=== PATIENT | female | born 1980 | race Two or more races ===

== ENCOUNTER → 2022-12-23 14:53 | Outpatient (BNVA) | payer OTHER, SELFPAY | PROVIDERS: Visit Provider Physician Assistant Surgical ==

== ENCOUNTER → 2023-01-06 08:07 | Outpatient (BNVA) | payer OTHER, SELFPAY | PROVIDERS: Visit Provider Surgery ==

== ENCOUNTER 2023-01-08 07:47 | Outpatient (AMB) | payer OTHER, SELFPAY ==
--- OUTSIDE RECORDS SUMMARY | 2023-01-06 08:09 | XMS_ITS | Continuity of Care Document ---
Author Name Unknown Organization [facility] y Address [address] [place] [address]- Care Team Providers Care Press Supervisor Name Role Phone Kehinde DOHERTY, [facility] Primary Care Physician Encounter [facility] [place] Date(s): 01/09/21 - 02/08/21 [facility] [address], [place] [address] Attending Physician: Jt Santana Admitting Physician: AdmJt lea Referring Physician: AdmtrJt Allergies, Adverse Reactions, Alerts Substance Reaction Severity Status Bactrim C/O: itching Active Immunizations Given and Recorded Vaccine Date Status Refusal Reason diphtheria-tetanus toxoids (DT) 03/22/02 Given Not Given Vaccine Date Status Refusal Reason pneumococcal 23-valent vaccine 12/14/12 Not Given Patient Refuses influenza virus vaccine, inactivated 12/14/12 Not Given Parent Or Guardian Refuses Medications clonazePAM 0.5 mg oral tablet 1 tablet = 0.5 mg, By Mouth, 3 times a day, # 90 tablet, 2 Refills, Maintenance, 10/14/20 13:23:00 EDT, Tablet, [facility], 166.5, cm, 09/10/20 8:11:00 EDT, Height, 107, kg, 11/21/2020:00:00 EDT, Dry Weight Start Date: 10/14/20 Stop Date: 01/12/21 Status: Ordered dapsone 100 mg oral tablet 1 tablet = 100 mg, By Mouth, Daily, # 30 tablet, 0 Refills, Maintenance, 06/27/20 10:11:00 EDT, [facility] upon patient request if the prescription is for a schedule II opioid drug., 166.5, cm, 06/27/20 9:31:00 ED... Start Date: 06/27/20 Status: Ordered gabapentin 400 mg oral capsule 400 mg, 1, capsule, By Mouth, 3 times a day, # 42 capsule, Refills 6, Tot. Refills 6, Maintenance, 06/18/20 8:10:00 EDT, Route to Pharmacy Electronically, [facility], 166.5, cm, 06/18/20 7:58:00 EDT, Height, 107, kg, 11/22/19 21:00:00... Start Date: 06/18/20 Stop Date: 09/24/20 Status: Ordered Genvoya oral tablet 1 tablet, By Mouth, Daily, WITH FOOD., # 30 tablet, 3 Refills, Maintenance, 12/29/20 16:31:00 EDT, [facility], 1 tablet By Mouth Daily,x30 days,Instr:WITH FOOD., 167, cm, 12/11/20 14:48:00 EDT, Height, 107, kg, 11/22/19 21:00:00 EDT, D... Start Date: 12/29/20 Stop Date: 04/28/21 Status: Ordered hydrOXYzine hydrochloride 25 mg oral tablet See Instructions, TAKE 1 TABLET BY MOUTH FOUR TIMES A DAY NEEDED FOR ANXIETY, # 60 tablet, 1 Refills, [facility], 166.5, cm, 11/06/20 15:04:00 EDT, Height, 107, kg, 11/22/19 21:00:00 EDT, Dry Weight Start Date: 11/27/20 Status: Ordered zolpidem 10 mg oral tablet 1 tablet = 10 mg, By Mouth, Daily at bedtime, PRN as needed for insomnia, # 28 tablet, 3 Refills, Maintenance, 10/18/20 16:32:00 EDT, Tablet, [facility], 166.5, cm, 09/10/20 8:11:00 EDT, Height, 107, kg, 11/22/19 21:00:00 EDT, Dry Weight Start Date: 10/18/20 Stop Date: 02/07/21 Status: Ordered Problem List Condition Effective Dates Status Health Status Inform ant AIDS (acquired immune defici ency syndrome)(Confirmed) Active Anemia(Confirmed) Active Anxiety(Confirmed) Active 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 teratoma(Confirmed) Active Depression(Confirmed) Active Eczema(Confirmed) Active History of delivery(Confirmed) Active Hydradenitis(Confirmed) Active Obesity due to excess calories(Confirmed) Active Tobacco abuse(Confirmed) Active Poor dentition(Confirmed) Active Poor hygiene(Confirmed) Active Social History Social History Type Response Smoking Status 10 or more cigarette s (1/2 pack or more)/day in last 30 days entered on: 11/06/20 Sex Female
--- OUTSIDE RECORDS SUMMARY | 2023-01-06 08:09 | XMS_ITS | Continuity of Care Document ---
Author Name Unknown Organization [facility] Address [address] [place] [address]- Care Team Providers Care Supervisor Meter Repair Shop Name Role Phone Maurilio Ramirez MD Primary Care Physician Encounter [facility] [place] R [id number] Date(s): 04/30/20 - 06/13/20 [facility] [address], [place] [address] Attending Physician: Maurilio Ramirez MD Admitting Physician: Maurilio Ramirez MD Allergies, Adverse Reactions, Alerts Substance Reaction Severity [...] 3 times a day, # 90 tablet, 3 Refills, Maintenance, 04/26/20 8:05:00 EST, Tablet, [facility], 166.5, cm, 11/30/19 10:56:00 EDT, Height, 107, kg, 11/22/19 21:00:00 EDT, Dry Weight Start Date: 04/26/20 Stop Date: 08/24/20 Status: Ordered gabapentin 400 mg oral capsule 400 mg, 1, capsule, By Mouth, 3 times a day, # 42 capsule, Refills 0, Tot. Refills 0, Maintenance, 11/23/19 13:41:00 EDT, Route to Pharmacy Electronically, [facility], 166.5, cm, 11/23/19 13:20:00 EDT, Height, 107, kg, 11/22/19 21:00:0... Start Date: 11/23/19 Stop Date: 12/07/19 Status: Ordered Genvoya oral tablet 1 tablet, By Mouth, Daily, WITH FOOD., # 30 tablet, 3 Refills, Maintenance, 04/25/20 14:22:00 EST, [facility], [facility], TAKE 1 TABLET BY MOUTH EVERY DAY WITH FOOD, 166.5, cm, 11/30/19 10:56:00 EDT, Height, 107, kg, 11/22/19 21:00:00 EDT, Dry Weight Start Date: 04/25/20 Status: Ordered Hibiclens 4% soap See Instructions, 1 applicator Topically daily to axilla, # 240 mL, 0 Refills, Soft Stop, 01/18/20 10:21:00 EDT, [facility]., 1 applicator Topically daily to axilla, 166.5, cm, 11/30/19 10:56:00 EDT, Height, 107, kg, 11/22/19 21:00:00 E... Start Date: 01/18/20 Status: Ordered Multivitamins with Folic Acid 1 mg oral tablet 1 tablet, By Mouth, Daily, pt would like pink tabs, not white, # 90 tablet, 4 Refills, Maintenance,12/07/19 10:00:00 EDT, Tablet, [facility]., 1 tablet By Mouth Daily,Instr:pt would like pink tabs, not white, 166.5, cm, 11/30/19 10:56:... Start Date: 12/07/19 Status: Ordered traMADol 50 mg oral tablet 1 tablet = 50 mg, By Mouth, Every 8 hours, prn severe pain, # 24 tablet, 0 Refills, Maintenance, 12/07/19 9:58:00 EDT, [facility] 166.5, cm, 11/30/19 10:56:00 EDT, Height, 107, kg, 11/22/19 21:00:00 EDT, Dry Weight Start Date: 12/07/19 Status: Ordered zolpidem 10 mg oral tablet 1 tablet = 10 mg, By Mouth, Daily at bedtime, PRN as needed for insomnia, # 30 tablet, 0 Refills, Maintenance, 04/26/20 8:05:00 EST, Tablet, [facility], 166.5, cm, 11/30/19 10:56:00 EDT, Height, 107, kg, 11/22/19 21:00:00 EDT, Dry Weight Start Date: 04/26/20 Stop Date: 05/26/20 Status: Ordered Problem List Condition Effective Dates Status Health Status Inform ant AIDS (acquired immune defici ency syndrome)(Confirmed) Active Anxiety(Confirmed) Active 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 teratoma(Confirmed) Active Depression(Confirmed) Active Eczema(Confirmed) Active History of delivery(Confirmed) Active Hydradenitis(Confirmed) Active Obesity due to excess calories(Confirmed) Active Tobacco abuse(Confirmed) Active Poor dentition(Confirmed) Active Poor hygiene(Confirmed) Active Social History Social History Type Response Smoking Status Current every day andreina judge; Type: Cigarettes; Tobacco use times per day: a pack every couple days; entered on: 05/31/14 Sex Female
--- OUTSIDE RECORDS SUMMARY | 2023-01-06 08:09 | XMS_ITS | Continuity of Care Document ---
Author Name Unknown Organization [facility] ter Address [address] [place] [address]- Care Team Providers Care Inside Technical Sales Representative Name Role Phone Stanford MCNEAL, Shea Smith Primary Care Physician Encounter [facility] [place] Date(s): 03/09/19 - 03/09/[address] [address]- [facility] Attending Physician: Shea Coyne NP Allergies, Adverse Reactions, Alerts Substance Reaction Severity Status Bactrim C/O: itching Active Immunizations Given and Recorded Vaccine Date Status Refusal Reason diphtheria-tetanus toxoids (DT) 03/22/02 Given Not Given Vaccine Date Status Refusal Reason influenza virus vaccine, inactivated 12/14/12 Not Given Parent Or Guardian Refuses pneumococcal 23-valent vaccine 12/14/12 Not Given Patient Refuses Medications Ambien 10 mg oral tablet 1 tablet = 10 mg, By Mouth, Daily at bedtime, PRN as needed for insomnia, for 30 days, # 30 tablet,5 Refills, Acute 04/25/19 12:25:53 EST, 10/27/18 12:25:53 EDT, Tablet Start Date: 10/27/18 Stop Date: 04/25/19 Status: Ordered clonazePAM 0.5 mg oral tablet 1 tablet = 0.5 mg, By Mouth, 3 times a day, # 90 tablet, 3 Refills, Maintenance, 10/27/18 12:23:50 EDT, Tablet Start Date: 10/27/18 Stop Date: 02/24/19 Status: Ordered gabapentin 100 mg oral capsule 200 mg, 2, capsule, By Mouth, Daily at bedtime, # 60 capsule, Refills 1, Tot. Refills 1, Maintenance, 10/27/18 12:22:39 EDT, Route to Pharmacy Electronically, [id number], [facility]/pharmacy #[id number] Start Date: 10/27/18 Stop Date: 12/26/18 Status: Ordered Genvoya oral tablet 1 tablet, By Mouth, Daily, with food, # 30 tablet, 5 Refills, Maintenance, 10/27/18 12:30:59 EDT, Tablet, 1 tablet By Mouth Daily,x30 days,Instr:with food Start Date: 10/27/18 Stop Date: 04/25/19 Status: Ordered Hibiclens 4% soap See Instructions, 1 applicator Topically Every Wednesday and Wednesday, # 120 mL, 1 Refills, Soft Stop, 06/07/18 15:33:34 EDT, 1 applicator Topically Every Wednesday and Wednesday Start Date: 06/07/18 Status: Ordered Multivitamins with Folic Acid 1 mg oral kit 1 pack/packet, By Mouth, Daily, patient would like pink tablets not the white ones please, # 30 pack/packet, 11 Refills, Maintenance, 11/09/17 15:14:41 EDT, Dispense form covered by pt's insurance. Plus is OK., 1 pack/packet By Mouth Daily,x3... Start Date: 11/09/17 Stop Date: 11/04/18 Status: Ordered valacyclovir 1 gm oral tablet 1 tablet = 1 Gm, By Mouth, 2 times a day, # 14 tablet, 0 Refills, Maintenance, 10/27/18 12:28:46 EDT, Tablet Start Date: 10/27/18 Status: Ordered Vitamin D 60479 iu oral capsule 50,000 International_Units, 1, capsule, By Mouth, Every week, # 5 capsule, Refills 1, Tot. Refills 1, Maintenance, 06/08/18 6:27:29 EDT, Route to Pharmacy Electronically, [id number], [facility] Start Date: 06/08/18 Stop Date: 08/07/18 Status: Ordered Problem List Condition Effective Dates [...]
--- OUTSIDE RECORDS SUMMARY | 2023-01-06 08:09 | XMS_ITS | Continuity of Care Document ---
Author Name Unknown Organization [facility] Address [address] [place] [address]- Care Team Providers Care Healthcare Manager Name Role Phone Dayton Busby MD Primary Care Physician Encounter [facility] [place] Date(s): 05/26/21 - 06/25/21 [facility] [address] [place] [id number] Attending Physician: Jt Santana Admitting Physician: Jt Santana Referring Physician: Jt Santana Allergies, Adverse Reactions, Alerts Substance Reaction Severity Status Bactrim C/O: itching Active Immunizations Given and Recorded Vaccine Date Status Refusal Reason diphtheria-tetanus toxoids (DT) 03/22/02 Given Not Given Vaccine Date Status Refusal Reason pneumococcal 23-valent vaccine 12/14/12 Not Given Patient Refuses influenza virus vaccine, inactivated 12/14/12 Not Given Parent Or Guardian Refuses Medications dapsone 100 mg oral tablet 1 tablet = 100 mg, By Mouth, Daily, # 30 tablet, 0 Refills, Maintenance, 06/27/20 10:11:00 EDT, Tablet, [facility], Partial fill upon patient request if the prescription is for a schedule II opioid drug., 166.5, cm, 06/27/20 9:31:00 ED... Start Date: 06/27/20 Status: Ordered gabapentin 400 mg oral capsule 400 mg, 1, capsule, By Mouth, 3 times a day, # 42 capsule, Refills 6, Tot. Refills 6, Maintenance, 06/18/20 8:10:00 EDT, Route to Pharmacy Electronically, [facility]., 166.5, cm, 06/18/20 7:58:00 EDT, Height, 107, kg, 11/22/19 21:00:00... Start Date: 06/18/20 Stop Date: 09/24/20 Status: Ordered Genvoya oral tablet 1 tablet, By Mouth, Daily, WITH FOOD., # 30 tablet, 3 Refills, Maintenance, 12/29/20 16:31:00 EDT, [facility] 1 tablet By Mouth Daily,x30 days,Instr:WITH FOOD., 167, cm, 12/11/20 14:48:00 EDT, Height, 107, kg, 11/22/19 21:00:00 EDT, D... 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 teratoma(Confirmed) Active Depression(Confirmed) Active Eczema(Confirmed) Active History of delivery(Confirmed) Active Hydradenitis(Confirmed) Active Obesity due to excess calories(Confirmed) Active Severe obesity(Confirmed) Active Tobacco abuse(Confirmed) Active Poor dentition(Confirmed) Active Poor hygiene(Confirmed) Active Social History Social History Type Response Smoking Status 10 or more cigarette s (1/2 pack or more)/day in last 30 days entered on: 11/06/20 Sex Female
--- OUTSIDE RECORDS SUMMARY | 2023-01-06 08:09 | XMS_ITS | Continuity of Care Document ---
Author Name Unknown Organization [facility] Address [address] [place] [address]- Care Team Providers Care Pockets And Pieces Necktie Operator Name Role Phone Ashley DOHERTY, Maurilio Burnett Primary Care Physician [phone] Encounter [facility] Date(s): 06/18/20 - 07/18/20 [facility] [address] [place], [place] [address] Attending Physician: Jt Santana Admitting Physician: Jt Santana Referring Physician: AdmJt lea Allergies, Adverse Reactions, Alerts Substance Reaction Severity [...] 3 times a day, # 90 tablet, 0 Refills, Maintenance, 06/18/20 8:26:00 EDT, Tablet, [facility], 166.5, cm, 06/18/20 7:58:00 EDT, Height, 107, kg, 11/22/19 21:00:00 EDT, Dry Weight Start Date: 06/18/20 Stop Date: 07/18/20 Status: Ordered dapsone 100 mg oral tablet 1 tablet = 100 mg, By Mouth, Daily, # 30 tablet, 0 Refills, Maintenance, 06/27/20 10:11:00 EDT, Tablet, [facility], Partial fill upon patient request if the prescription is for a schedule II opioid drug., 166.5, cm, 06/27/20 9:31:00 ED... Start Date: 06/27/20 Status: Ordered gabapentin 400 mg oral capsule 400 mg, 1, capsule, By Mouth, 3 times a day, # 42 capsule, Refills 6, Tot. Refills 6, Maintenance, 06/18/20 8:10:00 EDT, Route to Pharmacy Electronically, [facility], 166.5, cm, 06/18/20 7:58:00 EDT, Height, 107, kg, 11/22/19 21:00:00... Start Date: 06/18/20 Stop Date: 09/24/20 Status: Ordered Genvoya oral tablet 1 tablet, By Mouth, Daily, WITH FOOD., # 30 tablet, 3 Refills, Maintenance, 04/25/20 14:22:00 EST, [facility], 30, TAKE 1 TABLET BY MOUTH EVERY DAY WITH FOOD, 166.5, cm, 11/30/19 10:56:00 EDT, Height, 107, kg, 11/22/19 21:00:00 EDT, Dry Weight Start Date: 04/25/20 Status: Ordered zolpidem 10 mg oral tablet 1 tablet = 10 mg, By Mouth, Daily at bedtime, PRN as needed for insomnia, # 30 tablet, 0 Refills, Maintenance, 06/18/20 8:26:00 EDT, Tablet, [facility], 166.5, cm, 06/18/20 7:58:00 EDT, Height, 107, kg, 11/22/19 21:00:00 EDT, Dry Weight Start Date: 06/18/20 Stop Date: 07/18/20 Status: Ordered Problem List Condition Effective Dates [...]
--- OUTSIDE RECORDS SUMMARY | 2023-01-06 08:09 | XMS_ITS | Continuity of Care Document ---
Author Name Unknown Organization [facility] y Address [address] [place] [address]- Care Team Providers Care Horticulturalist Name Role Phone Dayton Busby MD Primary Care Physician [place] [facility] [place] - 07/05/21 [facility] [address], [place] [address] Attending Physician: Ovidio Sawyer MD Admitting Physician: Ovidio Sawyer MD Allergies, Adverse Reactions, Alerts Substance Reaction [...] 0 Refills, Maintenance, 06/27/20 10:11:00 EDT, Tablet, [facility], Partial fill upon patient request if the prescription is for a schedule II opioid drug., 166.5, cm, 06/27/20 9:31:00 ED... Start Date: 06/27/20 Status: Ordered gabapentin 400 mg oral capsule 400 mg, 1, capsule, By Mouth, 3 times a day, # 42 capsule, Refills 6, Tot. Refills 6, Maintenance, 06/18/20 8:10:00 EDT, Route to Pharmacy Electronically, [facility]., 166.5, cm, 06/18/20 7:58:00 EDT, Height, 107, kg, 11/22/19 21:00:00... Start Date: 06/18/20 Stop Date: 09/24/20 Status: Ordered Genvoya oral tablet 1 tablet, By Mouth, Daily, WITH FOOD., # 30 tablet, 3 Refills, Maintenance, 12/29/20 16:31:00 EDT, [facility] 1 tablet By Mouth Daily,x30 days,Instr:WITH FOOD., 167, cm, 12/11/20 14:48:00 EDT, Height, 107, kg, 11/22/19 21:00:00 EDT, D... Start Date: 12/29/20 Stop Date: 04/28/21 Status: Ordered hydrOXYzine hydrochloride 25 mg oral tablet 1 tablet, By Mouth, 4 times a day, PRN NEEDED FOR ANXIETY, # 60 tablet, 1 Refills, [facility], 167, cm, 05/21/21 13:49:00 EST, Height, 107, [...]
--- OUTSIDE RECORDS SUMMARY | 2023-01-06 08:09 | XMS_ITS | Continuity of Care Document ---
Author Name Unknown Organization [facility] Address [address] [place] [address]- Care Team Providers Care Water Vessel Captain Name Role Phone Kehinde DOHERTY, [place] Primary Care Physician Encounter [facility] [place] Date(s): 07/23/21 - 08/22/21 [facility] [address] [place], [place] [address] Allergies, Adverse Reactions, Alerts Substance Reaction Severity Status Bactrim C/O: itching Active Immunizations Given and Recorded Vaccine Date Status Refusal Reason diphtheria-tetanus toxoids (DT) 03/22/02 Given Not Given Vaccine Date Status Refusal Reason pneumococcal 23-valent vaccine 12/14/12 Not Given Patient Refuses influenza virus vaccine, inactivated 12/14/12 Not Given Parent Or Guardian Refuses Medications Ambien 10 mg oral tablet 1 tablet = 10 mg, By Mouth, Daily at bedtime, PRN as needed for insomnia, 0 Refills, Maintenance, 07/19/21 8:30:00 EDT, Tablet, Partial fill upon patient request if the prescription is for a scheduleII opioid drug. Start Date: 07/19/21 Status: Ordered aspirin 81 mg oral delayed release tablet 81 mg, 1, tablet, By Mouth, Daily, # 30 tablet, Refills 1, Tot. Refills 1, Maintenance, 07/22/21 8:57:00 EDT, Route to Pharmacy Electronically, [facility], Partial fill upon patient request if the prescription is for a schedule II opioid... Start Date: 07/22/21 Stop Date: 09/20/21 Status: Ordered clonazePAM 0.5 mg oral tablet 0.5 tablet = 0.25 mg, By Mouth, 4 times a day, PRN Anxiety, 0 Refills, Maintenance, 07/19/21 8:29:00 EDT, Tablet, Partial fill upon patient request if the prescription is for a schedule II opioid drug. Start Date: 07/19/21 Status: Ordered clopidogrel 75 mg oral tablet 75 mg, 1, tablet, By Mouth, Daily, # 30 tablet, Refills 1, Tot. Refills 1, Maintenance, 07/22/21 8:57:00 EDT, Route to Pharmacy Electronically, [facility], Partial fill upon patient request if the prescription is for a schedule II opioid... Start Date: 07/22/21 Status: Ordered gabapentin 400 mg oral capsule 400 mg, 1, capsule, By Mouth, 3 times a day, PRN, Refills 0, Maintenance, Pain , Moderate, 228:57:00 EDT, Partial fill upon patient request if the prescription is for a schedule II opioid drug. Start Date: 07/22/21 Status: Ordered Genvoya oral tablet 1 tablet, By Mouth, Daily, WITH FOOD., # 30 tablet, 3 Refills, Maintenance, 12/29/20 16:31:00 EDT, [facility] 1 tablet By Mouth Daily,x30 days,Instr:WITH FOOD., 167, cm, 12/11/20 14:48:00 EDT, Height, 107, kg, 11/22/19 21:00:00 EDT, D... Start Date: 12/29/20 Stop Date: 04/28/21 Status: Ordered hydrOXYzine hydrochloride 25 mg oral tablet 1 tablet, By Mouth, 4 times a day, PRN NEEDED FOR ANXIETY, # 60 tablet, 1 Refills, [facility], [facility], cm, 05/21/21 13:49:00 EST, Height, 107, kg, 11/22/19 21:00:00 EDT, Dry Weight Start Date: 06/02/21 Status: Ordered Lipitor 20 mg oral tablet 1 tablet = 20 mg, By Mouth, Daily, # 30 tablet, 0 Refills, Maintenance, 07/22/21 9:28:00 EDT, Tablet, [facility], Partial fill upon patient request if the prescription is for a scheduleII opioid drug., 172, cm, 07/22/21 9:16:00 EDT, Hei... Start Date: 07/22/21 Status: Ordered metoprolol 25 mg oral tablet, extended release 25 mg, 1, tablet, By Mouth, Daily, # 30 tablet, Refills 1, Tot. Refills 1, Maintenance, 07/22/21 8:57:00 EDT, Route to Pharmacy Electronically, [facility], Partial fill upon patient request if the prescription is for a schedule II opioid... Start Date: 07/22/21 Status: Ordered nitroglycerin 0.4 mg sublingual tablet 1 tablet = 0.4 mg, Sublingual, Every 5 minutes, PRN for chest pain, not to exceed 3 doses/15 min--if pain persists, seek medical attention, # 100 tablet, 0 Refills, Maintenance, 07/22/21 8:58:00 EDT,Tablet, [facility], Partial fill upon... Start Date: 07/22/21 Status: Ordered ProAir HFA 90 mcg/inh inhalation aerosol 1 puffs, Inhalation, 4 times a day, PRN as needed for wheezing, # 6.7 Gm, 0 Refills, Maintenance, 07/28/21 15:52:00 EDT, Aerosol, [facility] Partial fill upon patient request if the prescription is for a schedule II opioid drug., 1 pu... 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 teratoma(Confirmed) Active Depression(Confirmed) Active Eczema(Confirmed) Active History of delivery(Confirmed) Active Hydradenitis(Confirmed) Active NSTEMI (non-ST elevated myoc ardial infarction)(Confirmed) Active NSTEMI (non-ST elevated myoc ardial infarction)(Confirmed) Active Obese class I(Confirmed) Active Obesity due to excess calories(Confirmed) Active Tobacco abuse(Confirmed) Active Poor dentition(Confirmed) Active Poor hygiene(Confirmed) Active Social History Social History Type Response Smoking Status 10 or more cigarette s (1/2 pack or more)/day in last 30 days entered on: 11/06/20 Sex
--- OUTSIDE RECORDS SUMMARY | 2023-01-06 08:09 | XMS_ITS | Continuity of Care Document ---
Author Name Unknown Organization [facility] ter Address [address] [place] [address]- Care Team Providers Care Carpet Installation Specialist Name Role Phone Kehinde DOHERTY, [place] Primary Care Physician Encounter [facility] Date(s): 07/19/21 - 07/22/[address] [id number] Encounter Diagnosis NSTEMI (non-ST elevated myocardial infarction)(Final) - 07/19/21 Discharge Disposition: A-D/C Home Attending Physician: Jet Hand MD Admitting Physician: Clyde Worley MD Referring Physician: Not on Staff, Referring MD Allergies, Adverse Reactions, Alerts Substance Reaction [...] 07/22/21 8:57:00 EDT, Route to Pharmacy Electronically, [facility], Partial fill upon patient request [...] 07/22/21 8:57:00 EDT, [facility] fill upon patient request if [...] tablet, 3 Refills, Maintenance, 12/29/20 16:31:00 EDT[facility] 1 tablet By Mouth Daily,x30 days,Instr:WITH FOOD., 167, cm, 12/11/20 14:48:00 EDT, Height, 107, kg, 11/22/19 21:00:00 EDT, D... Start Date: 12/29/20 Stop Date: 04/28/21 Status: Ordered hydrOXYzine hydrochloride 25 mg oral tablet 1 tablet, By Mouth, 4 times a day, PRN NEEDED FOR ANXIETY, # 60 tablet, 1 Refills, [facility], 167, cm, 05/21/21 13:49:00 EST, Height, 107, kg, 11/22/19 21:00:00 EDT, Dry Weight Start Date: 06/02/21 Status: Ordered Lipitor 20 mg oral tablet 1 tablet = 20 mg, By Mouth, Daily, # 30 tablet, 0 Refills, Maintenance, 07/22/21 9:28:00 EDT, Tablet, [facility], Partial fill upon patient request if the prescription is for a scheduleII opioid drug., 172, cm, 07/22/21 9:16:00 EDT, Hei... Start Date: 07/22/21 Status: Ordered metoprolol 25 mg oral tablet, extended release 25 mg, XL Tablet, By Mouth, 07/22/21 9:00:00 EDT Start Date: 07/22/21 Stop Date: 07/22/21 Status: Completed metoprolol 25 mg oral tablet, extended release 25 mg, 1, tablet, By Mouth, Daily, # 30 tablet, Refills 1, Tot. Refills 1, Maintenance, 07/22/21 8:57:00 EDT, Route to Pharmacy Electronically, [facility], Partial fill upon patient request if the prescription is for a schedule II opioid... Start Date: 07/22/21 Status: Ordered nitroglycerin 0.4 mg sublingual tablet 1 tablet = 0.4 mg, Sublingual, Every 5 minutes, PRN for chest pain, not to exceed 3 doses/15 min--if pain persists, seek medical attention, # 100 tablet, 0 Refills, Maintenance, 07/22/21 8:58:00 EDT,Tablet, [facility], Partial fill upon... Start Date: 07/22/21 Status: Ordered Problem List Condition Effective Dates [...] Active Poor dentition(Confirmed) Active Poor hygiene(Confirmed) Active Results Radiology Reports * Exam Date Time Procedure Performing Provider Status 07/19/21 3:31 PM Chest 2 Views Frontal and Lat Victor Manuel Longoria; Luias (Verified) Notes: (Chest 2 Views Frontal and Lat) Reason For Exam: Chest Pain;Other: RESULT: Chest 2 Views Frontal and Lat Chest 2 Views Frontal and Lat Hx of Present Illness: Intermittent chest pain yesterday that is now resolved. Patient called back to ED after elevated troponin. Patient denies any symptoms at this time.; Reason: Other:; Chest Pain; Clinical Question(s): Other: COMPARISON: 07/18/2021. FINDINGS: LINES AND TUBES: None. LUNGS AND PLEURA: Again demonstrated is a right lung perihilar opacity. No pleural effusion. No pneumothorax. HEART, MEDIASTINUM AND SHARDA: Heart is normal in size. Normal upper mediastinal and hilar contour. BONES AND SOFT TISSUES: No acute abnormality. IMPRESSION: Persistent right perihilar lung opacity. Differential considerations include an infectious, inflammatory or neoplastic etiology. WSN: [id number] Ordering Physician: Lukas Lackey Dictated By: Dori Alves MD Dictated Date/Time: 07/19/21 3:34 pm Reviewed By: Dori Alves MD Signed By: Dori Alves MD Signed Date/Time: 07/19/21 3:34 pm Transcribed By: MARCO Transcribed Date/Time: 07/19/21 3:33 pm Vital Signs Most recent to oldest [Reference Range]: 1 2 3 Height 172 cm (07/22/21 9:16 AM) 172 cm (07/22/21 2:03 AM) 172 cm (07/21/21 7:59 PM) Weight 123.5 kg (07/22/21 2:03 AM) 124.2 kg (07/21/21 1:59 AM) 121.4 kg (07/20/21 3:01 AM) Oxygen Saturation [94-100 %] 94 % (07/22/21 9:16 AM) 95 % (07/22/21 2:03 AM) 97 % (07/21/21 7:59 PM) Pulse Rate [55-90 bpm] 109 bpm *H* (07/22/21 9:21 AM) 109 bpm *H* (07/22/21 9:16 AM) 114 bpm *H* (07/22/21 2:03 AM) Body Mass Index [18.5-24.99] 41.75 *>HHI* (07/22/21 2:03 AM) 41.98 *>HHI* (07/21/21 1:59 AM) 41.04 *>HHI* (07/20/21 3:01 AM) Blood Pressure [90-138/55-84 mm Hg] 116/52mm Hg (07/22/21 9:21 AM) 116/52mm Hg (07/22/21 9:16 AM) 95/63mm Hg (07/22/21 2:03 AM) Respiratory Rate [16-30 br/min] 21 br/min (07/22/21 9:16 AM) 18 br/min (07/22/21 2:03 AM) 18 br/min (07/21/21 7:59 PM) Temperature [96.8-100.4 DegF] 99.1 DegF (07/22/21 9:16 AM) 100.5 DegF *H* (07/22/21 2:03 AM) 99.1 DegF (07/21/21 7:59 PM) Mode of Delivery (Oxygen) Room air (07/22/21 9:16 AM) Room air (07/22/21 2:03 AM) Room air (07/21/21 7:59 PM) Blood pressure sites Arm, left (07/22/21 9:16 AM) Arm, left (07/22/21 2:03 AM) Arm, left (07/21/21 7:59 PM) Temperature Route Oral (07/22/21 9:16 AM) Oral (07/22/21 2:03 AM) Oral (07/21/21 7:59 PM) Dry Weight 121.3 kg (07/19/21 9:11 PM) 121.3 kg (07/19/21 6:39 PM) 121.3 kg (07/19/21 4:59 PM) Weight Obtained Via Bed scale (07/22/21 2:03 AM) Bed scale (07/21/21 1:59 AM) Bed scale (07/20/21 3:01 AM) Social History Social History Type Response Smoking Status 10 or more cigarette s (1/2 pack or more)/day in last 30 days entered on: 11/06/20 Sex Female
--- OUTSIDE RECORDS SUMMARY | 2023-01-06 08:09 | XMS_ITS | Continuity of Care Document ---
Author Name Unknown Organization [facility] Address [address] [place] [address]- Care Team Providers Care Retail General Manager Name Role Phone Kehinde DOHERTY, [place] Primary Care Physician Encounter [facility] Date(s): 01/07/22 - 02/06/22 [facility] [address] [place] [id number]- Allergies, Adverse Reactions, Alerts Substance Reaction Severity Status Bactrim C/O: itching Active Immunizations Given and Recorded Vaccine Date Status Refusal Reason diphtheria-tetanus toxoids (DT) 03/22/02 Given Not Given Vaccine Date Status Refusal Reason pneumococcal 23-valent vaccine 12/14/12 Not Given Patient Refuses influenza virus vaccine, inactivated 12/14/12 Not Given Parent Or Guardian Refuses Medications albuterol 0.083% inhalation solution 3 mL = 2.5 mg, Inhalation, Every 6 hours, PRN for wheezing, # 60 each, 2 Refills, Maintenance, 12/23/21 15:55:00 EDT, [facility] upon patient request if the prescription is for a schedule II opioid drug., 172, c... Start Date: 12/23/21 Status: Ordered Ambien 10 mg oral tablet 1 tablet [...] 07/22/21 8:57:00 EDT, Route to Pharmacy Electronically, [facility], Partial fill upon patient request if the prescription is for a schedule II opioid... Start Date: 07/22/21 Stop Date: 09/20/21 Status: Ordered cetirizine 5 mg oral tablet 1 tablet = 5 mg, By Mouth, Daily, PRN as needed for allergy symptoms, # 30 tablet, 0 Refills, Maintenance, 12/17/21 16:03:00 EDT, Tablet, [facility] Partial fill upon patient requestif the prescription is for a schedule II opioid niya... Start Date: 12/17/21 Status: Ordered clonazePAM 0.5 mg oral tablet [...] 07/22/21 8:57:00 EDT, Route to Pharmacy Electronically, [facility], Partial fill upon patient request if [...] Date: 07/22/21 Status: Ordered Genvoya oral tablet See Instructions, TAKE 1 TABLET BY MOUTH EVERY DAY WITH FOOD, # 30 tablet, 3 Refills, Maintenance, 12/17/21 13:32:00 EDT, [facility], [facility], TAKE 1 TABLET BY MOUTH EVERY DAY WITH FOOD, 172, cm, 07/22/21 9:16:00 EDT, Height, 121.3, kg, 07/19/21... Start Date: 12/17/21 Status: Ordered hydrOXYzine hydrochloride 25 mg oral tablet 1 tablet, By Mouth, 4 times a day, PRN NEEDED FOR ANXIETY, # 60 tablet, 1 Refills, Maintenance, 12/17/21 11:16:00 EDT, [facility], 172, cm, 07/22/21 9:16:00 EDT, Height, 121.3, kg, 07/19/21 21:11:00 EDT, Dry Weight Start Date: 12/17/21 Status: Ordered Lipitor 20 mg oral tablet 1 tablet = 20 mg, By Mouth, Daily, # 30 tablet, 0 Refills, Maintenance, 07/22/21 9:28:00 EDT, Tablet, [facility], Partial fill upon patient request if the prescription is for a scheduleII opioid drug., 172, cm, 07/22/21 9:16:00 EDT, Hei... Start Date: 07/22/21 Status: Ordered metoprolol 25 mg oral tablet, extended release 25 mg, 1, tablet, By Mouth, Daily, # 30 tablet, Refills 1, Tot. Refills 1, Maintenance, 07/22/21 8:57:00 EDT, Route to Pharmacy Electronically, [facility], Partial fill upon patient request if the prescription is for a schedule II opioid... Start Date: 07/22/21 Status: Ordered nitroglycerin 0.4 mg sublingual tablet 1 tablet = 0.4 mg, Sublingual, Every 5 minutes, PRN for chest pain, not to exceed 3 doses/15 min--if pain persists, seek medical attention, # 100 tablet, 0 Refills, Maintenance, 07/22/21 8:58:00 EDT,Tablet, [facility], Partial fill upon... Start Date: 07/22/21 Status: Ordered ProAir HFA 90 mcg/inh inhalation aerosol 2 puffs, Inhalation, 4 times a day, PRN as needed for wheezing, # 8.5 Gm, 5 Refills, Maintenance, 12/23/21 15:54:00 EDT, Aerosol, [facility] Partial fill upon patient request if the prescription is for a schedule II opioid drug., 2 pu... Start Date: 12/23/21 Status: Ordered Qvar Redihaler 40 mcg/inh inhalation aerosol = 40 mcg, Inhalation, 2 times a day, brand name required by insurance. *discontinue after 1 month after symptoms have been controlled, # 8.7 Gm, 1 Refills, Maintenance, 12/18/21 12:42:00 EDT, [facility] Partial fill upon patient requ... 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 teratoma Confirmed Active Depression Confirmed Active Eczema Confirmed Active History of delivery Confirmed Active Hydradenitis Confirmed Active NSTEMI (non-ST elevated myocardial infarction) Confirmed Active NSTEMI (non-ST elevated myocardial infarction) Confirmed Active Obesity due to excess calories Confirmed Active Severe obesity Confirmed Active Tobacco abuse Confirmed Active Poor dentition Confirmed Active Poor hygiene Confirmed Active Social History Social History Type Response Smoking Status Former smoker, quit more than 30 days ago; Other: Patient smoked 1ppd for 17 yrs as of 2019.; entered on: 12/17/21 Sex Patient Care team information Care Team Personnel Name: [place] Busby MD Position: S Resident Member Role: PCP Address: Address: [address] [place] [address]- Name: Raul Sung RN Position: S RN Member Role: Primary Care Nurse Name: Jose Peng RN Position: S RN Supv Member Role: Primary Care Nurse Name: Lupe Mancuso RN Position: S RN Member Role: Primary Care Nurse Name: Vielka Milan RN Position: S RN Member Role: Primary Care Nurse Name: Tomasa Brush RN Position: S RN Member Role: Primary Care Nurse Care Team Related Persons Name: MILAN WILKINSONA Address: home [address] [place] [address]
--- OUTSIDE RECORDS SUMMARY | 2023-01-06 08:09 | XMS_ITS | Continuity of Care Document ---
Author Name Unknown Organization [facility] Address [address] [place] [address]- Care Team Providers Care Panel Edge Painter Name Role Phone Kehinde DOHERTY, [place] Primary Care Physician ( [phone] Encounter [facility] Date(s): 06/29/22 - 07/29/22 [facility] [address] [place] [address]- Allergies, Adverse Reactions, Alerts Substance Reaction Severity [...] 2 Refills, Maintenance, 12/23/21 15:55:00 EDT, [facility] fill upon patient request [...] 07/22/21 8:57:00 EDT, Route to Pharmacy Electronically, [facility], Partial fill upon patient request if the prescription is for a schedule II opioid... Start Date: 07/22/21 Stop Date: 09/20/21 Status: Ordered cetirizine 5 mg oral tablet 1 tablet = 5 mg, By Mouth, Daily, PRN as needed for allergy symptoms, # 30 tablet, 0 Refills, Maintenance, 12/17/21 16:03:00 EDT, Tablet, [facility]., Partial fill upon patient requestif the prescription [...] 07/22/21 8:57:00 EDT, Route to Pharmacy Electronically, [facility], Partial fill upon patient request if the prescription is for a schedule II opioid... Start Date: 07/22/21 Status: Ordered gabapentin 400 mg oral capsule 400 mg, 1, capsule, By Mouth, 3 times a day, PRN, Refills 0, Maintenance, Pain , Moderate, :57:00 EDT, Partial fill upon patient request if the prescription is for a schedule II opioid drug. Start Date: 07/22/21 Status: Ordered Genvoya oral tablet 1 tablet, By Mouth, Daily, WITH FOOD., # 30 tablet, 3 Refills, Maintenance, 06/29/22 13:16:00 EDT, [facility], 30, TAKE 1 TABLET BY MOUTH EVERY DAY WITH FOOD, 172, cm, 01/15/22 16:40:00 EDT, Height, 121.3, kg, 07/19/21 21:11:00 EDT, Dry Weight Start Date: 06/29/22 Status: Ordered hydrOXYzine hydrochloride 25 mg oral tablet 1 tablet, By Mouth, 4 times a day, PRN NEEDED FOR ANXIETY, # 60 tablet, 1 Refills, Maintenance, 12/17/21 11:16:00 ED[facility], [facility], [facility], cm, 07/22/21 9:16:00 EDT, Height, 121.3, kg, 07/19/21 21:11:00 EDT, Dry Weight Start Date: 12/17/21 Status: Ordered Lipitor 20 mg oral tablet 1 tablet = 20 mg, By Mouth, Daily, # 30 tablet, 0 Refills, Maintenance, 07/22/21 9:28:00 EDT, Tablet, [facility], Partial fill upon patient request if the prescription is for a scheduleII opioid drug., 172, cm, 07/22/21 9:16:00 EDT, Hei... Start Date: 07/22/21 Status: Ordered metoprolol 25 mg oral tablet, extended release 25 mg, 1, tablet, By Mouth, Daily, # 30 tablet, Refills 1, Tot. Refills 1, Maintenance, 07/22/21 8:57:00 EDT, Route to Pharmacy Electronically, [facility], Partial fill upon patient request if the prescription is for a schedule II opioid... Start Date: 07/22/21 Status: Ordered nitroglycerin 0.4 mg sublingual tablet 1 tablet = 0.4 mg, Sublingual, Every 5 minutes, PRN for chest pain, not to exceed 3 doses/15 min--if pain persists, seek medical attention, # 100 tablet, 0 Refills, Maintenance, 07/22/21 8:58:00 EDT,Tablet, [facility], Partial fill upon... Start Date: 07/22/21 Status: Ordered ProAir HFA 90 mcg/inh inhalation aerosol 2 puffs, Inhalation, 4 times a day, PRN as needed for wheezing, # 8.5 Gm, 5 Refills, Maintenance, 12/23/21 15:54:00 EDT, Aerosol, [facility] Partial fill upon patient request if the prescription is for a schedule II opioid drug., 2 pu... Start Date: 12/23/21 Status: Ordered Qvar Redihaler 40 mcg/inh inhalation aerosol = 40 mcg, Inhalation, 2 times a day, brand name required by insurance. *discontinue after 1 month after symptoms have been controlled, # 8.7 Gm, 1 Refills, Maintenance, 12/18/21 12:42:00 EDT, [facility] Partial fill upon patient requ... Start [...] S Resident Member Role: PCP Address: Address: [address] [place] [id number]- Name: Raul Sung RN Position: S RN [...] Care Nurse Care Team Related Persons Name: WHIT WILKINSON Address: home [address] [address]
--- OUTSIDE RECORDS SUMMARY | 2023-01-06 08:10 | XMS_ITS | Continuity of Care Document ---
Author Name Unknown Organization [facility] y Address [address] [place] [address]- Care Team Providers Care Brush Holder Inspector Name Role Phone Kehinde DOHERTY, [facility] Primary Care Physician Encounter [facility] Date(s): 08/05/20 - 09/21/20 [facility] [address] [place], [place] [address] Attending Physician: Ovidio Sawyer MD Admitting [...] 0 Refills, Maintenance, 06/18/20 8:26:00 EDT, Tablet, [facility]., 166.5, cm, 06/18/20 7:58:00 EDT, Height, 107, kg, 11/22/19 21:00:00 EDT, Dry Weight Start Date: 06/18/20 Stop Date: 07/18/20 Status: Ordered dapsone 100 mg oral tablet 1 tablet = 100 mg, By Mouth, Daily, # 30 tablet, 0 Refills, Maintenance, 06/27/20 10:11:00 EDT, Tablet, [facility], Partial fill upon patient request if the prescription is for a schedule II opioid drug., 166.5, cm, 06/27/20 9:31:00 ED... Start Date: 06/27/20 Status: Ordered gabapentin 400 mg oral capsule 400 mg, 1, capsule, By Mouth, 3 times a day, # 42 capsule, Refills 6, Tot. Refills 6, Maintenance, 06/18/20 8:10:00 EDT, Route to Pharmacy Electronically, [facility]., 166.5, cm, 06/18/20 7:58:00 EDT, Height, 107, kg, 11/22/19 21:00:00... Start Date: 06/18/20 Stop Date: 09/24/20 Status: Ordered Genvoya oral tablet 1 tablet, By Mouth, Daily, WITH FOOD., # 30 tablet, 3 Refills, Maintenance, 04/25/20 14:22:00 EST, [facility], TAKE 1 TABLET BY MOUTH EVERY DAY WITH FOOD, 166.5, cm, 11/30/19 10:56:00 EDT, Height, 107, kg, 11/22/19 21:00:00 EDT, Dry Weight Start Date: 04/25/20 Status: Ordered guaiFENesin 100 mg/5 mL oral liquid 10 mL = 200 mg, By Mouth, Every 4 hours, PRN for cough, # 240 mL, 1 Refills, Acute 09/24/20 8:32:00EDT, 09/10/20 8:31:00 EDT, Liquid, [facility], Partial fill upon patient request ifthe prescription is for a schedule II opioid drug.,... Start Date: 09/10/20 Stop Date: 09/24/20 Status: Ordered zolpidem 10 mg oral tablet 1 tablet = 10 mg, By Mouth, Daily at bedtime, PRN as needed for insomnia, # 30 tablet, 0 Refills, Maintenance, 06/18/20 8:26:00 EDT, Tablet, [facility], 166.5, cm, 06/18/20 7:58:00 EDT, Height, 107, [...] Active Social History Social History Type Response Tobacco Other: quit tobacco 05/2020. Sex Female
--- OUTSIDE RECORDS SUMMARY | 2023-01-06 08:10 | XMS_ITS | Continuity of Care Document ---
Author Name Unknown Organization [facility] Address [address] [place] [address]- Care Team Providers Care Weatherization Administrator Name Role Phone Maurilio Ramirez MD Primary Care Physician [place] [facility] [place] 11/30/19 - 01/20/20 [facility] [address] [place] [address]- Attending Physician: Ovidio Sawyer MD Admitting Physician: Ovidio Sawyer MD Allergies, Adverse Reactions, Alerts Substance Reaction Severity Status Bactrim C/O: itching Active Immunizations Given and Recorded Vaccine Date Status Refusal Reason diphtheria-tetanus toxoids (DT) 03/22/02 Given Not Given Vaccine Date Status Refusal Reason influenza virus vaccine, inactivated 12/14/12 Not Given Parent Or Guardian Refuses pneumococcal 23-valent vaccine 12/14/12 Not Given Patient Refuses Medications atovaquone 750 mg/5 mL oral suspension 10 mL = 1,500 mg, By Mouth, Daily, for 30 days, # 300 mL, 1 Refills, Acute 01/29/20 11:21:00 EST, 11/30/19 11:21:00 EDT, Suspension, [facility], 166.5, cm, 11/30/19 10:56:00 EDT, Height, 107, kg, 11/22/19 21:00:00 EDT, Dry Weight Start Date: 11/30/19 Stop Date: 01/29/20 Status: Ordered clonazePAM 0.5 mg oral tablet 1 tablet = 0.5 mg, By Mouth, 3 times a day, # 90 tablet, 3 Refills, Maintenance, 11/30/19 11:06:00 EDT, Tablet, [facility], 166.5, cm, 11/30/19 10:56:00 EDT, Height, 107, kg, 11/21/2020:00:00 EDT, Dry Weight Start Date: 11/30/19 Stop Date: 03/29/20 Status: Ordered gabapentin 400 mg oral capsule 400 mg, 1, capsule, By Mouth, 3 times a day, # 42 capsule, Refills 0, Tot. Refills 0, Maintenance, 11/23/19 13:41:00 EDT, Route to Pharmacy Electronically, [facility], 166.5, cm, 11/23/19 13:20:00 EDT, Height, 107, kg, 11/22/19 21:00:0... Start Date: 11/23/19 Stop Date: 12/07/19 Status: Ordered Genvoya oral tablet 1 tablet, By Mouth, Daily, with food, # 30 tablet, 3 Refills, Maintenance, 11/30/19 11:21:00 EDT, Tablet, [facility], 1 tablet By Mouth Daily,Instr:with food, 166.5, cm, 11/30/19 10:56:00 EDT, Height, 107, kg, 11/22/19 21:00:00 EDT, Start Date: 11/30/19 Status: Ordered Hibiclens 4% soap See Instructions, 1 applicator Topically daily to axilla, # 240 mL, 0 Refills, Soft Stop, 01/18/20 10:21:00 EDT, [facility]., 1 applicator Topically daily to axilla, 166.5, cm, 11/30/19 10:56:00 EDT, Height, 107, kg, 11/22/19 21:00:00 E... Start Date: 01/18/20 Status: Ordered Multivitamins with Folic Acid 1 mg oral tablet 1 tablet, By Mouth, Daily, pt would like pink tabs, not white, # 90 tablet, 4 Refills, Maintenance,12/07/19 10:00:00 EDT, Tablet, [facility] 1 tablet By Mouth Daily,Instr:pt would like pink tabs, not white, 166.5, cm, 11/30/19 10:56:... Start Date: 12/07/19 Status: Ordered traMADol 50 mg oral tablet 1 tablet = 50 mg, By Mouth, Every 8 hours, prn severe pain, # 24 tablet, 0 Refills, Maintenance, 12/07/19 9:58:00 EDT, [facility] 166.5, cm, 11/30/19 10:56:00 EDT, Height, 107, kg, 11/22/19 21:00:00 EDT, Dry Weight Start Date: 12/07/19 Status: Ordered zolpidem 10 mg oral tablet 1 tablet = 10 mg, By Mouth, Daily at bedtime, PRN as needed for insomnia, # 30 tablet, 3 Refills, Maintenance, 11/30/19 11:07:00 EDT, Tablet, [facility], 166.5, cm, 11/30/19 10:56:00 EDT, Height, 107, kg, 11/22/19 21:00:00 EDT, Dry Weight Start Date: 11/30/19 Stop Date: 03/29/20 Status: Ordered Problem List Condition Effective Dates [...]
--- OUTSIDE RECORDS SUMMARY | 2023-01-06 08:10 | XMS_ITS | Continuity of Care Document ---
Author Name Unknown Organization [facility] y Address [address] [place] [address]- Care Team Providers Care Boiler Room Operator Name Role Phone [place] Busby MD [id number] - 08[facility]09/[facility] [address], [place] [address] Attending Physician: Ovidio Sawyer MD [...] 07/22/21 8:57:00 EDT, Route to Pharmacy Electronically, [facility], Partial fill upon patient [...] 07/22/21 8:57:00 EDT, Route to Pharmacy Electronically, [facility], Partial fill upon patient request if [...] tablet, 3 Refills, Maintenance, 12/29/20 16:31:00 EDT, [facility]., 1 tablet By Mouth Daily,x30 days,Instr:WITH FOOD., 167, cm, 12/11/20 14:48:00 EDT, Height, 107, kg, 11/22/19 21:00:00 EDT, D... Start Date: 12/29/20 Stop Date: 04/28/21 Status: Ordered hydrOXYzine hydrochloride 25 mg oral tablet 1 tablet, By Mouth, 4 times a day, PRN NEEDED FOR ANXIETY, # 60 tablet, 1 Refills, [facility], 167, cm, 05/21/21 13:49:00 EST, Height, 107, kg, 11/22/19 21:00:00 EDT, Dry Weight Start Date: 06/02/21 Status: Ordered Lipitor 20 mg oral tablet 1 tablet = 20 mg, By Mouth, Daily, # 30 tablet, 0 Refills, Maintenance, 07/22/21 9:28:00 EDT, Tablet, [facility] 3, Partial fill upon patient request if the prescription is for a scheduleII opioid drug., 172, cm, 07/22/21 9:16:00 EDT, Hei... Start Date: 07/22/21 Status: Ordered metoprolol 25 mg oral tablet, extended release 25 mg, 1, tablet, By Mouth, Daily, # 30 tablet, Refills 1, Tot. Refills 1, Maintenance, 07/22/21 8:57:00 EDT, Route to Pharmacy Electronically, [facility] 3, Partial fill upon patient request if the prescription is for a schedule II opioid... Start Date: 07/22/21 Status: Ordered nitroglycerin 0.4 mg sublingual tablet 1 tablet = 0.4 mg, Sublingual, Every 5 minutes, PRN for chest pain, not to exceed 3 doses/15 min--if pain persists, seek medical attention, # 100 tablet, 0 Refills, Maintenance, 07/22/21 8:58:00 EDT,Tablet, [facility] 3, Partial fill upon... Start Date: 07/22/21 Status: Ordered ProAir HFA 90 mcg/inh inhalation aerosol 1 puffs, Inhalation, 4 times a day, PRN as needed for wheezing, # 6.7 Gm, 0 Refills, Maintenance, 07/28/21 15:52:00 EDT, [facility]erosol, [facility] fill upon patient request if the [...]
--- OUTSIDE RECORDS SUMMARY | 2023-01-06 08:10 | XMS_ITS | Continuity of Care Document ---
Author Name Unknown Organization [facility] Address [address] [place] [address]- Care Team Providers Care Steamfitter Name Role Phone Stanford MCNEAL, Shea Smith Primary Care Physician Encounter [facility] Date(s): 03/07/19 - 03/17/[address] [address]- [facility] Attending Physician: Admtr, Jt Allergies, Adverse Reactions, Alerts Substance Reaction Severity [...] 10/27/18 12:22:39 EDT, Route to Pharmacy Electronically, [id number], [facility]/pharmacy #[id number] Start Date: 10/27/18 Stop Date: 12/26/18 [...] Start Date: 10/27/18 Status: Ordered Vitamin D 19025 iu oral capsule 50,000 International_Units, 1, capsule, By Mouth, Every week, # 5 capsule, Refills 1, Tot. Refills 1, Maintenance, 06/08/18 6:27:29 EDT, Route to Pharmacy Electronically, [id number]_[id number], [facility] Start Date: 06/08/18 Stop Date: [...]
--- OUTSIDE RECORDS SUMMARY | 2023-01-06 08:10 | XMS_ITS | Continuity of Care Document ---
Author Name Unknown Organization [facility] y Address [address] [place] [address]- Care Team Providers Care It Sales Representative Name Role Phone [place] Busby MD [id number] - 04/19/[facility] [address] [place], [place] [address] Attending Physician: Ovidio Sawyer MD Admitting Physician: [...] 0 Refills, Maintenance, 06/27/20 10:11:00 EDT, Tablet, [facility], Partial fill upon patient request if the prescription is for a schedule II opioid drug., 166.5, cm, 06/27/20 9:31:00 ED... Start Date: 06/27/20 Status: Ordered gabapentin 400 mg oral capsule 400 mg, 1, capsule, By Mouth, 3 times a day, # 42 capsule, Refills 6, Tot. Refills 6, Maintenance, 06/18/20 8:10:00 EDT, Route to Pharmacy Electronically, [facility], 166.5, cm, 06/18/20 7:58:00 EDT, Height, 107, kg, 11/22/19 21:00:00... Start Date: 06/18/20 Stop Date: 09/24/20 Status: Ordered Genvoya oral tablet 1 tablet, By Mouth, Daily, WITH FOOD., # 30 tablet, 3 Refills, Maintenance, 12/29/20 16:31:00 EDT, [facility] 1 tablet By Mouth Daily,x30 days,Instr:WITH FOOD., 167, cm, 12/11/20 14:48:00 EDT, Height, 107, kg, 11/22/19 21:00:00 EDT, D... Start Date: 12/29/20 Stop Date: 04/28/21 Status: Ordered hydrOXYzine hydrochloride 25 mg oral tablet See Instructions, TAKE 1 TABLET BY MOUTH FOUR TIMES A DAY NEEDED FOR ANXIETY, # 60 tablet, 1 Refills, [facility], 166.5, cm, 11/06/20 15:04:00 EDT, Height, 107, kg, 11/22/19 21:00:00 EDT, Dry Weight Start Date: 11/27/20 Status: Ordered Problem List Condition Effective Dates [...]
--- OUTSIDE RECORDS SUMMARY | 2023-01-06 08:10 | XMS_ITS | Continuity of Care Document ---
Author Name Unknown Organization [facility] Address [address] [place] [address]- Care Team Providers Care Foam Caster Name Role Phone Kehinde DOHERTY, [place] Primary Care Physician ( [phone] [place] [facility] Date[place] 05/11/22 - 06/10/22 [facility] [address] [place] [address]- Allergies, Adverse Reactions, Alerts Substance Reaction Severity [...] 2 Refills, Maintenance, 12/23/21 15:55:00 EDT, Solution[facility] Partial fill upon patient request if [...] 07/22/21 8:57:00 EDT, Route to Pharmacy Electronically, [facility], Partial fill upon patient request if the prescription is for a schedule II opioid... Start Date: 07/22/21 Stop Date: 09/20/21 Status: Ordered cetirizine 5 mg oral tablet 1 tablet = 5 mg, By Mouth, Daily, PRN as needed for allergy symptoms, # 30 tablet, 0 Refills, Maintenance, 12/17/21 16:03:00 EDT, Tablet, [facility]., Partial fill upon patient requestif the prescription [...] 07/22/21 8:57:00 EDT, Route to Pharmacy Electronically, [facility], Partial fill upon patient request if [...] tablet, 3 Refills, Maintenance, 12/17/21 13:32:00 EDT, [facility], 30, TAKE 1 TABLET BY MOUTH EVERY DAY WITH FOOD, 172, cm, 07/22/21 9:16:00 EDT, Height, 121.3, kg, 07/19/21... Start Date: 12/17/21 Status: Ordered hydrOXYzine hydrochloride 25 mg oral tablet 1 tablet, By Mouth, 4 times a day, PRN NEEDED FOR ANXIETY, # 60 tablet, 1 Refills, Maintenance, 12/17/21 11:16:00 ED[facility], [facility], [facility], cm, 07/22/21 9:16:00 EDT, Height, 121.3, kg, 07/19/21 21:11:00 EDT, Dry Weight Start Date: 12/17/21 Status: Ordered Lipitor 20 mg oral tablet 1 tablet = 20 mg, By Mouth, Daily, # 30 tablet, 0 Refills, Maintenance, 07/22/21 9:28:00 EDT, Tablet, [facility] 3, Partial fill upon patient request if the prescription is for a scheduleII opioid drug., 172, cm, 07/22/21 9:16:00 EDT, Hei... Start Date: 07/22/21 Status: Ordered metoprolol 25 mg oral tablet, extended release 25 mg, 1, tablet, By Mouth, Daily, # 30 tablet, Refills 1, Tot. Refills 1, Maintenance, 07/22/21 8:57:00 EDT, Route to Pharmacy Electronically, [facility], Partial fill upon patient request if the prescription is for a schedule II opioid... Start Date: 07/22/21 Status: Ordered nitroglycerin 0.4 mg sublingual tablet 1 tablet = 0.4 mg, Sublingual, Every 5 minutes, PRN for chest pain, not to exceed 3 doses/15 min--if pain persists, seek medical attention, # 100 tablet, 0 Refills, Maintenance, 07/22/21 8:58:00 EDT,Tablet, [facility] 3, Partial fill upon... Start Date: 07/22/21 Status: Ordered ProAir HFA 90 mcg/inh inhalation aerosol 2 puffs, Inhalation, 4 times a day, PRN as needed for wheezing, # 8.5 Gm, 5 Refills, Maintenance, 12/23/21 15:54:00 EDT, Aerosol, [facility] Partial fill upon patient request if the prescription is for a schedule II opioid drug., 2 pu... Start Date: 12/23/21 Status: Ordered Qvar Redihaler 40 mcg/inh inhalation aerosol = 40 mcg, Inhalation, 2 times a day, brand name required by insurance. *discontinue after 1 month after symptoms have been controlled, # 8.7 Gm, 1 Refills, Maintenance, 12/18/21 12:42:00 EDT, [facility] Partial fill upon patient requ... Start [...] S Resident Member Role: PCP Address: Address: [address] [place] [id number]- Name: Raul Sung RN Position: S RN [...] Care Nurse Care Team Related Persons Name: WILKINSONWHIT Address: [address] [address]
--- OUTSIDE RECORDS SUMMARY | 2023-01-06 08:10 | XMS_ITS | Continuity of Care Document ---
Author Name Unknown Organization [facility] Address [address] [place] [address]- Care Team Providers Care Forestry Engineer Name Role Phone [place] Busby MD Primary Care Physician Encounter [facility] Date(s): 01/02/22 - 05/02/[address] [address] Attending Physician: Desirae Webb MD Admitting Physician: Desirae Webb MD Referring Physician: [place] Busby MD Allergies, Adverse Reactions, Alerts Substance Reaction [...] 2 Refills, Maintenance, 12/23/21 15:55:00 EDT, Solution, [facility], Partial fill upon patient request if [...] 07/22/21 8:57:00 EDT, Route to Pharmacy Electronically, [facility] 3, Partial fill upon patient request if the prescription is for a schedule II opioid... Start Date: 07/22/21 Stop Date: 09/20/21 Status: Ordered cetirizine 5 mg oral tablet 1 tablet = 5 mg, By Mouth, Daily, PRN as needed for allergy symptoms, # 30 tablet, 0 Refills, Maintenance, 12/17/21 16:03:00 EDT, Tablet, [facility], Partial fill upon patient requestif the prescription [...] 07/22/21 8:57:00 EDT, Route to Pharmacy Electronically, [facility] 3, Partial fill upon patient request [...] tablet, 3 Refills, Maintenance, 12/17/21 13:32:00 EDT, [facility], 30, TAKE 1 TABLET BY MOUTH EVERY DAY WITH FOOD, 172, cm, 07/22/21 9:16:00 EDT, Height, 121.3, kg, 07/19/21... Start Date: 12/17/21 Status: Ordered hydrOXYzine hydrochloride 25 mg oral tablet 1 tablet, By Mouth, 4 times a day, PRN NEEDED FOR ANXIETY, # 60 tablet, 1 Refills, Maintenance, 12/17/21 11:16:00 EDT, [facility], 172, cm, 07/22/21 9:16:00 EDT, Height, 121.3, kg, 07/19/21 21:11:00 EDT, Dry Weight Start Date: 12/17/21 Status: Ordered Lipitor 20 mg oral tablet 1 tablet = 20 mg, By Mouth, Daily, # 30 tablet, 0 Refills, Maintenance, 07/22/21 9:28:00 EDT, Tablet, [facility] 3, Partial fill upon patient request if the prescription is for a scheduleII opioid drug., 172, cm, 07/22/21 9:16:00 EDT, Hei... Start Date: 07/22/21 Status: Ordered metoprolol 25 mg oral tablet, extended release 25 mg, 1, tablet, By Mouth, Daily, # 30 tablet, Refills 1, Tot. Refills 1, Maintenance, 07/22/21 8:57:00 EDT, Route to Pharmacy Electronically, [facility] 3, Partial fill upon patient request if the prescription is for a schedule II opioid... Start Date: 07/22/21 Status: Ordered nitroglycerin 0.4 mg sublingual tablet 1 tablet = 0.4 mg, Sublingual, Every 5 minutes, PRN for chest pain, not to exceed 3 doses/15 min--if pain persists, seek medical attention, # 100 tablet, 0 Refills, Maintenance, 07/22/21 8:58:00 EDT,Tablet, [facility] 3, Partial fill upon... Start Date: 07/22/21 Status: Ordered ProAir HFA 90 mcg/inh inhalation aerosol 2 puffs, Inhalation, 4 times a day, PRN as needed for wheezing, # 8.5 Gm, 5 Refills, Maintenance, 12/23/21 15:54:00 EDT, Aerosol, [facility]., Partial fill upon patient request if the prescription is for a schedule II opioid drug., 2 pu... Start Date: 12/23/21 Status: Ordered Qvar Redihaler 40 mcg/inh inhalation aerosol = 40 mcg, Inhalation, 2 times a day, brand name required by insurance. *discontinue after 1 month after symptoms have been controlled, # 8.7 Gm, 1 Refills, Maintenance, 12/18/21 12:42:00 EDT, [facility]., Partial fill upon patient requ... Start [...] S Resident Member Role: PCP Address: Address: [address] [place] [address]- Name: Raul Sung RN Position: S RN [...] Related Persons Name: WHIT WILKINSON Address: home [address] [place] [id number]
--- OUTSIDE RECORDS SUMMARY | 2023-01-06 08:10 | XMS_ITS | Continuity of Care Document ---
Author Name Unknown Organization [facility] Address [address] [place] [address]- Care Team Providers Care Industrial/Organizational Psychologist Name Role Phone Kehinde DOHERTY, [facility] Primary Care Physician Encounter [facility] Date(s): 05/15/21 - 06/25/21 [facility] [address] [place], [place] [address] Attending Physician: Not on Staff, Attending MD Allergies, Adverse Reactions, Alerts Substance Reaction [...] 0 Refills, Maintenance, 06/27/20 10:11:00 EDT, Tablet, [facility], Partial fill upon patient request if the prescription is for a schedule II opioid drug., 166.5, cm, 06/27/20 9:31:00 ED... Start Date: 06/27/20 Status: Ordered gabapentin 400 mg oral capsule 400 mg, 1, capsule, By Mouth, 3 times a day, # 42 capsule, Refills 6, Tot. Refills 6, Maintenance, 06/18/20 8:10:00 EDT, Route to Pharmacy Electronically, [facility] 166.5, cm, 06/18/20 7:58:00 EDT, Height, 107, kg, 11/22/19 21:00:00... Start Date: 06/18/20 Stop Date: 09/24/20 Status: Ordered Genvoya oral tablet 1 tablet, By Mouth, Daily, WITH FOOD., # 30 tablet, 3 Refills, Maintenance, 12/29/20 16:31:00 EDT, [facility] 1 tablet By Mouth Daily,x30 days,Instr:WITH FOOD., 167, cm, 12/11/20 14:48:00 EDT, Height, 107, kg, 11/22/19 21:00:00 EDT, D... Start Date: 12/29/20 Stop Date: 04/28/21 Status: Ordered hydrOXYzine hydrochloride 25 mg oral tablet 1 tablet, By Mouth, 4 times a day, PRN NEEDED FOR ANXIETY, # 60 tablet, 1 Refills, [facility], 167, cm, 05/21/21 13:49:00 EST, [...]
--- OUTSIDE RECORDS SUMMARY | 2023-01-06 08:10 | XMS_ITS | Continuity of Care Document ---
Author Name Unknown Organization [facility] Address [address] [place] [address]- Care Team Providers Care Mobile Home Technician Name Role Phone Kehinde DOHERTY, [place] Primary Care Physician Encounter [facility] Date(s): 12/16/21 - 01/24/22 [facility] [address] [place] [address]- Attending Physician: Danae Hightower MD Admitting Physician: Danae Hightower MD Allergies, Adverse Reactions, Alerts Substance Reaction [...] 2 Refills, Maintenance, 12/23/21 15:55:00 EDT, Solution, [facility], Partial fill upon patient request if the [...] 07/22/21 8:57:00 EDT, Route to Pharmacy Electronically, [facility], Partial fill upon patient request if the prescription is for a schedule II opioid... Start Date: 07/22/21 Stop Date: 09/20/21 Status: Ordered cetirizine 5 mg oral tablet 1 tablet = 5 mg, By Mouth, Daily, PRN as needed for allergy symptoms, # 30 tablet, 0 Refills, Maintenance, 12/17/21 16:03:00 EDT, Tablet, [facility]., Partial fill upon patient requestif the prescription [...] 07/22/21 8:57:00 EDT, Route to Pharmacy Electronically, [facility] 3, Partial fill upon patient request [...] tablet, 3 Refills, Maintenance, 12/17/21 13:32:00 EDT, [facility], 30, TAKE 1 TABLET BY MOUTH EVERY DAY WITH FOOD, 172, cm, 07/22/21 9:16:00 EDT, Height, 121.3, kg, 07/19/21... Start Date: 12/17/21 Status: Ordered hydrOXYzine hydrochloride 25 mg oral tablet 1 tablet, By Mouth, 4 times a day, PRN NEEDED FOR ANXIETY, # 60 tablet, 1 Refills, Maintenance, 12/17/21 11:16:00 EDT, [facility], [facility], cm, 07/22/21 9:16:00 EDT, Height, 121.3, kg, 07/19/21 21:11:00 EDT, Dry Weight Start Date: 12/17/21 Status: Ordered Lipitor 20 mg oral tablet 1 tablet = 20 mg, By Mouth, Daily, # 30 tablet, 0 Refills, Maintenance, 07/22/21 9:28:00 EDT, Tablet, [facility], Partial fill upon patient request if the prescription is for a scheduleII opioid drug., 172, cm, 07/22/21 9:16:00 EDT, Hei... Start Date: 07/22/21 Status: Ordered metoprolol 25 mg oral tablet, extended release 25 mg, 1, tablet, By Mouth, Daily, # 30 tablet, Refills 1, Tot. Refills 1, Maintenance, 07/22/21 8:57:00 EDT, Route to Pharmacy Electronically, [facility] 3, Partial fill upon patient request if the prescription is for a schedule II opioid... Start Date: 07/22/21 Status: Ordered nitroglycerin 0.4 mg sublingual tablet 1 tablet = 0.4 mg, Sublingual, Every 5 minutes, PRN for chest pain, not to exceed 3 doses/15 min--if pain persists, seek medical attention, # 100 tablet, 0 Refills, Maintenance, 07/22/21 8:58:00 EDT,Tablet, [facility], Partial fill upon... Start Date: 07/22/21 Status: Ordered ProAir HFA 90 mcg/inh inhalation aerosol 2 puffs, Inhalation, 4 times a day, PRN as needed for wheezing, # 8.5 Gm, 5 Refills, Maintenance, 12/23/21 15:54:00 EDT, Aerosol, [facility] Partial fill upon patient request if the prescription is for a schedule II opioid drug., 2 pu... Start Date: 12/23/21 Status: Ordered Qvar Redihaler 40 mcg/inh inhalation aerosol = 40 mcg, Inhalation, 2 times a day, brand name required by insurance. *discontinue after 1 month after symptoms have been controlled, # 8.7 Gm, 1 Refills, Maintenance, 12/18/21 12:42:00 EDT, [facility]., Partial fill upon patient requ... Start [...] on: 12/17/21 Sex Patient Care team information Personnel Name: Kehinde DOHERTY, [place] Address: Address: [address] [place] [id number]
--- OUTSIDE RECORDS SUMMARY | 2023-01-06 08:10 | XMS_ITS | Continuity of Care Document ---
Author Name Unknown Organization [facility] Address [address] [place] [address]- Care Team Providers Care Engineering Project Manager Name Role Phone Kehinde DOHERTY, [place] Primary Care Physician ( [phone] Encounter [facility] Date(s): 07/25/21 - 08/24/21 [facility] [address] [place], [place] [address] Allergies, Adverse Reactions, Alerts Substance Reaction Severity [...] 07/22/21 8:57:00 EDT, Route to Pharmacy Electronically, [facility], Partial fill upon patient [...] 07/22/21 8:57:00 EDT, Route to Pharmacy Electronically, [facility], Partial fill upon patient request [...] tablet, 3 Refills, Maintenance, 12/29/20 16:31:00 EDT, [facility] 1 tablet By Mouth Daily,x30 days,Instr:WITH FOOD., 167, cm, 12/11/20 14:48:00 EDT, Height, 107, kg, 11/22/19 21:00:00 EDT, D... Start Date: 12/29/20 Stop Date: 04/28/21 Status: Ordered hydrOXYzine hydrochloride 25 mg oral tablet 1 tablet, By Mouth, 4 times a day, PRN NEEDED FOR ANXIETY, # 60 tablet, 1 [facility], [facility], cm, 05/21/21 13:49:00 EST, Height, 107, kg, 11/22/19 21:00:00 EDT, Dry Weight Start Date: 06/02/21 Status: Ordered Lipitor 20 mg oral tablet 1 tablet = 20 mg, By Mouth, Daily, # 30 tablet, 0 Refills, Maintenance, 07/22/21 9:28:00 EDT, Tablet, [facility] 3, Partial fill upon patient request if the prescription is for a scheduleII opioid drug., 172, cm, 07/22/21 9:16:00 EDT, Hei... Start Date: 07/22/21 Status: Ordered metoprolol 25 mg oral tablet, extended release 25 mg, 1, tablet, By Mouth, Daily, # 30 tablet, Refills 1, Tot. Refills 1, Maintenance, 07/22/21 8:57:00 EDT, Route to Pharmacy Electronically, [facility] 3, Partial fill upon patient request if the prescription is for a schedule II opioid... Start Date: 07/22/21 Status: Ordered nitroglycerin 0.4 mg sublingual tablet 1 tablet = 0.4 mg, Sublingual, Every 5 minutes, PRN for chest pain, not to exceed 3 doses/15 min--if pain persists, seek medical attention, # 100 tablet, 0 Refills, Maintenance, 07/22/21 8:58:00 EDT,Tablet, [facility], Partial fill upon... Start Date: 07/22/21 Status: Ordered ProAir HFA 90 mcg/inh inhalation aerosol 1 puffs, Inhalation, 4 times a day, PRN as needed for wheezing, # 6.7 Gm, 0 Refills, Maintenance, 07/28/21 15:52:00 EDT, Aerosol, [facility] Partial fill upon patient request [...]
--- OUTSIDE RECORDS SUMMARY | 2023-01-06 08:10 | XMS_ITS | Continuity of Care Document ---
Author Name Unknown Organization [facility] Address [address] [place] [address]- Care Team Providers Care Stucco Applicator Name Role Phone Kehinde DOHERTY, [place] Primary Care Physician ( [phone] Encounter [facility] Date(s): 07/08/22 - 08/07/22 [facility] [address] [place] [address]- Allergies, Adverse Reactions, Alerts Substance Reaction Severity [...] 2 Refills, Maintenance, 12/23/21 15:55:00 EDT, [facility] upon patient request if [...] 07/22/21 8:57:00 EDT, Route to Pharmacy Electronically, [facility], Partial fill upon patient request if the prescription is for a schedule II opioid... Start Date: 07/22/21 Stop Date: 09/20/21 Status: Ordered cetirizine 5 mg oral tablet 1 tablet = 5 mg, By Mouth, Daily, PRN as needed for allergy symptoms, # 30 tablet, 0 Refills, Maintenance, 12/17/21 16:03:00 EDT, Tablet, [facility]., Partial fill upon patient requestif the prescription [...] 07/22/21 8:57:00 EDT, Route to Pharmacy Electronically, [facility], Partial fill upon patient request if [...] tablet, 3 Refills, Maintenance, 06/29/22 13:16:00 EDT, [facility], 30, TAKE 1 TABLET BY MOUTH EVERY DAY WITH FOOD, 172, cm, 01/15/22 16:40:00 EDT, Height, 121.3, kg, 07/19/21 21:11:00 EDT, Dry Weight Start Date: 06/29/22 Status: Ordered hydrOXYzine hydrochloride 25 mg oral tablet 1 tablet, By Mouth, 4 times a day, PRN NEEDED FOR ANXIETY, # 60 tablet, 1 Refills, Maintenance, 12/17/21 11:16:00 EDT, [facility], 172, cm, 07/22/21 9:16:00 EDT, Height, 121.3, kg, 07/19/21 21:11:00 EDT, Dry Weight Start Date: 12/17/21 Status: Ordered Lipitor 20 mg oral tablet 1 tablet = 20 mg, By Mouth, Daily, # 30 tablet, 0 Refills, Maintenance, 07/22/21 9:28:00 EDT, Tablet, [facility], Partial fill upon patient request if the prescription is for a scheduleII opioid drug., 172, cm, 07/22/21 9:16:00 EDT, Hei... Start Date: 07/22/21 Status: Ordered metoprolol 25 mg oral tablet, extended release 25 mg, 1, tablet, By Mouth, Daily, # 30 tablet, Refills 1, Tot. Refills 1, Maintenance, 07/22/21 8:57:00 EDT, Route to Pharmacy Electronically, [facility], Partial fill upon patient request if the prescription is for a schedule II opioid... Start Date: 07/22/21 Status: Ordered nitroglycerin 0.4 mg sublingual tablet 1 tablet = 0.4 mg, Sublingual, Every 5 minutes, PRN for chest pain, not to exceed 3 doses/15 min--if pain persists, seek medical attention, # 100 tablet, 0 Refills, Maintenance, 07/22/21 8:58:00 EDT,Tablet, [facility], Partial fill upon... Start Date: 07/22/21 Status: Ordered ProAir HFA 90 mcg/inh inhalation aerosol 2 puffs, Inhalation, 4 times a day, PRN as needed for wheezing, # 8.5 Gm, 5 Refills, Maintenance, 12/23/21 15:54:00 EDT, Aerosol, [facility] Partial fill upon patient request if the prescription is for a schedule II opioid drug., 2 pu... Start Date: 12/23/21 Status: Ordered Qvar Redihaler 40 mcg/inh inhalation aerosol = 40 mcg, Inhalation, 2 times a day, brand name required by insurance. *discontinue after 1 month after symptoms have been controlled, # 8.7 Gm, 1 Refills, Maintenance, 12/18/21 12:42:00 EDT, [facility] Partial fill upon patient requ... [...] Team Personnel Name: [place] Busby MD Position: [facility] Resident Member Role: PCP Address: Address: [address] [place] [id number]- Name: Raul Sung RN Position: S RN Member Role: Primary Care Nurse Name: Lupe Mancuso RN Position: S RN Member Role: Primary Care Nurse Name: Vielka Milan RN Position: S RN Member Role: Primary Care Nurse Name: Tomasa Brush RN Position: S RN Member Role: Primary Care Nurse Care Team Related Persons Name: WHIT WILKINSON Address: home [address] [place] [id number]
--- OUTSIDE RECORDS SUMMARY | 2023-01-06 08:10 | XMS_ITS | Continuity of Care Document ---
Author Name Unknown Organization [facility] Address [address] [place] [address]- Care Team Providers Care Manager Medical Affairs Name Role Phone Kehinde DOHERTY, [place] Primary Care Physician Encounter [facility] [place] Date(s): 09/09/20 - 10/09/20 [facility] [address] [place] [id number] Allergies, Adverse Reactions, Alerts Substance Reaction Severity [...] 0 Refills, Maintenance, 06/18/20 8:26:00 EDT, Tablet, [facility]., 166.5, cm, 06/18/20 7:58:00 EDT, Height, 107, kg, 11/22/19 21:00:00 EDT, Dry Weight Start Date: 06/18/20 Stop Date: 07/18/20 Status: Ordered dapsone 100 mg oral tablet 1 tablet = 100 mg, By Mouth, Daily, # 30 tablet, 0 Refills, Maintenance, 06/27/20 10:11:00 EDT, Tablet, [facility]., Partial fill upon patient request if the prescription is for a schedule II opioid drug., 166.5, cm, 06/27/20 9:31:00 ED... Start Date: 06/27/20 Status: Ordered gabapentin 400 mg oral capsule 400 mg, 1, capsule, By Mouth, 3 times a day, # 42 capsule, Refills 6, Tot. Refills 6, Maintenance, 06/18/20 8:10:00 EDT, Route to Pharmacy Electronically, [facility]., 166.5, cm, 06/18/20 7:58:00 EDT, Height, 107, kg, 11/22/19 21:00:00... Start Date: 06/18/20 Stop Date: 09/24/20 Status: Ordered Genvoya oral tablet 1 tablet, By Mouth, Daily, WITH FOOD., # 30 tablet, 1 Refills, Maintenance, 09/24/20 19:51:00 EDT, [facility], 1 tablet By Mouth Daily,x30 days,Instr:WITH FOOD., 166.5, cm, 09/10/20 8:11:00 EDT, Height, 107, kg, 11/22/19 21:00:00 EDT,... Start Date: 09/24/20 Stop Date: 11/23/20 Status: Ordered hydrOXYzine hydrochloride 25 mg oral tablet 1 tablet = 25 mg, By Mouth, 4 times a day, PRN for anxiety, for 30 days, # 60 tablet, 1 Refills, Acute 12/06/20 14:36:00 EDT, 10/07/20 14:36:00 EDT, Tablet, [facility], Partial fill upon patient request if the prescription is for a roya... Start Date: 10/07/20 Stop Date: 12/06/20 Status: Ordered zolpidem 10 mg oral tablet 1 tablet = 10 mg, By Mouth, Daily at bedtime, PRN as needed for insomnia, # 14 tablet, 0 Refills, Maintenance, 10/04/20 8:31:00 EDT, Tablet Start Date: 10/04/20 Stop Date: 10/18/20 Status: Ordered Problem List Condition Effective Dates [...]
--- OUTSIDE RECORDS SUMMARY | 2023-01-06 08:10 | XMS_ITS | Continuity of Care Document ---
Author Name Unknown Organization [facility] y Address [address] [place] [address]- Care Team Providers Care Commanding Officer Motorized Squad Name Role Phone Ashley DOHERTY, Maurilio Burnett Primary Care Physician [phone] Encounter [facility] Date(s): 07/01/20 - 07/31/20 [facility] [address] [place] [id number] Attending Physician: Jt Santana Admitting Physician: AdmJt [...] 0 Refills, Maintenance, 06/18/20 8:26:00 EDT, Tablet, [facility]., 166.5, cm, 06/18/20 7:58:00 EDT, Height, 107, kg, 11/22/19 21:00:00 EDT, Dry Weight Start Date: 06/18/20 Stop Date: 07/18/20 Status: Ordered dapsone 100 mg oral tablet 1 tablet = 100 mg, By Mouth, Daily, # 30 tablet, 0 Refills, Maintenance, 06/27/20 10:11:00 EDT, Tablet, [facility], Partial fill upon patient request if the prescription is for a schedule II opioid drug., 166.5, cm, 06/27/20 9:31:00 ED... Start Date: 06/27/20 Status: Ordered gabapentin 400 mg oral capsule 400 mg, 1, capsule, By Mouth, 3 times a day, # 42 capsule, Refills 6, Tot. Refills 6, Maintenance, 06/18/20 8:10:00 EDT, Route to Pharmacy Electronically, [facility], 166.5, cm, 06/18/20 7:58:00 EDT, Height, 107, kg, 11/22/19 21:00:00... Start Date: 06/18/20 Stop Date: 09/24/20 Status: Ordered Genvoya oral tablet 1 tablet, By Mouth, Daily, WITH FOOD., # 30 tablet, 3 Refills, Maintenance, 04/25/20 14:22:00 EST, [facility], 30, TAKE 1 TABLET BY MOUTH EVERY DAY WITH FOOD, 166.5, cm, 11/30/19 10:56:00 EDT, Height, 107, kg, 11/22/19 21:00:00 EDT, Dry Weight Start Date: 04/25/20 Status: Ordered zolpidem 10 mg oral tablet 1 tablet = 10 mg, By Mouth, Daily at bedtime, PRN as needed for insomnia, # 30 tablet, 0 Refills, Maintenance, 06/18/20 8:26:00 EDT, Tablet, [facility], 166.5, cm, 06/18/20 7:58:00 EDT, Height, [...]
--- OUTSIDE RECORDS SUMMARY | 2023-01-06 08:10 | XMS_ITS | Continuity of Care Document ---
Author Name Unknown Organization [facility] y Address [address] [place] [address]- Care Team Providers Care Production Grader Name Role Phone Kehinde DOHERTY, [place] Primary Care Physician Encounter [facility] Date(s): 03/04/21 - 04/05/21 [facility] [address] [place], [place] [address] Attending Physician: Ovidio Sawyer MD Admitting [...] 0 Refills, Maintenance, 06/27/20 10:11:00 EDT, Tablet, [facility], Partial fill upon patient request if the prescription is for a schedule II opioid drug., 166.5, cm, 06/27/20 9:31:00 ED... Start Date: 06/27/20 Status: Ordered gabapentin 400 mg oral capsule 400 mg, 1, capsule, By Mouth, 3 times a day, # 42 capsule, Refills 6, Tot. Refills 6, Maintenance, 06/18/20 8:10:00 EDT, Route to Pharmacy Electronically, [facility], 166.5, cm, 06/18/20 7:58:00 EDT, Height, 107, kg, 11/22/19 21:00:00... Start Date: 06/18/20 Stop Date: 09/24/20 Status: Ordered Genvoya oral tablet 1 tablet, By Mouth, Daily, WITH FOOD., # 30 tablet, 3 Refills, Maintenance, 12/29/20 16:31:00 EDT, [facility] 1 tablet By Mouth Daily,x30 days,Instr:WITH FOOD., 167, cm, 12/11/20 14:48:00 EDT, Height, 107, kg, 11/22/19 21:00:00 EDT, D... Start Date: 12/29/20 Stop Date: 04/28/21 Status: Ordered hydrOXYzine hydrochloride 25 mg oral tablet See Instructions, TAKE 1 TABLET BY MOUTH FOUR TIMES A DAY NEEDED FOR ANXIETY, # 60 tablet, 1 Refills, [facility], 166.5, cm, 11/06/20 15:04:00 EDT, Height, 107, [...]
--- OUTSIDE RECORDS SUMMARY | 2023-01-06 08:11 | XMS_ITS | Continuity of Care Document ---
Author Name Unknown Organization [facility] Address Unknown Care Team Providers Care Automotive Project Engineer Name Role Phone Kehinde DOHERTY, [place] Primary Care Physician ( [phone] Encounter [facility] [place] [place] Date(s): 06/06/21 - 06/13/21 [facility] Attending Physician: Jazzmine Desai RD Allergies, Adverse Reactions, Alerts Substance Reaction Severity [...] 0 Refills, Maintenance, 06/27/20 10:11:00 EDT, Tablet, [facility], Partial fill upon patient request if the prescription is for a schedule II opioid drug., 166.5, cm, 06/27/20 9:31:00 ED... Start Date: 06/27/20 Status: Ordered desonide 0.05% topical cream See Instructions, APPLY TOPICALLY TO AFFECTED AREA TWO TIMES A DAY FOR 14 DAYS, # 60 Gm, 1 Refills,Acute 06/19/21 14:35:00 EDT, 06/02/21 14:35:00 EDT, [facility]., 14, APPLY TOPICALLYTO AFFECTED AREA TWO TIMES A DAY FOR 14 DAYS, 167,... Start Date: 06/02/21 Stop Date: 06/19/21 Status: Ordered gabapentin 400 mg oral capsule 400 mg, 1, capsule, By Mouth, 3 times a day, # 42 capsule, Refills 6, Tot. Refills 6, Maintenance, 06/18/20 8:10:00 EDT, Route to Pharmacy Electronically, [facility]., 166.5, cm, 06/18/20 7:58:00 EDT, Height, 107, kg, 11/22/19 21:00:00... Start Date: 06/18/20 Stop Date: 09/24/20 Status: Ordered Genvoya oral tablet 1 tablet, By Mouth, Daily, WITH FOOD., # 30 tablet, 3 Refills, Maintenance, 12/29/20 16:31:00 EDT, [facility]., 1 tablet By Mouth Daily,x30 days,Instr:WITH FOOD., 167, cm, 12/11/20 14:48:00 EDT, Height, 107, kg, 11/22/19 21:00:00 EDT, D... Start Date: 12/29/20 Stop Date: 04/28/21 Status: Ordered hydrOXYzine hydrochloride 25 mg oral tablet 1 tablet, By Mouth, 4 times a day, PRN NEEDED FOR ANXIETY, # 60 tablet, 1 Refills, [facility], 167, cm, 05/21/21 13:49:00 EST, Height, 107, [...]
--- OUTSIDE RECORDS SUMMARY | 2023-01-06 08:11 | XMS_ITS | Continuity of Care Document ---
Author Name Unknown Organization [facility] y Address [address] [place] [address]- Care Team Providers Care Bus And Trolley Dispatcher Name Role Phone Kehinde DOHERTY, [facility] Primary Care Physician [place] [facility] [place] 08/[place]/20 - 09/21/20 [facility] [address] [place], [place] [address] Attending Physician: Jt Santana Admitting Physician: Jt Santana Referring Physician: AdmtrJt Allergies, Adverse Reactions, Alerts [...] 0 Refills, Maintenance, 06/18/20 8:26:00 EDT, Tablet, [facility]., 166.5, cm, 06/18/20 7:58:00 EDT, [...] tablet, 3 Refills, Maintenance, 04/25/20 14:22:00 EST, [facility], 30, TAKE 1 TABLET BY MOUTH EVERY DAY WITH FOOD, 166.5, cm, 11/30/19 10:56:00 EDT, Height, 107, kg, 11/22/19 21:00:00 EDT, Dry Weight Start Date: 04/25/20 Status: Ordered guaiFENesin 100 mg/5 mL oral liquid 10 mL = 200 mg, By Mouth, Every 4 hours, PRN for cough, # 240 mL, 1 Refills, Acute 09/24/20 8:32:00EDT, 09/10/20 8:31:00 EDT, Liquid, [facility], Partial fill upon patient request ifthe prescription is for a schedule II opioid drug.,... Start Date: 09/10/20 Stop Date: 09/24/20 Status: Ordered zolpidem 10 mg oral tablet 1 tablet = 10 mg, By Mouth, Daily at bedtime, PRN as needed for insomnia, # 30 tablet, 0 Refills, Maintenance, 06/18/20 8:26:00 EDT, Tablet, [facility], 166.5, cm, 06/18/20 7:58:00 EDT, Height, [...]
--- OUTSIDE RECORDS SUMMARY | 2023-01-06 08:11 | XMS_ITS | Continuity of Care Document ---
Author Name Unknown Organization [facility] y Address [address] [place] [address]- Care Team Providers Care Administrative Officer Name Role Phone Maurilio Ramirez MD Primary Care Physician [phone] [place] [facility] [place]19 - 01/27/20 [facility] [address] [place], [place] [address] Attending Physician: Jt Santana Admitting Physician: Jt [...] 01/29/20 11:21:00 EST, 11/30/19 11:21:00 EDT, Suspension, [facility], 166.5, cm, 11/30/19 10:56:00 EDT, Height, 107, kg, 11/22/19 21:00:00 EDT, Dry Weight Start Date: 11/30/19 Stop Date: 01/29/20 Status: Ordered clonazePAM 0.5 mg oral tablet 1 tablet = 0.5 mg, By Mouth, 3 times a day, # 90 tablet, 3 Refills, Maintenance, 11/30/19 11:06:00 EDT, Tablet, [facility], 166.5, cm, 11/30/19 10:56:00 EDT, Height, 107, kg, 11/21/2020:00:00 EDT, Dry Weight Start Date: 11/30/19 Stop Date: 03/29/20 Status: Ordered gabapentin 400 mg oral capsule 400 mg, 1, capsule, By Mouth, 3 times a day, # 42 capsule, Refills 0, Tot. Refills 0, Maintenance, 11/23/19 13:41:00 EDT, Route to Pharmacy Electronically, [facility], 166.5, cm, 11/23/19 13:20:00 EDT, Height, 107, kg, 11/22/19 21:00:0... Start Date: 11/23/19 Stop Date: 12/07/19 Status: Ordered Genvoya oral tablet 1 tablet, By Mouth, Daily, with food, # 30 tablet, 3 Refills, Maintenance, 11/30/19 11:21:00 EDT, Tablet, [facility], 1 tablet By Mouth Daily,Instr:with food, 166.5, cm, 11/30/19 10:56:00 EDT, Height, 107, kg, 11/22/19 21:00:00 EDT, Start Date: 11/30/19 Status: Ordered Hibiclens 4% soap See Instructions, 1 applicator Topically daily to axilla, # 240 mL, 0 Refills, Soft Stop, 01/18/20 10:21:00 EDT, [facility]., 1 applicator Topically daily to axilla, 166.5, cm, 11/30/19 10:56:00 EDT, Height, 107, kg, 11/22/19 21:00:00 E... Start Date: 01/18/20 Status: Ordered Multivitamins with Folic Acid 1 mg oral tablet 1 tablet, By Mouth, Daily, pt would like pink tabs, not white, # 90 tablet, 4 Refills, Maintenance,12/07/19 10:00:00 EDT, Tablet, [facility] 1 tablet By Mouth Daily,Instr:pt would like pink tabs, not white, 166.5, cm, 11/30/19 10:56:... Start Date: 12/07/19 Status: Ordered traMADol 50 mg oral tablet 1 tablet = 50 mg, By Mouth, Every 8 hours, prn severe pain, # 24 tablet, 0 Refills, Maintenance, 12/07/19 9:58:00 EDT, [facility] 166.5, cm, 11/30/19 10:56:00 EDT, Height, 107, kg, 11/22/19 21:00:00 EDT, Dry Weight Start Date: 12/07/19 Status: Ordered zolpidem 10 mg oral tablet 1 tablet = 10 mg, By Mouth, Daily at bedtime, PRN as needed for insomnia, # 30 tablet, 3 Refills, Maintenance, 11/30/19 11:07:00 EDT, Tablet, [facility]., 166.5, cm, 11/30/19 10:56:00 EDT, Height, 107, [...]
--- OUTSIDE RECORDS SUMMARY | 2023-01-06 08:11 | XMS_ITS | Continuity of Care Document ---
Author Name Unknown Organization [facility] y Address [address] [place] [address]- Care Team Providers Care Technology Infusion Specialist Name Role Phone [place] Busby MD Primary Care Physician En[place] [facility] [place] Date(s): 09/02/21 - 10/16/21 [facility] [address] [place], [place] [address] Attending Physician: Ovidio Sawyer MD [...] 07/22/21 8:57:00 EDT, Route to Pharmacy Electronically, [facility], Partial fill upon patient [...] 07/22/21 8:57:00 EDT, Route to Pharmacy Electronically, [facility], Partial fill upon patient request [...] tablet, 3 Refills, Maintenance, 12/29/20 16:31:00 EDT, [facility]., 1 tablet By Mouth Daily,x30 days,Instr:WITH FOOD., 167, cm, 12/11/20 14:48:00 EDT, Height, 107, kg, 11/22/19 21:00:00 EDT, D... Start Date: 12/29/20 Stop Date: 04/28/21 Status: Ordered hydrOXYzine hydrochloride 25 mg oral tablet 1 tablet, By Mouth, 4 times a day, PRN NEEDED FOR ANXIETY, # 60 tablet, 1 Refills, [facility], 167, cm, 05/21/21 13:49:00 EST, Height, 107, kg, 11/22/19 21:00:00 EDT, Dry Weight Start Date: 06/02/21 Status: Ordered Lipitor 20 mg oral tablet 1 tablet = 20 mg, By Mouth, Daily, # 30 tablet, 0 Refills, Maintenance, 07/22/21 9:28:00 EDT, Tablet, [facility], Partial fill upon patient request if the prescription is for a scheduleII opioid drug., 172, cm, 07/22/21 9:16:00 EDT, Hei... Start Date: 07/22/21 Status: Ordered metoprolol 25 mg oral tablet, extended release 25 mg, 1, tablet, By Mouth, Daily, # 30 tablet, Refills 1, Tot. Refills 1, Maintenance, 07/22/21 8:57:00 EDT, Route to Pharmacy Electronically, [facility], Partial fill upon patient request if the prescription is for a schedule II opioid... Start Date: 07/22/21 Status: Ordered nitroglycerin 0.4 mg sublingual tablet 1 tablet = 0.4 mg, Sublingual, Every 5 minutes, PRN for chest pain, not to exceed 3 doses/15 min--if pain persists, seek medical attention, # 100 tablet, 0 Refills, Maintenance, 07/22/21 8:58:00 EDT,Tablet, [facility], Partial fill upon... Start Date: 07/22/21 Status: Ordered ProAir HFA 90 mcg/inh inhalation aerosol 1 puffs, Inhalation, 4 times a day, PRN as needed for wheezing, # 6.7 Gm, 0 Refills, Maintenance, 07/28/21 15:52:00 EDT, [facility]erosol, [facility] Partial fill upon patient request [...]
--- OUTSIDE RECORDS SUMMARY | 2023-01-06 08:11 | XMS_ITS | Continuity of Care Document ---
Author Name Unknown Organization [facility] Address [address] [place] [address]- Care Team Providers Care Glass Tinter Name Role Phone Kehinde DOHERTY, [facility] Phys[facility] En[facility] [id number] Date(s): 02/17/21 - 04/18/21 [facility] [address] [place], [place] [address] Attending Physician: Iliana Schumacher MD Admitting Physician: Iliana Schumacher MD Referring Physician: Dony Gutierrez MD Allergies, Adverse Reactions, Alerts Substance Reaction [...] 0 Refills, Maintenance, 06/27/20 10:11:00 EDT, Tablet, [facility], Partial fill upon patient request if the prescription is for a schedule II opioid drug., 166.5, cm, 06/27/20 9:31:00 ED... Start Date: 06/27/20 Status: Ordered gabapentin 400 mg oral capsule 400 mg, 1, capsule, By Mouth, 3 times a day, # 42 capsule, Refills 6, Tot. Refills 6, Maintenance, 06/18/20 8:10:00 EDT, Route to Pharmacy Electronically, [facility]., 166.5, cm, 06/18/20 7:58:00 EDT, Height, 107, kg, 11/22/19 21:00:00... Start Date: 06/18/20 Stop Date: 09/24/20 Status: Ordered Genvoya oral tablet 1 tablet, By Mouth, Daily, WITH FOOD., # 30 tablet, 3 Refills, Maintenance, 12/29/20 16:31:00 EDT, [facility] 1 tablet By Mouth Daily,x30 days,Instr:WITH FOOD., 167, cm, 12/11/20 14:48:00 EDT, Height, 107, kg, 11/22/19 21:00:00 EDT, D... Start Date: 12/29/20 Stop Date: 04/28/21 Status: Ordered hydrOXYzine hydrochloride 25 mg oral tablet See Instructions, TAKE 1 TABLET BY MOUTH FOUR TIMES A DAY NEEDED FOR ANXIETY, # 60 tablet, 1 Refills, [facility], 166.5, cm, 11/06/20 15:04:00 EDT, Height, [...]
--- OUTSIDE RECORDS SUMMARY | 2023-01-06 08:11 | XMS_ITS | Continuity of Care Document ---
Author Name Unknown Organization [facility] Special y Address [address] [place] [address]- Care Team Providers Care Aeronautical Engineering Teacher Name Role Phone Cinthya Camarena DO [id number] - 12[facility]19/[facility] [address] [place] [address]- Attending Physician: Ovidio Sawyer MD Admitting Physician: Ovidio Sawyer MD Allergies, Adverse Reactions, Alerts Substance Reaction Severity Status Bactrim C/O: itching Active Immunizations Given and Recorded Vaccine Date Status Refusal Reason diphtheria-tetanus toxoids (DT) 03/22/02 Given Medications albuterol 0.083% inhalation solution 3 mL = 2.5 mg, Inhalation, Every 6 hours, PRN for wheezing, # 60 each, 2 Refills, Maintenance, 12/23/21 15:55:00 EDT, Solution, [facility], Partial fill upon patient request [...] 07/22/21 8:57:00 EDT, Route to Pharmacy Electronically, [facility], Partial fill upon patient request if the prescription is for a schedule II opioid... Start Date: 07/22/21 Stop Date: 09/20/21 Status: Ordered cetirizine 5 mg oral tablet 1 tablet = 5 mg, By Mouth, Daily, PRN as needed for allergy symptoms, # 30 tablet, 0 Refills, Maintenance, 12/17/21 16:03:00 EDT, Tablet, [facility] Partial fill upon patient requestif the prescription [...] 07/22/21 8:57:00 EDT, Route to Pharmacy Electronically, [facility] 3, Partial fill upon patient request if the prescription is for a schedule II opioid... Start Date: 07/22/21 Status: Ordered dapsone 100 mg oral tablet 1 tablet = 100 mg, By Mouth, Daily, # 30 tablet, 11 Refills, Maintenance, 08/20/22 10:57:00 EDT, Tablet, [facility]., Partial fill upon patient request if the prescription is for a schedule II opioid drug., 172, cm, 08/20/22 10:40:00 ED... Start Date: 08/20/22 Stop Date: 08/15/23 Status: Ordered gabapentin 400 mg oral capsule [...] tablet, 3 Refills, Maintenance, 06/29/22 13:16:00 EDT, [facility], 30, TAKE 1 TABLET BY MOUTH EVERY DAY WITH FOOD, 172, cm, 01/15/22 16:40:00 EDT, Height, 121.3, kg, 07/19/21 21:11:00 EDT, Dry Weight Start Date: 06/29/22 Status: Ordered hydrOXYzine hydrochloride 25 mg oral tablet 1 tablet, By Mouth, 4 times a day, PRN NEEDED FOR ANXIETY, # 60 tablet, 1 Refills, Maintenance, 12/17/21 11:16:00 EDT, [facility], 172, cm, 07/22/21 9:16:00 EDT, Height, 121.3, kg, 07/19/21 21:11:00 EDT, Dry Weight Start Date: 12/17/21 Status: Ordered Lipitor 20 mg oral tablet 1 tablet = 20 mg, By Mouth, Daily, # 30 tablet, 0 Refills, Maintenance, 07/22/21 9:28:00 EDT, Tablet, [facility] 3, Partial fill upon patient request if the prescription is for a scheduleII opioid drug., 172, cm, 07/22/21 9:16:00 EDT, Hei... Start Date: 07/22/21 Status: Ordered metoprolol 25 mg oral tablet, extended release 25 mg, 1, tablet, By Mouth, Daily, # 30 tablet, Refills 1, Tot. Refills 1, Maintenance, 07/22/21 8:57:00 EDT, Route to Pharmacy Electronically, [facility], Partial fill upon patient request if the prescription is for a schedule II opioid... Start Date: 07/22/21 Status: Ordered nitroglycerin 0.4 mg sublingual tablet 1 tablet = 0.4 mg, Sublingual, Every 5 minutes, PRN for chest pain, not to exceed 3 doses/15 min--if pain persists, seek medical attention, # 100 tablet, 0 Refills, Maintenance, 07/22/21 8:58:00 EDT,Tablet, [facility], Partial fill upon... Start Date: 07/22/21 Status: Ordered ProAir HFA 90 mcg/inh inhalation aerosol 2 puffs, Inhalation, 4 times a day, PRN as needed for wheezing, # 8.5 Gm, 5 Refills, Maintenance, 12/23/21 15:54:00 EDT, Aerosol, [facility]., Partial fill upon patient request if the prescription is for a schedule II opioid drug., 2 pu... Start Date: 12/23/21 Status: Ordered Qvar Redihaler 40 mcg/inh inhalation aerosol = 40 mcg, Inhalation, 2 times a day, brand name required by insurance. *discontinue after 1 month after symptoms have been controlled, # 8.7 Gm, 1 Refills, Maintenance, 12/18/21 12:42:00 EDT, [facility]., Partial fill upon patient requ... Start Date: [...] Care team information Care Team Personnel Name: Raul Sung RN Position: S RN Member Role: Primary Care Nurse Name: Lupe Mancuso RN Position: S RN Member Role: Primary Care Nurse Name: Vielka Milan RN Position: S RN Member Role: Primary Care Nurse Name: Cinthya Camarena DO Position: S Resident Member Role: PCP Address: Address: [address] [place] [address] [place] [address]- [place] Name: Tomasa Brush RN Position: S RN Member Role: Primary Care Nurse Care Team Related Persons Name: WILKINSONWHIT Address: home [address] [place] [id number]
--- OUTSIDE RECORDS SUMMARY | 2023-01-06 08:11 | XMS_ITS | Continuity of Care Document ---
Author Name Unknown Organization [facility] y Address [address] [place] [address]- Care Team Providers Care Surgical Nurse Practitioner Name Role Phone Kehinde DOHERTY, [place] Primary Care Physician [place] [facility] [place] 06[place]21 [facility] [address], [place] [address] Attending Physician: Ovidio aSwyer MD Admitting Physician: Ovidio Sawyer MD Allergies, [...] 0 Refills, Maintenance, 06/27/20 10:11:00 EDT, Tablet, [facility], Partial fill upon patient request if the prescription is for a schedule II opioid drug., 166.5, cm, 06/27/20 9:31:00 ED... Start Date: 06/27/20 Status: Ordered gabapentin 400 mg oral capsule 400 mg, 1, capsule, By Mouth, 3 times a day, # 42 capsule, Refills 6, Tot. Refills 6, Maintenance, 06/18/20 8:10:00 EDT, Route to Pharmacy Electronically, [facility], 166.5, cm, 06/18/20 7:58:00 EDT, Height, 107, kg, 11/22/19 21:00:00... Start Date: 06/18/20 Stop Date: 09/24/20 Status: Ordered Genvoya oral tablet 1 tablet, By Mouth, Daily, WITH FOOD., # 30 tablet, 3 Refills, Maintenance, 12/29/20 16:31:00 EDT, [facility] 1 tablet By Mouth Daily,x30 days,Instr:WITH FOOD., 167, cm, 12/11/20 14:48:00 EDT, Height, 107, kg, 11/22/19 21:00:00 EDT, D... Start Date: 12/29/20 Stop Date: 04/28/21 Status: Ordered hydrOXYzine hydrochloride 25 mg oral tablet 1 tablet, By Mouth, 4 times a day, PRN NEEDED FOR ANXIETY, # 60 tablet, 1 Refills, [facility], 167, cm, 05/21/21 13:49:00 EST, Height, 107, [...]
--- OUTSIDE RECORDS SUMMARY | 2023-01-06 08:11 | XMS_ITS | Continuity of Care Document ---
Author Name Unknown Organization [facility] y Address [address] [place] [address]- Care Team Providers Care Adz Worker Name Role Phone Stanford MCNEAL, Shea Smith Primary Care Physician En[facility] [place] Date(s): 03/07/19 - 05/18/19 [facility] [address] [place] [address]- Attending Physician: Ovidio Sawyer MD Admitting Physician: Ovidio Sawyer MD Allergies, Adverse Reactions, Alerts Substance Reaction Severity Status Bactrim C/O: itching Active Immunizations Given and Recorded Vaccine Date Status Refusal Reason diphtheria-tetanus toxoids (DT) 03/22/02 Given Not Given Vaccine Date Status Refusal Reason influenza virus vaccine, inactivated 12/14/12 Not Given Parent Or Guardian Refuses pneumococcal 23-valent vaccine 12/14/12 Not Given Patient Refuses Medications clonazePAM 0.5 mg oral tablet [...] 10/27/18 12:22:39 EDT, Route to Pharmacy Electronically, [id number], [facility] #[id number] Start Date: 10/27/18 Stop Date: 12/26/18 Status: [...] Start Date: 10/27/18 Status: Ordered Vitamin D 98676 iu oral capsule 50,000 International_Units, 1, capsule, By Mouth, Every week, # 5 capsule, Refills 1, Tot. Refills 1, Maintenance, 06/08/18 6:27:29 EDT, Route to Pharmacy Electronically, NCPDP_[id number], [facility] Start Date: 06/08/18 Stop [...]
--- OUTSIDE RECORDS SUMMARY | 2023-01-06 08:11 | XMS_ITS | Continuity of Care Document ---
Author Name Unknown Organization [facility] Address [address] [place] [address]- Care Team Providers Care Piano Player Name Role Phone Kehinde DOHERTY, [facility] Primary Care Physician Encounter [facility] Date(s): 08/16/20 - 09/15/[address] [address] Allergies, Adverse Reactions, Alerts Substance Reaction Severity [...] 0 Refills, Maintenance, 06/18/20 8:26:00 EDT, Tablet, [facility]., 166.5, cm, 06/18/20 7:58:00 EDT, Height, 107, kg, 11/22/19 21:00:00 EDT, Dry Weight Start Date: 06/18/20 Stop Date: 07/18/20 Status: Ordered dapsone 100 mg oral tablet 1 tablet = 100 mg, By Mouth, Daily, # 30 tablet, 0 Refills, Maintenance, 06/27/20 10:11:00 EDT, Tablet, [facility]., Partial fill upon patient request if the prescription is for a schedule II opioid drug., 166.5, cm, 06/27/20 9:31:00 ED... Start Date: 06/27/20 Status: Ordered gabapentin 400 mg oral capsule 400 mg, 1, capsule, By Mouth, 3 times a day, # 42 capsule, Refills 6, Tot. Refills 6, Maintenance, 06/18/20 8:10:00 EDT, Route to Pharmacy Electronically, [facility]., 166.5, cm, 06/18/20 7:58:00 EDT, Height, 107, kg, 11/22/19 21:00:00... Start Date: 06/18/20 Stop Date: 09/24/20 Status: Ordered Genvoya oral tablet 1 tablet, By Mouth, Daily, WITH FOOD., # 30 tablet, 3 Refills, Maintenance, 04/25/20 14:22:00 EST, [facility], 30, TAKE 1 TABLET BY MOUTH EVERY DAY WITH FOOD, 166.5, cm, 11/30/19 10:56:00 EDT, Height, 107, kg, 11/22/19 21:00:00 EDT, Dry Weight Start Date: 04/25/20 Status: Ordered guaiFENesin 100 mg/5 mL oral liquid 10 mL = 200 mg, By Mouth, Every 4 hours, PRN for cough, # 240 mL, 1 Refills, Acute 09/24/20 8:32:00EDT, 09/10/20 8:31:00 EDT, Liquid, [facility], Partial fill upon patient request ifthe prescription is for a schedule II opioid drug.,... Start Date: 09/10/20 Stop Date: 09/24/20 Status: Ordered zolpidem 10 mg oral tablet 1 tablet = 10 mg, By Mouth, Daily at bedtime, PRN as needed for insomnia, # 30 tablet, 0 Refills, Maintenance, 06/18/20 8:26:00 EDT, Tablet, [facility], 166.5, cm, 06/18/20 7:58:00 EDT, Height, [...]
--- OUTSIDE RECORDS SUMMARY | 2023-01-06 08:11 | XMS_ITS | Continuity of Care Document ---
Author Name Unknown Organization [facility] Address Unknown Care Team Providers Care Captain Airline Pilot Name Role Phone [place] Busby MD Primary Care Physician Encounter [facility] [place] Date(s): 11/06/20 - 11/13/20 [facility] Encounter Diagnosis Morbid obesity with BMI of 40.0-44.9, adult(Discharge Diagnosis) - 11/06/20 Attending Physician: Dwaine Roberson Referring Physician: [place] Busby MD Allergies, Adverse [...] 2 Refills, Maintenance, 10/14/20 13:23:00 EDT, Tablet, [facility], 166.5, cm, 09/10/20 8:11:00 EDT, Height, 107, kg, 11/21/2020:00:00 EDT, Dry Weight Start Date: 10/14/20 Stop Date: 01/12/21 Status: Ordered dapsone 100 mg oral tablet 1 tablet = 100 mg, By Mouth, Daily, # 30 tablet, 0 Refills, Maintenance, 06/27/20 10:11:00 EDT, [facility] fill upon patient request if the prescription is for a schedule II opioid drug., 166.5, cm, 06/27/20 9:31:00 ED... Start Date: 06/27/20 Status: Ordered gabapentin 400 mg oral capsule 400 mg, 1, capsule, By Mouth, 3 times a day, # 42 capsule, Refills 6, Tot. Refills 6, Maintenance, 06/18/20 8:10:00 EDT, Route to Pharmacy Electronically, [facility]., 166.5, cm, 06/18/20 7:58:00 EDT, Height, 107, kg, 11/22/19 21:00:00... Start Date: 06/18/20 Stop Date: 09/24/20 Status: Ordered Genvoya oral tablet 1 tablet, By Mouth, Daily, WITH FOOD., # 30 tablet, 1 Refills, Maintenance, 09/24/20 19:51:00 EDT, [facility], 1 tablet By Mouth Daily,x30 days,Instr:WITH FOOD., 166.5, cm, 09/10/20 8:11:00 EDT, Height, 107, kg, 11/22/19 21:00:00 EDT,... Start Date: 09/24/20 Stop Date: 11/23/20 Status: Ordered hydrOXYzine hydrochloride 25 mg oral tablet 1 tablet = 25 mg, By Mouth, 4 times a day, PRN for anxiety, for 30 days, # 60 tablet, 1 Refills, Acute 12/06/20 14:36:00 EDT, 10/07/20 14:36:00 EDT, Tablet, [facility], Partial fill upon patient request if the prescription is for a roya... Start Date: 10/07/20 Stop Date: 12/06/20 Status: Ordered zolpidem 10 mg oral tablet 1 tablet = 10 mg, By Mouth, Daily at bedtime, PRN as needed for insomnia, # 28 tablet, 3 Refills, Maintenance, 10/18/20 16:32:00 EDT, Tablet, [facility], 166.5, cm, 09/10/20 8:11:00 EDT, [...] Active Poor dentition(Confirmed) Active Poor hygiene(Confirmed) Active Diagnosis Diagnosis Type Effective Dates Health Status Cl inical Service Informant Morbid obesity with BMI of 40.0-44.9, adult Discharge Diagnosis 11/06/20 Vital Signs Most recent to oldest [Reference Range]: 1 Height 166.5 cm (11/06/20 3:04 PM) Weight 123.5 kg (11/06/20 3:04 PM) Pulse Rate [55-90 bpm] 101 bpm *H* (11/06/20 3:04 PM) Body Mass Index [18.5-24.99] 44.55 *>HHI* (11/06/20 3:04 PM) Blood Pressure [90-138/55-84 mm Hg] 129/ 71mm Hg (11/06/20 3:04 PM) Temperature [96.8-100.4 DegF] 97.7 DegF (11/06/20 3:04 PM) Blood pressure sites Arm, left (11/06/20 3:04 PM) Temperature Route Temporal (11/06/20 3:04 PM) Weight Obtained Via Standing scale (11/06/20 3:04 PM) Social History Social History Type Response Smoking Status 10 or more cigarette s (1/2 pack or more)/day in last 30 days entered on: 11/06/20 Sex Female
--- OUTSIDE RECORDS SUMMARY | 2023-01-06 08:11 | XMS_ITS | Continuity of Care Document ---
Author Name Unknown Organization [facility] Address [address] [place] [address]- Care Team Providers Care Efficiency Analyst Name Role Phone Kehinde DOHERTY, [place] Primary Care Physician ( [phone] [place]counter [facility] [place] Date(s): 07/25/21 - 08/24/21 [facility] [address] [place], [place] [address] Allergies, Adverse Reactions, Alerts Substance Reaction [...] 07/22/21 8:57:00 EDT, Route to Pharmacy Electronically, [facility], Partial fill upon patient request [...] 07/22/21 8:57:00 EDT, Route to Pharmacy Electronically, [facility] 3, Partial fill upon patient request [...] tablet, 3 Refills, Maintenance, 12/29/20 16:31:00 EDT, [facility] 1 tablet By Mouth Daily,x30 days,Instr:WITH FOOD., 167, cm, 12/11/20 14:48:00 EDT, Height, 107, kg, 11/22/19 21:00:00 EDT, D... Start Date: 12/29/20 Stop Date: 04/28/21 Status: Ordered hydrOXYzine hydrochloride 25 mg oral tablet 1 tablet, By Mouth, 4 times a day, PRN NEEDED FOR ANXIETY, # 60 tablet, 1 Refills, [facility], 167, cm, 05/21/21 13:49:00 EST, Height, 107, kg, 11/22/19 21:00:00 EDT, Dry Weight Start Date: 06/02/21 Status: Ordered Lipitor 20 mg oral tablet 1 tablet = 20 mg, By Mouth, Daily, # 30 tablet, 0 Refills, Maintenance, 07/22/21 9:28:00 EDT, Tablet, [facility] 3, Partial fill upon patient request if the prescription is for a scheduleII opioid drug., 172, cm, 07/22/21 9:16:00 EDT, Hei... Start Date: 07/22/21 Status: Ordered metoprolol 25 mg oral tablet, extended release 25 mg, 1, tablet, By Mouth, Daily, # 30 tablet, Refills 1, Tot. Refills 1, Maintenance, 07/22/21 8:57:00 EDT, Route to Pharmacy Electronically, [facility] 3, Partial fill upon patient request if the prescription is for a schedule II opioid... Start Date: 07/22/21 Status: Ordered nitroglycerin 0.4 mg sublingual tablet 1 tablet = 0.4 mg, Sublingual, Every 5 minutes, PRN for chest pain, not to exceed 3 doses/15 min--if pain persists, seek medical attention, # 100 tablet, 0 Refills, Maintenance, 07/22/21 8:58:00 EDT,Tablet, [facility], Partial fill upon... Start Date: 07/22/21 Status: Ordered ProAir HFA 90 mcg/inh inhalation aerosol 1 puffs, Inhalation, 4 times a day, PRN as needed for wheezing, # 6.7 Gm, 0 Refills, Maintenance, 07/28/21 15:52:00 EDT, Aerosol, [facility] Partial fill upon patient request [...]
--- OUTSIDE RECORDS SUMMARY | 2023-01-06 08:11 | XMS_ITS | Continuity of Care Document ---
Author Name Unknown Organization [facility] Special y Address [address] [place] [address]- Care Team Providers Care Staff Analyst Name Role Phone Kehinde DOHERTY, [place] Primary Care Physician ( [phone] En[facility] [place] [facility] [id number] Date(s): 06/30/22 - 08/14/22 [facility] [address] [place], [place] [address] Attending Physician: Ovidio Sawyer MD [...] Refills, Maintenance, 12/23/21 15:55:00 EDT, Solution, [facility], Partial fill upon patient request if [...] 07/22/21 8:57:00 EDT, Route to Pharmacy Electronically, [facility], Partial fill upon patient request if the prescription is for a schedule II opioid... Start Date: 07/22/21 Stop Date: 09/20/21 Status: Ordered cetirizine 5 mg oral tablet 1 tablet = 5 mg, By Mouth, Daily, PRN as needed for allergy symptoms, # 30 tablet, 0 Refills, Maintenance, 12/17/21 16:03:00 EDT, Tablet, [facility] Partial fill upon patient requestif the prescription [...] 8:57:00 EDT, Route to Pharmacy Electronically, [facility], Partial fill upon patient request [...] tablet, 3 Refills, Maintenance, 06/29/22 13:16:00 EDT, [facility], 30, TAKE 1 TABLET BY MOUTH EVERY DAY WITH FOOD, 172, cm, 01/15/22 16:40:00 EDT, Height, 121.3, kg, 07/19/21 21:11:00 EDT, Dry Weight Start Date: 06/29/22 Status: Ordered hydrOXYzine hydrochloride 25 mg oral tablet 1 tablet, By Mouth, 4 times a day, PRN NEEDED FOR ANXIETY, # 60 tablet, 1 Refills, Maintenance, 12/17/21 11:16:00 ED[facility], [facility], [facility], cm, 07/22/21 9:16:00 EDT, Height, 121.3, kg, 07/19/21 21:11:00 EDT, Dry Weight Start Date: 12/17/21 Status: Ordered Lipitor 20 mg oral tablet 1 tablet = 20 mg, By Mouth, Daily, # 30 tablet, 0 Refills, Maintenance, 07/22/21 9:28:00 EDT, Tablet, [facility], Partial fill upon patient request if the prescription is for a scheduleII opioid drug., 172, cm, 07/22/21 9:16:00 EDT, Hei... Start Date: 07/22/21 Status: Ordered metoprolol 25 mg oral tablet, extended release 25 mg, 1, tablet, By Mouth, Daily, # 30 tablet, Refills 1, Tot. Refills 1, Maintenance, 07/22/21 8:57:00 EDT, Route to Pharmacy Electronically, [facility], Partial fill upon patient request if the prescription is for a schedule II opioid... Start Date: 07/22/21 Status: Ordered nitroglycerin 0.4 mg sublingual tablet 1 tablet = 0.4 mg, Sublingual, Every 5 minutes, PRN for chest pain, not to exceed 3 doses/15 min--if pain persists, seek medical attention, # 100 tablet, 0 Refills, Maintenance, 07/22/21 8:58:00 EDT,Tablet, [facility], Partial fill upon... Start Date: 07/22/21 Status: Ordered ProAir HFA 90 mcg/inh inhalation aerosol 2 puffs, Inhalation, 4 times a day, PRN as needed for wheezing, # 8.5 Gm, 5 Refills, Maintenance, 12/23/21 15:54:00 EDT, Aerosol, [facility] Partial fill upon patient request if the prescription is for a schedule II opioid drug., 2 pu... Start Date: 12/23/21 Status: Ordered Qvar Redihaler 40 mcg/inh inhalation aerosol = 40 mcg, Inhalation, 2 times a day, brand name required by insurance. *discontinue after 1 month after symptoms have been controlled, # 8.7 Gm, 1 Refills, Maintenance, 12/18/21 12:42:00 EDT, [facility] Partial fill upon patient requ... Start Date: [...] Team Personnel Name: [place] Busby MD Position: [facility] Resident Member Role: PCP Address: Address: [address] [place] [id number]- Name: Raul Sung RN Position: S RN Member Role: Primary Care Nurse Name: Lupe Mancuso RN Position: S RN Member Role: Primary Care Nurse Name: Vielka Milan RN Position: S RN Member Role: Primary Care Nurse Name: Tomasa Brush RN Position: S RN Member Role: Primary Care Nurse Care Team Related Persons Name: WHIT WILKINSON Address: home [address] [place] [id number]
--- OUTSIDE RECORDS SUMMARY | 2023-01-06 08:11 | XMS_ITS | Continuity of Care Document ---
Author Name Unknown Organization [facility] y Address [address] [place] [address]- Care Team Providers Care Maintenance Worker Name Role Phone Cinthya Camarena DO Primary Care Physician Encounter [facility] Date(s): 10/21/22 - 11/20/22 [facility] [address] [place] [id number]- Allergies, Adverse Reactions, Alerts Substance Reaction Severity Status Bactrim C/O: itching Active Immunizations Given and Recorded Vaccine Date Status Refusal Reason diphtheria-tetanus toxoids (DT) 03/22/02 Given Medications albuterol 0.083% inhalation solution 3 mL = 2.5 mg, Inhalation, Every 6 hours, PRN for wheezing, # 60 each, 2 Refills, Maintenance, 12/23/21 15:55:00 EDT, Solution, [facility], Partial fill upon patient request if [...] 07/22/21 8:57:00 EDT, Route to Pharmacy Electronically, [facility], Partial fill upon patient request if the prescription is for a schedule II opioid... Start Date: 07/22/21 Stop Date: 09/20/21 Status: Ordered cetirizine 5 mg oral tablet 1 tablet = 5 mg, By Mouth, Daily, PRN as needed for allergy symptoms, # 30 tablet, 0 Refills, Maintenance, 12/17/21 16:03:00 EDT, Tablet, [facility], Partial fill upon patient requestif the [...] 07/22/21 8:57:00 EDT, Route to Pharmacy Electronically, [facility], Partial fill upon patient request if the prescription is for a schedule II opioid... Start Date: 07/22/21 Status: Ordered dapsone 100 mg oral tablet 1 tablet = 100 mg, By Mouth, Daily, # 30 tablet, 11 Refills, Maintenance, 08/20/22 10:57:00 EDT, Tablet, [facility], Partial fill upon patient request if [...] tablet, 3 Refills, Maintenance, 06/29/22 13:16:00 EDT, [facility], 30, TAKE 1 TABLET BY MOUTH EVERY DAY WITH FOOD, 172, cm, 01/15/22 16:40:00 EDT, Height, 121.3, kg, 07/19/21 21:11:00 EDT, Dry Weight Start Date: 06/29/22 Status: Ordered hydrOXYzine hydrochloride 25 mg oral tablet 1 tablet, By Mouth, 4 times a day, PRN NEEDED FOR ANXIETY, # 60 tablet, 1 Refills, Maintenance, 12/17/21 11:16:00 [facility], cm, 07/22/21 9:16:00 EDT, Height, 121.3, kg, 07/19/21 21:11:00 EDT, Dry Weight Start Date: 12/17/21 Status: Ordered Lipitor 20 mg oral tablet 1 tablet = 20 mg, By Mouth, Daily, # 30 tablet, 0 Refills, Maintenance, 07/22/21 9:28:00 EDT, Tablet, [facility], Partial fill upon patient request if the prescription is for a scheduleII opioid drug., 172, cm, 07/22/21 9:16:00 EDT, Hei... Start Date: 07/22/21 Status: Ordered metoprolol 25 mg oral tablet, extended release 25 mg, 1, tablet, By Mouth, Daily, # 30 tablet, Refills 1, Tot. Refills 1, Maintenance, 07/22/21 8:57:00 EDT, Route to Pharmacy Electronically, [facility], Partial fill upon patient request if the prescription is for a schedule II opioid... Start Date: 07/22/21 Status: Ordered nitroglycerin 0.4 mg sublingual tablet 1 tablet = 0.4 mg, Sublingual, Every 5 minutes, PRN for chest pain, not to exceed 3 doses/15 min--if pain persists, seek medical attention, # 100 tablet, 0 Refills, Maintenance, 07/22/21 8:58:00 EDT,Tablet, [facility], Partial fill upon... Start Date: 07/22/21 Status: Ordered ProAir HFA 90 mcg/inh inhalation aerosol 2 puffs, Inhalation, 4 times a day, PRN as needed for wheezing, # 8.5 Gm, 5 Refills, Maintenance, 12/23/21 15:54:00 EDT, Aerosol, [facility]., Partial fill upon patient request if the prescription is for a schedule II opioid drug., 2 pu... Start Date: 12/23/21 Status: Ordered Qvar Redihaler 40 mcg/inh inhalation aerosol = 40 mcg, Inhalation, 2 times a day, brand name required by insurance. *discontinue after 1 month after symptoms have been controlled, # 8.7 Gm, 1 Refills, Maintenance, 12/18/21 12:42:00 EDT, [facility]., Partial fill upon patient requ... Start [...] Care Nurse Name: Vielka Milan RN Position: [facility] ED RN W/OE and Tasks Member Role: Primary Care Nurse Name: Cinthya Camarena DO Position: S Resident Member Role: PCP Address: Address: [address] [place] [address] [place] [address]- Name: Tomasa Brush RN Position: S RN Member Role: Primary Care Nurse Care Team Related Persons Name: WHIT WILKINSON Address: home [address] [place] [id number]
--- OUTSIDE RECORDS SUMMARY | 2023-01-06 08:11 | XMS_ITS | Continuity of Care Document ---
Author Name Unknown Organization [facility] y Address [address] [place] [address]- Care Team Providers Care Marketing Operations Manager Name Role Phone Kehinde DOHERTY, [place] Primary Care Physician Encounter [facility] [place] Date(s[place] 12/16/21 - 03/07/22 [facility] [address] [place], [place] [address] Attending Physician: Ovidio Sawyer MD Admitting Physician: [...] 2 Refills, Maintenance, 12/23/21 15:55:00 EDT, Solution, [facility], Partial fill upon patient request if [...] 07/22/21 8:57:00 EDT, Route to Pharmacy Electronically, [facility], Partial fill upon patient request if the prescription is for a schedule II opioid... Start Date: 07/22/21 Stop Date: 09/20/21 Status: Ordered cetirizine 5 mg oral tablet 1 tablet = 5 mg, By Mouth, Daily, PRN as needed for allergy symptoms, # 30 tablet, 0 Refills, Maintenance, 12/17/21 16:03:00 EDT, Tablet, [facility] Partial fill upon patient requestif [...] 07/22/21 8:57:00 EDT, Route to Pharmacy Electronically, [facility], Partial fill upon patient [...] tablet, 3 Refills, Maintenance, 12/17/21 13:32:00 EDT, [facility], 30, TAKE 1 TABLET BY MOUTH EVERY DAY WITH FOOD, 172, cm, 07/22/21 9:16:00 EDT, Height, 121.3, kg, 07/19/21... Start Date: 12/17/21 Status: Ordered hydrOXYzine hydrochloride 25 mg oral tablet 1 tablet, By Mouth, 4 times a day, PRN NEEDED FOR ANXIETY, # 60 tablet, 1 Refills, Maintenance, 12/17/21 11:16:00 EDT, [facility], [facility], cm, 07/22/21 9:16:00 EDT, Height, 121.3, kg, 07/19/21 21:11:00 EDT, Dry Weight Start Date: 12/17/21 Status: Ordered Lipitor 20 mg oral tablet 1 tablet = 20 mg, By Mouth, Daily, # 30 tablet, 0 Refills, Maintenance, 07/22/21 9:28:00 EDT, Tablet, [facility] 3, Partial fill upon patient request if the prescription is for a scheduleII opioid drug., 172, cm, 07/22/21 9:16:00 EDT, Hei... Start Date: 07/22/21 Status: Ordered metoprolol 25 mg oral tablet, extended release 25 mg, 1, tablet, By Mouth, Daily, # 30 tablet, Refills 1, Tot. Refills 1, Maintenance, 07/22/21 8:57:00 EDT, Route to Pharmacy Electronically, [facility] 3, Partial fill upon patient request if the prescription is for a schedule II opioid... Start Date: 07/22/21 Status: Ordered nitroglycerin 0.4 mg sublingual tablet 1 tablet = 0.4 mg, Sublingual, Every 5 minutes, PRN for chest pain, not to exceed 3 doses/15 min--if pain persists, seek medical attention, # 100 tablet, 0 Refills, Maintenance, 07/22/21 8:58:00 EDT,Tablet, [facility] 3, Partial fill upon... Start Date: 07/22/21 Status: Ordered ProAir HFA 90 mcg/inh inhalation aerosol 2 puffs, Inhalation, 4 times a day, PRN as needed for wheezing, # 8.5 Gm, 5 Refills, Maintenance, 12/23/21 15:54:00 EDT, [facility]erosol, [facility] Partial fill upon patient request if the prescription is for a schedule II opioid drug., 2 pu... Start Date: 12/23/21 Status: Ordered Qvar Redihaler 40 mcg/inh inhalation aerosol = 40 mcg, Inhalation, 2 times a day, brand name required by insurance. *discontinue after 1 month after symptoms have been controlled, # 8.7 Gm, 1 Refills, Maintenance, 12/18/21 12:42:00 EDT, [facility] Partial fill upon patient requ... [...] S Resident Member Role: PCP Address: Address: [address] [place] [id number]- Name: Raul Sung RN Position: S RN Member Role: Primary Care Nurse Name: Jose Peng RN Position: S RN Supv Member Role: Primary Care Nurse Name: Lupe Mancuso RN Position: [facility] RN Member Role: Primary Care Nurse Name: Vielka Milan RN Position: [facility] RN Member Role: Primary Care Nurse Name: Tomasa Brush RN Position: S RN Member Role: Primary Care Nurse Care Team Related Persons Name: MILAN WILKINSONA Address: home [address] [place] [id number]
--- OUTSIDE RECORDS SUMMARY | 2023-01-06 08:11 | XMS_ITS | Continuity of Care Document ---
Author Name Unknown Organization [facility] Address [address] [place] [address]- Care Team Providers Care Gun Sealing Machine Operator Name Role Phone Kehinde DOHRETY, [facility] Primary Care Physician Encounter [facility] [place] Date(s): 01/17/21 - 03/12/21 [facility] [address] [place] [id number] Attending Physician: Iliana Schumacher MD Admitting Physician: [...] 2 Refills, Maintenance, 10/14/20 13:23:00 EDT, Tablet, [facility], 166.5, cm, 09/10/20 8:11:00 EDT, Height, 107, kg, 11/21/2020:00:00 EDT, Dry Weight Start Date: 10/14/20 Stop Date: 01/12/21 Status: Ordered dapsone 100 mg oral tablet 1 tablet = 100 mg, By Mouth, Daily, # 30 tablet, 0 Refills, Maintenance, 06/27/20 10:11:00 EDT, [facility]t, [facility], Partial fill upon patient request if the prescription is for a schedule II opioid drug., 166.5, cm, 06/27/20 9:31:00 ED... Start Date: 06/27/20 Status: Ordered gabapentin 400 mg oral capsule 400 mg, 1, capsule, By Mouth, 3 times a day, # 42 capsule, Refills 6, Tot. Refills 6, Maintenance, 06/18/20 8:10:00 EDT, Route to Pharmacy Electronically, [facility] 166.5, cm, 06/18/20 7:58:00 EDT, Height, 107, kg, 11/22/19 21:00:00... Start Date: 06/18/20 Stop Date: 09/24/20 Status: Ordered Genvoya oral tablet 1 tablet, By Mouth, Daily, WITH FOOD., # 30 tablet, 3 Refills, Maintenance, 12/29/20 16:31:00 EDT, [facility], 1 tablet By Mouth Daily,x30 days,Instr:WITH FOOD., 167, cm, 12/11/20 14:48:00 EDT, Height, 107, kg, 11/22/19 21:00:00 EDT, D... Start Date: 12/29/20 Stop Date: 04/28/21 Status: Ordered hydrOXYzine hydrochloride 25 mg oral tablet See Instructions, TAKE 1 TABLET BY MOUTH FOUR TIMES A DAY NEEDED FOR ANXIETY, # 60 tablet, 1 Refills, [facility], 166.5, cm, 11/06/20 15:04:00 EDT, Height, 107, kg, 11/22/19 21:00:00 EDT, Dry Weight Start Date: 11/27/20 Status: Ordered zolpidem 10 mg oral tablet 1 tablet = 10 mg, By Mouth, Daily at bedtime, PRN as needed for insomnia, # 28 tablet, 3 Refills, Maintenance, 10/18/20 16:32:00 EDT, Tablet, [facility], 166.5, cm, 09/10/20 8:11:00 [...]
--- OUTSIDE RECORDS SUMMARY | 2023-01-06 08:11 | XMS_ITS | Continuity of Care Document ---
Author Name Unknown Organization [facility] ter Address [address] [place] [id number]- Care Team Providers Care Homicide Investigator Name Role Phone Kehinde DOHERTY, [place] Primary Care Physician Encounter [facility] [place] Date(s): 03/04/22 - 04/09/[address] [address] Attending Physician: Maria E Morillo NP Admitting Physician: Maria E Morillo NP Referring Physician: Maria E Morillo NP Allergies, Adverse Reactions, Alerts Substance Reaction [...] 2 Refills, Maintenance, 12/23/21 15:55:00 EDT, [facility], [facility] fill upon patient [...] 07/22/21 8:57:00 EDT, Route to Pharmacy Electronically, [facility], Partial fill upon patient request if the prescription is for a schedule II opioid... Start Date: 07/22/21 Stop Date: 09/20/21 Status: Ordered cetirizine 5 mg oral tablet 1 tablet = 5 mg, By Mouth, Daily, PRN as needed for allergy symptoms, # 30 tablet, 0 Refills, Maintenance, 12/17/21 16:03:00 EDT, Tablet, [facility]., Partial fill upon patient requestif the [...] 07/22/21 8:57:00 EDT, Route to Pharmacy Electronically, [facility], Partial fill upon patient request [...] tablet, 3 Refills, Maintenance, 12/17/21 13:32:00 EDT, [facility], 30, TAKE 1 TABLET BY MOUTH EVERY DAY WITH FOOD, 172, cm, 05/03/22 9:16:00 EDT, Height, 121.3, kg, 07/19/21... Start Date: 12/17/21 Status: Ordered hydrOXYzine hydrochloride 25 mg oral tablet 1 tablet, By Mouth, 4 times a day, PRN NEEDED FOR ANXIETY, # 60 tablet, 1 Refills, Maintenance, 12/17/21 11:16:00 EDT, [facility], [facility], cm, 07/22/21 9:16:00 EDT, Height, 121.3, kg, 07/19/21 21:11:00 EDT, Dry Weight Start Date: 12/17/21 Status: Ordered Lipitor 20 mg oral tablet 1 tablet = 20 mg, By Mouth, Daily, # 30 tablet, 0 Refills, Maintenance, 07/22/21 9:28:00 EDT, Tablet, [facility], Partial fill upon patient request if the prescription is for a scheduleII opioid drug., 172, cm, 07/22/21 9:16:00 EDT, Hei... Start Date: 07/22/21 Status: Ordered metoprolol 25 mg oral tablet, extended release 25 mg, 1, tablet, By Mouth, Daily, # 30 tablet, Refills 1, Tot. Refills 1, Maintenance, 07/22/21 8:57:00 EDT, Route to Pharmacy Electronically, [facility], Partial fill upon patient request if the prescription is for a schedule II opioid... Start Date: 07/22/21 Status: Ordered nitroglycerin 0.4 mg sublingual tablet 1 tablet = 0.4 mg, Sublingual, Every 5 minutes, PRN for chest pain, not to exceed 3 doses/15 min--if pain persists, seek medical attention, # 100 tablet, 0 Refills, Maintenance, 07/22/21 8:58:00 EDT,Tablet, [facility], Partial fill upon... Start Date: 07/22/21 Status: Ordered ProAir HFA 90 mcg/inh inhalation aerosol 2 puffs, Inhalation, 4 times a day, PRN as needed for wheezing, # 8.5 Gm, 5 Refills, Maintenance, 12/23/21 15:54:00 EDT, Aerosol, [facility] Partial fill upon patient request if the prescription is for a schedule II opioid drug., 2 pu... Start Date: 12/23/21 Status: Ordered Qvar Redihaler 40 mcg/inh inhalation aerosol = 40 mcg, Inhalation, 2 times a day, brand name required by insurance. *discontinue after 1 month after symptoms have been controlled, # 8.7 Gm, 1 Refills, Maintenance, 12/18/21 12:42:00 EDT, [facility], Partial fill upon patient requ... Start Date: [...] S Resident Member Role: PCP Address: Address: [address] [place] [id number]- Name: Raul Sung RN Position: S RN [...] Related Persons Name: WHIT WILKINSON Address: home [address] [place] [id number]
--- OUTSIDE RECORDS SUMMARY | 2023-01-06 08:11 | XMS_ITS | Continuity of Care Document ---
Author Name Unknown Organization [facility] Address [address] [place] [address]- Care Team Providers Care Explosives Worker Name Role Phone Kehinde DOHERTY, [place] Primary Care Physician [place] [facility] [place] 12/17[place]21 - 01/16/22 [facility] [address] [place] [address]- Allergies, Adverse Reactions, Alerts Substance Reaction Severity [...] 2 Refills, Maintenance, 12/23/21 15:55:00 EDT, Solution, [facility], [facility] fill upon [...] 07/22/21 8:57:00 EDT, Route to Pharmacy Electronically, [facility], Partial fill upon patient request if the prescription is for a schedule II opioid... Start Date: 07/22/21 Stop Date: 09/20/21 Status: Ordered cetirizine 5 mg oral tablet 1 tablet = 5 mg, By Mouth, Daily, PRN as needed for allergy symptoms, # 30 tablet, 0 Refills, Maintenance, 12/17/21 16:03:00 EDT, Tablet, [facility] Partial fill upon patient requestif the prescription [...] 07/22/21 8:57:00 EDT, Route to Pharmacy Electronically, [facility], Partial fill upon patient request [...] 3 Refills, Maintenance, 12/17/21 13:32:00 EDT, [facility], 30, TAKE 1 TABLET BY MOUTH EVERY DAY WITH FOOD, 172, cm, 07/22/21 9:16:00 EDT, Height, 121.3, kg, 07/19/21... Start Date: 12/17/21 Status: Ordered hydrOXYzine hydrochloride 25 mg oral tablet 1 tablet, By Mouth, 4 times a day, PRN NEEDED FOR ANXIETY, # 60 tablet, 1 Refills, Maintenance, 12/17/21 11:16:00 EDT, [facility], 172, cm, 07/22/21 9:16:00 EDT, Height, 121.3, kg, 07/19/21 21:11:00 EDT, Dry Weight Start Date: 12/17/21 Status: Ordered Lipitor 20 mg oral tablet 1 tablet = 20 mg, By Mouth, Daily, # 30 tablet, 0 Refills, Maintenance, 07/22/21 9:28:00 EDT, Tablet, [facility], Partial fill upon patient request if the prescription is for a scheduleII opioid drug., 172, cm, 07/22/21 9:16:00 EDT, Hei... Start Date: 07/22/21 Status: Ordered metoprolol 25 mg oral tablet, extended release 25 mg, 1, tablet, By Mouth, Daily, # 30 tablet, Refills 1, Tot. Refills 1, Maintenance, 07/22/21 8:57:00 EDT, Route to Pharmacy Electronically, [facility], Partial fill upon patient request if the prescription is for a schedule II opioid... Start Date: 07/22/21 Status: Ordered nitroglycerin 0.4 mg sublingual tablet 1 tablet = 0.4 mg, Sublingual, Every 5 minutes, PRN for chest pain, not to exceed 3 doses/15 min--if pain persists, seek medical attention, # 100 tablet, 0 Refills, Maintenance, 07/22/21 8:58:00 EDT,Tablet, [facility], Partial fill upon... Start Date: 07/22/21 Status: Ordered ProAir HFA 90 mcg/inh inhalation aerosol 2 puffs, Inhalation, 4 times a day, PRN as needed for wheezing, # 8.5 Gm, 5 Refills, Maintenance, 12/23/21 15:54:00 EDT, Aerosol, [facility] Partial fill upon patient request if the prescription is for a schedule II opioid drug., 2 pu... Start Date: 12/23/21 Status: Ordered Qvar Redihaler 40 mcg/inh inhalation aerosol = 40 mcg, Inhalation, 2 times a day, brand name required by insurance. *discontinue after 1 month after symptoms have been controlled, # 8.7 Gm, 1 Refills, Maintenance, 12/18/21 12:42:00 EDT, [facility] Partial fill upon patient requ... [...] Personnel Name: Kehinde DOHERTY, [place] Address: Address: [address] [place] [address], [place] [id number]
--- OUTSIDE RECORDS SUMMARY | 2023-01-06 08:11 | XMS_ITS | Continuity of Care Document ---
Author Name Unknown Organization [facility] Address [address] [place] [address]- Care Team Providers Care Technical Solution Architect Name Role Phone Kehinde DOHERTY, [place] Primary Care Physician Encounter [facility] [place] Date(s): 01/22/22 - 03/25/22 [facility] [address] [place] [address]- Attending Physician: Elvin Zapata MD Admitting Physician: Elvin Zapata MD Allergies, Adverse Reactions, Alerts Substance Reaction [...] 2 Refills, Maintenance, 12/23/21 15:55:00 EDT, Solution, [facility], Partial fill upon [...] 8:57:00 EDT, Route to Pharmacy Electronically, [facility], Partial fill upon patient request if the prescription is for a schedule II opioid... Start Date: 07/22/21 Stop Date: 09/20/21 Status: Ordered cetirizine 5 mg oral tablet 1 tablet = 5 mg, By Mouth, Daily, PRN as needed for allergy symptoms, # 30 tablet, 0 Refills, Maintenance, 12/17/21 16:03:00 EDT, Tablet, [facility]., Partial fill upon patient requestif the [...] 8:57:00 EDT, Route to Pharmacy Electronically, [facility], Partial fill upon patient request if [...] tablet, 3 Refills, Maintenance, 12/17/21 13:32:00 EDT, [facility], 30, TAKE 1 TABLET BY MOUTH EVERY DAY WITH FOOD, 172, cm, 07/22/21 9:16:00 EDT, Height, 121.3, kg, 07/19/21... Start Date: 12/17/21 Status: Ordered hydrOXYzine hydrochloride 25 mg oral tablet 1 tablet, By Mouth, 4 times a day, PRN NEEDED FOR ANXIETY, # 60 tablet, 1 Refills, Maintenance, 12/17/21 11:16:00 EDT, [facility], 172, cm, 07/22/21 9:16:00 EDT, Height, 121.3, kg, 07/19/21 21:11:00 EDT, Dry Weight Start Date: 12/17/21 Status: Ordered Lipitor 20 mg oral tablet 1 tablet = 20 mg, By Mouth, Daily, # 30 tablet, 0 Refills, Maintenance, 07/22/21 9:28:00 EDT, Tablet, [facility], Partial fill upon patient request if the prescription is for a scheduleII opioid drug., 172, cm, 07/22/21 9:16:00 EDT, Hei... Start Date: 07/22/21 Status: Ordered metoprolol 25 mg oral tablet, extended release 25 mg, 1, tablet, By Mouth, Daily, # 30 tablet, Refills 1, Tot. Refills 1, Maintenance, 07/22/21 8:57:00 EDT, Route to Pharmacy Electronically, [facility], Partial fill upon patient request if the prescription is for a schedule II opioid... Start Date: 07/22/21 Status: Ordered nitroglycerin 0.4 mg sublingual tablet 1 tablet = 0.4 mg, Sublingual, Every 5 minutes, PRN for chest pain, not to exceed 3 doses/15 min--if pain persists, seek medical attention, # 100 tablet, 0 Refills, Maintenance, 07/22/21 8:58:00 EDT,Tablet, [facility], Partial fill upon... Start Date: 07/22/21 Status: Ordered ProAir HFA 90 mcg/inh inhalation aerosol 2 puffs, Inhalation, 4 times a day, PRN as needed for wheezing, # 8.5 Gm, 5 Refills, Maintenance, 12/23/21 15:54:00 EDT, Aerosol, [facility] Partial fill upon patient request if the prescription is for a schedule II opioid drug., 2 pu... Start Date: 12/23/21 Status: Ordered Qvar Redihaler 40 mcg/inh inhalation aerosol = 40 mcg, Inhalation, 2 times a day, brand name required by insurance. *discontinue after 1 month after symptoms have been controlled, # 8.7 Gm, 1 Refills, Maintenance, 12/18/21 12:42:00 EDT, [facility] Partial fill upon patient requ... [...] Team Personnel Name: [place] Busby MD Position: [facility] Resident Member Role: PCP Address: Address: [address] [place] [id number]- Name: Raul Sung RN Position: S RN Member Role: Primary Care Nurse Name: Jose Peng RN Position: [facility] RN Supv Member Role: Primary Care Nurse Name: Lupe Mancuso RN Position: S RN Member Role: Primary Care Nurse Name: Vielka Milan RN Position: [facility] ED RN W/OE and Tasks Member Role: Primary Care Nurse Name: Tomasa Brush RN Position: S RN Member Role: Primary Care Nurse Care Team Related Persons Name: JAJA WHIT Address: home [address] [address]
--- OUTSIDE RECORDS SUMMARY | 2023-01-06 08:11 | XMS_ITS | Continuity of Care Document ---
Author Name Unknown Organization [facility] Address [address] [place] [address]- Care Team Providers Care Tipple Tender Name Role Phone Maurilio Ramirez MD Primary Care Physician [facility] Date[facility]s): 10/31/19 - 11/30/19 [facility] [address] [place] [id number] [facility] Allergies, Adverse Reactions, Alerts Substance Reaction Severity [...] 01/29/20 11:21:00 EST, 11/30/19 11:21:00 EDT, Suspension, [facility], 166.5, cm, 11/30/19 10:56:00 EDT, Height, 107, kg, 11/22/19 21:00:00 EDT, Dry Weight Start Date: 11/30/19 Stop Date: 01/29/20 Status: Ordered clonazePAM 0.5 mg oral tablet 1 tablet = 0.5 mg, By Mouth, 3 times a day, # 90 tablet, 3 Refills, Maintenance, 11/30/19 11:06:00 EDT, Tablet, [facility], 166.5, cm, 11/30/19 10:56:00 EDT, Height, 107, kg, 11/21/2020:00:00 EDT, Dry Weight Start Date: 11/30/19 Stop Date: 03/29/20 Status: Ordered desonide 0.05% topical ointment 1 application, Topically, 3 times a day, for 14 days, # 60 Gm, 0 Refills, Acute 12/07/19 13:42:00 EDT, 11/23/19 13:42:00 EDT, Ointment, [facility], 1 application Topically 3 times a day,x14 days, 166.5, cm, 11/23/19 13:20:00 EDT, Heigh... Start Date: 11/23/19 Stop Date: 12/07/19 Status: Ordered fluconazole 200 mg oral tablet 2 tablet = 400 mg, By Mouth, Daily, for 14 days, # 28 tablet, 0 Refills, Acute 12/07/19 13:43:00 EDT, 11/23/19 13:43:00 EDT, Tablet, [facility], 166.5, cm, 11/23/19 13:20:00 EDT, Height, 107, kg, 11/22/19 21:00:00 EDT, Dry Weight Start Date: 11/23/19 Stop Date: 12/07/19 Status: Ordered gabapentin 100 mg oral capsule 200 mg, 2, capsule, By Mouth, 3 times a day, PRN, # 90 capsule, Refills 0, Tot. Refills 0, Maintenance, Pain , Moderate, 11/20/19 13:22:00 EDT, Route to Pharmacy Electronically, [facility], 166.5, cm, 11/07/19 10:59:00 EDT, Height Start Date: 11/20/19 Stop Date: 12/04/19 Status: Ordered gabapentin 100 mg oral capsule 200 mg, 2, capsule, By Mouth, Daily at bedtime, # 60 capsule, Refills 1, Tot. Refills 1, Maintenance, 10/27/18 12:22:39 EDT, Route to Pharmacy Electronically, [id number], [facility]/pharmacy #[id number] Start Date: 10/27/18 Stop Date: 12/26/18 Status: Ordered gabapentin 400 mg oral capsule 400 mg, 1, capsule, By Mouth, 3 times a day, # 42 capsule, Refills 0, Tot. Refills 0, Maintenance, 11/23/19 13:41:00 EDT, Route to Pharmacy Electronically, [facility], 166.5, cm, 11/23/19 13:20:00 EDT, Height, 107, kg, 11/22/19 21:00:0... Start Date: 11/23/19 Stop Date: 12/07/19 Status: Ordered Genvoya oral tablet 1 tablet, By Mouth, Daily, with food, # 30 tablet, 3 Refills, Maintenance, 11/30/19 11:21:00 EDT, Tablet, [facility], 1 tablet By Mouth Daily,Instr:with food, 166.5, cm, 11/30/19 10:56:00 EDT, Height, 107, kg, 11/22/19 21:00:00 EDT, Start Date: 11/30/19 Status: Ordered Genvoya oral tablet 1 tablet, [...] 1 tablet = 1 Gm, By Mouth, 3 times a day, # 30 tablet, 0 Refills, Maintenance, 11/07/19 12:00:00 EDT, Tablet, [facility]., 166.5, cm, 11/07/19 10:59:00 EDT, Height Start Date: 11/07/19 Stop Date: 11/17/19 Status: Ordered Vitamin D 42718 iu oral capsule 50,000 International_Units, 1, capsule, By Mouth, Every week, # 5 capsule, Refills 1, Tot. Refills 1, Maintenance, 06/08/18 6:27:29 EDT, Route to Pharmacy Electronically, NCPDP_[id number], [facility] Start Date: 06/08/18 Stop Date: 08/07/18 Status: Ordered zolpidem 10 mg oral tablet 1 tablet = 10 mg, By Mouth, Daily at bedtime, PRN as needed for insomnia, # 30 tablet, 3 Refills, Maintenance, 11/30/19 11:07:00 EDT, Tablet, [facility]., 166.5, cm, 11/30/19 10:56:00 EDT, Height, [...] Type Response Smoking Status Current every day sm oker; Type: Cigarettes; Tobacco use times per day: a pack every couple days; entered on: 05/31/14 Sex Female
--- OUTSIDE RECORDS SUMMARY | 2023-01-06 08:11 | XMS_ITS | Continuity of Care Document ---
Author Name Unknown Organization [facility] y Address [address] [place] [address]- Care Team Providers Care Beam Worker Name Role Phone Ashley DOHERTY, Maurilio Burnett Primary Care Physician [place] [facility] [place] - 07/31/20 [facility] [address] [place], [place] [address] Attending Physician: Ovidio Sawyer [...] 0 Refills, Maintenance, 06/18/20 8:26:00 EDT, Tablet, [facility]., 166.5, cm, 06/18/20 7:58:00 EDT, Height, 107, kg, 11/22/19 21:00:00 EDT, Dry Weight Start Date: 06/18/20 Stop Date: 07/18/20 Status: Ordered dapsone 100 mg oral tablet 1 tablet = 100 mg, By Mouth, Daily, # 30 tablet, 0 Refills, Maintenance, 06/27/20 10:11:00 EDT, Tablet, [facility]., Partial fill upon patient request if the prescription is for a schedule II opioid drug., 166.5, cm, 06/27/20 9:31:00 ED... Start Date: 06/27/20 Status: Ordered gabapentin 400 mg oral capsule 400 mg, 1, capsule, By Mouth, 3 times a day, # 42 capsule, Refills 6, Tot. Refills 6, Maintenance, 06/18/20 8:10:00 EDT, Route to Pharmacy Electronically, [facility]., 166.5, cm, 06/18/20 7:58:00 EDT, Height, 107, kg, 11/22/19 21:00:00... Start Date: 06/18/20 Stop Date: 09/24/20 Status: Ordered Genvoya oral tablet 1 tablet, By Mouth, Daily, WITH FOOD., # 30 tablet, 3 Refills, Maintenance, 04/25/20 14:22:00 EST, [facility], [facility], TAKE 1 TABLET BY MOUTH EVERY DAY WITH FOOD, 166.5, cm, 11/30/19 10:56:00 EDT, Height, 107, kg, 11/22/19 21:00:00 EDT, Dry Weight Start Date: 04/25/20 Status: Ordered zolpidem 10 mg oral tablet 1 tablet = 10 mg, By Mouth, Daily at bedtime, PRN as needed for insomnia, # 30 tablet, 0 Refills, Maintenance, 06/18/20 8:26:00 EDT, Tablet, [facility], 166.5, cm, 06/18/20 7:58:00 EDT, Height, 107, [...]
--- OUTSIDE RECORDS SUMMARY | 2023-01-06 08:11 | XMS_ITS | Continuity of Care Document ---
Author Name Unknown Organization [facility] Address [address] [place] [address]- Care Team Providers Care Kiss Machine Operator Name Role Phone Kehinde DOHERTY, [facility] Primary [facility] Physician [facility] Date[facility]s): 10/08/20 - 11/07/20 [facility] [address] [place], [place] [address] Allergies, Adverse Reactions, Alerts Substance [...] 2 Refills, Maintenance, 10/14/20 13:23:00 EDT, Tablet, [facility], 166.5, cm, 09/10/20 8:11:00 EDT, Height, 107, kg, 11/21/2020:00:00 EDT, Dry Weight Start Date: 10/14/20 Stop Date: 01/12/21 Status: Ordered dapsone 100 mg oral tablet 1 tablet = 100 mg, By Mouth, Daily, # 30 tablet, 0 Refills, Maintenance, 06/27/20 10:11:00 EDT, Tablet[facility] fill upon patient request if the prescription is for a schedule II opioid drug., 166.5, cm, 06/27/20 9:31:00 ED... Start Date: 06/27/20 Status: Ordered gabapentin 400 mg oral capsule 400 mg, 1, capsule, By Mouth, 3 times a day, # 42 capsule, Refills 6, Tot. Refills 6, Maintenance, 06/18/20 8:10:00 EDT, Route to Pharmacy Electronically, [facility], 166.5, cm, 06/18/20 7:58:00 EDT, Height, 107, kg, 11/22/19 21:00:00... Start Date: 06/18/20 Stop Date: 09/24/20 Status: Ordered Genvoya oral tablet 1 tablet, By Mouth, Daily, WITH FOOD., # 30 tablet, 1 Refills, Maintenance, 09/24/20 19:51:00 EDT, [facility], 1 tablet By Mouth Daily,x30 days,Instr:WITH FOOD., 166.5, cm, 09/10/20 8:11:00 EDT, Height, 107, kg, 11/22/19 21:00:00 EDT,... Start Date: 09/24/20 Stop Date: 11/23/20 Status: Ordered hydrOXYzine hydrochloride 25 mg oral tablet 1 tablet = 25 mg, By Mouth, 4 times a day, PRN for anxiety, for 30 days, # 60 tablet, 1 Refills, Acute 12/06/20 14:36:00 EDT, 10/07/20 14:36:00 EDT, Tablet, [facility], Partial fill upon patient request if the prescription is for a roya... Start Date: 10/07/20 Stop Date: 12/06/20 Status: Ordered zolpidem 10 mg oral tablet 1 tablet = 10 mg, By Mouth, Daily at bedtime, PRN as needed for insomnia, # 28 tablet, 3 Refills, Maintenance, 10/18/20 16:32:00 EDT, Tablet, [facility], 166.5, cm, 09/10/20 8:11:00 [...]
--- OUTSIDE RECORDS SUMMARY | 2023-01-06 08:11 | XMS_ITS | Continuity of Care Document ---
Author Name Unknown Organization [facility] Address [address] [place] [address]- Care Team Providers Care Early Childhood Education Specialist Name Role Phone Kehinde DOHERTY, [facility] Primary [facility] Physician [facility] Date[facility]s): 09/05/20 - 10/05/20 [facility] [address] [place], [place] [address] Allergies, Adverse Reactions, Alerts Substance Reaction [...] 0 Refills, Maintenance, 06/18/20 8:26:00 EDT, Tablet, [facility]., 166.5, cm, 06/18/20 7:58:00 EDT, Height, 107, kg, 11/22/19 21:00:00 EDT, Dry Weight Start Date: 06/18/20 Stop Date: 07/18/20 Status: Ordered dapsone 100 mg oral tablet 1 tablet = 100 mg, By Mouth, Daily, # 30 tablet, 0 Refills, Maintenance, 06/27/20 10:11:00 EDT, Tablet, [facility]., Partial fill upon patient request if the prescription is for a schedule II opioid drug., 166.5, cm, 06/27/20 9:31:00 ED... Start Date: 06/27/20 Status: Ordered gabapentin 400 mg oral capsule 400 mg, 1, capsule, By Mouth, 3 times a day, # 42 capsule, Refills 6, Tot. Refills 6, Maintenance, 06/18/20 8:10:00 EDT, Route to Pharmacy Electronically, [facility]., 166.5, cm, 06/18/20 7:58:00 EDT, Height, 107, kg, 11/22/19 21:00:00... Start Date: 06/18/20 Stop Date: 09/24/20 Status: Ordered Genvoya oral tablet 1 tablet, By Mouth, Daily, WITH FOOD., # 30 tablet, 1 Refills, Maintenance, 09/24/20 19:51:00 EDT, [facility], 1 tablet By Mouth Daily,x30 days,Instr:WITH FOOD., 166.5, cm, 09/10/20 8:11:00 EDT, Height, 107, kg, 11/22/19 21:00:00 EDT,... Start Date: 09/24/20 Stop Date: 11/23/20 Status: Ordered zolpidem 10 mg oral tablet [...]
--- OUTSIDE RECORDS SUMMARY | 2023-01-06 08:11 | XMS_ITS | Continuity of Care Document ---
Author Name Unknown Organization [facility] Address Unknown Care Team Providers Care Printing Film Stripper Name Role Phone Kehinde DOHERTY, [facility] Primary [facility] Physician [facility] Date[facility]s): 01/17/21 - 01/24/21 [facility] Attending Physician: Knee RD, [place] Allergies, Adverse Reactions, Alerts Substance Reaction Severity [...] Refills, Maintenance, 10/14/20 13:23:00 EDT, Tablet, [facility], 166.5, cm, 09/10/20 8:11:00 EDT, Height, 107, kg, 11/21/2020:00:00 EDT, Dry Weight Start Date: 10/14/20 Stop Date: 01/12/21 Status: Ordered dapsone 100 mg oral tablet 1 tablet = 100 mg, By Mouth, Daily, # 30 tablet, 0 Refills, Maintenance, 06/27/20 10:11:00 EDT, Tablet, [facility] Partial fill upon patient request if the prescription is for a schedule II opioid drug., 166.5, cm, 06/27/20 9:31:00 ED... Start Date: 06/27/20 Status: Ordered desonide 0.05% topical cream 1 application, Topically, 2 times a day, for 14 days, # 60 Gm, 0 Refills, Acute 01/30/21 14:06:00 EST, 01/16/21 14:06:00 EDT, Cream, [facility], Partial fill upon patient request if the prescription is for a schedule II opioid drug., 1... Start Date: 01/16/21 Stop Date: 01/30/21 Status: Ordered gabapentin 400 mg oral capsule 400 mg, 1, capsule, By Mouth, 3 times a day, # 42 capsule, Refills 6, Tot. Refills 6, Maintenance, 06/18/20 8:10:00 EDT, Route to Pharmacy Electronically, [facility], 166.5, cm, 06/18/20 7:58:00 EDT, Height, 107, kg, 11/22/19 21:00:00... Start Date: 06/18/20 Stop Date: 09/24/20 Status: Ordered Genvoya oral tablet 1 tablet, By Mouth, Daily, WITH FOOD., # 30 tablet, 3 Refills, Maintenance, 12/29/20 16:31:00 EDT, [facility], 1 tablet By Mouth Daily,x30 days,Instr:WITH FOOD., 167, cm, 12/11/20 14:48:00 EDT, Height, 107, kg, 11/22/19 21:00:00 EDT, D... Start Date: 12/29/20 Stop Date: 04/28/21 Status: Ordered hydrOXYzine hydrochloride 25 mg oral tablet See Instructions, TAKE 1 TABLET BY MOUTH FOUR TIMES A DAY NEEDED FOR ANXIETY, # 60 tablet, 1 Refills, [facility], 166.5, cm, 11/06/20 15:04:00 EDT, Height, 107, kg, 11/22/19 21:00:00 EDT, Dry Weight Start Date: 11/27/20 Status: Ordered zolpidem 10 mg oral tablet 1 tablet = 10 mg, By Mouth, Daily at bedtime, PRN as needed for insomnia, # 28 tablet, 3 Refills, Maintenance, 10/18/20 16:32:00 EDT, Tablet, [facility], 166.5, cm, 09/10/20 8:11:00 [...]
--- OUTSIDE RECORDS SUMMARY | 2023-01-06 08:11 | XMS_ITS | Continuity of Care Document ---
Author Name Unknown Organization [facility] Address [address] [place] [address]- Care Team Providers Care Busperson Name Role Phone Kehinde DOHERTY, [facility] Primary Care Physician Encounter [facility] [place] Date(s): 08/11/22 - 09/17/22 [facility] [address] [place] [address]- Attending Physician: Not on Staff, Attending MD [...] 2 Refills, Maintenance, 12/23/21 15:55:00 EDT, Solution, [facility], [facility] fill upon patient request if [...] 07/22/21 8:57:00 EDT, Route to Pharmacy Electronically, [facility], Partial fill upon patient request [...] 07/22/21 8:57:00 EDT, Route to Pharmacy Electronically, [facility], Partial fill upon patient request if the prescription is for a schedule II opioid... Start Date: 07/22/21 Status: Ordered dapsone 100 mg oral tablet 1 tablet = 100 mg, By Mouth, Daily, # 30 tablet, 11 Refills, Maintenance, 08/20/22 10:57:00 EDT, Tablet, [facility]., Partial fill upon patient request if the [...] tablet, 3 Refills, Maintenance, 06/29/22 13:16:00 EDT, [facility], 30, TAKE 1 TABLET BY MOUTH EVERY DAY WITH FOOD, 172, cm, 01/15/22 16:40:00 EDT, Height, 121.3, kg, 07/19/21 21:11:00 EDT, Dry Weight Start Date: 06/29/22 Status: Ordered hydrOXYzine hydrochloride 25 mg oral tablet 1 tablet, By Mouth, 4 times a day, PRN NEEDED FOR ANXIETY, # 60 tablet, 1 Refills, Maintenance, 12/17/21 11:16:00 EDT, [facility], 172, cm, 07/22/21 9:16:00 EDT, Height, 121.3, kg, 07/19/21 21:11:00 EDT, Dry Weight Start Date: 12/17/21 Status: Ordered Lipitor 20 mg oral tablet 1 tablet = 20 mg, By Mouth, Daily, # 30 tablet, 0 Refills, Maintenance, 07/22/21 9:28:00 EDT, Tablet, [facility], Partial fill upon patient request if the prescription is for a scheduleII opioid drug., 172, cm, 07/22/21 9:16:00 EDT, Hei... Start Date: 07/22/21 Status: Ordered metoprolol 25 mg oral tablet, extended release 25 mg, 1, tablet, By Mouth, Daily, # 30 tablet, Refills 1, Tot. Refills 1, Maintenance, 07/22/21 8:57:00 EDT, Route to Pharmacy Electronically, [facility], Partial fill upon patient request if the prescription is for a schedule II opioid... Start Date: 07/22/21 Status: Ordered nitroglycerin 0.4 mg sublingual tablet 1 tablet = 0.4 mg, Sublingual, Every 5 minutes, PRN for chest pain, not to exceed 3 doses/15 min--if pain persists, seek medical attention, # 100 tablet, 0 Refills, Maintenance, 07/22/21 8:58:00 EDT,Tablet, [facility], Partial fill upon... Start Date: 07/22/21 Status: Ordered ProAir HFA 90 mcg/inh inhalation aerosol 2 puffs, Inhalation, 4 times a day, PRN as needed for wheezing, # 8.5 Gm, 5 Refills, Maintenance, 12/23/21 15:54:00 EDT, Aerosol, [facility]., Partial fill upon patient request if the prescription is for a schedule II opioid drug., 2 pu... Start Date: 12/23/21 Status: Ordered Qvar Redihaler 40 mcg/inh inhalation aerosol = 40 mcg, Inhalation, 2 times a day, brand name required by insurance. *discontinue after 1 month after symptoms have been controlled, # 8.7 Gm, 1 Refills, Maintenance, 12/18/21 12:42:00 EDT, [facility]., Partial fill upon patient requ... Start Date: [...] S Resident Member Role: PCP Address: Address: [address] [place] [address]- Name: Raul Sung RN Position: S RN Member Role: Primary Care Nurse Name: Lupe Mancuso RN Position: S RN Member Role: Primary Care Nurse Name: Vielka Milan RN Position: S RN Member Role: Primary Care Nurse Name: Tomasa Brush RN Position: S RN Member Role: Primary Care Nurse Care Team Related Persons Name: WHIT WILKINSON Address: home [address] [place] [id number]
--- OUTSIDE RECORDS SUMMARY | 2023-01-06 08:11 | XMS_ITS | Continuity of Care Document ---
Author Name Unknown Organization [facility] y Address [address] [place] [address]- Care Team Providers Care Internet Marketing Consultant Name Role Phone Dayton Busby MD Primary Care Physician Encounter [facility] [place] Date(s): 09/02/21 - 11/01/21 [facility] [address] [place], [place] [address] Attending Physician: Ovidio Sawyer [...] 07/22/21 8:57:00 EDT, Route to Pharmacy Electronically, [facility], Partial fill upon [...] 07/22/21 8:57:00 EDT, Route to Pharmacy Electronically, [facility], Partial fill upon patient [...] tablet, 3 Refills, Maintenance, 12/29/20 16:31:00 EDT, [facility]., 1 tablet By Mouth Daily,x30 days,Instr:WITH FOOD., 167, cm, 12/11/20 14:48:00 EDT, Height, 107, kg, 11/22/19 21:00:00 EDT, D... Start Date: 12/29/20 Stop Date: 04/28/21 Status: Ordered hydrOXYzine hydrochloride 25 mg oral tablet 1 tablet, By Mouth, 4 times a day, PRN NEEDED FOR ANXIETY, # 60 tablet, 1 Refills, [facility], 167, cm, 05/21/21 13:49:00 EST, Height, 107, kg, 11/22/19 21:00:00 EDT, Dry Weight Start Date: 06/02/21 Status: Ordered Lipitor 20 mg oral tablet 1 tablet = 20 mg, By Mouth, Daily, # 30 tablet, 0 Refills, Maintenance, 07/22/21 9:28:00 EDT, Tablet, [facility], Partial fill upon patient request if the prescription is for a scheduleII opioid drug., 172, cm, 07/22/21 9:16:00 EDT, Hei... Start Date: 07/22/21 Status: Ordered metoprolol 25 mg oral tablet, extended release 25 mg, 1, tablet, By Mouth, Daily, # 30 tablet, Refills 1, Tot. Refills 1, Maintenance, 07/22/21 8:57:00 EDT, Route to Pharmacy Electronically, [facility], Partial fill upon patient request if the prescription is for a schedule II opioid... Start Date: 07/22/21 Status: Ordered nitroglycerin 0.4 mg sublingual tablet 1 tablet = 0.4 mg, Sublingual, Every 5 minutes, PRN for chest pain, not to exceed 3 doses/15 min--if pain persists, seek medical attention, # 100 tablet, 0 Refills, Maintenance, 07/22/21 8:58:00 EDT,Tablet, [facility], Partial fill upon... Start Date: 07/22/21 Status: Ordered ProAir HFA 90 mcg/inh inhalation aerosol 1 puffs, Inhalation, 4 times a day, PRN as needed for wheezing, # 6.7 Gm, 0 Refills, Maintenance, 07/28/21 15:52:00 EDT, Aerosol, [facility] Partial fill upon patient request if [...]
--- OUTSIDE RECORDS SUMMARY | 2023-01-06 08:11 | XMS_ITS | Continuity of Care Document ---
Author Name Unknown Organization [facility] Address [address] [place] [address]- Care Team Providers Care Dump Grader Name Role Phone Cinthya Camarena DO Primary Care Physician [phone] [place] [facility] [place]19[place] - 12/19/22 [facility] [address] [place] [address]- Attending Physician: Jt Santana Admitting Physician: Jt [...] 2 Refills, Maintenance, 12/23/21 15:55:00 EDT, Solution, [facility], [facility] fill [...] Route to Pharmacy Electronically, [facility], Partial fill upon patient request if the prescription is for a schedule II opioid... Start Date: 07/22/21 Stop Date: 09/20/21 Status: Ordered cetirizine 5 mg oral tablet 1 tablet = 5 mg, By Mouth, Daily, PRN as needed for allergy symptoms, # 30 tablet, 0 Refills, Maintenance, 12/17/21 16:03:00 EDT, Tablet, [facility], Partial fill upon patient requestif the [...] Route to Pharmacy Electronically, [facility], Partial fill upon patient request if the prescription is for a schedule II opioid... Start Date: 07/22/21 Status: Ordered dapsone 100 mg oral tablet 1 tablet = 100 mg, By Mouth, Daily, # 30 tablet, 11 Refills, Maintenance, 08/20/22 10:57:00 EDT, Tablet, [facility], Partial fill upon patient request [...] tablet, 3 Refills, Maintenance, 06/29/22 13:16:00 EDT, [facility], 30, TAKE 1 TABLET BY MOUTH EVERY DAY WITH FOOD, 172, cm, 01/15/22 16:40:00 EDT, Height, 121.3, kg, 07/19/21 21:11:00 EDT, Dry Weight Start Date: 06/29/22 Status: Ordered hydrOXYzine hydrochloride 25 mg oral tablet 1 tablet, By Mouth, 4 times a day, PRN NEEDED FOR ANXIETY, # 60 tablet, 1 Refills, Maintenance, 12/17/21 11:16:00 EDT, [facility], 172, cm, 07/22/21 9:16:00 EDT, Height, 121.3, kg, 07/19/21 21:11:00 EDT, Dry Weight Start Date: 12/17/21 Status: Ordered Lipitor 20 mg oral tablet 1 tablet = 20 mg, By Mouth, Daily, # 30 tablet, 0 Refills, Maintenance, 07/22/21 9:28:00 EDT, Tablet, [facility], Partial fill upon patient request if the prescription is for a scheduleII opioid drug., 172, cm, 07/22/21 9:16:00 EDT, Hei... Start Date: 07/22/21 Status: Ordered metoprolol 25 mg oral tablet, extended release 25 mg, 1, tablet, By Mouth, Daily, # 30 tablet, Refills 1, Tot. Refills 1, Maintenance, 07/22/21 8:57:00 EDT, Route to Pharmacy Electronically, [facility], Partial fill upon patient request if the prescription is for a schedule II opioid... Start Date: 07/22/21 Status: Ordered nitroglycerin 0.4 mg sublingual tablet 1 tablet = 0.4 mg, Sublingual, Every 5 minutes, PRN for chest pain, not to exceed 3 doses/15 min--if pain persists, seek medical attention, # 100 tablet, 0 Refills, Maintenance, 07/22/21 8:58:00 EDT,Tablet, [facility], Partial fill upon... Start Date: 07/22/21 Status: Ordered ProAir HFA 90 mcg/inh inhalation aerosol 2 puffs, Inhalation, 4 times a day, PRN as needed for wheezing, # 8.5 Gm, 5 Refills, Maintenance, 12/23/21 15:54:00 EDT, Aerosol, [facility]., Partial fill upon patient request if the prescription is for a schedule II opioid drug., 2 pu... Start Date: 12/23/21 Status: Ordered Qvar Redihaler 40 mcg/inh inhalation aerosol = 40 mcg, Inhalation, 2 times a day, brand name required by insurance. *discontinue after 1 month after symptoms have been controlled, # 8.7 Gm, 1 Refills, Maintenance, 12/18/21 12:42:00 EDT, [facility]., Partial fill upon patient requ... Start [...] S Resident Member Role: PCP Address: Address: [address] [place] [address] [place] [address]- Name: Tomasa Brush RN Position: S RN Member Role: Primary Care Nurse Care Team Related Persons Name: WHIT WILKINSON Address: home [address] [place] [id number]
--- OUTSIDE RECORDS SUMMARY | 2023-01-06 08:11 | XMS_ITS | Continuity of Care Document ---
Author Name Unknown Organization [facility] y Address [address] [place] [address]- Care Team Providers Care Surveyor Rod Helper Name Role Phone Cinthya Camarena DO Primary Care Physician Encounter [facility] [id number] Date(s): 08/27/22 - 10/31/22 [facility] [address] [place] [id number] Attending Physician: Ovidio Sawyer MD [...] 2 Refills, Maintenance, 12/23/21 15:55:00 EDT, Solution, [facility], Partial fill upon patient request if [...] 07/22/21 8:57:00 EDT, Route to Pharmacy Electronically, [facility], Partial fill upon patient request if the prescription is for a schedule II opioid... Start Date: 07/22/21 Stop Date: 09/20/21 Status: Ordered cetirizine 5 mg oral tablet 1 tablet = 5 mg, By Mouth, Daily, PRN as needed for allergy symptoms, # 30 tablet, 0 Refills, Maintenance, 12/17/21 16:03:00 EDT, Tablet, [facility]., Partial fill upon patient requestif the [...] 07/22/21 8:57:00 EDT, Route to Pharmacy Electronically, [facility], Partial fill upon patient request if the prescription is for a schedule II opioid... Start Date: 07/22/21 Status: Ordered dapsone 100 mg oral tablet 1 tablet = 100 mg, By Mouth, Daily, # 30 tablet, 11 Refills, Maintenance, 08/20/22 10:57:00 EDT, Tablet, [facility]., Partial fill upon patient request if [...] tablet, 3 Refills, Maintenance, 06/29/22 13:16:00 EDT, [facility], 30, TAKE 1 TABLET BY MOUTH EVERY DAY WITH FOOD, 172, cm, 01/15/22 16:40:00 EDT, Height, 121.3, kg, 07/19/21 21:11:00 EDT, Dry Weight Start Date: 06/29/22 Status: Ordered hydrOXYzine hydrochloride 25 mg oral tablet 1 tablet, By Mouth, 4 times a day, PRN NEEDED FOR ANXIETY, # 60 tablet, 1 Refills, Maintenance, 12/17/21 11:16:00 EDT, [facility], 172, cm, 07/22/21 9:16:00 EDT, Height, 121.3, kg, 07/19/21 21:11:00 EDT, Dry Weight Start Date: 12/17/21 Status: Ordered Lipitor 20 mg oral tablet 1 tablet = 20 mg, By Mouth, Daily, # 30 tablet, 0 Refills, Maintenance, 07/22/21 9:28:00 EDT, Tablet, [facility], Partial fill upon patient request if the prescription is for a scheduleII opioid drug., 172, cm, 07/22/21 9:16:00 EDT, Hei... Start Date: 07/22/21 Status: Ordered metoprolol 25 mg oral tablet, extended release 25 mg, 1, tablet, By Mouth, Daily, # 30 tablet, Refills 1, Tot. Refills 1, Maintenance, 07/22/21 8:57:00 EDT, Route to Pharmacy Electronically, [facility], Partial fill upon patient request if the prescription is for a schedule II opioid... Start Date: 07/22/21 Status: Ordered nitroglycerin 0.4 mg sublingual tablet 1 tablet = 0.4 mg, Sublingual, Every 5 minutes, PRN for chest pain, not to exceed 3 doses/15 min--if pain persists, seek medical attention, # 100 tablet, 0 Refills, Maintenance, 07/22/21 8:58:00 EDT,Tablet, [facility], Partial fill upon... Start Date: 07/22/21 Status: Ordered ProAir HFA 90 mcg/inh inhalation aerosol 2 puffs, Inhalation, 4 times a day, PRN as needed for wheezing, # 8.5 Gm, 5 Refills, Maintenance, 12/23/21 15:54:00 EDT, Aerosol, [facility]., Partial fill upon patient request if the prescription is for a schedule II opioid drug., 2 pu... Start Date: 12/23/21 Status: Ordered Qvar Redihaler 40 mcg/inh inhalation aerosol = 40 mcg, Inhalation, 2 times a day, brand name required by insurance. *discontinue after 1 month after symptoms have been controlled, # 8.7 Gm, 1 Refills, Maintenance, 12/18/21 12:42:00 EDT, [facility]., Partial fill upon patient requ... Start [...] S Resident Member Role: PCP Address: Address: [address] [place] [address] [place] [address]- Name: Tomasa Brush RN Position: S RN Member Role: Primary Care Nurse Care Team Related Persons Name: WHIT WILKINSON Address: home [address] [place] [id number]
--- OUTSIDE RECORDS SUMMARY | 2023-01-06 08:11 | XMS_ITS | Continuity of Care Document ---
Author Name Unknown Organization [facility] ter Address [address] [place] [address]- Care Team Providers Care Occasional Caregiver Name Role Phone [place] Bus[place] MD Primary Care Physician Encounter [facility] Date(s): 12/03/20 - 01/03/[address] [address] Attending Physician: Maurilio Ramirez MD Admitting Physician: Maurilio Ramirez MD Referring Physician: [place] Bus[place] MD Allergies, [...] 2 Refills, Maintenance, 10/14/20 13:23:00 EDT, Tablet, [facility], 166.5, cm, 09/10/20 8:11:00 EDT, Height, 107, kg, 11/21/2020:00:00 EDT, Dry Weight Start Date: 10/14/20 Stop Date: 01/12/21 Status: Ordered dapsone 100 mg oral tablet 1 tablet = 100 mg, By Mouth, Daily, # 30 tablet, 0 Refills, Maintenance, 06/27/20 10:11:00 EDT, [facility] Partial fill upon patient request if the prescription is for a schedule II opioid drug., 166.5, cm, 06/27/20 9:31:00 ED... Start Date: 06/27/20 Status: Ordered gabapentin 400 mg oral capsule 400 mg, 1, capsule, By Mouth, 3 times a day, # 42 capsule, Refills 6, Tot. Refills 6, Maintenance, 06/18/20 8:10:00 EDT, Route to Pharmacy Electronically, [facility]., 166.5, cm, 06/18/20 7:58:00 EDT, Height, 107, kg, 11/22/19 21:00:00... Start Date: 06/18/20 Stop Date: 09/24/20 Status: Ordered Genvoya oral tablet 1 tablet, By Mouth, Daily, WITH FOOD., # 30 tablet, 3 Refills, Maintenance, 12/29/20 16:31:00 EDT, [facility], 1 tablet By Mouth Daily,x30 days,Instr:WITH FOOD., 167, cm, 12/11/20 14:48:00 EDT, Height, 107, kg, 11/22/19 21:00:00 EDT, D... Start Date: 12/29/20 Stop Date: 04/28/21 Status: Ordered hydrOXYzine hydrochloride 25 mg oral tablet See Instructions, TAKE 1 TABLET BY MOUTH FOUR TIMES A DAY NEEDED FOR ANXIETY, # 60 tablet, 1 Refills, [facility], 166.5, cm, 11/06/20 15:04:00 EDT, Height, 107, kg, 11/22/19 21:00:00 EDT, Dry Weight Start Date: 11/27/20 Status: Ordered zolpidem 10 mg oral tablet 1 tablet = 10 mg, By Mouth, Daily at bedtime, PRN as needed for insomnia, # 28 tablet, 3 Refills, Maintenance, 10/18/20 16:32:00 EDT, Tablet, [facility], 166.5, cm, 09/10/20 8:11:00 [...]
--- OUTSIDE RECORDS SUMMARY | 2023-01-06 08:11 | XMS_ITS | Continuity of Care Document ---
Author Name Unknown Organization [facility] Address [address] [place] [address]- Care Team Providers Care Lavatory Attendant Name Role Phone Kehinde DOHERTY, [facility] Primary Care Physician Encounter [facility] Date(s): 04/14/21 - 05/30/21 [facility] [address] [place] [id number] Attending Physician: Iliana Schumacher MD Admitting Physician: [...] 0 Refills, Maintenance, 06/27/20 10:11:00 EDT, Tablet, [facility], Partial fill upon patient request if the prescription is for a schedule II opioid drug., 166.5, cm, 06/27/20 9:31:00 ED... Start Date: 06/27/20 Status: Ordered gabapentin 400 mg oral capsule 400 mg, 1, capsule, By Mouth, 3 times a day, # 42 capsule, Refills 6, Tot. Refills 6, Maintenance, 06/18/20 8:10:00 EDT, Route to Pharmacy Electronically, [facility], 166.5, cm, 06/18/20 7:58:00 EDT, Height, 107, kg, 11/22/19 21:00:00... Start Date: 06/18/20 Stop Date: 09/24/20 Status: Ordered Genvoya oral tablet 1 tablet, By Mouth, Daily, WITH FOOD., # 30 tablet, 3 Refills, Maintenance, 12/29/20 16:31:00 EDT, [facility] 1 tablet By Mouth Daily,x30 days,Instr:WITH FOOD., 167, cm, 12/11/20 14:48:00 EDT, Height, 107, kg, 11/22/19 21:00:00 EDT, D... Start Date: 12/29/20 Stop Date: 04/28/21 Status: Ordered hydrOXYzine hydrochloride 25 mg oral tablet See Instructions, TAKE 1 TABLET BY MOUTH FOUR TIMES A DAY NEEDED FOR ANXIETY, # 60 tablet, 1 Refills, [facility], 166.5, cm, 11/06/20 15:04:00 EDT, [...]
--- OUTSIDE RECORDS SUMMARY | 2023-01-06 08:12 | XMS_ITS | Continuity of Care Document ---
Author Name Unknown Organization [facility] Address [address] [place] [address]- Care Team Providers Care Floor Representative Name Role Phone Stanford MCNEAL, Shea Smith Primary Care Physician Encounter [facility] Date(s): 03/03/19 - 04/06/[address] [address]- [facility] Attending Physician: Not on Staff, Attending MD [...] 10/27/18 12:22:39 EDT, Route to Pharmacy Electronically, [id number], [facility] #[id number] Start Date: 10/27/18 Stop Date: [...] Start Date: 10/27/18 Status: Ordered Vitamin D 97474 iu oral capsule 50,000 [employer], 1, capsule, By Mouth, Every week, # 5 capsule, Refills 1, Tot. Refills 1, Maintenance, 06/08/18 6:27:29 EDT, Route to Pharmacy Electronically, NCPDP_[id number], [facility] Start Date: 06/08/18 Stop [...]
--- OUTSIDE RECORDS SUMMARY | 2023-01-06 08:12 | XMS_ITS | Continuity of Care Document ---
Author Name Unknown Organization [facility] Address [address] [place] [address]- Care Team Providers Care Health Sciences Manager Name Role Phone Kehinde DOHERTY, [place] Primary Care Physician ( [phone] Encounter [facility] Date(s): 07/24/21 - 08/23/21 [facility] [address], [place] [address] Allergies, Adverse Reactions, Alerts Substance Reaction [...] 07/22/21 8:57:00 EDT, Route to Pharmacy Electronically, [facility], Partial fill upon patient request [...] 07/22/21 8:57:00 EDT, Route to Pharmacy Electronically, [facility], Partial fill upon patient request [...] tablet, 3 Refills, Maintenance, 12/29/20 16:31:00 EDT, [facility] 1 tablet By Mouth Daily,x30 days,Instr:WITH FOOD., 167, cm, 12/11/20 14:48:00 EDT, Height, 107, kg, 11/22/19 21:00:00 EDT, D... Start Date: 12/29/20 Stop Date: 04/28/21 Status: Ordered hydrOXYzine hydrochloride 25 mg oral tablet 1 tablet, By Mouth, 4 times a day, PRN NEEDED FOR ANXIETY, # 60 tablet, 1 Refills, [facility], 167, cm, 05/21/21 13:49:00 EST, Height, 107, kg, 11/22/19 21:00:00 EDT, Dry Weight Start Date: 06/02/21 Status: Ordered Lipitor 20 mg oral tablet 1 tablet = 20 mg, By Mouth, Daily, # 30 tablet, 0 Refills, Maintenance, 07/22/21 9:28:00 EDT, Tablet, [facility], Partial fill upon patient request if the prescription is for a scheduleII opioid drug., 172, cm, 07/22/21 9:16:00 EDT, Hei... Start Date: 07/22/21 Status: Ordered metoprolol 25 mg oral tablet, extended release 25 mg, 1, tablet, By Mouth, Daily, # 30 tablet, Refills 1, Tot. Refills 1, Maintenance, 07/22/21 8:57:00 EDT, Route to Pharmacy Electronically, [facility], Partial fill upon patient request if the prescription is for a schedule II opioid... Start Date: 07/22/21 Status: Ordered nitroglycerin 0.4 mg sublingual tablet 1 tablet = 0.4 mg, Sublingual, Every 5 minutes, PRN for chest pain, not to exceed 3 doses/15 min--if pain persists, seek medical attention, # 100 tablet, 0 Refills, Maintenance, 07/22/21 8:58:00 EDT,Tablet, [facility], Partial fill upon... Start Date: 07/22/21 Status: Ordered ProAir HFA 90 mcg/inh inhalation aerosol 1 puffs, Inhalation, 4 times a day, PRN as needed for wheezing, # 6.7 Gm, 0 Refills, Maintenance, 07/28/21 15:52:00 EDT, Aerosol, [facility] Partial fill upon patient request [...]
--- OUTSIDE RECORDS SUMMARY | 2023-01-06 08:12 | XMS_ITS | Continuity of Care Document ---
Author Name Unknown Organization [facility] Address [address] [place] [address]- Care Team Providers Care Box Machine Operator Name Role Phone Kehinde DOHERTY, [place] Primary Care Physician Encounter [facility] Date(s): 12/17/21 - 01/16/22 [facility] [address] [place] [address]- Allergies, Adverse Reactions, Alerts Substance Reaction Severity [...] 2 Refills, Maintenance, 12/23/21 15:55:00 EDT, [facility] fill upon patient request [...] 07/22/21 8:57:00 EDT, Route to Pharmacy Electronically, [facility], Partial fill upon patient request if the prescription is for a schedule II opioid... Start Date: 07/22/21 Stop Date: 09/20/21 Status: Ordered cetirizine 5 mg oral tablet 1 tablet = 5 mg, By Mouth, Daily, PRN as needed for allergy symptoms, # 30 tablet, 0 Refills, Maintenance, 12/17/21 16:03:00 EDT, Tablet, [facility]., Partial fill upon patient requestif the [...] 07/22/21 8:57:00 EDT, Route to Pharmacy Electronically, [facility], Partial fill upon patient request [...] tablet, 3 Refills, Maintenance, 12/17/21 13:32:00 EDT, [facility], 30, TAKE 1 TABLET BY MOUTH EVERY DAY WITH FOOD, 172, cm, 07/22/21 9:16:00 EDT, Height, 121.3, kg, 07/19/21... Start Date: 12/17/21 Status: Ordered hydrOXYzine hydrochloride 25 mg oral tablet 1 tablet, By Mouth, 4 times a day, PRN NEEDED FOR ANXIETY, # 60 tablet, 1 Refills, Maintenance, 12/17/21 11:16:00 EDT, [facility], 172, cm, 07/22/21 9:16:00 EDT, Height, 121.3, kg, 07/19/21 21:11:00 EDT, Dry Weight Start Date: 12/17/21 Status: Ordered Lipitor 20 mg oral tablet 1 tablet = 20 mg, By Mouth, Daily, # 30 tablet, 0 Refills, Maintenance, 07/22/21 9:28:00 EDT, Tablet, [facility], Partial fill upon patient request if the prescription is for a scheduleII opioid drug., 172, cm, 07/22/21 9:16:00 EDT, Hei... Start Date: 07/22/21 Status: Ordered metoprolol 25 mg oral tablet, extended release 25 mg, 1, tablet, By Mouth, Daily, # 30 tablet, Refills 1, Tot. Refills 1, Maintenance, 07/22/21 8:57:00 EDT, Route to Pharmacy Electronically, [facility], Partial fill upon patient request if the prescription is for a schedule II opioid... Start Date: 07/22/21 Status: Ordered nitroglycerin 0.4 mg sublingual tablet 1 tablet = 0.4 mg, Sublingual, Every 5 minutes, PRN for chest pain, not to exceed 3 doses/15 min--if pain persists, seek medical attention, # 100 tablet, 0 Refills, Maintenance, 07/22/21 8:58:00 EDT,Tablet, [facility], Partial fill upon... Start Date: 07/22/21 Status: Ordered ProAir HFA 90 mcg/inh inhalation aerosol 2 puffs, Inhalation, 4 times a day, PRN as needed for wheezing, # 8.5 Gm, 5 Refills, Maintenance, 12/23/21 15:54:00 EDT, Aerosol, [facility] Partial fill upon patient request if the prescription is for a schedule II opioid drug., 2 pu... Start Date: 12/23/21 Status: Ordered Qvar Redihaler 40 mcg/inh inhalation aerosol = 40 mcg, Inhalation, 2 times a day, brand name required by insurance. *discontinue after 1 month after symptoms have been controlled, # 8.7 Gm, 1 Refills, Maintenance, 12/18/21 12:42:00 EDT, [facility] Partial fill [...] Personnel Name: Kehinde DOHERTY, [place] Address: Address: [address] [place] [address], [place] [address] [place]
--- OUTSIDE RECORDS SUMMARY | 2023-01-06 08:12 | XMS_ITS | Continuity of Care Document ---
Author Name Unknown Organization [facility] Address [address] [place] [address]- Care Team Providers Care Press Clipper Name Role Phone Kehinde DOHERTY, [place] Primary Care Physician Encounter [place] Date(s): 07/15/21 - 09/13/21 [facility] [address] [place], [place] [address] Attending Physician: Ovidio Sawyer MD Admitting Physician: Ovidio Sawyer MD Referring Physician: Ovidio Sawyer MD Allergies, Adverse Reactions, [...] 07/22/21 8:57:00 EDT, Route to Pharmacy Electronically, [facility], Partial fill upon patient request [...] EDT, Route to Pharmacy Electronically, [facility], Partial fill upon patient request [...] tablet, 3 Refills, Maintenance, 12/29/20 16:31:00 EDT, [facility] 1 tablet By Mouth Daily,x30 days,Instr:WITH FOOD., 167, cm, 12/11/20 14:48:00 EDT, Height, 107, kg, 11/22/19 21:00:00 EDT, D... Start Date: 12/29/20 Stop Date: 04/28/21 Status: Ordered hydrOXYzine hydrochloride 25 mg oral tablet 1 tablet, By Mouth, 4 times a day, PRN NEEDED FOR ANXIETY, # 60 tablet, 1 Refills, [facility], 167, cm, 05/21/21 13:49:00 EST, Height, 107, kg, 11/22/19 21:00:00 EDT, Dry Weight Start Date: 06/02/21 Status: Ordered Lipitor 20 mg oral tablet 1 tablet = 20 mg, By Mouth, Daily, # 30 tablet, 0 Refills, Maintenance, 07/22/21 9:28:00 EDT, Tablet, [facility], Partial fill upon patient request if the prescription is for a scheduleII opioid drug., 172, cm, 07/22/21 9:16:00 EDT, Hei... Start Date: 07/22/21 Status: Ordered metoprolol 25 mg oral tablet, extended release 25 mg, 1, tablet, By Mouth, Daily, # 30 tablet, Refills 1, Tot. Refills 1, Maintenance, 07/22/21 8:57:00 EDT, Route to Pharmacy Electronically, [facility], Partial fill upon patient request if the prescription is for a schedule II opioid... Start Date: 07/22/21 Status: Ordered nitroglycerin 0.4 mg sublingual tablet 1 tablet = 0.4 mg, Sublingual, Every 5 minutes, PRN for chest pain, not to exceed 3 doses/15 min--if pain persists, seek medical attention, # 100 tablet, 0 Refills, Maintenance, 07/22/21 8:58:00 EDT,Tablet, [facility], Partial fill upon... Start Date: 07/22/21 Status: Ordered ProAir HFA 90 mcg/inh inhalation aerosol 1 puffs, Inhalation, 4 times a day, PRN as needed for wheezing, # 6.7 Gm, 0 Refills, Maintenance, 07/28/21 15:52:00 EDT, Aerosol, [facility] Partial fill upon patient request [...]
--- OUTSIDE RECORDS SUMMARY | 2023-01-06 08:12 | XMS_ITS | Continuity of Care Document ---
Author Name Unknown Organization [facility] y Address [address] [place] [address]- Care Team Providers Care Principal Statistical Scientist Name Role Phone [place] Busby MD Primary Care Physician [id number]/17/21 - 07/31/21 [facility] [address] [place], [place] [address] Attending Physician: Ovidio Sawyer MD Admitting [...] 8:57:00 EDT, Route to Pharmacy Electronically, [facility], Partial fill [...] 07/22/21 8:57:00 EDT, Route to Pharmacy Electronically, [facility], Partial fill upon patient request [...] tablet, 3 Refills, Maintenance, 12/29/20 16:31:00 EDT, [facility] 1 tablet By Mouth Daily,x30 days,Instr:WITH FOOD., 167, cm, 12/11/20 14:48:00 EDT, Height, 107, kg, 11/22/19 21:00:00 EDT, D... Start Date: 12/29/20 Stop Date: 04/28/21 Status: Ordered hydrOXYzine hydrochloride 25 mg oral tablet 1 tablet, By Mouth, 4 times a day, PRN NEEDED FOR ANXIETY, # 60 tablet, 1 Refills, [facility], 167, cm, 05/21/21 13:49:00 EST, Height, 107, kg, 11/22/19 21:00:00 EDT, Dry Weight Start Date: 06/02/21 Status: Ordered Lipitor 20 mg oral tablet 1 tablet = 20 mg, By Mouth, Daily, # 30 tablet, 0 Refills, Maintenance, 07/22/21 9:28:00 EDT, Tablet, [facility] 3, Partial fill upon patient request if the prescription is for a scheduleII opioid drug., 172, cm, 07/22/21 9:16:00 EDT, Hei... Start Date: 07/22/21 Status: Ordered metoprolol 25 mg oral tablet, extended release 25 mg, 1, tablet, By Mouth, Daily, # 30 tablet, Refills 1, Tot. Refills 1, Maintenance, 07/22/21 8:57:00 EDT, Route to Pharmacy Electronically, [facility] 3, Partial fill upon patient request if the prescription is for a schedule II opioid... Start Date: 07/22/21 Status: Ordered nitroglycerin 0.4 mg sublingual tablet 1 tablet = 0.4 mg, Sublingual, Every 5 minutes, PRN for chest pain, not to exceed 3 doses/15 min--if pain persists, seek medical attention, # 100 tablet, 0 Refills, Maintenance, 07/22/21 8:58:00 EDT,Tablet, [facility] 3, Partial fill upon... Start Date: 07/22/21 Status: Ordered ProAir HFA 90 mcg/inh inhalation aerosol 1 puffs, Inhalation, 4 times a day, PRN as needed for wheezing, # 6.7 Gm, 0 Refills, Maintenance, 07/28/21 15:52:00 EDT, [facility]erosol, [facility] Partial fill upon patient request if [...]
--- OUTSIDE RECORDS SUMMARY | 2023-01-06 08:12 | XMS_ITS | Continuity of Care Document ---
Author Name Unknown Organization [facility] Address [address] [place] [address]- Care Team Providers Care Chop Saw Operator Name Role Phone Kehinde DOHERTY, [place] Primary Care Physician [place] [facility] [place] 01[place]30/22 [facility] [address] [place] [address]- Attending Physician: Danae Hightower MD Admitting Physician: [...] 2 Refills, Maintenance, 12/23/21 15:55:00 EDT, [facility], Partial fill upon patient request [...] 8:57:00 EDT, Route to Pharmacy Electronically, [facility], Partial fill upon patient request if the prescription is for a schedule II opioid... Start Date: 07/22/21 Stop Date: 09/20/21 Status: Ordered cetirizine 5 mg oral tablet 1 tablet = 5 mg, By Mouth, Daily, PRN as needed for allergy symptoms, # 30 tablet, 0 Refills, Maintenance, 12/17/21 16:03:00 EDT, Tablet, [facility] Partial fill upon patient requestif [...] 8:57:00 EDT, Route to Pharmacy Electronically, [facility], Partial fill upon patient request [...] tablet, 3 Refills, Maintenance, 12/17/21 13:32:00 EDT, [facility], 30, TAKE 1 TABLET BY MOUTH EVERY DAY WITH FOOD, 172, cm, 07/22/21 9:16:00 EDT, Height, 121.3, kg, 07/19/21... Start Date: 12/17/21 Status: Ordered hydrOXYzine hydrochloride 25 mg oral tablet 1 tablet, By Mouth, 4 times a day, PRN NEEDED FOR ANXIETY, # 60 tablet, 1 Refills, Maintenance, 12/17/21 11:16:00 [facility], [facility], cm, 07/22/21 9:16:00 EDT, Height, 121.3, kg, 07/19/21 21:11:00 EDT, Dry Weight Start Date: 12/17/21 Status: Ordered Lipitor 20 mg oral tablet 1 tablet = 20 mg, By Mouth, Daily, # 30 tablet, 0 Refills, Maintenance, 07/22/21 9:28:00 EDT, Tablet, [facility], Partial fill upon patient request if the prescription is for a scheduleII opioid drug., 172, cm, 07/22/21 9:16:00 EDT, Hei... Start Date: 07/22/21 Status: Ordered metoprolol 25 mg oral tablet, extended release 25 mg, 1, tablet, By Mouth, Daily, # 30 tablet, Refills 1, Tot. Refills 1, Maintenance, 07/22/21 8:57:00 EDT, Route to Pharmacy Electronically, [facility], Partial fill upon patient request if the prescription is for a schedule II opioid... Start Date: 07/22/21 Status: Ordered nitroglycerin 0.4 mg sublingual tablet 1 tablet = 0.4 mg, Sublingual, Every 5 minutes, PRN for chest pain, not to exceed 3 doses/15 min--if pain persists, seek medical attention, # 100 tablet, 0 Refills, Maintenance, 07/22/21 8:58:00 EDT,Tablet, [facility], Partial fill upon... Start Date: 07/22/21 Status: Ordered ProAir HFA 90 mcg/inh inhalation aerosol 2 puffs, Inhalation, 4 times a day, PRN as needed for wheezing, # 8.5 Gm, 5 Refills, Maintenance, 12/23/21 15:54:00 EDT, Aerosol, [facility] Partial fill upon patient request if the prescription is for a schedule II opioid drug., 2 pu... Start Date: 12/23/21 Status: Ordered Qvar Redihaler 40 mcg/inh inhalation aerosol = 40 mcg, Inhalation, 2 times a day, brand name required by insurance. *discontinue after 1 month after symptoms have been controlled, # 8.7 Gm, 1 Refills, Maintenance, 12/18/21 12:42:00 EDT, [facility] Partial fill upon patient requ... [...] Team Personnel Name: [place] Busby MD Position: [facility] Resident Member Role: PCP Address: Address: [address] [place] [address]- Name: Raul Sung RN Position: S RN Member Role: Primary Care Nurse Name: Jose Peng RN Position: S RN Supv Member Role: Primary Care Nurse Name: Lupe Mancuso RN Position: S RN Member Role: Primary Care Nurse Name: Viekla Milan RN Position: S RN Member Role: Primary Care Nurse Name: Tomasa Brush RN Position: S RN Member Role: Primary Care Nurse Care Team Related Persons Name: MILAN WILKINSONA Address: home [address] [place] [address]
--- OUTSIDE RECORDS SUMMARY | 2023-01-06 08:12 | XMS_ITS | Continuity of Care Document ---
Author Name Unknown Organization [facility] y Address [address] [place] [address]- Care Team Providers Care Mail Weigher Name Role Phone Kehinde DOHERTY, [facility] Primary Care Physician Encounter [facility] [place] Date(s): 12/03/20 - 01/02/21 [facility] [address], [place] [address] Attending Physician: Jt Santana Admitting Physician: AdmJt [...] 2 Refills, Maintenance, 10/14/20 13:23:00 EDT, Tablet, [facility], 166.5, cm, 09/10/20 8:11:00 EDT, Height, 107, kg, 11/21/2020:00:00 EDT, Dry Weight Start Date: 10/14/20 Stop Date: 01/12/21 Status: Ordered dapsone 100 mg oral tablet 1 tablet = 100 mg, By Mouth, Daily, # 30 tablet, 0 Refills, Maintenance, 06/27/20 10:11:00 EDT, Tablet[facility] Partial fill upon patient request if the prescription is for a schedule II opioid drug., 166.5, cm, 06/27/20 9:31:00 ED... Start Date: 06/27/20 Status: Ordered gabapentin 400 mg oral capsule 400 mg, 1, capsule, By Mouth, 3 times a day, # 42 capsule, Refills 6, Tot. Refills 6, Maintenance, 06/18/20 8:10:00 EDT, Route to Pharmacy Electronically, [facility], 166.5, cm, 06/18/20 7:58:00 EDT, Height, 107, kg, 11/22/19 21:00:00... Start Date: 06/18/20 Stop Date: 09/24/20 Status: Ordered Genvoya oral tablet 1 tablet, By Mouth, Daily, WITH FOOD., # 30 tablet, 3 Refills, Maintenance, 12/29/20 16:31:00 EDT, [facility], 1 tablet By Mouth Daily,x30 days,Instr:WITH FOOD., 167, cm, 12/11/20 14:48:00 EDT, Height, 107, kg, 11/22/19 21:00:00 EDT, D... Start Date: 12/29/20 Stop Date: 04/28/21 Status: Ordered hydrOXYzine hydrochloride 25 mg oral tablet See Instructions, TAKE 1 TABLET BY MOUTH FOUR TIMES A DAY NEEDED FOR ANXIETY, # 60 tablet, 1 Refills, [facility], 166.5, cm, 11/06/20 15:04:00 EDT, Height, 107, kg, 11/22/19 21:00:00 EDT, Dry Weight Start Date: 11/27/20 Status: Ordered zolpidem 10 mg oral tablet 1 tablet = 10 mg, By Mouth, Daily at bedtime, PRN as needed for insomnia, # 28 tablet, 3 Refills, Maintenance, 10/18/20 16:32:00 EDT, Tablet, [facility], 166.5, cm, 09/10/20 [...]
--- OUTSIDE RECORDS SUMMARY | 2023-01-06 08:12 | XMS_ITS | Continuity of Care Document ---
Author Name Unknown Organization [facility] Address Unknown Care Team Providers Care Linux Unix Administrator Name Role Phone Kehinde DOHERTY, [place] Primary Care Physician ( [phone] [place] [facility] [place] 12/11/20 - 12/18/20 [facility] Attending Physician: Jazzmine Desai RD Referring Physician: Dwaine Roberson Allergies, Adverse Reactions, Alerts Substance Reaction Severity [...] 2 Refills, Maintenance, 10/14/20 13:23:00 EDT, Tablet, [facility], 166.5, cm, 09/10/20 8:11:00 EDT, Height, 107, kg, 11/21/2020:00:00 EDT, Dry Weight Start Date: 10/14/20 Stop Date: 01/12/21 Status: Ordered dapsone 100 mg oral tablet 1 tablet = 100 mg, By Mouth, Daily, # 30 tablet, 0 Refills, Maintenance, 06/27/20 10:11:00 EDT, Tablet, [facility] Partial fill upon patient request if the prescription is for a schedule II opioid drug., 166.5, cm, 06/27/20 9:31:00 ED... Start Date: 06/27/20 Status: Ordered gabapentin 400 mg oral capsule 400 mg, 1, capsule, By Mouth, 3 times a day, # 42 capsule, Refills 6, Tot. Refills 6, Maintenance, 06/18/20 8:10:00 EDT, Route to Pharmacy Electronically, [facility] 166.5, cm, 06/18/20 7:58:00 EDT, Height, 107, kg, 11/22/19 21:00:00... Start Date: 06/18/20 Stop Date: 09/24/20 Status: Ordered Genvoya oral tablet 1 tablet, By Mouth, Daily, WITH FOOD., # 30 tablet, 0 Refills, Maintenance, 11/29/20 16:31:00 EDT, [facility], 1 tablet By Mouth Daily,x30 days,Instr:WITH FOOD., 166.5, cm, 11/06/20 15:04:00 EDT, Height, 107, kg, 11/22/19 21:00:00 EDT,... Start Date: 11/29/20 Stop Date: 12/29/20 Status: Ordered hydrOXYzine hydrochloride 25 mg oral [...] 3 Refills, Maintenance, 10/18/20 16:32:00 EDT, Tablet, [facility], 166.5, cm, 09/10/20 8:11:00 [...] Active Poor dentition(Confirmed) Active Poor hygiene(Confirmed) Active Vital Signs Most recent to oldest [Reference Range]: 1 Height 167 cm (12/11/20 2:48 PM) Weight 122.6 kg (12/11/20 2:48 PM) Body Mass Index [18.5-24.99] 43.96 *>HHI* (12/11/20 2:48 PM) Social History Social History Type Response Smoking Status 10 or more cigarette s (1/2 pack or more)/day in last 30 days entered on: 11/06/20 Sex Female
--- OUTSIDE RECORDS SUMMARY | 2023-01-06 08:12 | XMS_ITS | Continuity of Care Document ---
Author Name Unknown Organization [facility] Address [address] [place] [address]- Care Team Providers Care Cannoneer Name Role Phone Kehinde DOHERTY, [facility] Primary [facility] Phys[facility] ( [phone] Encounter [facility] Date(s): 08/16/20 - 09/15/20 [facility] [address] [place] [address]- Allergies, Adverse Reactions, Alerts Substance Reaction Severity [...] 0 Refills, Maintenance, 06/18/20 8:26:00 EDT, Tablet, [facility]., 166.5, cm, 06/18/20 7:58:00 EDT, Height, 107, kg, 11/22/19 21:00:00 EDT, Dry Weight Start Date: 06/18/20 Stop Date: 07/18/20 Status: Ordered dapsone 100 mg oral tablet 1 tablet = 100 mg, By Mouth, Daily, # 30 tablet, 0 Refills, Maintenance, 06/27/20 10:11:00 EDT, Tablet, [facility]., Partial fill upon patient request if the prescription is for a schedule II opioid drug., 166.5, cm, 06/27/20 9:31:00 ED... Start Date: 06/27/20 Status: Ordered gabapentin 400 mg oral capsule 400 mg, 1, capsule, By Mouth, 3 times a day, # 42 capsule, Refills 6, Tot. Refills 6, Maintenance, 06/18/20 8:10:00 EDT, Route to Pharmacy Electronically, [facility]., 166.5, cm, 06/18/20 7:58:00 EDT, Height, 107, kg, 11/22/19 21:00:00... Start Date: 06/18/20 Stop Date: 09/24/20 Status: Ordered Genvoya oral tablet 1 tablet, By Mouth, Daily, WITH FOOD., # 30 tablet, 3 Refills, Maintenance, 04/25/20 14:22:00 EST, [facility], 30, TAKE 1 TABLET BY MOUTH EVERY DAY WITH FOOD, 166.5, cm, 11/30/19 10:56:00 EDT, Height, 107, kg, 11/22/19 21:00:00 EDT, Dry Weight Start Date: 04/25/20 Status: Ordered guaiFENesin 100 mg/5 mL oral liquid 10 mL = 200 mg, By Mouth, Every 4 hours, PRN for cough, # 240 mL, 1 Refills, Acute 09/24/20 8:32:00EDT, 09/10/20 8:31:00 EDT, Liquid, [facility], Partial fill upon patient request ifthe prescription is for a schedule II opioid drug.,... Start Date: 09/10/20 Stop Date: 09/24/20 Status: Ordered zolpidem 10 mg oral tablet 1 tablet = 10 mg, By Mouth, Daily at bedtime, PRN as needed for insomnia, # 30 tablet, 0 Refills, Maintenance, 06/18/20 8:26:00 EDT, Tablet, [facility], 166.5, cm, 06/18/20 7:58:00 EDT, Height, [...]
--- OUTSIDE RECORDS SUMMARY | 2023-01-06 08:12 | XMS_ITS | Continuity of Care Document ---
Author Name Unknown Organization [facility] Address [address] [place] [address]- Care Team Providers Care Tub Mender Name Role Phone Kehinde DOHERTY, [place] Primary Care Physician En[facility] [place] Date(s): 12/24/21 - 02/14/22 [facility] [address] [place] [address] Attending Physician: Gaby Ghosh NP Admitting Physician: Gaby Ghosh NP Allergies, Adverse Reactions, Alerts Substance Reaction [...] 15:55:00 EDT, Solution, [facility] Partial fill upon patient request [...] 07/22/21 8:57:00 EDT, Route to Pharmacy Electronically, [facility], Partial fill upon patient request if the prescription is for a schedule II opioid... Start Date: 07/22/21 Stop Date: 09/20/21 Status: Ordered cetirizine 5 mg oral tablet 1 tablet = 5 mg, By Mouth, Daily, PRN as needed for allergy symptoms, # 30 tablet, 0 Refills, Maintenance, 12/17/21 16:03:00 EDT, Tablet, [facility], Partial fill upon patient requestif the [...] 07/22/21 8:57:00 EDT, Route to Pharmacy Electronically, [facility], Partial fill upon patient request [...] tablet, 3 Refills, Maintenance, 12/17/21 13:32:00 EDT, [facility], 30, TAKE 1 TABLET BY MOUTH EVERY DAY WITH FOOD, 172, cm, 07/22/21 9:16:00 EDT, Height, 121.3, kg, 07/19/21... Start Date: 12/17/21 Status: Ordered hydrOXYzine hydrochloride 25 mg oral tablet 1 tablet, By Mouth, 4 times a day, PRN NEEDED FOR ANXIETY, # 60 tablet, 1 Refills, Maintenance, 12/17/21 11:16:00 ED[facility], [facility], [facility], cm, 07/22/21 9:16:00 EDT, Height, 121.3, kg, 07/19/21 21:11:00 EDT, Dry Weight Start Date: 12/17/21 Status: Ordered Lipitor 20 mg oral tablet 1 tablet = 20 mg, By Mouth, Daily, # 30 tablet, 0 Refills, Maintenance, 07/22/21 9:28:00 EDT, Tablet, [facility], Partial fill upon patient request if the prescription is for a scheduleII opioid drug., 172, cm, 07/22/21 9:16:00 EDT, Hei... Start Date: 07/22/21 Status: Ordered metoprolol 25 mg oral tablet, extended release 25 mg, 1, tablet, By Mouth, Daily, # 30 tablet, Refills 1, Tot. Refills 1, Maintenance, 07/22/21 8:57:00 EDT, Route to Pharmacy Electronically, [facility], Partial fill upon patient request if the prescription is for a schedule II opioid... Start Date: 07/22/21 Status: Ordered nitroglycerin 0.4 mg sublingual tablet 1 tablet = 0.4 mg, Sublingual, Every 5 minutes, PRN for chest pain, not to exceed 3 doses/15 min--if pain persists, seek medical attention, # 100 tablet, 0 Refills, Maintenance, 07/22/21 8:58:00 EDT,Tablet, [facility], Partial fill upon... Start Date: 07/22/21 Status: Ordered ProAir HFA 90 mcg/inh inhalation aerosol 2 puffs, Inhalation, 4 times a day, PRN as needed for wheezing, # 8.5 Gm, 5 Refills, Maintenance, 12/23/21 15:54:00 EDT, Aerosol, [facility] Partial fill upon patient request [...] 12/18/21 12:42:00 EDT, [facility] Partial fill upon patient requ... [...] Team Personnel Name: [place] Busby MD Position: [facility] Resident Member Role: PCP Address: Address: [address] [place] [address]- Name: Raul Sung RN Position: S RN Member Role: Primary Care Nurse Name: Jose Peng RN Position: [facility] RN Supv Member Role: Primary Care Nurse Name: Lupe Mancuso RN Position: S RN Member Role: Primary Care Nurse Name: Vielka Milan RN Position: [facility] ED RN W/OE and Tasks Member Role: Primary Care Nurse Name: Tomasa Brush RN Position: S RN Member Role: Primary Care Nurse Care Team Related Persons Name: WHIT WILKINSON Address: home [address] [place] [address]
--- OUTSIDE RECORDS SUMMARY | 2023-01-06 08:12 | XMS_ITS | Continuity of Care Document ---
Author Name Unknown Organization [facility] ter Address [address] [place] [address]- Care Team Providers Care Clinical Account Specialist Name Role Phone Stanford MCNEAL, Shea Smith Primary Care Physician [place] [facility] [place] 03/09/[address] [address]- [facility] Attending Physician: Shea Coyne NP Allergies, Adverse [...] 10/27/18 12:22:39 EDT, Route to Pharmacy Electronically, [id number], [facility]/pharmacy #[id number] Start Date: 10/27/18 Stop Date: [...] Start Date: 10/27/18 Status: Ordered Vitamin D 98161 iu oral capsule 50,000 International_Units, 1, capsule, By Mouth, Every week, # 5 capsule, Refills 1, Tot. Refills 1, Maintenance, 06/08/18 6:27:29 EDT, Route to Pharmacy Electronically, NCPDP_[id number], [facility] Start Date: 06/08/18 Stop Date: [...]
--- OUTSIDE RECORDS SUMMARY | 2023-01-06 08:12 | XMS_ITS | Continuity of Care Document ---
Author Name Unknown Organization [facility] Address [address] [place] [address]- Care Team Providers Care Hogshead Liner Name Role Phone Kehinde DOHERTY, [facility] Primary Care Physician Encounter [facility] Date(s): 01/10/21 - 02/09/21 [facility] [address], [place] [address] Allergies, Adverse Reactions, Alerts Substance Reaction Severity [...] 2 Refills, Maintenance, 10/14/20 13:23:00 EDT, Tablet, [facility], 166.5, cm, 09/10/20 8:11:00 EDT, Height, 107, kg, 11/21/2020:00:00 EDT, Dry Weight Start Date: 10/14/20 Stop Date: 01/12/21 Status: Ordered dapsone 100 mg oral tablet 1 tablet = 100 mg, By Mouth, Daily, # 30 tablet, 0 Refills, Maintenance, 06/27/20 10:11:00 EDT, Tablet, [facility] Partial fill upon patient request if the prescription is for a schedule II opioid drug., 166.5, cm, 06/27/20 9:31:00 ED... Start Date: 06/27/20 Status: Ordered gabapentin 400 mg oral capsule 400 mg, 1, capsule, By Mouth, 3 times a day, # 42 capsule, Refills 6, Tot. Refills 6, Maintenance, 06/18/20 8:10:00 EDT, Route to Pharmacy Electronically, [facility], 166.5, cm, 06/18/20 7:58:00 EDT, Height, 107, kg, 11/22/19 21:00:00... Start Date: 06/18/20 Stop Date: 09/24/20 Status: Ordered Genvoya oral tablet 1 tablet, By Mouth, Daily, WITH FOOD., # 30 tablet, 3 Refills, Maintenance, 12/29/20 16:31:00 EDT, [facility], 1 tablet By Mouth Daily,x30 days,Instr:WITH FOOD., 167, cm, 12/11/20 14:48:00 EDT, Height, 107, kg, 11/22/19 21:00:00 EDT, D... Start Date: 12/29/20 Stop Date: 04/28/21 Status: Ordered hydrOXYzine hydrochloride 25 mg oral tablet See Instructions, TAKE 1 TABLET BY MOUTH FOUR TIMES A DAY NEEDED FOR ANXIETY, # 60 tablet, 1 Refills, [facility], 166.5, cm, 11/06/20 15:04:00 EDT, Height, 107, kg, 11/22/19 21:00:00 EDT, Dry Weight Start Date: 11/27/20 Status: Ordered zolpidem 10 mg oral tablet 1 tablet = 10 mg, By Mouth, Daily at bedtime, PRN as needed for insomnia, # 28 tablet, 3 Refills, Maintenance, 10/18/20 16:32:00 EDT, Tablet, [facility], 166.5, cm, 09/10/20 8:11:00 [...]
--- OUTSIDE RECORDS SUMMARY | 2023-01-06 08:12 | XMS_ITS | Continuity of Care Document ---
Author Name Unknown Organization [facility] y Address [address] [place] [address]- Care Team Providers Care Environmental Permitting Specialist Name Role Phone Stanford MCNEAL, Shea Smith Primary Care Physician [place] [facility] [place](s): 04/18/19 - 04/28/19 [facility] [address] [place] [address]- Attending Physician: Jt Santana Admitting Physician: Jt [...] 10/27/18 12:22:39 EDT, Route to Pharmacy Electronically, [id number], [facility]/pharmacy #[id number] Start Date: 10/27/18 Stop Date: 12/26/18 Status: [...] Start Date: 10/27/18 Status: Ordered Vitamin D 14170 iu oral capsule 50,000 International_Units, 1, capsule, By Mouth, Every week, # 5 capsule, Refills 1, Tot. Refills 1, Maintenance, 06/08/18 6:27:29 EDT, Route to Pharmacy Electronically, NCPDP_[id number], [facility] Start Date: 06/08/18 Stop [...]
--- OUTSIDE RECORDS SUMMARY | 2023-01-06 08:12 | XMS_ITS | Continuity of Care Document ---
Author Name Unknown Organization [facility] y Address [address] [place] [address]- Care Team Providers Care Hand Wood Sander Name Role Phone Kehinde DOHERTY, [facility] Primary Care Physician Encounter [facility] [place] Date(s): 11/28/20 - 02/08/21 [facility] [address] [place], [place] [address] Attending Physician: Ovidio Sawyer MD Admitting Physician: [...] 2 Refills, Maintenance, 10/14/20 13:23:00 EDT, Tablet, [facility], 166.5, cm, 09/10/20 8:11:00 EDT, Height, 107, kg, 11/21/2020:00:00 EDT, Dry Weight Start Date: 10/14/20 Stop Date: 01/12/21 Status: Ordered dapsone 100 mg oral tablet 1 tablet = 100 mg, By Mouth, Daily, # 30 tablet, 0 Refills, Maintenance, 06/27/20 10:11:00 EDT, Tablet, [facility], Partial fill upon patient request if the prescription is for a schedule II opioid drug., 166.5, cm, 06/27/20 9:31:00 ED... Start Date: 06/27/20 Status: Ordered gabapentin 400 mg oral capsule 400 mg, 1, capsule, By Mouth, 3 times a day, # 42 capsule, Refills 6, Tot. Refills 6, Maintenance, 06/18/20 8:10:00 EDT, Route to Pharmacy Electronically, [facility] 166.5, cm, 06/18/20 7:58:00 EDT, Height, 107, kg, 11/22/19 21:00:00... Start Date: 06/18/20 Stop Date: 09/24/20 Status: Ordered Genvoya oral tablet 1 tablet, By Mouth, Daily, WITH FOOD., # 30 tablet, 3 Refills, Maintenance, 12/29/20 16:31:00 EDT, [facility], 1 tablet By Mouth Daily,x30 days,Instr:WITH FOOD., 167, cm, 12/11/20 14:48:00 EDT, Height, 107, kg, 11/22/19 21:00:00 EDT, D... Start Date: 12/29/20 Stop Date: 04/28/21 Status: Ordered hydrOXYzine hydrochloride 25 mg oral tablet See Instructions, TAKE 1 TABLET BY MOUTH FOUR TIMES A DAY NEEDED FOR ANXIETY, # 60 tablet, 1 Refills, [facility], 166.5, cm, 11/06/20 15:04:00 EDT, Height, 107, kg, 11/22/19 21:00:00 EDT, Dry Weight Start Date: 11/27/20 Status: Ordered zolpidem 10 mg oral tablet 1 tablet = 10 mg, By Mouth, Daily at bedtime, PRN as needed for insomnia, # 28 tablet, 3 Refills, Maintenance, 10/18/20 16:32:00 EDT, Tablet, [facility], 166.5, cm, 09/10/20 8:11:00 EDT, [...]
--- OUTSIDE RECORDS SUMMARY | 2023-01-06 08:12 | XMS_ITS | Continuity of Care Document ---
Author Name Unknown Organization [facility] Address Unknown Care Team Providers Care Zone Maintenance Technician Name Role Phone Kehinde DOHERTY, [place] Primary Care Physician ( [phone] Encounter [facility] Date(s): 04/16/21 - 05/16/21 [facility] Allergies, Adverse Reactions, Alerts Substance Reaction Severity [...] Refills, Maintenance, 06/27/20 10:11:00 EDT, Tablet, [facility], Partial fill upon patient request if the prescription is for a schedule II opioid drug., 166.5, cm, 06/27/20 9:31:00 ED... Start Date: 06/27/20 Status: Ordered gabapentin 400 mg oral capsule 400 mg, 1, capsule, By Mouth, 3 times a day, # 42 capsule, Refills 6, Tot. Refills 6, Maintenance, 06/18/20 8:10:00 EDT, Route to Pharmacy Electronically, [facility]., 166.5, cm, 06/18/20 7:58:00 EDT, Height, 107, kg, 11/22/19 21:00:00... Start Date: 06/18/20 Stop Date: 09/24/20 Status: Ordered Genvoya oral tablet 1 tablet, By Mouth, Daily, WITH FOOD., # 30 tablet, 3 Refills, Maintenance, 12/29/20 16:31:00 EDT, [facility] 1 tablet By Mouth Daily,x30 days,Instr:WITH FOOD., 167, cm, 12/11/20 14:48:00 EDT, Height, 107, kg, 11/22/19 21:00:00 EDT, D... Start Date: 12/29/20 Stop Date: 04/28/21 Status: Ordered hydrOXYzine hydrochloride 25 mg oral tablet See Instructions, TAKE 1 TABLET BY MOUTH FOUR TIMES A DAY NEEDED FOR ANXIETY, # 60 tablet, 1 Refills, [facility], 166.5, cm, 11/06/20 15:04:00 EDT, Height, 107, [...]
--- OUTSIDE RECORDS SUMMARY | 2023-01-06 08:12 | XMS_ITS | Continuity of Care Document ---
Author Name Unknown Organization [facility] Address Unknown Care Team Providers Care Promotions Specialist Name Role Phone Kehinde DOHERTY, [facility] Date[facility]21 - 03/22/21 [facility] Allergies, Adverse Reactions, Alerts Substance [...] 0 Refills, Maintenance, 06/27/20 10:11:00 EDT, Tablet, [facility], Partial fill upon patient request if the prescription is for a schedule II opioid drug., 166.5, cm, 06/27/20 9:31:00 ED... Start Date: 06/27/20 Status: Ordered gabapentin 400 mg oral capsule 400 mg, 1, capsule, By Mouth, 3 times a day, # 42 capsule, Refills 6, Tot. Refills 6, Maintenance, 06/18/20 8:10:00 EDT, Route to Pharmacy Electronically, [facility] 166.5, cm, 06/18/20 7:58:00 EDT, Height, 107, kg, 11/22/19 21:00:00... Start Date: 06/18/20 Stop Date: 09/24/20 Status: Ordered Genvoya oral tablet 1 tablet, By Mouth, Daily, WITH FOOD., # 30 tablet, 3 Refills, Maintenance, 12/29/20 16:31:00 EDT, [facility] 1 tablet By Mouth Daily,x30 days,Instr:WITH FOOD., 167, cm, 12/11/20 14:48:00 EDT, Height, 107, kg, 11/22/19 21:00:00 EDT, D... Start Date: 12/29/20 Stop Date: 04/28/21 Status: Ordered hydrOXYzine hydrochloride 25 mg oral tablet See Instructions, TAKE 1 TABLET BY MOUTH FOUR TIMES A DAY NEEDED FOR ANXIETY, # 60 tablet, 1 Refills, [facility], 166.5, cm, 11/06/20 15:04:00 EDT, Height, 107, [...]
--- OUTSIDE RECORDS SUMMARY | 2023-01-06 08:12 | XMS_ITS | Continuity of Care Document ---
Author Name Unknown Organization [facility] Address [address] [place] [address]- Care Team Providers Care Writing Manager Name Role Phone Kehinde DOHERTY, [place] Primary Care Physician [facility]counter [facility] Date(s): 07/08/22 - 08/07/22 [facility] [address] [place] [id number]- Allergies, Adverse Reactions, Alerts Substance Reaction Severity [...] 2 Refills, Maintenance, 12/23/21 15:55:00 EDT, [facility] upon patient request [...] 07/22/21 8:57:00 EDT, Route to Pharmacy Electronically, [facility], Partial fill upon patient request if the prescription is for a schedule II opioid... Start Date: 07/22/21 Stop Date: 09/20/21 Status: Ordered cetirizine 5 mg oral tablet 1 tablet = 5 mg, By Mouth, Daily, PRN as needed for allergy symptoms, # 30 tablet, 0 Refills, Maintenance, 12/17/21 16:03:00 EDT, Tablet, [facility]., Partial fill upon patient requestif the [...] 07/22/21 8:57:00 EDT, Route to Pharmacy Electronically, [facility], Partial fill upon patient [...] tablet, 3 Refills, Maintenance, 06/29/22 13:16:00 EDT, [facility], 30, TAKE 1 TABLET BY MOUTH EVERY DAY WITH FOOD, 172, cm, 01/15/22 16:40:00 EDT, Height, 121.3, kg, 07/19/21 21:11:00 EDT, Dry Weight Start Date: 06/29/22 Status: Ordered hydrOXYzine hydrochloride 25 mg oral tablet 1 tablet, By Mouth, 4 times a day, PRN NEEDED FOR ANXIETY, # 60 tablet, 1 Refills, Maintenance, 12/17/21 11:16:00 [facility], [facility], 07/22/21 9:16:00 EDT, Height, 121.3, kg, 07/19/21 21:11:00 EDT, Dry Weight Start Date: 12/17/21 Status: Ordered Lipitor 20 mg oral tablet 1 tablet = 20 mg, By Mouth, Daily, # 30 tablet, 0 Refills, Maintenance, 07/22/21 9:28:00 EDT, Tablet, [facility], Partial fill upon patient request if the prescription is for a scheduleII opioid drug., 172, cm, 07/22/21 9:16:00 EDT, Hei... Start Date: 07/22/21 Status: Ordered metoprolol 25 mg oral tablet, extended release 25 mg, 1, tablet, By Mouth, Daily, # 30 tablet, Refills 1, Tot. Refills 1, Maintenance, 07/22/21 8:57:00 EDT, Route to Pharmacy Electronically, [facility], Partial fill upon patient request if the prescription is for a schedule II opioid... Start Date: 07/22/21 Status: Ordered nitroglycerin 0.4 mg sublingual tablet 1 tablet = 0.4 mg, Sublingual, Every 5 minutes, PRN for chest pain, not to exceed 3 doses/15 min--if pain persists, seek medical attention, # 100 tablet, 0 Refills, Maintenance, 07/22/21 8:58:00 EDT,Tablet, [facility], Partial fill upon... Start Date: 07/22/21 Status: Ordered ProAir HFA 90 mcg/inh inhalation aerosol 2 puffs, Inhalation, 4 times a day, PRN as needed for wheezing, # 8.5 Gm, 5 Refills, Maintenance, 12/23/21 15:54:00 EDT, Aerosol, [facility] Partial fill upon patient request if the prescription is for a schedule II opioid drug., 2 pu... Start Date: 12/23/21 Status: Ordered Qvar Redihaler 40 mcg/inh inhalation aerosol = 40 mcg, Inhalation, 2 times a day, brand name required by insurance. *discontinue after 1 month after symptoms have been controlled, # 8.7 Gm, 1 Refills, Maintenance, 12/18/21 12:42:00 EDT, [facility] Partial fill upon patient requ... [...] Team Personnel Name: [place] Busby MD Position: [facility] Resident Member Role: PCP Address: Address: [address] [place] [address]- Name: Raul Sung RN Position: S RN Member Role: Primary Care Nurse Name: Lupe Mancuso RN Position: S RN Member Role: Primary Care Nurse Name: Vielka Milan RN Position: S RN Member Role: Primary Care Nurse Name: Tomasa Brush RN Position: S RN Member Role: Primary Care Nurse Care Team Related Persons Name: WHIT WILKINSON Address: home [address] [place] [id number]
--- OUTSIDE RECORDS SUMMARY | 2023-01-06 08:12 | XMS_ITS | Continuity of Care Document ---
Author Name Unknown Organization [facility] ter Address [address] [place] [address]- Care Team Providers Care Wastewater Treatment Plant Operator Name Role Phone [place] Busby MD Primary Care Physician Encounter [facility] [place] Date(s): 10/28/20 - 12/29/[address] [address] Attending Physician: Maurilio Ramirez MD Admitting [...] 2 Refills, Maintenance, 10/14/20 13:23:00 EDT, Tablet, [facility], 166.5, cm, 09/10/20 8:11:00 EDT, Height, 107, kg, 11/21/2020:00:00 EDT, Dry Weight Start Date: 10/14/20 Stop Date: 01/12/21 Status: Ordered dapsone 100 mg oral tablet 1 tablet = 100 mg, By Mouth, Daily, # 30 tablet, 0 Refills, Maintenance, 06/27/20 10:11:00 EDT, Tablet, [facility] Partial fill upon patient request if the prescription is for a schedule II opioid drug., 166.5, cm, 06/27/20 9:31:00 ED... Start Date: 06/27/20 Status: Ordered gabapentin 400 mg oral capsule 400 mg, 1, capsule, By Mouth, 3 times a day, # 42 capsule, Refills 6, Tot. Refills 6, Maintenance, 06/18/20 8:10:00 EDT, Route to Pharmacy Electronically, [facility]., 166.5, cm, 06/18/20 7:58:00 EDT, Height, 107, kg, 11/22/19 21:00:00... Start Date: 06/18/20 Stop Date: 09/24/20 Status: Ordered Genvoya oral tablet 1 tablet, By Mouth, Daily, WITH FOOD., # 30 tablet, 3 Refills, Maintenance, 12/29/20 16:31:00 EDT, [facility], 1 tablet By Mouth Daily,x30 days,Instr:WITH FOOD., 167, cm, 12/11/20 14:48:00 EDT, Height, 107, kg, 11/22/19 21:00:00 EDT, D... Start Date: 12/29/20 Stop Date: 04/28/21 Status: Ordered hydrOXYzine hydrochloride 25 mg oral tablet See Instructions, TAKE 1 TABLET BY MOUTH FOUR TIMES A DAY NEEDED FOR ANXIETY, # 60 tablet, 1 Refills, [facility], 166.5, cm, 11/06/20 15:04:00 EDT, Height, 107, kg, 11/22/19 21:00:00 EDT, Dry Weight Start Date: 11/27/20 Status: Ordered zolpidem 10 mg oral tablet 1 tablet = 10 mg, By Mouth, Daily at bedtime, PRN as needed for insomnia, # 28 tablet, 3 Refills, Maintenance, 10/18/20 16:32:00 EDT, Tablet, [facility], 166.5, cm, 09/10/20 [...]
--- OUTSIDE RECORDS SUMMARY | 2023-01-06 08:12 | XMS_ITS | Continuity of Care Document ---
Author Name Unknown Organization [facility] Address [address] [place] [address]- Care Team Providers Care Systems Management Consultant Name Role Phone Maurilio Ramirez MD Primary Care Physician [phone] Encounter [facility] [id number] Date(s): 11/10/19 - 12/15/19 [facility] [address] [place] [address]- [facility] Attending Physician: Elvin Zapata MD Admitting Physician: [...] 01/29/20 11:21:00 EST, 11/30/19 11:21:00 EDT, Suspension, [facility], 166.5, cm, 11/30/19 10:56:00 EDT, Height, 107, kg, 11/22/19 21:00:00 EDT, Dry Weight Start Date: 11/30/19 Stop Date: 01/29/20 Status: Ordered clonazePAM 0.5 mg oral tablet 1 tablet = 0.5 mg, By Mouth, 3 times a day, # 90 tablet, 3 Refills, Maintenance, 11/30/19 11:06:00 EDT, Tablet, [facility], 166.5, cm, 11/30/19 10:56:00 EDT, Height, 107, kg, 11/21/2020:00:00 EDT, Dry Weight Start Date: 11/30/19 Stop Date: 03/29/20 Status: Ordered gabapentin 400 mg oral capsule 400 mg, 1, capsule, By Mouth, 3 times a day, # 42 capsule, Refills 0, Tot. Refills 0, Maintenance, 11/23/19 13:41:00 EDT, Route to Pharmacy Electronically, [facility], 166.5, cm, 11/23/19 13:20:00 EDT, Height, 107, kg, 11/22/19 21:00:0... Start Date: 11/23/19 Stop Date: 12/07/19 Status: Ordered Genvoya oral tablet 1 tablet, By Mouth, Daily, with food, # 30 tablet, 3 Refills, Maintenance, 11/30/19 11:21:00 EDT, Tablet, [facility], 1 tablet By Mouth Daily,Instr:with food, 166.5, cm, 11/30/19 10:56:00 EDT, Height, 107, kg, 11/22/19 21:00:00 EDT, Start Date: 11/30/19 Status: Ordered Hibiclens 4% soap See Instructions, 1 applicator Topically daily to axilla, # 240 mL, 0 Refills, Soft Stop, 12/07/19 9:57:00 EDT, [facility], 1 applicator Topically daily to axilla, 166.5, cm, 11/29/2009:56:00 EDT, Height, 107, kg, 11/22/19 21:00:00 ED... Start Date: 12/07/19 Status: Ordered Multivitamins with Folic Acid 1 mg oral tablet 1 tablet, By Mouth, Daily, pt would like pink tabs, not white, # 90 tablet, 4 Refills, Maintenance,12/07/19 10:00:00 EDT, Tablet, [facility] 1 tablet By Mouth Daily,Instr:pt would like pink tabs, not white, 166.5, cm, 11/30/19 10:56:... Start Date: 12/07/19 Status: Ordered traMADol 50 mg oral tablet 1 tablet = 50 mg, By Mouth, Every 8 hours, prn severe pain, # 24 tablet, 0 Refills, Maintenance, 12/07/19 9:58:00 EDT, [facility] 166.5, cm, 11/30/19 10:56:00 EDT, Height, 107, kg, 11/22/19 21:00:00 EDT, Dry Weight Start Date: 12/07/19 Status: Ordered zolpidem 10 mg oral tablet 1 tablet = 10 mg, By Mouth, Daily at bedtime, PRN as needed for insomnia, # 30 tablet, 3 Refills, Maintenance, 11/30/19 11:07:00 EDT, Tablet, [facility] 166.5, cm, 11/30/19 10:56:00 EDT, Height, 107, [...] Response Smoking Status Current every day andreina oklanden; Type: Cigarettes; Tobacco use times per day: a pack every couple days; entered on: 05/31/14 Sex Female
--- OUTSIDE RECORDS SUMMARY | 2023-01-06 08:12 | XMS_ITS | Continuity of Care Document ---
Author Name Unknown Organization [facility] Address [address] [place] [address]- Care Team Providers Care Viscose Cellar Worker Name Role Phone Maurilio Ramirez MD Primary Care Physician [phone] Encounter [facility] Date(s): 11/08/19 - 01/27/20 [facility] [address] [place] [id number] Attending Physician: Ovidio Sawyer MD Admitting [...] 01/29/20 11:21:00 EST, 11/30/19 11:21:00 EDT, Suspension, [facility], 166.5, cm, 11/30/19 10:56:00 EDT, Height, 107, kg, 11/22/19 21:00:00 EDT, Dry Weight Start Date: 11/30/19 Stop Date: 01/29/20 Status: Ordered clonazePAM 0.5 mg oral tablet 1 tablet = 0.5 mg, By Mouth, 3 times a day, # 90 tablet, 3 Refills, Maintenance, 11/30/19 11:06:00 EDT, Tablet, [facility], 166.5, cm, 11/30/19 10:56:00 EDT, Height, 107, kg, 11/21/2020:00:00 EDT, Dry Weight Start Date: 11/30/19 Stop Date: 03/29/20 Status: Ordered gabapentin 400 mg oral capsule 400 mg, 1, capsule, By Mouth, 3 times a day, # 42 capsule, Refills 0, Tot. Refills 0, Maintenance, 11/23/19 13:41:00 EDT, Route to Pharmacy Electronically, [facility], 166.5, cm, 11/23/19 13:20:00 EDT, Height, 107, kg, 11/22/19 21:00:0... Start Date: 11/23/19 Stop Date: 12/07/19 Status: Ordered Genvoya oral tablet 1 tablet, By Mouth, Daily, with food, # 30 tablet, 3 Refills, Maintenance, 11/30/19 11:21:00 EDT, Tablet, [facility], 1 tablet By Mouth Daily,Instr:with food, 166.5, cm, 11/30/19 10:56:00 EDT, Height, 107, kg, 11/22/19 21:00:00 EDT, Start Date: 11/30/19 Status: Ordered Hibiclens 4% soap See Instructions, 1 applicator Topically daily to axilla, # 240 mL, 0 Refills, Soft Stop, 01/18/20 10:21:00 EDT, [facility]., 1 applicator Topically daily to axilla, 166.5, cm, 11/30/19 10:56:00 EDT, Height, 107, kg, 11/22/19 21:00:00 E... Start Date: 01/18/20 Status: Ordered Multivitamins with Folic Acid 1 mg oral tablet 1 tablet, By Mouth, Daily, pt would like pink tabs, not white, # 90 tablet, 4 Refills, Maintenance,12/07/19 10:00:00 EDT, Tablet, [facility] 1 tablet By Mouth Daily,Instr:pt would like pink tabs, not white, 166.5, cm, 11/30/19 10:56:... Start Date: 12/07/19 Status: Ordered traMADol 50 mg oral tablet 1 tablet = 50 mg, By Mouth, Every 8 hours, prn severe pain, # 24 tablet, 0 Refills, Maintenance, 12/07/19 9:58:00 EDT, [facility] 166.5, cm, 11/30/19 10:56:00 EDT, Height, 107, kg, 11/22/19 21:00:00 EDT, Dry Weight Start Date: 12/07/19 Status: Ordered zolpidem 10 mg oral tablet 1 tablet = 10 mg, By Mouth, Daily at bedtime, PRN as needed for insomnia, # 30 tablet, 3 Refills, Maintenance, 11/30/19 11:07:00 EDT, Tablet, [facility], 166.5, cm, 11/30/19 10:56:00 EDT, Height, [...]
--- OUTSIDE RECORDS SUMMARY | 2023-01-06 08:12 | XMS_ITS | Continuity of Care Document ---
Author Name Unknown Organization [facility] Address [address] [place] [address]- Care Team Providers Care Alemite Operator Name Role Phone Kehinde DOHERTY, [place] Primary Care Physician [place] [facility] [place] Date(s): 08/01/21 - 08/31/21 [facility] [address], [place] [address] Allergies, Adverse Reactions, Alerts Substance [...] 07/22/21 8:57:00 EDT, Route to Pharmacy Electronically, [facility], Partial fill upon patient [...] 07/22/21 8:57:00 EDT, Route to Pharmacy Electronically, [facility] 3, Partial fill upon patient [...] tablet, 3 Refills, Maintenance, 12/29/20 16:31:00 EDT, [facility] 1 tablet By Mouth Daily,x30 days,Instr:WITH FOOD., 167, cm, 12/11/20 14:48:00 EDT, Height, 107, kg, 11/22/19 21:00:00 EDT, D... Start Date: 12/29/20 Stop Date: 04/28/21 Status: Ordered hydrOXYzine hydrochloride 25 mg oral tablet 1 tablet, By Mouth, 4 times a day, PRN NEEDED FOR ANXIETY, # 60 tablet, 1 [facility]ills[facility], [facility], cm, 05/21/21 13:49:00 EST, Height, 107, kg, 11/22/19 21:00:00 EDT, Dry Weight Start Date: 06/02/21 Status: Ordered Lipitor 20 mg oral tablet 1 tablet = 20 mg, By Mouth, Daily, # 30 tablet, 0 Refills, Maintenance, 07/22/21 9:28:00 EDT, Tablet, [facility] 3, Partial fill upon patient request if the prescription is for a scheduleII opioid drug., 172, cm, 07/22/21 9:16:00 EDT, Hei... Start Date: 07/22/21 Status: Ordered metoprolol 25 mg oral tablet, extended release 25 mg, 1, tablet, By Mouth, Daily, # 30 tablet, Refills 1, Tot. Refills 1, Maintenance, 07/22/21 8:57:00 EDT, Route to Pharmacy Electronically, [facility] 3, Partial fill upon patient request if the prescription is for a schedule II opioid... Start Date: 07/22/21 Status: Ordered nitroglycerin 0.4 mg sublingual tablet 1 tablet = 0.4 mg, Sublingual, Every 5 minutes, PRN for chest pain, not to exceed 3 doses/15 min--if pain persists, seek medical attention, # 100 tablet, 0 Refills, Maintenance, 07/22/21 8:58:00 EDT,Tablet, [facility], Partial fill upon... Start Date: 07/22/21 Status: Ordered ProAir HFA 90 mcg/inh inhalation aerosol 1 puffs, Inhalation, 4 times a day, PRN as needed for wheezing, # 6.7 Gm, 0 Refills, Maintenance, 07/28/21 15:52:00 EDT, Aerosol, [facility] Partial fill upon patient request [...]
--- OUTSIDE RECORDS SUMMARY | 2023-01-06 08:12 | XMS_ITS | Continuity of Care Document ---
Author Name Unknown Organization [facility] Address [address] [place] [address]- Care Team Providers Care Station Captain Name Role Phone Kehinde DOHERTY, [facility] Primary [facility] Physician [facility] Date[facility]s): 08/14/20 - 09/13/20 [facility] [address] [place], [place] [address] Allergies, Adverse Reactions, Alerts Substance Reaction [...] 0 Refills, Maintenance, 06/18/20 8:26:00 EDT, Tablet, [facility]., 166.5, cm, 06/18/20 7:58:00 EDT, Height, 107, kg, 11/22/19 21:00:00 EDT, Dry Weight Start Date: 06/18/20 Stop Date: 07/18/20 Status: Ordered dapsone 100 mg oral tablet 1 tablet = 100 mg, By Mouth, Daily, # 30 tablet, 0 Refills, Maintenance, 06/27/20 10:11:00 EDT, Tablet, [facility]., Partial fill upon patient request if the prescription is for a schedule II opioid drug., 166.5, cm, 06/27/20 9:31:00 ED... Start Date: 06/27/20 Status: Ordered gabapentin 400 mg oral capsule 400 mg, 1, capsule, By Mouth, 3 times a day, # 42 capsule, Refills 6, Tot. Refills 6, Maintenance, 06/18/20 8:10:00 EDT, Route to Pharmacy Electronically, [facility]., 166.5, cm, 06/18/20 7:58:00 EDT, Height, 107, kg, 11/22/19 21:00:00... Start Date: 06/18/20 Stop Date: 09/24/20 Status: Ordered Genvoya oral tablet 1 tablet, By Mouth, Daily, WITH FOOD., # 30 tablet, 3 Refills, Maintenance, 04/25/20 14:22:00 EST, [facility], 30, TAKE 1 TABLET BY MOUTH EVERY DAY WITH FOOD, 166.5, cm, 11/30/19 10:56:00 EDT, Height, 107, kg, 11/22/19 21:00:00 EDT, Dry Weight Start Date: 04/25/20 Status: Ordered guaiFENesin 100 mg/5 mL oral liquid 10 mL = 200 mg, By Mouth, Every 4 hours, PRN for cough, # 240 mL, 1 Refills, Acute 09/24/20 8:32:00EDT, 09/10/20 8:31:00 EDT, Liquid, [facility], Partial fill upon patient request ifthe prescription is for a schedule II opioid drug.,... Start Date: 09/10/20 Stop Date: 09/24/20 Status: Ordered zolpidem 10 mg oral tablet 1 tablet = 10 mg, By Mouth, Daily at bedtime, PRN as needed for insomnia, # 30 tablet, 0 Refills, Maintenance, 06/18/20 8:26:00 EDT, Tablet, [facility], 166.5, cm, 06/18/20 7:58:00 EDT, [...]
--- OUTSIDE RECORDS SUMMARY | 2023-01-06 08:12 | XMS_ITS | Continuity of Care Document ---
Author Name Unknown Organization [facility] Address [address] [place] [address]- Care Team Providers Care Bagman/Woman Name Role Phone Kehinde DOHERTY, [facility] Primary Care Physician ( [phone] Encounter [facility] Date(s): 05/21/21 - 06/20/21 [facility] [address] [place], [place] [email or web address] Attending Physician: Jt Santana Admitting Physician: AdmJt [...] tablet, 3 Refills, Maintenance, 12/29/20 16:31:00 EDT, [facility] 1 tablet By Mouth Daily,x30 days,Instr:WITH FOOD., 167, cm, 12/11/20 14:48:00 EDT, Height, 107, kg, 11/22/19 21:00:00 EDT, D... Start Date: 12/29/20 Stop Date: 04/28/21 Status: Ordered hydrOXYzine hydrochloride 25 mg oral tablet 1 tablet, By Mouth, 4 times a day, PRN NEEDED FOR ANXIETY, # 60 tablet, 1 Refills, [facility], 167, cm, 05/21/21 13:49:00 EST, [...]
--- OUTSIDE RECORDS SUMMARY | 2023-01-06 08:12 | XMS_ITS | Continuity of Care Document ---
Author Name Unknown Organization [facility] Special y Address [address] [place] [address]- Care Team Providers Care Manager Rail Name Role Phone Kehinde DOHERTY, [place] Primary Care Physician Encounter [facility] Date(s): 12/16/21 - 01/30/22 [facility] [address], [place] [address] Attending Physician: Ovidio Sawyer MD Admitting [...] 2 Refills, Maintenance, 12/23/21 15:55:00 EDT, Solution, [facility], Partial fill upon patient request if the [...] 07/22/21 8:57:00 EDT, Route to Pharmacy Electronically, [facility], Partial fill upon patient request if the prescription is for a schedule II opioid... Start Date: 07/22/21 Stop Date: 09/20/21 Status: Ordered cetirizine 5 mg oral tablet 1 tablet = 5 mg, By Mouth, Daily, PRN as needed for allergy symptoms, # 30 tablet, 0 Refills, Maintenance, 12/17/21 16:03:00 EDT, [facility] Partial fill upon patient requestif [...] 07/22/21 8:57:00 EDT, Route to Pharmacy Electronically, [facility], Partial fill upon patient request [...] tablet, 3 Refills, Maintenance, 12/17/21 13:32:00 EDT, [facility], 30, TAKE 1 TABLET BY MOUTH EVERY DAY WITH FOOD, 172, cm, 07/22/21 9:16:00 EDT, Height, 121.3, kg, 07/19/21... Start Date: 12/17/21 Status: Ordered hydrOXYzine hydrochloride 25 mg oral tablet 1 tablet, By Mouth, 4 times a day, PRN NEEDED FOR ANXIETY, # 60 tablet, 1 Refills, Maintenance, 12/17/21 11:16:00 EDT, [facility], [facility], cm, 07/22/21 9:16:00 EDT, Height, 121.3, kg, 07/19/21 21:11:00 EDT, Dry Weight Start Date: 12/17/21 Status: Ordered Lipitor 20 mg oral tablet 1 tablet = 20 mg, By Mouth, Daily, # 30 tablet, 0 Refills, Maintenance, 07/22/21 9:28:00 EDT, Tablet, [facility] 3, Partial fill upon patient request if the prescription is for a scheduleII opioid drug., 172, cm, 07/22/21 9:16:00 EDT, Hei... Start Date: 07/22/21 Status: Ordered metoprolol 25 mg oral tablet, extended release 25 mg, 1, tablet, By Mouth, Daily, # 30 tablet, Refills 1, Tot. Refills 1, Maintenance, 07/22/21 8:57:00 EDT, Route to Pharmacy Electronically, [facility] 3, Partial fill upon patient request if the prescription is for a schedule II opioid... Start Date: 07/22/21 Status: Ordered nitroglycerin 0.4 mg sublingual tablet 1 tablet = 0.4 mg, Sublingual, Every 5 minutes, PRN for chest pain, not to exceed 3 doses/15 min--if pain persists, seek medical attention, # 100 tablet, 0 Refills, Maintenance, 07/22/21 8:58:00 EDT,Tablet, [facility] 3, Partial fill upon... Start Date: 07/22/21 Status: Ordered ProAir HFA 90 mcg/inh inhalation aerosol 2 puffs, Inhalation, 4 times a day, PRN as needed for wheezing, # 8.5 Gm, 5 Refills, Maintenance, 12/23/21 15:54:00 EDT, [facility]erosol, [facility] Partial fill upon patient request if the prescription is for a schedule II opioid drug., 2 pu... Start Date: 12/23/21 Status: Ordered Qvar Redihaler 40 mcg/inh inhalation aerosol = 40 mcg, Inhalation, 2 times a day, brand name required by insurance. *discontinue after 1 month after symptoms have been controlled, # 8.7 Gm, 1 Refills, Maintenance, 12/18/21 12:42:00 EDT, [facility] Partial fill upon patient requ... Start [...] S Resident Member Role: PCP Address: Address: [address] [place] [id number]- Name: Raul Sung RN Position: S RN [...] Related Persons Name: MILAN WILKINSONA Address: home [address] [place] [id number]
--- OUTSIDE RECORDS SUMMARY | 2023-01-06 08:12 | XMS_ITS | Continuity of Care Document ---
Author Name Unknown Organization [facility] Address [address] [place] [address]- Care Team Providers Care Director Institution Name Role Phone Kehinde DOHERTY, [facility] [place] Primary Care Physician Encounter [facility] [id number] Date(s): 07/30/22 - 09/09/22 [facility] [address] [place] [address]- Attending Physician: Not on Staff, Attending MD [...] 2 Refills, Maintenance, 12/23/21 15:55:00 EDT, [facility] fill upon patient [...] 07/22/21 8:57:00 EDT, Route to Pharmacy Electronically, [facility] 3, Partial fill upon patient request if the prescription is for a schedule II opioid... Start Date: 07/22/21 Stop Date: 09/20/21 Status: Ordered cetirizine 5 mg oral tablet 1 tablet = 5 mg, By Mouth, Daily, PRN as needed for allergy symptoms, # 30 tablet, 0 Refills, Maintenance, 12/17/21 16:03:00 EDT, Tablet, [facility]., Partial fill upon patient requestif the [...] 07/22/21 8:57:00 EDT, Route to Pharmacy Electronically, [facility] 3, Partial fill upon patient request if the prescription is for a schedule II opioid... Start Date: 07/22/21 Status: Ordered dapsone 100 mg oral tablet 1 tablet = 100 mg, By Mouth, Daily, # 30 tablet, 11 Refills, Maintenance, 08/20/22 10:57:00 EDT, Tablet, [facility]., Partial [...] tablet, 3 Refills, Maintenance, 06/29/22 13:16:00 EDT, [facility], 30, TAKE 1 TABLET BY MOUTH EVERY DAY WITH FOOD, 172, cm, 01/15/22 16:40:00 EDT, Height, 121.3, kg, 07/19/21 21:11:00 EDT, Dry Weight Start Date: 06/29/22 Status: Ordered hydrOXYzine hydrochloride 25 mg oral tablet 1 tablet, By Mouth, 4 times a day, PRN NEEDED FOR ANXIETY, # 60 tablet, 1 Refills, Maintenance, 12/17/21 11:16:00 EDT, [facility], 172, cm, 07/22/21 9:16:00 EDT, Height, 121.3, kg, 07/19/21 21:11:00 EDT, Dry Weight Start Date: 12/17/21 Status: Ordered Lipitor 20 mg oral tablet 1 tablet = 20 mg, By Mouth, Daily, # 30 tablet, 0 Refills, Maintenance, 07/22/21 9:28:00 EDT, Tablet, [facility], Partial fill upon patient request if the prescription is for a scheduleII opioid drug., 172, cm, 07/22/21 9:16:00 EDT, Hei... Start Date: 07/22/21 Status: Ordered metoprolol 25 mg oral tablet, extended release 25 mg, 1, tablet, By Mouth, Daily, # 30 tablet, Refills 1, Tot. Refills 1, Maintenance, 07/22/21 8:57:00 EDT, Route to Pharmacy Electronically, [facility], Partial fill upon patient request if the prescription is for a schedule II opioid... Start Date: 07/22/21 Status: Ordered nitroglycerin 0.4 mg sublingual tablet 1 tablet = 0.4 mg, Sublingual, Every 5 minutes, PRN for chest pain, not to exceed 3 doses/15 min--if pain persists, seek medical attention, # 100 tablet, 0 Refills, Maintenance, 07/22/21 8:58:00 EDT,Tablet, [facility], Partial fill upon... Start Date: 07/22/21 Status: Ordered ProAir HFA 90 mcg/inh inhalation aerosol 2 puffs, Inhalation, 4 times a day, PRN as needed for wheezing, # 8.5 Gm, 5 Refills, Maintenance, 12/23/21 15:54:00 EDT, Aerosol, [facility]., Partial fill upon patient request if the prescription is for a schedule II opioid drug., 2 pu... Start Date: 12/23/21 Status: Ordered Qvar Redihaler 40 mcg/inh inhalation aerosol = 40 mcg, Inhalation, 2 times a day, brand name required by insurance. *discontinue after 1 month after symptoms have been controlled, # 8.7 Gm, 1 Refills, Maintenance, 12/18/21 12:42:00 EDT, [facility]., Partial fill upon patient requ... Start [...] S Resident Member Role: PCP Address: Address: [address] [place] [address]- Name: Raul Sung RN Position: S RN Member Role: Primary Care Nurse Name: Lupe Mancuso RN Position: S RN Member Role: Primary Care Nurse Name: Vielka Milan RN Position: S RN Member Role: Primary Care Nurse Name: Tomasa Brush RN Position: S RN Member Role: Primary Care Nurse Care Team Related Persons Name: WHIT WILKINSON Address: home [address] [place] [id number]
--- OUTSIDE RECORDS SUMMARY | 2023-01-06 08:12 | XMS_ITS | Continuity of Care Document ---
Author Name Unknown Organization [facility] ter Address [address] [place] [address]- Care Team Providers Care Power Grader Operator Name Role Phone [place] Busby MD Primary Care Physician Encounter [facility] Date(s): 07/19/21 - 07/19/[address] [address]- Encounter Diagnosis NSTEMI (non-ST elevated myocardial infarction)(Final) - 07/19/21 Discharge Disposition: A-D/C AMA Attending Physician: Anitra DOHERTY, Natalee Mcdonnell Admitting Physician: Robbie Adrian MD Referring Physician: Not on Staff, Referring [...] opioid drug. Start Date: 07/19/21 Status: Ordered clonazePAM 0.5 mg oral tablet 0.5 tablet = 0.25 mg, By Mouth, 4 times a day, PRN Anxiety, 0 Refills, Maintenance, 07/19/21 8:29:00 EDT, Tablet, Partial fill upon patient request if the prescription is for a schedule II opioid drug. Start Date: 07/19/21 Status: Ordered dapsone 100 mg oral tablet 1 tablet = 100 mg, By Mouth, Daily, # 30 tablet, 0 Refills, Maintenance, 06/27/20 10:11:00 EDT, Tablet, [facility], Partial fill upon patient request if the prescription is for a schedule II opioid drug., 166.5, cm, 06/27/20 9:31:00 ED... Start Date: 06/27/20 Status: Ordered gabapentin 400 mg oral capsule 400 mg, 1, capsule, By Mouth, 3 times a day, # 42 capsule, Refills 6, Tot. Refills 6, Maintenance, 06/18/20 8:10:00 EDT, Route to Pharmacy Electronically, [facility]., 166.5, cm, 06/18/20 7:58:00 EDT, Height, 107, kg, 11/22/19 21:00:00... Start Date: 06/18/20 Stop Date: 09/24/20 Status: Ordered Genvoya oral tablet 1 tablet, By Mouth, Daily, WITH FOOD., # 30 tablet, 3 Refills, Maintenance, 12/29/20 16:31:00 EDT, [facility]., 1 tablet By Mouth Daily,x30 days,Instr:WITH FOOD., 167, cm, 12/11/20 14:48:00 EDT, Height, 107, kg, 11/22/19 21:00:00 EDT, D... Start Date: 12/29/20 Stop Date: 04/28/21 Status: Ordered hydrOXYzine hydrochloride 25 mg oral tablet 1 tablet, By Mouth, 4 times a day, PRN NEEDED FOR ANXIETY, # 60 tablet, 1 [facility]ills, [facility], 167, cm, 05/21/21 13:49:00 EST, Height, [...] NSTEMI (non-ST elevated myoc ardial infarction)(Confirmed) Active Obesity due to excess calories(Confirmed) Active Severe obesity(Confirmed) Active Tobacco abuse(Confirmed) Active Poor dentition(Confirmed) Active Poor hygiene(Confirmed) Active Results Radiology Reports * Exam Date Time Procedure Performing Provider Status 07/18/21 11:29 PM Chest 2 Views Frontal and Lat Rona Austin; Luisa (Verified) Notes: (Chest 2 Views Frontal and Lat) Reason For Exam: Chest Pain;Other: RESULT: Chest 2 Views Frontal and Lat Chest 2 Views Frontal and Lat REASON: Chest Pain; Hx of Present Illness: Pt reports constant tightness in ant. Chest and back area since last noc. Pt sts as soon as I burps it gets better'. No sob; no nausea but does endorse feeling nauseated earlier today, - +bilat ankle edema; COMPARISON: 11/22/2019. FINDINGS: LINES AND TUBES: None. LUNGS AND PLEURA: Streaky opacity in the right hilar region. Otherwise clear lungs Normal pulmonary vascularity. No pleural effusion. No pneumothorax. HEART, MEDIASTINUM AND SHARDA: Heart is normal in size. Normal upper mediastinal and hilar contour. BONES AND SOFT TISSUES: No acute abnormality. IMPRESSION: Streaky opacity in the right hilar region without a correlate on lateral view, suspect atelectasis. I have personally reviewed the images and I agree with this report. WSN: [id number] Ordering Physician: Srikanth Delcid Dictated By: Jason Cronin DO Dictated Date/Time: 07/18/21 11:34 p Reviewed By: Ad Vines MD Signed By: Ad Vines MD Signed Date/Time: 07/18/21 11:39 pm Transcribed By: MARCO Transcribed Date/Time: 07/18/21 11:33 pm Vital Signs Most recent to oldest [Reference Range]: 1 2 3 Weight 123.6 kg (07/19/21 6:55 AM) 123.6 kg (07/19/21 5:22 AM) 123.6 kg (07/19/21 3:55 AM) Oxygen Saturation [94-100 %] 97 % (07/19/21 9:00 AM) 96 % (07/19/21 6:55 AM) 97 % (07/19/21:22 AM) Pulse Rate [55-90 bpm] 81 bpm (07/19/21 9:00 AM) 81 bpm (07/19/21 6:55 AM) 81 bpm (07/19/21:22 AM) Blood Pressure [90-138/55-84 mm Hg] 98/54mm Hg (07/19/21 9:00 AM) 112/66mm Hg (07/19/21 6:55 AM) 112/66mm Hg (07/19/21 5:22 AM) Respiratory Rate [16-30 br/min] 18 br/min (07/19/21 9:00 AM) 17 br/min (07/19/21 6:55 AM) 16 br/min (07/19/21 5:22 AM) Temperature [96.8-100.4 DegF] 98.3 DegF (07/19/21 9:00 AM) 98.3 DegF (07/19/21 2:39 AM) 98.1 DegF (07/19/21 12:35 AM) Mode of Delivery (Oxygen) Room air (07/19/21 9:00 AM) Room air (07/19/21 6:55 AM) Room air (07/19/21 5:22 AM) Blood pressure sites Arm, right (07/19/21 9:00 AM) Arm, left (07/19/21 6:55 AM) Arm, left (07/19/21:22 AM) Temperature Route Oral (07/19/21 9:00 AM) Oral (07/19/21 2:39 AM) Oral (07/19/21 12:35 AM) Dry Weight 123.6 kg (07/19/21 6:55 AM) 123.6 kg (07/19/21 5:22 AM) 123.6 kg (07/19/21 3:55 AM) Weight Obtained Via Standing scale (07/19/21 3:25 AM) Dry Weight Obtained Via Standing scale (07/19/21 3:25 AM) Social History Social History Type Response Smoking Status 10 or more cigarette s (1/2 pack or more)/day in last 30 days entered on: 11/06/20 Sex Female
--- OUTSIDE RECORDS SUMMARY | 2023-01-06 08:12 | XMS_ITS | Continuity of Care Document ---
Author Name Unknown Organization [facility] Address [address] [place] [address]- Care Team Providers Care Pricing Manager Name Role Phone Ashley DOHERTY, Maurilio Burnett Primary Care Physician [phone] [facility]counter [facility] Date(s): 11/22/19 - 12/22/19 [facility] [address] [place] [address]- [facility] Allergies, Adverse Reactions, Alerts Substance Reaction [...] 01/29/20 11:21:00 EST, 11/30/19 11:21:00 EDT, Suspension, [facility], 166.5, cm, 11/30/19 10:56:00 EDT, Height, 107, kg, 11/22/19 21:00:00 EDT, Dry Weight Start Date: 11/30/19 Stop Date: 01/29/20 Status: Ordered clonazePAM 0.5 mg oral tablet 1 tablet = 0.5 mg, By Mouth, 3 times a day, # 90 tablet, 3 Refills, Maintenance, 11/30/19 11:06:00 EDT, Tablet, [facility], 166.5, cm, 11/30/19 10:56:00 EDT, Height, 107, kg, 11/21/2020:00:00 EDT, Dry Weight Start Date: 11/30/19 Stop Date: 03/29/20 Status: Ordered gabapentin 400 mg oral capsule 400 mg, 1, capsule, By Mouth, 3 times a day, # 42 capsule, Refills 0, Tot. Refills 0, Maintenance, 11/23/19 13:41:00 EDT, Route to Pharmacy Electronically, [facility], 166.5, cm, 11/23/19 13:20:00 EDT, Height, 107, kg, 11/22/19 21:00:0... Start Date: 11/23/19 Stop Date: 12/07/19 Status: Ordered Genvoya oral tablet 1 tablet, By Mouth, Daily, with food, # 30 tablet, 3 Refills, Maintenance, 11/30/19 11:21:00 EDT, Tablet, [facility], 1 tablet By Mouth Daily,Instr:with food, 166.5, cm, 11/30/19 10:56:00 EDT, Height, 107, kg, 11/22/19 21:00:00 EDT, Start Date: 11/30/19 Status: Ordered Hibiclens 4% soap See Instructions, 1 applicator Topically daily to axilla, # 240 mL, 0 Refills, Soft Stop, 12/07/19 9:57:00 EDT, [facility]., 1 applicator Topically daily to axilla, 166.5, cm, 11/29/2009:56:00 EDT, Height, 107, kg, 11/22/19 21:00:00 ED... Start Date: 12/07/19 Status: Ordered Multivitamins with Folic Acid 1 mg oral tablet 1 tablet, By Mouth, Daily, pt would like pink tabs, not white, # 90 tablet, 4 Refills, Maintenance,12/07/19 10:00:00 EDT, Tablet, [facility] 1 tablet By Mouth Daily,Instr:pt would like pink tabs, not white, 166.5, cm, 11/30/19 10:56:... Start Date: 12/07/19 Status: Ordered traMADol 50 mg oral tablet 1 tablet = 50 mg, By Mouth, Every 8 hours, prn severe pain, # 24 tablet, 0 Refills, Maintenance, 12/07/19 9:58:00 EDT, [facility] 166.5, cm, 11/30/19 10:56:00 EDT, Height, 107, kg, 11/22/19 21:00:00 EDT, Dry Weight Start Date: 12/07/19 Status: Ordered zolpidem 10 mg oral tablet 1 tablet = 10 mg, By Mouth, Daily at bedtime, PRN as needed for insomnia, # 30 tablet, 3 Refills, Maintenance, 11/30/19 11:07:00 EDT, Tablet, [facility], 166.5, cm, 11/30/19 10:56:00 EDT, Height, 107, [...]
--- OUTSIDE RECORDS SUMMARY | 2023-01-06 08:12 | XMS_ITS | Continuity of Care Document ---
Author Name Unknown Organization [facility] Address [address] [place] [address]- Care Team Providers Care Cable Swager Name Role Phone Maurilio Ramirez MD Primary Care Physician [phone] Encounter [facility] Date(s): 12/15/19 - 01/14/20 [facility] [address] [place] [id number]- [facility] Allergies, Adverse Reactions, Alerts Substance Reaction [...] 01/29/20 11:21:00 EST, 11/30/19 11:21:00 EDT, Suspension, [facility], 166.5, cm, 11/30/19 10:56:00 EDT, Height, 107, kg, 11/22/19 21:00:00 EDT, Dry Weight Start Date: 11/30/19 Stop Date: 01/29/20 Status: Ordered clonazePAM 0.5 mg oral tablet 1 tablet = 0.5 mg, By Mouth, 3 times a day, # 90 tablet, 3 Refills, Maintenance, 11/30/19 11:06:00 EDT, Tablet, [facility], 166.5, cm, 11/30/19 10:56:00 EDT, Height, 107, kg, 11/21/2020:00:00 EDT, Dry Weight Start Date: 11/30/19 Stop Date: 03/29/20 Status: Ordered gabapentin 400 mg oral capsule 400 mg, 1, capsule, By Mouth, 3 times a day, # 42 capsule, Refills 0, Tot. Refills 0, Maintenance, 11/23/19 13:41:00 EDT, Route to Pharmacy Electronically, [facility], 166.5, cm, 11/23/19 13:20:00 EDT, Height, 107, kg, 11/22/19 21:00:0... Start Date: 11/23/19 Stop Date: 12/07/19 Status: Ordered Genvoya oral tablet 1 tablet, By Mouth, Daily, with food, # 30 tablet, 3 Refills, Maintenance, 11/30/19 11:21:00 EDT, Tablet, [facility]., 1 tablet By Mouth Daily,Instr:with food, 166.5, cm, 11/30/19 10:56:00 EDT, Height, 107, kg, 11/22/19 21:00:00 EDT, Start Date: 11/30/19 Status: Ordered Hibiclens 4% soap See Instructions, 1 applicator Topically daily to axilla, # 240 mL, 0 Refills, Soft Stop, 12/07/19 9:57:00 EDT, [facility]., 1 applicator Topically daily to axilla, 166.5, cm, 11/29/2009:56:00 EDT, Height, 107, kg, 11/22/19 21:00:00 ED... Start Date: 12/07/19 Status: Ordered Multivitamins with Folic Acid 1 mg oral tablet 1 tablet, By Mouth, Daily, pt would like pink tabs, not white, # 90 tablet, 4 Refills, Maintenance,12/07/19 10:00:00 EDT, Tablet, [facility] 1 tablet By Mouth Daily,Instr:pt would like pink tabs, not white, 166.5, cm, 11/30/19 10:56:... Start Date: 12/07/19 Status: Ordered traMADol 50 mg oral tablet 1 tablet = 50 mg, By Mouth, Every 8 hours, prn severe pain, # 24 tablet, 0 Refills, Maintenance, 12/07/19 9:58:00 EDT, [facility] 166.5, cm, 11/30/19 10:56:00 EDT, Height, 107, kg, 11/22/19 21:00:00 EDT, Dry Weight Start Date: 12/07/19 Status: Ordered zolpidem 10 mg oral tablet 1 tablet = 10 mg, By Mouth, Daily at bedtime, PRN as needed for insomnia, # 30 tablet, 3 Refills, Maintenance, 11/30/19 11:07:00 EDT, Tablet, [facility]., 166.5, cm, 11/30/19 10:56:00 EDT, Height, [...] Response Smoking Status Current every day andreina eatoner; Type: Cigarettes; Tobacco use times per day: a pack every couple days; entered on: 05/31/14 Sex Female
--- OUTSIDE RECORDS SUMMARY | 2023-01-06 08:13 | XMS_ITS | Continuity of Care Document ---
Author Name Unknown Organization [facility] Address [address] [place] [address]- Care Team Providers Care Ticket Attendant Name Role Phone Maurilio Ramirez MD Primary Care Physician [facility]counter [facility] Date(s): 02/06/20 - 03/07/20 [facility] [address] [place], [place] [address] Attending Physician: Jt Santana Admitting Physician: AdmtrJt Referring Physician: AdmtrJt Allergies, Adverse Reactions, Alerts [...] 3 Refills, Maintenance, 11/30/19 11:06:00 EDT, Tablet, [facility], 166.5, cm, 11/30/19 10:56:00 EDT, Height, 107, kg, 11/21/2020:00:00 EDT, Dry Weight Start Date: 11/30/19 Stop Date: 03/29/20 Status: Ordered gabapentin 400 mg oral capsule 400 mg, 1, capsule, By Mouth, 3 times a day, # 42 capsule, Refills 0, Tot. Refills 0, Maintenance, 11/23/19 13:41:00 EDT, Route to Pharmacy Electronically, [facility], 166.5, cm, 11/23/19 13:20:00 EDT, Height, 107, kg, 11/22/19 21:00:0... Start Date: 11/23/19 Stop Date: 12/07/19 Status: Ordered Genvoya oral tablet 1 tablet, By Mouth, Daily, with food, # 30 tablet, 3 Refills, Maintenance, 11/30/19 11:21:00 EDT, Tablet, [facility], 1 tablet By Mouth Daily,Instr:with food, 166.5, cm, 11/30/19 10:56:00 EDT, Height, 107, kg, 11/22/19 21:00:00 EDT, Start Date: 11/30/19 Status: Ordered Hibiclens 4% soap See Instructions, 1 applicator Topically daily to axilla, # 240 mL, 0 Refills, Soft Stop, 01/18/20 10:21:00 EDT, [facility], 1 applicator Topically daily to axilla, 166.5, cm, 11/30/19 10:56:00 EDT, Height, 107, kg, 11/22/19 21:00:00 E... Start Date: 01/18/20 Status: Ordered Multivitamins with Folic Acid 1 mg oral tablet 1 tablet, By Mouth, Daily, pt would like pink tabs, not white, # 90 tablet, 4 Refills, Maintenance,12/07/19 10:00:00 EDT, Tablet, [facility]., 1 tablet By Mouth Daily,Instr:pt would like pink tabs, not white, 166.5, cm, 11/30/19 10:56:... Start Date: 12/07/19 Status: Ordered traMADol 50 mg oral tablet 1 tablet = 50 mg, By Mouth, Every 8 hours, prn severe pain, # 24 tablet, 0 Refills, Maintenance, 12/07/19 9:58:00 EDT, [facility]., 166.5, cm, 11/30/19 10:56:00 EDT, Height, 107, kg, 11/22/19 21:00:00 EDT, Dry Weight Start Date: 12/07/19 Status: Ordered zolpidem 10 mg oral tablet 1 tablet = 10 mg, By Mouth, Daily at bedtime, PRN as needed for insomnia, # 30 tablet, 3 Refills, Maintenance, 11/30/19 11:07:00 EDT, Tablet, [facility], 166.5, cm, 11/30/19 10:56:00 EDT, Height, [...]
--- OUTSIDE RECORDS SUMMARY | 2023-01-06 08:13 | XMS_ITS | Continuity of Care Document ---
Author Name Unknown Organization [facility] y Address [address] [place] [address]- Care Team Providers Care Cutter In Name Role Phone Kehinde DOHERTY, [place] Primary Care Physician ( [phone] Encounter [facility] Date(s): 03/20/21 - 04/19/21 [facility] [address] [place], [place] [address] Attending Physician: Jt Santana Admitting Physician: Jt [...] 06/18/20 8:10:00 EDT, Route to Pharmacy Electronically, [facility]., 166.5, cm, 06/18/20 7:58:00 EDT, Height, 107, kg, 11/22/19 21:00:00... Start Date: 06/18/20 Stop Date: 09/24/20 Status: Ordered Genvoya oral tablet 1 tablet, By Mouth, Daily, WITH FOOD., # 30 tablet, 3 Refills, Maintenance, 12/29/20 16:31:00 EDT, [facility] 1 tablet By Mouth Daily,x30 days,Instr:WITH FOOD., 167, cm, 12/11/20 14:48:00 EDT, Height, 107, kg, 11/22/19 21:00:00 EDT, D... Start Date: 12/29/20 Stop Date: 04/28/21 Status: Ordered hydrOXYzine hydrochloride 25 mg oral tablet See Instructions, TAKE 1 TABLET BY MOUTH FOUR TIMES A DAY NEEDED FOR ANXIETY, # 60 tablet, 1 Refills, [facility], 166.5, cm, 11/06/20 15:04:00 EDT, Height, 107, [...]
--- OUTSIDE RECORDS SUMMARY | 2023-01-06 08:13 | XMS_ITS | Continuity of Care Document ---
Author Name Unknown Organization [facility] Address Unknown Care Team Providers Care Machine Accountant Name Role Phone Kehinde DOHERTY, [place] Primary Care Physician [place] [facility] [place] 02[place]28[place]21 [facility] Attending Physician: Jazzmine Desai RD [...] Refills, Maintenance, 10/14/20 13:23:00 EDT, Tablet, [facility], 166.5, cm, 09/10/20 8:11:00 EDT, Height, 107, kg, 11/21/2020:00:00 EDT, Dry Weight Start Date: 10/14/20 Stop Date: 01/12/21 Status: Ordered dapsone 100 mg oral tablet 1 tablet = 100 mg, By Mouth, Daily, # 30 tablet, 0 Refills, Maintenance, 06/27/20 10:11:00 EDT, [facility] fill upon patient request if the prescription is for a schedule II opioid drug., 166.5, cm, 06/27/20 9:31:00 ED... Start Date: 06/27/20 Status: Ordered gabapentin 400 mg oral capsule 400 mg, 1, capsule, By Mouth, 3 times a day, # 42 capsule, Refills 6, Tot. Refills 6, Maintenance, 06/18/20 8:10:00 EDT, Route to Pharmacy Electronically, [facility]., 166.5, cm, 06/18/20 7:58:00 EDT, Height, 107, kg, 11/22/19 21:00:00... Start Date: 06/18/20 Stop Date: 09/24/20 Status: Ordered Genvoya oral tablet 1 tablet, By Mouth, Daily, WITH FOOD., # 30 tablet, 3 Refills, Maintenance, 12/29/20 16:31:00 EDT, [facility], 1 tablet By Mouth Daily,x30 days,Instr:WITH FOOD., 167, cm, 12/11/20 14:48:00 EDT, Height, 107, kg, 11/22/19 21:00:00 EDT, D... Start Date: 12/29/20 Stop Date: 04/28/21 Status: Ordered hydrOXYzine hydrochloride 25 mg oral tablet See Instructions, TAKE 1 TABLET BY MOUTH FOUR TIMES A DAY NEEDED FOR ANXIETY, # 60 tablet, 1 Refills, [facility], 166.5, cm, 11/06/20 15:04:00 EDT, Height, 107, kg, 11/22/19 21:00:00 EDT, Dry Weight Start Date: 11/27/20 Status: Ordered zolpidem 10 mg oral tablet 1 tablet = 10 mg, By Mouth, Daily at bedtime, PRN as needed for insomnia, # 28 tablet, 3 Refills, Maintenance, 10/18/20 16:32:00 EDT, Tablet, [facility], 166.5, cm, 09/10/20 [...]
--- OUTSIDE RECORDS SUMMARY | 2023-01-06 08:13 | XMS_ITS | Continuity of Care Document ---
Author Name Unknown Organization [facility] Address [address] [place] [address]- Care Team Providers Care Commercial Energy Auditor Name Role Phone Maurilio Ramirez MD Primary Care Physician [facility]counter [facility] Date(s): 11/20/19 - 12/20/19 [facility] [address] [place] [id number]- [facility] Allergies, Adverse Reactions, Alerts Substance Reaction Severity [...] 01/29/20 11:21:00 EST, 11/30/19 11:21:00 EDT, Suspension, [facility], 166.5, cm, 11/30/19 10:56:00 EDT, Height, 107, kg, 11/22/19 21:00:00 EDT, Dry Weight Start Date: 11/30/19 Stop Date: 01/29/20 Status: Ordered clonazePAM 0.5 mg oral tablet 1 tablet = 0.5 mg, By Mouth, 3 times a day, # 90 tablet, 3 Refills, Maintenance, 11/30/19 11:06:00 EDT, Tablet, [facility], 166.5, cm, 11/30/19 10:56:00 EDT, Height, 107, kg, 11/21/2020:00:00 EDT, Dry Weight Start Date: 11/30/19 Stop Date: 03/29/20 Status: Ordered gabapentin 400 mg oral capsule 400 mg, 1, capsule, By Mouth, 3 times a day, # 42 capsule, Refills 0, Tot. Refills 0, Maintenance, 11/23/19 13:41:00 EDT, Route to Pharmacy Electronically, [facility], 166.5, cm, 11/23/19 13:20:00 EDT, Height, 107, kg, 11/22/19 21:00:0... Start Date: 11/23/19 Stop Date: 12/07/19 Status: Ordered Genvoya oral tablet 1 tablet, By Mouth, Daily, with food, # 30 tablet, 3 Refills, Maintenance, 11/30/19 11:21:00 EDT, Tablet, [facility]., 1 tablet By Mouth Daily,Instr:with food, 166.5, cm, 11/30/19 10:56:00 EDT, Height, 107, kg, 11/22/19 21:00:00 EDT, Start Date: 11/30/19 Status: Ordered Hibiclens 4% soap See Instructions, 1 applicator Topically daily to axilla, # 240 mL, 0 Refills, Soft Stop, 12/07/19 9:57:00 EDT, [facility]., 1 applicator Topically daily to axilla, 166.5, cm, 11/29/2009:56:00 EDT, Height, 107, kg, 11/22/19 21:00:00 ED... Start Date: 12/07/19 Status: Ordered Multivitamins with Folic Acid 1 mg oral tablet 1 tablet, By Mouth, Daily, pt would like pink tabs, not white, # 90 tablet, 4 Refills, Maintenance,12/07/19 10:00:00 EDT, Tablet, [facility] 1 tablet By Mouth Daily,Instr:pt would like pink tabs, not white, 166.5, cm, 11/30/19 10:56:... Start Date: 12/07/19 Status: Ordered traMADol 50 mg oral tablet 1 tablet = 50 mg, By Mouth, Every 8 hours, prn severe pain, # 24 tablet, 0 Refills, Maintenance, 12/07/19 9:58:00 EDT, [facility] 166.5, cm, 11/30/19 10:56:00 EDT, Height, 107, kg, 11/22/19 21:00:00 EDT, Dry Weight Start Date: 12/07/19 Status: Ordered zolpidem 10 mg oral tablet 1 tablet = 10 mg, By Mouth, Daily at bedtime, PRN as needed for insomnia, # 30 tablet, 3 Refills, Maintenance, 11/30/19 11:07:00 EDT, Tablet, [facility]., 166.5, cm, 11/30/19 10:56:00 EDT, Height, 107, [...]
--- OUTSIDE RECORDS SUMMARY | 2023-01-06 08:13 | XMS_ITS | Continuity of Care Document ---
Author Name Unknown Organization [facility] Address [address] [place] [address]- Care Team Providers Care Digital Marketing Specialist Name Role Phone Kehinde DOHERTY, [place] Primary Care Physician Encounter [facility] [place] [facility] [place] [id number] Date(s): 07/31/21 - 09/06/21 [facility] [address], [place] [address] Attending Physician: Ovidio Sawyer MD [...] Route to Pharmacy Electronically, [facility], Partial fill upon [...] 8:57:00 EDT, Route to Pharmacy Electronically, [facility], Partial fill upon patient request [...] tablet, 3 Refills, Maintenance, 12/29/20 16:31:00 EDT, [facility]., 1 tablet By Mouth Daily,x30 days,Instr:WITH [...] Refills, Maintenance, 07/22/21 9:28:00 EDT, Tablet, [facility], Partial fill upon patient request if the prescription is for a scheduleII opioid drug., 172, cm, 07/22/21 9:16:00 EDT, Hei... Start Date: 07/22/21 Status: Ordered metoprolol 25 mg oral tablet, extended release 25 mg, 1, tablet, By Mouth, Daily, # 30 tablet, Refills 1, Tot. Refills 1, Maintenance, 07/22/21 8:57:00 EDT, Route to Pharmacy Electronically, [facility], Partial fill upon patient request if the prescription is for a schedule II opioid... Start Date: 07/22/21 Status: Ordered nitroglycerin 0.4 mg sublingual tablet 1 tablet = 0.4 mg, Sublingual, Every 5 minutes, PRN for chest pain, not to exceed 3 doses/15 min--if pain persists, seek medical attention, # 100 tablet, 0 Refills, Maintenance, 07/22/21 8:58:00 EDT,Tablet, [facility], Partial fill upon... Start Date: 07/22/21 Status: Ordered ProAir HFA 90 mcg/inh inhalation aerosol 1 puffs, Inhalation, 4 times a day, PRN as needed for wheezing, # 6.7 Gm, 0 Refills, Maintenance, 07/28/21 15:52:00 EDT, Aerosol, [facility] Partial fill upon patient [...]
--- OUTSIDE RECORDS SUMMARY | 2023-01-06 08:13 | XMS_ITS | Continuity of Care Document ---
Author Name Unknown Organization [facility] Address [address] [place] [address]- Care Team Providers Care Buffet Runner Name Role Phone Stanford MCNEAL, Shea Smith Primary Care Physician [facility]counter [facility] Date(s): 03/09/19 - 03/19/19 [facility] [address] [place] [address]- [facility] Attending Physician: Jt Santana Admitting Physician: Jt [...] 10/27/18 12:22:39 EDT, Route to Pharmacy Electronically, [id number], [facility]/pharmacy #[id number] Start Date: 10/27/18 Stop Date: [...] Start Date: 10/27/18 Status: Ordered Vitamin D 63727 iu oral capsule 50,000 International_Units, 1, capsule, By Mouth, Every week, # 5 capsule, Refills 1, Tot. Refills 1, Maintenance, 06/08/18 6:27:29 EDT, Route to Pharmacy Electronically, NCPDP_[id number], [facility] Start Date: 06/08/18 Stop [...]
--- OUTSIDE RECORDS SUMMARY | 2023-01-06 08:13 | XMS_ITS | Continuity of Care Document ---
Author Name Unknown Organization [facility] Address [address] [place] [address]- Care Team Providers Care Wool Washer Name Role Phone Kehinde DOHERTY, [place] Primary Care Physician [place] [facility] [place] 05/02/22 [facility] [address] [address] Attending Physician: Jt Santana Admitting [...] 2 Refills, Maintenance, 12/23/21 15:55:00 EDT, Solution, [facility], Partial fill upon patient request [...] tablet, 1 Refills, Maintenance, 12/17/21 11:16:00 EDT, [facility], [facility], cm, 07/22/21 9:16:00 EDT, Height, 121.3, kg, 07/19/21 21:11:00 EDT, Dry Weight Start Date: 12/17/21 Status: Ordered Lipitor 20 mg oral tablet 1 tablet = 20 mg, By Mouth, Daily, # 30 tablet, 0 Refills, Maintenance, 07/22/21 9:28:00 EDT, Tablet, [facility], Partial fill upon patient [...] tablet, 0 Refills, Maintenance, 07/22/21 8:58:00 EDT,Tablet, [facility], Partial fill upon... Start Date: [...] Gm, 1 Refills, Maintenance, 12/18/21 12:42:00 EDT, [facility], Partial fill upon patient requ... Start Date: [...] S Resident Member Role: PCP Address: Address: [address] [place] [address]- Name: Raul Sung RN Position: S RN [...] Related Persons Name: WHIT WILKINSON Address: home [address] [place] [id number]
--- OUTSIDE RECORDS SUMMARY | 2023-01-06 08:13 | XMS_ITS | Continuity of Care Document ---
Author Name Unknown Organization [facility] Address Unknown Care Team Providers Care Irrigation Engineer Name Role Phone Kehinde DOHERTY, [place] Primary Care Physician [place] [facility] [place](s): 04/04/21 - 04/11/21 [facility] Attending Physician: Jazzmine Desai [...] 0 Refills, Maintenance, 06/27/20 10:11:00 EDT, Tablet, [facility], Partial fill upon patient request if the prescription is for a schedule II opioid drug., 166.5, cm, 06/27/20 9:31:00 ED... Start Date: 06/27/20 Status: Ordered gabapentin 400 mg oral capsule 400 mg, 1, capsule, By Mouth, 3 times a day, # 42 capsule, Refills 6, Tot. Refills 6, Maintenance, 06/18/20 8:10:00 EDT, Route to Pharmacy Electronically, [facility], 166.5, cm, 06/18/20 7:58:00 EDT, Height, 107, kg, 11/22/19 21:00:00... Start Date: 06/18/20 Stop Date: 09/24/20 Status: Ordered Genvoya oral tablet 1 tablet, By Mouth, Daily, WITH FOOD., # 30 tablet, 3 Refills, Maintenance, 12/29/20 16:31:00 EDT, [facility] 1 tablet By Mouth Daily,x30 days,Instr:WITH FOOD., 167, cm, 12/11/20 14:48:00 EDT, Height, 107, kg, 11/22/19 21:00:00 EDT, D... Start Date: 12/29/20 Stop Date: 04/28/21 Status: Ordered hydrOXYzine hydrochloride 25 mg oral tablet See Instructions, TAKE 1 TABLET BY MOUTH FOUR TIMES A DAY NEEDED FOR ANXIETY, # 60 tablet, 1 Refills, [facility], 166.5, cm, 11/06/20 15:04:00 EDT, Height, [...]
--- OUTSIDE RECORDS SUMMARY | 2023-01-06 08:13 | XMS_ITS | Continuity of Care Document ---
Author Name Unknown Organization [facility] Address [address] [place] [address]- Care Team Providers Care Cyber Forensic Specialist Name Role Phone Kehinde DOHERTY, [place] Primary Care Physician [facility]counter [facility] Date(s): 02/23/22 - 03/25/22 [facility] [address] [place] [address]- Attending Physician: Jt Santana Admitting Physician: AdmJt [...] 2 Refills, Maintenance, 12/23/21 15:55:00 EDT, [facility], [facility], Partial fill upon patient request [...] 07/22/21 8:57:00 EDT, Route to Pharmacy Electronically, [facility], Partial fill upon patient request if the prescription is for a schedule II opioid... Start Date: 07/22/21 Stop Date: 09/20/21 Status: Ordered cetirizine 5 mg oral tablet 1 tablet = 5 mg, By Mouth, Daily, PRN as needed for allergy symptoms, # 30 tablet, 0 Refills, Maintenance, 12/17/21 16:03:00 EDT, Tablet, [facility]., Partial fill upon patient requestif the [...] 07/22/21 8:57:00 EDT, Route to Pharmacy Electronically, [facility], Partial fill upon patient request [...] tablet, 3 Refills, Maintenance, 12/17/21 13:32:00 EDT, [facility], 30, TAKE 1 TABLET BY MOUTH EVERY DAY WITH FOOD, 172, cm, 07/22/21 9:16:00 EDT, Height, 121.3, kg, 07/19/21... Start Date: 12/17/21 Status: Ordered hydrOXYzine hydrochloride 25 mg oral tablet 1 tablet, By Mouth, 4 times a day, PRN NEEDED FOR ANXIETY, # 60 tablet, 1 Refills, Maintenance, 12/17/21 11:16:00 EDT, [facility], [facility], cm, 07/22/21 9:16:00 EDT, Height, 121.3, kg, 07/19/21 21:11:00 EDT, Dry Weight Start Date: 12/17/21 Status: Ordered Lipitor 20 mg oral tablet 1 tablet = 20 mg, By Mouth, Daily, # 30 tablet, 0 Refills, Maintenance, 07/22/21 9:28:00 EDT, Tablet, [facility], Partial fill upon patient request if the prescription is for a scheduleII opioid drug., 172, cm, 07/22/21 9:16:00 EDT, Hei... Start Date: 07/22/21 Status: Ordered metoprolol 25 mg oral tablet, extended release 25 mg, 1, tablet, By Mouth, Daily, # 30 tablet, Refills 1, Tot. Refills 1, Maintenance, 07/22/21 8:57:00 EDT, Route to Pharmacy Electronically, [facility], Partial fill upon patient request if the prescription is for a schedule II opioid... Start Date: 07/22/21 Status: Ordered nitroglycerin 0.4 mg sublingual tablet 1 tablet = 0.4 mg, Sublingual, Every 5 minutes, PRN for chest pain, not to exceed 3 doses/15 min--if pain persists, seek medical attention, # 100 tablet, 0 Refills, Maintenance, 07/22/21 8:58:00 EDT,Tablet, [facility], Partial fill upon... Start Date: 07/22/21 Status: Ordered ProAir HFA 90 mcg/inh inhalation aerosol 2 puffs, Inhalation, 4 times a day, PRN as needed for wheezing, # 8.5 Gm, 5 Refills, Maintenance, 12/23/21 15:54:00 EDT, [facility]ol[facility] Partial fill upon patient request if the prescription is for a schedule II opioid drug., 2 pu... Start Date: 12/23/21 Status: Ordered Qvar Redihaler 40 mcg/inh inhalation aerosol = 40 mcg, Inhalation, 2 times a day, brand name required by insurance. *discontinue after 1 month after symptoms have been controlled, # 8.7 Gm, 1 Refills, Maintenance, 12/18/21 12:42:00 EDT, [facility] Partial fill upon patient requ... Start [...] Team Personnel Name: [place] Busby MD Position: [facility] Resident Member Role: PCP Address: Address: [address] [place] [id number]- Name: Raul Sung RN Position: S RN Member Role: Primary Care Nurse Name: Jose Peng RN Position: S RN Supv Member Role: Primary Care Nurse Name: Lupe Mancuso RN Position: S RN Member Role: Primary Care Nurse Name: Vielka Milan RN Position: [facility] ED RN W/OE and Tasks Member Role: Primary Care Nurse Name: Tomasa Brush RN Position: S RN Member Role: Primary Care Nurse Care Team Related Persons Name: WHIT WILKINSON Address: home [address] [place] [address]
--- OUTSIDE RECORDS SUMMARY | 2023-01-06 08:13 | XMS_ITS | Continuity of Care Document ---
Author Name Unknown Organization [facility] Address [address] [place] [address]- Care Team Providers Care Database Management Specialist Name Role Phone Stanford MCNEAL, Shea Smith Primary Care Physician [facility] Date(s): 03/08/19 - 04/12/19 [facility] [address] [place] [id number]- [facility] Attending Physician: Not on Staff, Attending MD [...] 10/27/18 12:22:39 EDT, Route to Pharmacy Electronically, [id number], [facility]/pharmacy #[id number] Start Date: 10/27/18 [...] Start Date: 10/27/18 Status: Ordered Vitamin D 08542 iu oral capsule 50,000 International_Units, 1, capsule, By Mouth, Every week, # 5 capsule, Refills 1, Tot. Refills 1, Maintenance, 06/08/18 6:27:29 EDT, Route to Pharmacy Electronically, NCPDP_[id number], [facility] Start Date: 06/08/18 [...]
--- OUTSIDE RECORDS SUMMARY | 2023-01-06 08:13 | XMS_ITS | Continuity of Care Document ---
Author Name Unknown Organization [facility] Address [address] [place] [address]- Care Team Providers Care Box Lining Machine Feeder Name Role Phone Kehinde DOHERTY, [facility] Primary Care Physician Encounter [facility] [place] Date(s): 07/25/21 - 09/06/21 [facility] [address] [place] [address]- Attending Physician: Not on Staff, Attending MD [...] 07/22/21 8:57:00 EDT, Route to Pharmacy Electronically, [facility], Partial fill upon patient request if [...] 07/22/21 8:57:00 EDT, Route to Pharmacy Electronically, [facility], Partial fill upon patient request [...] Refills, Maintenance, 12/29/20 16:31:00 EDT, [facility]., 1 tablet By Mouth Daily,x30 days,Instr:WITH FOOD., 167, cm, 12/11/20 14:48:00 EDT, Height, 107, kg, 11/22/19 21:00:00 EDT, D... Start Date: 12/29/20 Stop Date: 04/28/21 Status: Ordered hydrOXYzine hydrochloride 25 mg oral tablet 1 tablet, By Mouth, 4 times a day, PRN NEEDED FOR ANXIETY, # 60 tablet, 1 Refills, [facility], 167, cm, 05/21/21 13:49:00 EST, Height, 107, kg, 11/22/19 21:00:00 EDT, Dry Weight Start Date: 06/02/21 Status: Ordered Lipitor 20 mg oral tablet 1 tablet = 20 mg, By Mouth, Daily, # 30 tablet, 0 Refills, Maintenance, 07/22/21 9:28:00 EDT, Tablet, [facility] 3, Partial fill upon patient request if the prescription is for a scheduleII opioid drug., 172, cm, 07/22/21 9:16:00 EDT, Hei... Start Date: 07/22/21 Status: Ordered metoprolol 25 mg oral tablet, extended release 25 mg, 1, tablet, By Mouth, Daily, # 30 tablet, Refills 1, Tot. Refills 1, Maintenance, 07/22/21 8:57:00 EDT, Route to Pharmacy Electronically, [facility] 3, Partial fill upon patient request if the prescription is for a schedule II opioid... Start Date: 07/22/21 Status: Ordered nitroglycerin 0.4 mg sublingual tablet 1 tablet = 0.4 mg, Sublingual, Every 5 minutes, PRN for chest pain, not to exceed 3 doses/15 min--if pain persists, seek medical attention, # 100 tablet, 0 Refills, Maintenance, 07/22/21 8:58:00 EDT,Tablet, [facility], Partial fill upon... Start Date: 07/22/21 Status: Ordered ProAir HFA 90 mcg/inh inhalation aerosol 1 puffs, Inhalation, 4 times a day, PRN as needed for wheezing, # 6.7 Gm, 0 Refills, Maintenance, 07/28/21 15:52:00 EDT, Aerosol, [facility] Partial fill upon patient request [...]
--- OUTSIDE RECORDS SUMMARY | 2023-01-06 08:13 | XMS_ITS | Continuity of Care Document ---
Author Name Unknown Organization [facility] Address [address] [place] [address]- Care Team Providers Care Watershed Coordinator Name Role Phone Ashley DOHERTY, Maurilio Burnett Primary Care Physician [facility] Date(s): 11/23/19 - 12/23/19 [facility] [address] [place] [address]- [facility] Attending Physician: Elvin Zapata MD Admitting [...] 01/29/20 11:21:00 EST, 11/30/19 11:21:00 EDT, Suspension, [facility], 166.5, cm, 11/30/19 10:56:00 EDT, Height, 107, kg, 11/22/19 21:00:00 EDT, Dry Weight Start Date: 11/30/19 Stop Date: 01/29/20 Status: Ordered clonazePAM 0.5 mg oral tablet 1 tablet = 0.5 mg, By Mouth, 3 times a day, # 90 tablet, 3 Refills, Maintenance, 11/30/19 11:06:00 EDT, Tablet, [facility], 166.5, cm, 11/30/19 10:56:00 EDT, Height, 107, kg, 11/21/2020:00:00 EDT, Dry Weight Start Date: 11/30/19 Stop Date: 03/29/20 Status: Ordered gabapentin 400 mg oral capsule 400 mg, 1, capsule, By Mouth, 3 times a day, # 42 capsule, Refills 0, Tot. Refills 0, Maintenance, 11/23/19 13:41:00 EDT, Route to Pharmacy Electronically, [facility], 166.5, cm, 11/23/19 13:20:00 EDT, Height, 107, kg, 11/22/19 21:00:0... Start Date: 11/23/19 Stop Date: 12/07/19 Status: Ordered Genvoya oral tablet 1 tablet, By Mouth, Daily, with food, # 30 tablet, 3 Refills, Maintenance, 11/30/19 11:21:00 EDT, Tablet, [facility], 1 tablet By Mouth Daily,Instr:with food, 166.5, cm, 11/30/19 10:56:00 EDT, Height, 107, kg, 11/22/19 21:00:00 EDT, Start Date: 11/30/19 Status: Ordered Hibiclens 4% soap See Instructions, 1 applicator Topically daily to axilla, # 240 mL, 0 Refills, Soft Stop, 12/07/19 9:57:00 EDT, [facility], 1 applicator Topically daily to axilla, 166.5, cm, 11/29/2009:56:00 EDT, Height, 107, kg, 11/22/19 21:00:00 ED... Start Date: 12/07/19 Status: Ordered Multivitamins with Folic Acid 1 mg oral tablet 1 tablet, By Mouth, Daily, pt would like pink tabs, not white, # 90 tablet, 4 Refills, Maintenance,12/07/19 10:00:00 EDT, Tablet, [facility]., 1 tablet By Mouth Daily,Instr:pt would like pink tabs, not white, 166.5, cm, 11/30/19 10:56:... Start Date: 12/07/19 Status: Ordered traMADol 50 mg oral tablet 1 tablet = 50 mg, By Mouth, Every 8 hours, prn severe pain, # 24 tablet, 0 Refills, Maintenance, 12/07/19 9:58:00 EDT, [facility]., 166.5, cm, 11/30/19 10:56:00 EDT, Height, 107, kg, 11/22/19 21:00:00 EDT, Dry Weight Start Date: 12/07/19 Status: Ordered zolpidem 10 mg oral tablet 1 tablet = 10 mg, By Mouth, Daily at bedtime, PRN as needed for insomnia, # 30 tablet, 3 Refills, Maintenance, 11/30/19 11:07:00 EDT, Tablet, [facility] 166.5, cm, 11/30/19 10:56:00 EDT, [...]
--- OUTSIDE RECORDS SUMMARY | 2023-01-06 08:13 | XMS_ITS | Continuity of Care Document ---
Author Name Unknown Organization [facility] Address [address] [place] [address]- Care Team Providers Care Roguer Name Role Phone Kehinde DOHERTY, [facility] Primary [facility]ician Encounter [facility] Date(s): 08/27/20 - 09/26/20 [facility] [address], [place] [address] Allergies, Adverse Reactions, Alerts Substance Reaction [...] 0 Refills, Maintenance, 06/18/20 8:26:00 EDT, Tablet, [facility] 166.5, cm, 06/18/20 7:58:00 EDT, Height, 107, kg, 11/22/19 21:00:00 EDT, Dry Weight Start Date: 06/18/20 Stop Date: 07/18/20 Status: Ordered dapsone 100 mg oral tablet 1 tablet = 100 mg, By Mouth, Daily, # 30 tablet, 0 Refills, Maintenance, 06/27/20 10:11:00 EDT, Tablet, [facility] Partial fill upon patient request if the prescription is for a schedule II opioid drug., 166.5, cm, 06/27/20 9:31:00 ED... Start Date: 06/27/20 Status: Ordered gabapentin 400 mg oral capsule 400 mg, 1, capsule, By Mouth, 3 times a day, # 42 capsule, Refills 6, Tot. Refills 6, Maintenance, 06/18/20 8:10:00 EDT, Route to Pharmacy Electronically, [facility] 166.5, cm, 06/18/20 7:58:00 EDT, Height, 107, kg, 11/22/19 21:00:00... Start Date: 06/18/20 Stop Date: 09/24/20 Status: Ordered Genvoya oral tablet 1 tablet, By Mouth, Daily, WITH FOOD., # 30 tablet, 1 Refills, Maintenance, 09/24/20 19:51:00 EDT, [facility], 1 tablet By Mouth Daily,x30 days,Instr:WITH FOOD., 166.5, cm, 09/10/20 8:11:00 EDT, Height, 107, kg, 11/22/19 21:00:00 EDT,... Start Date: 09/24/20 Stop Date: 11/23/20 Status: Ordered zolpidem 10 mg oral tablet 1 tablet = 10 mg, By Mouth, Daily at bedtime, PRN as needed for insomnia, # 30 tablet, 0 Refills, Maintenance, 06/18/20 8:26:00 EDT, Tablet, [facility]., 166.5, cm, 06/18/20 7:58:00 EDT, [...]
--- OUTSIDE RECORDS SUMMARY | 2023-01-06 08:13 | XMS_ITS | Continuity of Care Document ---
Author Name Unknown Organization [facility] Address Unknown Care Team Providers Care Laundry Supervisor Name Role Phone Kehinde DOHERTY, [facility] Primary Care Physician [facility]counter [facility] Date(s): 07/03/21 - 09/12/21 [facility] Attending Physician: Dony Gutierrez MD Allergies, Adverse Reactions, [...] 07/22/21 8:57:00 EDT, Route to Pharmacy Electronically, [facility], Partial fill upon patient [...] 8:57:00 EDT, Route to Pharmacy Electronically, [facility], Partial fill upon patient request [...] Refills, Maintenance, 12/29/20 16:31:00 EDT, [facility]., 1 tablet By Mouth Daily,x30 days,Instr:WITH FOOD., 167, cm, 12/11/20 14:48:00 EDT, Height, 107, kg, 11/22/19 21:00:00 EDT, D... Start Date: 12/29/20 Stop Date: 04/28/21 Status: Ordered hydrOXYzine hydrochloride 25 mg oral tablet 1 tablet, By Mouth, 4 times a day, PRN NEEDED FOR ANXIETY, # 60 tablet, 1 [facility], [facility], cm, 05/21/21 13:49:00 EST, Height, 107, kg, 11/22/19 21:00:00 EDT, Dry Weight Start Date: 06/02/21 Status: Ordered Lipitor 20 mg oral tablet 1 tablet = 20 mg, By Mouth, Daily, # 30 tablet, 0 Refills, Maintenance, 07/22/21 9:28:00 EDT, Tablet, [facility], Partial fill upon patient request if the prescription is for a scheduleII opioid drug., 172, cm, 07/22/21 9:16:00 EDT, Hei... Start Date: 07/22/21 Status: Ordered metoprolol 25 mg oral tablet, extended release 25 mg, 1, tablet, By Mouth, Daily, # 30 tablet, Refills 1, Tot. Refills 1, Maintenance, 07/22/21 8:57:00 EDT, Route to Pharmacy Electronically, [facility], Partial fill upon patient request if the prescription is for a schedule II opioid... Start Date: 07/22/21 Status: Ordered nitroglycerin 0.4 mg sublingual tablet 1 tablet = 0.4 mg, Sublingual, Every 5 minutes, PRN for chest pain, not to exceed 3 doses/15 min--if pain persists, seek medical attention, # 100 tablet, 0 Refills, Maintenance, 07/22/21 8:58:00 EDT,Tablet, [facility], Partial fill upon... Start Date: 07/22/21 Status: Ordered ProAir HFA 90 mcg/inh inhalation aerosol 1 puffs, Inhalation, 4 times a day, PRN as needed for wheezing, # 6.7 Gm, 0 Refills, Maintenance, 07/28/21 15:52:00 EDT, Aerosol, [facility]., Partial fill upon patient request if [...]
--- OUTSIDE RECORDS SUMMARY | 2023-01-06 08:13 | XMS_ITS | Continuity of Care Document ---
Author Name Unknown Organization [facility] ter Address [address] [place] [id number]- Care Team Providers Care Recycling Collections Driver Name Role Phone Maurilio Ramirez MD Primary Care Physician Encounter [facility] Date(s): 11/22/19 - 11/22/[address] [address]- [facility] Discharge Disposition: A-D/C AMA Attending Physician: Manuel Gonzales DO Admitting Physician: Manuel Gonzales DO Referring Physician: Not on Staff, Referring MD [...] 11/20/19 13:22:00 EDT, Route to Pharmacy Electronically, [facility], 166.5, cm, 11/07/19 10:59:00 EDT, Height Start Date: 11/20/19 Stop Date: 12/04/19 Status: Ordered gabapentin 100 mg oral capsule 200 mg, 2, capsule, By Mouth, Daily at bedtime, # 60 capsule, Refills 1, Tot. Refills 1, Maintenance, 10/27/18 12:22:39 EDT, Route to Pharmacy Electronically, [id number], [facility]/pharmacy #[id number] Start Date: 10/27/18 Stop Date: 12/26/18 [...] 0 Refills, Maintenance, 11/07/19 12:00:00 EDT, Tablet, [facility], 166.5, cm, 11/07/19 10:59:00 EDT, Height Start Date: 11/07/19 Stop Date: 11/17/19 Status: Ordered Vitamin D 79030 iu oral capsule 50,000 International_Units, 1, capsule, By Mouth, Every week, # 5 capsule, Refills 1, Tot. Refills 1, Maintenance, 06/08/18 6:27:29 EDT, Route to Pharmacy Electronically, [id number], [facility] Start Date: 06/08/18 Stop [...] Exam Date Time Procedure Performing Provider Status 11/22/19 7:32 PM Chest Portable Holly Dave; Luisa ( Verified) Notes: (Chest Portable) Reason For Exam: ho HIV, off antiretroviral setting of shingle infxn;Other: RESULT: Chest Portable Chest Portable AP upright at 1910 hours Hx of Present Illness: Pt reports that she was diagnosed with shingles on 11 08 19- minimal improvement with valtrex. pt still reports lip discomfort; left axilla and back pain. Pt sts it's not any better . no fever chills; no n v d COMPARISON: 02/24/2005 FINDINGS: LINES AND TUBES: None. LUNGS AND PLEURA: Minimal discoid atelectasis in bilateral perihilar regions. Lungs otherwise clear. No pleural effusion. No pneumothorax. HEART, MEDIASTINUM AND SHARDA: Heart is normal in size. Normal mediastinal and hilar contour. BONES AND SOFT TISSUES: No acute abnormality. IMPRESSION: Mild bilateral perihilar discoid atelectasis. Otherwise nothing acute. WSN: [id number] Ordering Physician: Radha Blackmon Dictated By: Jose Guadalupe Cox DO Dictated Date/Time: 11/22/19 7:36 pm Reviewed By: JoseG uadalupe Cox DO Signed By: Jose Guadalupe Cox DO Signed Date/Time: 11/22/19 7:36 pm Transcribed By: MARCO Transcribed Date/Time: 11/22/19 7:35 pm Vital Signs Most recent to oldest [Reference Range]: 1 2 3 Weight 107.0 kg (11/22/19 9:00 PM) 107.0 kg (11/22/19 5:42 PM) 107.0 kg (11/22/19 4:36 PM) Oxygen Saturation [94-100 %] 100 % (11/22/19 4:36 PM) 99 % (11/22/19 4:30 PM) Pulse Rate [55-90 bpm] 103 bpm *H* (11/22/19 4:36 PM) 111 bpm *H* (11/22/19 4:30 PM) Blood Pressure [90-138/55-84 mm Hg] 118/77mm Hg (11/22/19 4:36 PM) Respiratory Rate [16-30 br/min] 17 br/min (11/22/19 4:36 PM) Temperature [96.8-100.4 DegF] 98.0 DegF (11/22/19 4:36 PM) Liters per Minute 0 L/min (11/22/19 4:36 PM) Mode of Delivery (Oxygen) Room air (11/22/19 4:36 PM) Blood pressure sites Arm, right (11/22/19 4:36 PM) Temperature Route Oral (11/22/19 4:36 PM) Dry Weight 107.0 kg (11/22/19 9:00 PM) 107.0 kg (11/22/19 5:42 PM) 107.0 kg (11/22/19 4:36 PM) Dry Weight Obtained Via Standing scale (11/22/19 4:36 PM) Social History Social History Type Response Smoking Status Current every day andreina judge; Type: Cigarettes; Tobacco use times per day: a pack every couple days; entered on: 05/31/14 Sex Female
--- OUTSIDE RECORDS SUMMARY | 2023-01-06 08:13 | XMS_ITS | Continuity of Care Document ---
Author Name Unknown Organization [facility] Address Unknown Care Team Providers Care Director Maternal Child Name Role Phone Kehinde DOHERTY, [place] Primary Care Physician Encounter [facility] [place] [place] Date(s): 08/13/21 - 09/12/21 [facility] Attending Physician: Jt Santana Admitting Physician: Jt [...] 07/22/21 8:57:00 EDT, Route to Pharmacy Electronically, [facility], Partial fill upon patient [...] Refills, Maintenance, 12/29/20 16:31:00 EDT[facility] 1 tablet By Mouth Daily,x30 days,Instr:WITH FOOD., 167, cm, 12/11/20 14:48:00 EDT, Height, 107, kg, 11/22/19 21:00:00 EDT, D... Start Date: 12/29/20 Stop Date: 04/28/21 Status: Ordered hydrOXYzine hydrochloride 25 mg oral tablet 1 tablet, By Mouth, 4 times a day, PRN NEEDED FOR ANXIETY, # 60 tablet, 1 [facility]ills, [facility], cm, 05/21/21 13:49:00 EST, Height, [...] tablet, 0 Refills, Maintenance, 07/22/21 8:58:00 EDT,Tablet, [facility], Partial fill upon... Start Date: 07/22/21 Status: Ordered ProAir HFA 90 mcg/inh inhalation aerosol 1 puffs, Inhalation, 4 times a day, PRN as needed for wheezing, # 6.7 Gm, 0 Refills, Maintenance, 07/28/21 15:52:00 EDT, [facility]erosol[facility] Partial fill upon patient [...]
--- OUTSIDE RECORDS SUMMARY | 2023-01-06 08:13 | XMS_ITS | Continuity of Care Document ---
Author Name Unknown Organization [facility] Address [address] [place] [address]- Care Team Providers Care Industrial Aerial Installer Name Role Phone Kehinde DOHERTY, [facility] Primary Care Physician [facility] [facility] 02/05[place]22 - 03/07/22 [facility] [address], [place] [address] Attending Physician: Jt Santana Admitting Physician: Jt [...] 2 Refills, Maintenance, 12/23/21 15:55:00 EDT, [facility] fill upon patient request [...] 07/22/21 8:57:00 EDT, Route to Pharmacy Electronically, [facility], Partial fill upon patient request if the prescription is for a schedule II opioid... Start Date: 07/22/21 Stop Date: 09/20/21 Status: Ordered cetirizine 5 mg oral tablet 1 tablet = 5 mg, By Mouth, Daily, PRN as needed for allergy symptoms, # 30 tablet, 0 Refills, Maintenance, 12/17/21 16:03:00 EDT, Tablet, [facility]., Partial fill upon patient requestif the [...] 07/22/21 8:57:00 EDT, Route to Pharmacy Electronically, [facility], Partial fill upon patient request [...] tablet, 3 Refills, Maintenance, 12/17/21 13:32:00 EDT, [facility], 30, TAKE 1 TABLET BY MOUTH EVERY DAY WITH FOOD, 172, cm, 07/22/21 9:16:00 EDT, Height, 121.3, kg, 07/19/21... Start Date: 12/17/21 Status: Ordered hydrOXYzine hydrochloride 25 mg oral tablet 1 tablet, By Mouth, 4 times a day, PRN NEEDED FOR ANXIETY, # 60 tablet, 1 Refills, Maintenance, 12/17/21 11:16:00 EDT, [facility], [facility], 07/22/21 9:16:00 EDT, Height, 121.3, kg, 07/19/21 21:11:00 EDT, Dry Weight Start Date: 12/17/21 Status: Ordered Lipitor 20 mg oral tablet 1 tablet = 20 mg, By Mouth, Daily, # 30 tablet, 0 Refills, Maintenance, 07/22/21 9:28:00 EDT, Tablet, [facility], Partial fill upon patient request if the prescription is for a scheduleII opioid drug., 172, cm, 07/22/21 9:16:00 EDT, Hei... Start Date: 07/22/21 Status: Ordered metoprolol 25 mg oral tablet, extended release 25 mg, 1, tablet, By Mouth, Daily, # 30 tablet, Refills 1, Tot. Refills 1, Maintenance, 07/22/21 8:57:00 EDT, Route to Pharmacy Electronically, [facility], Partial fill upon patient request if the prescription is for a schedule II opioid... Start Date: 07/22/21 Status: Ordered nitroglycerin 0.4 mg sublingual tablet 1 tablet = 0.4 mg, Sublingual, Every 5 minutes, PRN for chest pain, not to exceed 3 doses/15 min--if pain persists, seek medical attention, # 100 tablet, 0 Refills, Maintenance, 07/22/21 8:58:00 EDT,Tablet, [facility], Partial fill upon... Start Date: 07/22/21 Status: Ordered ProAir HFA 90 mcg/inh inhalation aerosol 2 puffs, Inhalation, 4 times a day, PRN as needed for wheezing, # 8.5 Gm, 5 Refills, Maintenance, 12/23/21 15:54:00 EDT, [facility]erosol, [facility] Partial fill upon patient request if the prescription is for a schedule II opioid drug., 2 pu... Start Date: 12/23/21 Status: Ordered Qvar Redihaler 40 mcg/inh inhalation aerosol = 40 mcg, Inhalation, 2 times a day, brand name required by insurance. *discontinue after 1 month after symptoms have been controlled, # 8.7 Gm, 1 Refills, Maintenance, 12/18/21 12:42:00 EDT, [facility] Partial fill upon patient requ... Start [...] S Resident Member Role: PCP Address: Address: [address] [place] [address]- Name: Raul Sung RN Position: S RN [...] Related Persons Name: WHIT WILKINSON Address: home [address] [place] [address]
--- OUTSIDE RECORDS SUMMARY | 2023-01-06 08:13 | XMS_ITS | Continuity of Care Document ---
Author Name Unknown Organization [facility] Address [address] [place] [address]- Care Team Providers Care Pyrotechnician Name Role Phone Kehinde DOHERTY, [facility] Primary Care Physician [place] [facility] [place] 10/03/20 - 11/02/20 [facility] [address] [place] [address]- Allergies, Adverse Reactions, Alerts Substance Reaction Severity [...] 2 Refills, Maintenance, 10/14/20 13:23:00 EDT, Tablet, [facility], 166.5, cm, 09/10/20 8:11:00 EDT, Height, 107, kg, 11/21/2020:00:00 EDT, Dry Weight Start Date: 10/14/20 Stop Date: 01/12/21 Status: Ordered dapsone 100 mg oral tablet 1 tablet = 100 mg, By Mouth, Daily, # 30 tablet, 0 Refills, Maintenance, 06/27/20 10:11:00 EDT, Tablet[facility] Partial fill upon patient request if the prescription is for a schedule II opioid drug., 166.5, cm, 06/27/20 9:31:00 ED... Start Date: 06/27/20 Status: Ordered gabapentin 400 mg oral capsule 400 mg, 1, capsule, By Mouth, 3 times a day, # 42 capsule, Refills 6, Tot. Refills 6, Maintenance, 06/18/20 8:10:00 EDT, Route to Pharmacy Electronically, [facility], 166.5, cm, 06/18/20 7:58:00 EDT, Height, 107, kg, 11/22/19 21:00:00... Start Date: 06/18/20 Stop Date: 09/24/20 Status: Ordered Genvoya oral tablet 1 tablet, By Mouth, Daily, WITH FOOD., # 30 tablet, 1 Refills, Maintenance, 09/24/20 19:51:00 EDT, [facility], 1 tablet By Mouth Daily,x30 days,Instr:WITH FOOD., 166.5, cm, 09/10/20 8:11:00 EDT, Height, 107, kg, 11/22/19 21:00:00 EDT,... Start Date: 09/24/20 Stop Date: 11/23/20 Status: Ordered hydrOXYzine hydrochloride 25 mg oral tablet 1 tablet = 25 mg, By Mouth, 4 times a day, PRN for anxiety, for 30 days, # 60 tablet, 1 Refills, Acute 12/06/20 14:36:00 EDT, 10/07/20 14:36:00 EDT, Tablet, [facility], Partial fill upon patient request if the prescription is for a roya... Start Date: 10/07/20 Stop Date: 12/06/20 Status: Ordered zolpidem 10 mg oral tablet 1 tablet = 10 mg, By Mouth, Daily at bedtime, PRN as needed for insomnia, # 28 tablet, 3 Refills, Maintenance, 10/18/20 16:32:00 EDT, Tablet, [facility], 166.5, cm, 09/10/20 8:11:00 EDT, [...]
--- OUTSIDE RECORDS SUMMARY | 2023-01-06 08:14 | XMS_ITS | Continuity of Care Document ---
Author Name Unknown Organization [facility] Address [address] [place] [address]- Care Team Providers Care Fittings Finisher Name Role Phone Kehinde DOHERTY, [place] Primary Care Physician [place] [facility] [place] 06[place]22 - 08/29/22 [facility] [address] [place], [place] [address] Attending Physician: Ovidio [...] 12/23/21 15:55:00 EDT, Solution, [facility], Partial fill upon patient [...] 07/22/21 8:57:00 EDT, Route to Pharmacy Electronically, [facility], Partial fill upon patient request if the prescription is for a schedule II opioid... Start Date: 07/22/21 Stop Date: 09/20/21 Status: Ordered cetirizine 5 mg oral tablet 1 tablet = 5 mg, By Mouth, Daily, PRN as needed for allergy symptoms, # 30 tablet, 0 Refills, Maintenance, 12/17/21 16:03:00 EDT, Tablet, [facility] Partial fill upon patient requestif the [...] 07/22/21 8:57:00 EDT, Route to Pharmacy Electronically, [facility], Partial fill upon patient request if the prescription is for a schedule II opioid... Start Date: 07/22/21 Status: Ordered dapsone 100 mg oral tablet 1 tablet = 100 mg, By Mouth, Daily, # 30 tablet, 11 Refills, Maintenance, 08/20/22 10:57:00 EDT, Tablet, [facility]., Partial fill upon patient request if [...] tablet, 3 Refills, Maintenance, 06/29/22 13:16:00 EDT, [facility], 30, TAKE 1 TABLET BY MOUTH EVERY DAY WITH FOOD, 172, cm, 01/15/22 16:40:00 EDT, Height, 121.3, kg, 07/19/21 21:11:00 EDT, Dry Weight Start Date: 06/29/22 Status: Ordered hydrOXYzine hydrochloride 25 mg oral tablet 1 tablet, By Mouth, 4 times a day, PRN NEEDED FOR ANXIETY, # 60 tablet, 1 Refills, Maintenance, 12/17/21 11:16:00 EDT, [facility], 172, cm, 07/22/21 9:16:00 EDT, Height, 121.3, kg, 07/19/21 21:11:00 EDT, Dry Weight Start Date: 12/17/21 Status: Ordered Lipitor 20 mg oral tablet 1 tablet = 20 mg, By Mouth, Daily, # 30 tablet, 0 Refills, Maintenance, 07/22/21 9:28:00 EDT, Tablet, [facility], Partial fill upon patient request if the prescription is for a scheduleII opioid drug., 172, cm, 07/22/21 9:16:00 EDT, Hei... Start Date: 07/22/21 Status: Ordered metoprolol 25 mg oral tablet, extended release 25 mg, 1, tablet, By Mouth, Daily, # 30 tablet, Refills 1, Tot. Refills 1, Maintenance, 07/22/21 8:57:00 EDT, Route to Pharmacy Electronically, [facility], Partial fill upon patient request if the prescription is for a schedule II opioid... Start Date: 07/22/21 Status: Ordered nitroglycerin 0.4 mg sublingual tablet 1 tablet = 0.4 mg, Sublingual, Every 5 minutes, PRN for chest pain, not to exceed 3 doses/15 min--if pain persists, seek medical attention, # 100 tablet, 0 Refills, Maintenance, 07/22/21 8:58:00 EDT,Tablet, [facility], Partial fill upon... Start Date: 07/22/21 Status: Ordered ProAir HFA 90 mcg/inh inhalation aerosol 2 puffs, Inhalation, 4 times a day, PRN as needed for wheezing, # 8.5 Gm, 5 Refills, Maintenance, 12/23/21 15:54:00 EDT, Aerosol, [facility]., Partial fill upon patient request if the prescription is for a schedule II opioid drug., 2 pu... Start Date: 12/23/21 Status: Ordered Qvar Redihaler 40 mcg/inh inhalation aerosol = 40 mcg, Inhalation, 2 times a day, brand name required by insurance. *discontinue after 1 month after symptoms have been controlled, # 8.7 Gm, 1 Refills, Maintenance, 12/18/21 12:42:00 EDT, [facility]., Partial fill upon patient requ... Start [...] S Resident Member Role: PCP Address: Address: [address] [place] [id number]- Name: Raul Sung RN Position: S RN Member Role: Primary Care Nurse Name: Lupe Mancuso RN Position: S RN Member Role: Primary Care Nurse Name: Vielka Milan RN Position: S RN Member Role: Primary Care Nurse Name: Tomasa Brush RN Position: S RN Member Role: Primary Care Nurse Care Team Related Persons Name: WHIT WILKINSON Address: home [address] [place] [id number]
--- OUTSIDE RECORDS SUMMARY | 2023-01-06 08:14 | XMS_ITS | Continuity of Care Document ---
Author Name Unknown Organization [facility] Address [address] [place] [id number]- Care Team Providers Care Sanitor Name Role Phone Kehinde DOHERTY, [facility] Primary Care Physician Encounter [facility] Date(s): 12/23/21 - 01/22/22 [facility] [address] [place] [id number] Attending Physician: Jt Santana Admitting Physician: AdmtrJt Referring Physician: Admtr, Ar8 Allergies, Adverse Reactions, Alerts Substance Reaction Severity [...] Maintenance, 12/23/21 15:55:00 EDT, Solution, [facility], Partial fill upon patient [...] 07/22/21 8:57:00 EDT, Route to Pharmacy Electronically, [facility], Partial fill upon patient request if the prescription is for a schedule II opioid... Start Date: 07/22/21 Stop Date: 09/20/21 Status: Ordered cetirizine 5 mg oral tablet 1 tablet = 5 mg, By Mouth, Daily, PRN as needed for allergy symptoms, # 30 tablet, 0 Refills, Maintenance, 12/17/21 16:03:00 EDT, Tablet, [facility] Partial fill upon patient requestif the prescription [...] 07/22/21 8:57:00 EDT, Route to Pharmacy Electronically, [facility], Partial fill upon patient [...] tablet, 3 Refills, Maintenance, 12/17/21 13:32:00 EDT, [facility], 30, TAKE 1 TABLET BY MOUTH EVERY DAY WITH FOOD, 172, cm, 07/22/21 9:16:00 EDT, Height, 121.3, kg, 07/19/21... Start Date: 12/17/21 Status: Ordered hydrOXYzine hydrochloride 25 mg oral tablet 1 tablet, By Mouth, 4 times a day, PRN NEEDED FOR ANXIETY, # 60 tablet, 1 Refills, Maintenance, 12/17/21 11:16:00 EDT, [facility], cm, 07/22/21 9:16:00 EDT, Height, 121.3, kg, 07/19/21 21:11:00 EDT, Dry Weight Start Date: 12/17/21 Status: Ordered Lipitor 20 mg oral tablet 1 tablet = 20 mg, By Mouth, Daily, # 30 tablet, 0 Refills, Maintenance, 07/22/21 9:28:00 EDT, Tablet, [facility] 3, Partial fill upon patient request if the prescription is for a scheduleII opioid drug., 172, cm, 07/22/21 9:16:00 EDT, Hei... Start Date: 07/22/21 Status: Ordered metoprolol 25 mg oral tablet, extended release 25 mg, 1, tablet, By Mouth, Daily, # 30 tablet, Refills 1, Tot. Refills 1, Maintenance, 07/22/21 8:57:00 EDT, Route to Pharmacy Electronically, [facility], Partial fill upon patient request if the prescription is for a schedule II opioid... Start Date: 07/22/21 Status: Ordered nitroglycerin 0.4 mg sublingual tablet 1 tablet = 0.4 mg, Sublingual, Every 5 minutes, PRN for chest pain, not to exceed 3 doses/15 min--if pain persists, seek medical attention, # 100 tablet, 0 Refills, Maintenance, 07/22/21 8:58:00 EDT,Tablet, [facility] 3, Partial fill upon... Start Date: 07/22/21 Status: Ordered ProAir HFA 90 mcg/inh inhalation aerosol 2 puffs, Inhalation, 4 times a day, PRN as needed for wheezing, # 8.5 Gm, 5 Refills, Maintenance, 12/23/21 15:54:00 EDT, Aerosol, [facility] Partial fill upon patient request if the prescription is for a schedule II opioid drug., 2 pu... Start Date: 12/23/21 Status: Ordered Qvar Redihaler 40 mcg/inh inhalation aerosol = 40 mcg, Inhalation, 2 times a day, brand name required by insurance. *discontinue after 1 month after symptoms have been controlled, # 8.7 Gm, 1 Refills, Maintenance, 12/18/21 12:42:00 EDT, [facility] Partial fill [...] Sex Patient Care team information Personnel Name: [place] Busby MD Address: Address: [address] [place] [id number]
--- OUTSIDE RECORDS SUMMARY | 2023-01-06 08:14 | XMS_ITS | Continuity of Care Document ---
Author Name Unknown Organization [facility] y Address [address] [place] [address]- Care Team Providers Care Human Resource Advisor Name Role Phone Kehinde DOHERTY, [facility] Primary Care Physician Encounter [facility] Date(s): 10/04/20 - 11/08/20 [facility] [address] [place], [place] [address] Attending Physician: vOidio Sawyer MD Admitting Physician: Ovidio Sawyer MD [...] 2 Refills, Maintenance, 10/14/20 13:23:00 EDT, Tablet, [facility], 166.5, cm, 09/10/20 8:11:00 EDT, Height, 107, kg, 11/21/2020:00:00 EDT, Dry Weight Start Date: 10/14/20 Stop Date: 01/12/21 Status: Ordered dapsone 100 mg oral tablet 1 tablet = 100 mg, By Mouth, Daily, # 30 tablet, 0 Refills, Maintenance, 06/27/20 10:11:00 EDT, Tablet, [facility] Partial fill upon patient request if the prescription is for a schedule II opioid drug., 166.5, cm, 06/27/20 9:31:00 ED... Start Date: 06/27/20 Status: Ordered gabapentin 400 mg oral capsule 400 mg, 1, capsule, By Mouth, 3 times a day, # 42 capsule, Refills 6, Tot. Refills 6, Maintenance, 06/18/20 8:10:00 EDT, Route to Pharmacy Electronically, [facility]., 166.5, cm, 06/18/20 7:58:00 EDT, Height, 107, kg, 11/22/19 21:00:00... Start Date: 06/18/20 Stop Date: 09/24/20 Status: Ordered Genvoya oral tablet 1 tablet, By Mouth, Daily, WITH FOOD., # 30 tablet, 1 Refills, Maintenance, 09/24/20 19:51:00 EDT, [facility], 1 tablet By Mouth Daily,x30 [...] 12/06/20 14:36:00 EDT, 10/07/20 14:36:00 EDT, Tablet, [facility], Partial fill upon patient request if the prescription is for a roya... Start Date: 10/07/20 Stop Date: 12/06/20 Status: Ordered zolpidem 10 mg oral tablet 1 tablet = 10 mg, By Mouth, Daily at bedtime, PRN as needed for insomnia, # 28 tablet, 3 Refills, Maintenance, 10/18/20 16:32:00 EDT, Tablet, [facility], 166.5, cm, 09/10/20 8:11:00 [...]
--- OUTSIDE RECORDS SUMMARY | 2023-01-06 08:14 | XMS_ITS | Continuity of Care Document ---
Author Name Unknown Organization [facility] Address [address] [place] [address]- Care Team Providers Care Acid Polymerization Operator Name Role Phone Maurilio Ramirez MD Primary Care Physician [facility] Date[facility]s): 11/06/19 - 12/06/19 [facility] [address] [place] [id number]- [facility] Allergies, Adverse Reactions, Alerts Substance Reaction [...] 01/29/20 11:21:00 EST, 11/30/19 11:21:00 EDT, Suspension, [facility], 166.5, cm, 11/30/19 10:56:00 EDT, Height, 107, kg, 11/22/19 21:00:00 EDT, Dry Weight Start Date: 11/30/19 Stop Date: 01/29/20 Status: Ordered clonazePAM 0.5 mg oral tablet 1 tablet = 0.5 mg, By Mouth, 3 times a day, # 90 tablet, 3 Refills, Maintenance, 11/30/19 11:06:00 EDT, Tablet, [facility], 166.5, cm, 11/30/19 10:56:00 EDT, Height, 107, kg, 11/21/2020:00:00 EDT, Dry Weight Start Date: 11/30/19 Stop Date: 03/29/20 Status: Ordered desonide 0.05% topical ointment 1 application, Topically, 3 times a day, for 14 days, # 60 Gm, 0 Refills, Acute 12/07/19 13:42:00 EDT, 11/23/19 13:42:00 EDT, Ointment, [facility], 1 application Topically 3 times a day,x14 days, 166.5, cm, 11/23/19 13:20:00 EDT, Heigh... Start Date: 11/23/19 Stop Date: 12/07/19 Status: Ordered fluconazole 200 mg oral tablet 2 tablet = 400 mg, By Mouth, Daily, for 14 days, # 28 tablet, 0 Refills, Acute 12/07/19 13:43:00 EDT, 11/23/19 13:43:00 EDT, Tablet, [facility], 166.5, cm, 11/23/19 13:20:00 EDT, Height, 107, kg, 11/22/19 21:00:00 EDT, Dry Weight Start Date: 11/23/19 Stop Date: 12/07/19 Status: Ordered gabapentin 100 mg oral capsule 200 mg, 2, capsule, By Mouth, 3 times a day, PRN, # 90 capsule, Refills 0, Tot. Refills 0, Maintenance, Pain , Moderate, 11/20/19 13:22:00 EDT, Route to Pharmacy Electronically, [facility], 166.5, cm, 11/07/19 10:59:00 EDT, Height Start Date: 11/20/19 Stop Date: 12/04/19 Status: Ordered gabapentin 100 mg oral capsule 200 mg, 2, capsule, By Mouth, Daily at bedtime, # 60 capsule, Refills 1, Tot. Refills 1, Maintenance, 10/27/18 12:22:39 EDT, Route to Pharmacy Electronically, [id number], [facility]acy #[id number] Start Date: 10/27/18 Stop Date: 12/26/18 Status: Ordered gabapentin 400 mg oral capsule 400 mg, 1, capsule, By Mouth, 3 times a day, # 42 capsule, Refills 0, Tot. Refills 0, Maintenance, 11/23/19 13:41:00 EDT, Route to Pharmacy Electronically, [facility], 166.5, cm, 11/23/19 13:20:00 EDT, Height, 107, kg, 11/22/19 21:00:0... Start Date: 11/23/19 Stop Date: 12/07/19 Status: Ordered Genvoya oral tablet 1 tablet, By Mouth, Daily, with food, # 30 tablet, 3 Refills, Maintenance, 11/30/19 11:21:00 EDT, Tablet, [facility], 1 tablet By Mouth Daily,Instr:with food, 166.5, [...] 0 Refills, Maintenance, 11/07/19 12:00:00 EDT, Tablet, [facility]., 166.5, cm, 11/07/19 10:59:00 EDT, Height Start Date: 11/07/19 Stop Date: 11/17/19 Status: Ordered Vitamin D 56656 iu oral capsule 50,000 International_Units, 1, capsule, By Mouth, Every week, # 5 capsule, Refills 1, Tot. Refills 1, Maintenance, 06/08/18 6:27:29 EDT, Route to Pharmacy Electronically, NCPDP_[id number], [facility] Start Date: 06/08/18 Stop Date: 08/07/18 Status: Ordered zolpidem 10 mg oral tablet 1 tablet = 10 mg, By Mouth, Daily at bedtime, PRN as needed for insomnia, # 30 tablet, 3 Refills, Maintenance, 11/30/19 11:07:00 EDT, Tablet, [facility]., 166.5, cm, 11/30/19 10:56:00 EDT, Height, 107, [...]
--- OUTSIDE RECORDS SUMMARY | 2023-01-06 08:14 | XMS_ITS | Continuity of Care Document ---
Author Name Unknown Organization [facility] y Address [address] [place] [address]- Care Team Providers Care Casting House Worker Name Role Phone Kehinde DOHERTY, [facility] Primary Care Physician Encounter [facility] Date(s): 10/09/20 - 11/08/20 [facility] [address], [place] [address] Attending Physician: Jt Santana Admitting Physician: AdmJt [...] 2 Refills, Maintenance, 10/14/20 13:23:00 EDT, Tablet, [facility], 166.5, cm, 09/10/20 8:11:00 EDT, Height, 107, kg, 11/21/2020:00:00 EDT, Dry Weight Start Date: 10/14/20 Stop Date: 01/12/21 Status: Ordered dapsone 100 mg oral tablet 1 tablet = 100 mg, By Mouth, Daily, # 30 tablet, 0 Refills, Maintenance, 06/27/20 10:11:00 EDT, Tablet, [facility] fill upon patient request if the prescription is for a schedule II opioid drug., 166.5, cm, 06/27/20 9:31:00 ED... Start Date: 06/27/20 Status: Ordered gabapentin 400 mg oral capsule 400 mg, 1, capsule, By Mouth, 3 times a day, # 42 capsule, Refills 6, Tot. Refills 6, Maintenance, 06/18/20 8:10:00 EDT, Route to Pharmacy Electronically, [facility]., 166.5, cm, 06/18/20 7:58:00 EDT, Height, 107, kg, 11/22/19 21:00:00... Start Date: 06/18/20 Stop Date: 09/24/20 Status: Ordered Genvoya oral tablet 1 tablet, By Mouth, Daily, WITH FOOD., # 30 tablet, 1 Refills, Maintenance, 09/24/20 19:51:00 EDT, [facility], 1 tablet By Mouth Daily,x30 days,Instr:WITH FOOD., 166.5, cm, 09/10/20 8:11:00 EDT, Height, 107, kg, 11/22/19 21:00:00 EDT,... Start Date: 09/24/20 Stop Date: 11/23/20 Status: Ordered hydrOXYzine hydrochloride 25 mg oral tablet 1 tablet = 25 mg, By Mouth, 4 times a day, PRN for anxiety, for 30 days, # 60 tablet, 1 Refills, Acute 12/06/20 14:36:00 EDT, 10/07/20 14:36:00 EDT, Tablet, [facility], Partial fill upon patient request if the prescription is for a roya... Start Date: 10/07/20 Stop Date: 12/06/20 Status: Ordered zolpidem 10 mg oral tablet 1 tablet = 10 mg, By Mouth, Daily at bedtime, PRN as needed for insomnia, # 28 tablet, 3 Refills, Maintenance, 10/18/20 16:32:00 EDT, Tablet, [facility], 166.5, cm, 09/10/20 8:11:00 [...]
--- OUTSIDE RECORDS SUMMARY | 2023-01-06 08:14 | XMS_ITS | Continuity of Care Document ---
Author Name Unknown Organization [facility] y Address [address] [place] [address]- Care Team Providers Care Iv Technician Name Role Phone Kehinde DOHERTY, [place] Primary Care Physician Encounter [facility] Date(s): 10/02/21 - 11/01/21 [facility] [address], [place] [address] Attending Physician: Jt Santana Admitting [...] 07/22/21 8:57:00 EDT, Route to Pharmacy Electronically, [facility], Partial fill upon patient [...] 07/22/21 8:57:00 EDT, Route to Pharmacy Electronically, [facility] 3, Partial fill upon patient request [...] tablet, 3 Refills, Maintenance, 12/29/20 16:31:00 EDT, [facility]., 1 tablet By Mouth Daily,x30 days,Instr:WITH FOOD., 167, cm, 12/11/20 14:48:00 EDT, Height, 107, kg, 11/22/19 21:00:00 EDT, D... Start Date: 12/29/20 Stop Date: 04/28/21 Status: Ordered hydrOXYzine hydrochloride 25 mg oral tablet 1 tablet, By Mouth, 4 times a day, PRN NEEDED FOR ANXIETY, # 60 tablet, 1 Refills, [facility], 167, cm, 05/21/21 13:49:00 EST, Height, 107, kg, 11/22/19 21:00:00 EDT, Dry Weight Start Date: 06/02/21 Status: Ordered Lipitor 20 mg oral tablet 1 tablet = 20 mg, By Mouth, Daily, # 30 tablet, 0 Refills, Maintenance, 07/22/21 9:28:00 EDT, Tablet, [facility] 3, Partial fill upon patient request if the prescription is for a scheduleII opioid drug., 172, cm, 07/22/21 9:16:00 EDT, Hei... Start Date: 07/22/21 Status: Ordered metoprolol 25 mg oral tablet, extended release 25 mg, 1, tablet, By Mouth, Daily, # 30 tablet, Refills 1, Tot. Refills 1, Maintenance, 07/22/21 8:57:00 EDT, Route to Pharmacy Electronically, [facility] 3, Partial fill upon patient request if the prescription is for a schedule II opioid... Start Date: 07/22/21 Status: Ordered nitroglycerin 0.4 mg sublingual tablet 1 tablet = 0.4 mg, Sublingual, Every 5 minutes, PRN for chest pain, not to exceed 3 doses/15 min--if pain persists, seek medical attention, # 100 tablet, 0 Refills, Maintenance, 07/22/21 8:58:00 EDT,Tablet, [facility] 3, Partial fill upon... Start Date: 07/22/21 Status: Ordered ProAir HFA 90 mcg/inh inhalation aerosol 1 puffs, Inhalation, 4 times a day, PRN as needed for wheezing, # 6.7 Gm, 0 Refills, Maintenance, 07/28/21 15:52:00 EDT, [facility]erosol, [facility] fill upon patient [...]
--- OUTSIDE RECORDS SUMMARY | 2023-01-06 08:14 | XMS_ITS | Continuity of Care Document ---
Author Name Unknown Organization [facility] Address [address] [place] [address]- Care Team Providers Care Plant Floor Automation Manager Name Role Phone Kehinde DOHERTY, [place] Primary Care Physician [facility]counter [facility] Date(s): 08/07/21 - 09/06/21 [facility] [address] [place], [place] [address] Attending Physician: Jt Santana Admitting [...] 07/22/21 8:57:00 EDT, Route to Pharmacy Electronically, [facility], Partial fill upon patient [...] EDT, Route to Pharmacy Electronically, [facility], Partial fill upon patient request [...] tablet, 3 Refills, Maintenance, 12/29/20 16:31:00 EDT, [facility]., 1 tablet By Mouth Daily,x30 days,Instr:WITH FOOD., 167, cm, 12/11/20 14:48:00 EDT, Height, 107, kg, 11/22/19 21:00:00 EDT, D... Start Date: 12/29/20 Stop Date: 04/28/21 Status: Ordered hydrOXYzine hydrochloride 25 mg oral tablet 1 tablet, By Mouth, 4 times a day, PRN NEEDED FOR ANXIETY, # 60 tablet, 1 [facility]ills, [facility], [facility], cm, 05/21/21 13:49:00 EST, Height, 107, kg, 11/22/19 21:00:00 EDT, Dry Weight Start Date: 06/02/21 Status: Ordered Lipitor 20 mg oral tablet 1 tablet = 20 mg, By Mouth, Daily, # 30 tablet, 0 Refills, Maintenance, 07/22/21 9:28:00 EDT, Tablet, [facility], Partial fill upon patient request if the prescription is for a scheduleII opioid drug., 172, cm, 07/22/21 9:16:00 EDT, Hei... Start Date: 07/22/21 Status: Ordered metoprolol 25 mg oral tablet, extended release 25 mg, 1, tablet, By Mouth, Daily, # 30 tablet, Refills 1, Tot. Refills 1, Maintenance, 07/22/21 8:57:00 EDT, Route to Pharmacy Electronically, [facility], Partial fill upon patient request if the prescription is for a schedule II opioid... Start Date: 07/22/21 Status: Ordered nitroglycerin 0.4 mg sublingual tablet 1 tablet = 0.4 mg, Sublingual, Every 5 minutes, PRN for chest pain, not to exceed 3 doses/15 min--if pain persists, seek medical attention, # 100 tablet, 0 Refills, Maintenance, 07/22/21 8:58:00 EDT,Tablet, [facility], Partial fill upon... Start Date: 07/22/21 Status: Ordered ProAir HFA 90 mcg/inh inhalation aerosol 1 puffs, Inhalation, 4 times a day, PRN as needed for wheezing, # 6.7 Gm, 0 Refills, Maintenance, 07/28/21 15:52:00 EDT, [facility]erosol, [facility] Partial fill upon patient request if [...]
--- OUTSIDE RECORDS SUMMARY | 2023-01-06 08:14 | XMS_ITS | Continuity of Care Document ---
Author Name Unknown Organization [facility] Address [address] [place] [address]- Care Team Providers Care New Business Clerk Name Role Phone Kehinde DOHERTY, [facility] Date[facility]s): 11/27/20 - 12/27/20 [facility] [address] [place], [place] [address] Allergies, Adverse Reactions, Alerts Substance [...] 2 Refills, Maintenance, 10/14/20 13:23:00 EDT, Tablet, [facility], 166.5, cm, 09/10/20 8:11:00 EDT, Height, 107, kg, 11/21/2020:00:00 EDT, Dry Weight Start Date: 10/14/20 Stop Date: 01/12/21 Status: Ordered dapsone 100 mg oral tablet 1 tablet = 100 mg, By Mouth, Daily, # 30 tablet, 0 Refills, Maintenance, 06/27/20 10:11:00 EDT, Tablet, [facility], Partial fill upon patient request if the prescription is for a schedule II opioid drug., 166.5, cm, 06/27/20 9:31:00 ED... Start Date: 06/27/20 Status: Ordered gabapentin 400 mg oral capsule 400 mg, 1, capsule, By Mouth, 3 times a day, # 42 capsule, Refills 6, Tot. Refills 6, Maintenance, 06/18/20 8:10:00 EDT, Route to Pharmacy Electronically, [facility], 166.5, cm, 06/18/20 7:58:00 EDT, Height, 107, kg, 11/22/19 21:00:00... Start Date: 06/18/20 Stop Date: 09/24/20 Status: Ordered Genvoya oral tablet 1 tablet, By Mouth, Daily, for 30 days, WITH FOOD., # 30 tablet, 0 Refills, Hard Stop 12/29/20 16:31:00 EDT, 11/29/20 16:31:00 EDT, [facility], 166.5, cm, 11/06/20 15:04:00 EDT, Height, 107, kg, 11/22/19 21:00:00 EDT, Dry Weight Start Date: 11/29/20 Stop Date: 12/29/20 Status: Ordered Genvoya oral tablet 1 tablet, By Mouth, Daily, WITH FOOD., # 30 tablet, 3 Refills, Maintenance, 12/29/20 16:31:00 EDT, [facility], 1 tablet By Mouth Daily,x30 days,Instr:WITH FOOD., 167, cm, 12/11/20 14:48:00 EDT, Height, 107, kg, 11/22/19 21:00:00 EDT, [facility] Start Date: 12/29/20 Stop Date: 04/28/21 Status: Ordered hydrOXYzine hydrochloride 25 mg oral tablet See Instructions, TAKE 1 TABLET BY MOUTH FOUR TIMES A DAY NEEDED FOR ANXIETY, # 60 tablet, 1 Refills, [facility], 166.5, cm, 11/06/20 15:04:00 EDT, Height, 107, kg, 11/22/19 21:00:00 EDT, Dry Weight Start Date: 11/27/20 Status: Ordered zolpidem 10 mg oral tablet 1 tablet = 10 mg, By Mouth, Daily at bedtime, PRN as needed for insomnia, # 28 tablet, 3 Refills, Maintenance, 10/18/20 16:32:00 EDT, Tablet, [facility], 166.5, cm, 09/10/20 8:11:00 [...]
--- OUTSIDE RECORDS SUMMARY | 2023-01-06 08:14 | XMS_ITS | Continuity of Care Document ---
Author Name Unknown Organization [facility] Address [address] [place] [address]- Care Team Providers Care Pattern Filer Name Role Phone Kehinde DOHERTY, [place] Primary Care Physician ( [phone] Encounter [facility] Date(s): 07/25/21 - 08/24/[address] [address]- Allergies, Adverse Reactions, Alerts Substance Reaction Severity [...] 07/22/21 8:57:00 EDT, Route to Pharmacy Electronically, [facility], Partial fill upon patient [...] 07/22/21 8:57:00 EDT, Route to Pharmacy Electronically, [facility], Partial fill upon patient request [...] Refills, Maintenance, 12/29/20 16:31:00 EDT, [facility] 1 tablet By Mouth Daily,x30 days,Instr:WITH FOOD., 167, cm, 12/11/20 14:48:00 EDT, Height, 107, kg, 11/22/19 21:00:00 EDT, D... Start Date: 12/29/20 Stop Date: 04/28/21 Status: Ordered hydrOXYzine hydrochloride 25 mg oral tablet 1 tablet, By Mouth, 4 times a day, PRN NEEDED FOR ANXIETY, # 60 tablet, 1 [facility], [facility], cm, 05/21/21 13:49:00 EST, Height, 107, kg, 11/22/19 21:00:00 EDT, Dry Weight Start Date: 06/02/21 Status: Ordered Lipitor 20 mg oral tablet 1 tablet = 20 mg, By Mouth, Daily, # 30 tablet, 0 Refills, Maintenance, 07/22/21 9:28:00 EDT, Tablet, [facility] 3, Partial fill upon patient request if the prescription is for a scheduleII opioid drug., 172, cm, 07/22/21 9:16:00 EDT, Hei... Start Date: 07/22/21 Status: Ordered metoprolol 25 mg oral tablet, extended release 25 mg, 1, tablet, By Mouth, Daily, # 30 tablet, Refills 1, Tot. Refills 1, Maintenance, 07/22/21 8:57:00 EDT, Route to Pharmacy Electronically, [facility], Partial fill upon patient request if the prescription is for a schedule II opioid... Start Date: 07/22/21 Status: Ordered nitroglycerin 0.4 mg sublingual tablet 1 tablet = 0.4 mg, Sublingual, Every 5 minutes, PRN for chest pain, not to exceed 3 doses/15 min--if pain persists, seek medical attention, # 100 tablet, 0 Refills, Maintenance, 07/22/21 8:58:00 EDT,Tablet, [facility], Partial fill upon... Start Date: 07/22/21 Status: Ordered ProAir HFA 90 mcg/inh inhalation aerosol 1 puffs, Inhalation, 4 times a day, PRN as needed for wheezing, # 6.7 Gm, 0 Refills, Maintenance, 07/28/21 15:52:00 EDT, Aerosol, [facility] Partial fill upon patient [...]
--- OUTSIDE RECORDS SUMMARY | 2023-01-06 08:14 | XMS_ITS | Continuity of Care Document ---
Author Name Unknown Organization [facility] Address Unknown Care Team Providers Care Senior Business Analyst Name Role Phone Kehinde DOHERTY, [facility] Primary Care Physician [facility] Date(s): 07/03/21 - 07/10/21 [facility] Attending Physician: Jazzmine Desai RD Referring Physician: Not on Staff, Referring MD [...] 0 Refills, Maintenance, 06/27/20 10:11:00 EDT, Tablet, [facility], Partial fill upon patient request if the prescription is for a schedule II opioid drug., 166.5, cm, 06/27/20 9:31:00 ED... Start Date: 06/27/20 Status: Ordered gabapentin 400 mg oral capsule 400 mg, 1, capsule, By Mouth, 3 times a day, # 42 capsule, Refills 6, Tot. Refills 6, Maintenance, 06/18/20 8:10:00 EDT, Route to Pharmacy Electronically, [facility] 166.5, cm, 06/18/20 7:58:00 EDT, Height, 107, kg, 11/22/19 21:00:00... Start Date: 06/18/20 Stop Date: 09/24/20 Status: Ordered Genvoya oral tablet 1 tablet, By Mouth, Daily, WITH FOOD., # 30 tablet, 3 Refills, Maintenance, 12/29/20 16:31:00 EDT, [facility] 1 tablet By Mouth Daily,x30 days,Instr:WITH FOOD., 167, cm, 12/11/20 14:48:00 EDT, Height, 107, kg, 11/22/19 21:00:00 EDT, D... Start Date: 12/29/20 Stop Date: 04/28/21 Status: Ordered hydrOXYzine hydrochloride 25 mg oral tablet 1 tablet, By Mouth, 4 times a day, PRN NEEDED FOR ANXIETY, # 60 tablet, 1 Ref[facility], [facility], [facility], cm, 05/21/21 13:49:00 EST, Height, [...]
--- OUTSIDE RECORDS SUMMARY | 2023-01-06 08:14 | XMS_ITS | Continuity of Care Document ---
Author Name Unknown Organization [facility] Address [address] [place] [address]- Care Team Providers Care Assistant Coach Name Role Phone Kehinde DOHERTY, [facility] Date[facility]s): 01/17/21 - 02/16/21 [facility] [address] [place] [address]- Allergies, Adverse Reactions, Alerts Substance Reaction Severity [...] 2 Refills, Maintenance, 10/14/20 13:23:00 EDT, Tablet, [facility], 166.5, cm, 09/10/20 8:11:00 EDT, Height, 107, kg, 11/21/2020:00:00 EDT, Dry Weight Start Date: 10/14/20 Stop Date: 01/12/21 Status: Ordered dapsone 100 mg oral tablet 1 tablet = 100 mg, By Mouth, Daily, # 30 tablet, 0 Refills, Maintenance, 06/27/20 10:11:00 EDT, [facility] fill upon patient request if the prescription is for a schedule II opioid drug., 166.5, cm, 06/27/20 9:31:00 ED... Start Date: 06/27/20 Status: Ordered gabapentin 400 mg oral capsule 400 mg, 1, capsule, By Mouth, 3 times a day, # 42 capsule, Refills 6, Tot. Refills 6, Maintenance, 06/18/20 8:10:00 EDT, Route to Pharmacy Electronically, [facility], 166.5, cm, 06/18/20 7:58:00 EDT, Height, 107, kg, 11/22/19 21:00:00... Start Date: 06/18/20 Stop Date: 09/24/20 Status: Ordered Genvoya oral tablet 1 tablet, By Mouth, Daily, WITH FOOD., # 30 tablet, 3 Refills, Maintenance, 12/29/20 16:31:00 EDT, [facility], 1 tablet By Mouth Daily,x30 days,Instr:WITH FOOD., 167, cm, 12/11/20 14:48:00 EDT, Height, 107, kg, 11/22/19 21:00:00 EDT, D... Start Date: 12/29/20 Stop Date: 04/28/21 Status: Ordered hydrOXYzine hydrochloride 25 mg oral tablet See Instructions, TAKE 1 TABLET BY MOUTH FOUR TIMES A DAY NEEDED FOR ANXIETY, # 60 tablet, 1 Refills, [facility], 166.5, cm, 11/06/20 15:04:00 EDT, Height, 107, kg, 11/22/19 21:00:00 EDT, Dry Weight Start Date: 11/27/20 Status: Ordered zolpidem 10 mg oral tablet 1 tablet = 10 mg, By Mouth, Daily at bedtime, PRN as needed for insomnia, # 28 tablet, 3 Refills, Maintenance, 10/18/20 16:32:00 EDT, Tablet, [facility], 166.5, cm, 09/10/20 8:11:00 [...]
--- OUTSIDE RECORDS SUMMARY | 2023-01-06 08:14 | XMS_ITS | Continuity of Care Document ---
Author Name Unknown Organization [facility] Address [address] [place] [address]- Care Team Providers Care E Business Manager Name Role Phone Kehinde DOHERTY, [place] Primary Care Physician [facility]counter [facility] Date(s): 12/16/21 - 01/15/22 [facility] [address] [place] [address]- Allergies, Adverse Reactions, Alerts Substance Reaction Severity [...] 2 Refills, Maintenance, 12/23/21 15:55:00 EDT, [facility], [facility] fill upon patient request if [...] 07/22/21 8:57:00 EDT, Route to Pharmacy Electronically, [facility], Partial fill upon patient request if the prescription is for a schedule II opioid... Start Date: 07/22/21 Stop Date: 09/20/21 Status: Ordered cetirizine 5 mg oral tablet 1 tablet = 5 mg, By Mouth, Daily, PRN as needed for allergy symptoms, # 30 tablet, 0 Refills, Maintenance, 12/17/21 16:03:00 EDT, Tablet, [facility], Partial fill upon patient requestif the [...] 07/22/21 8:57:00 EDT, Route to Pharmacy Electronically, [facility], Partial fill upon patient request if the prescription is for a schedule II opioid... Start Date: 07/22/21 Status: Ordered flunisolide 25 mcg/inh nasal spray 2 puffs, Nares, Both, 2 times a day, # 25 mL, 0 Refills, Acute 01/16/22 12:45:00 EDT, 12/18/21 12:45:00 EDT, [place] Partial fill upon patient request if the prescription is for a schedule II opioid drug., 2 puffs Nares, Bot... Start Date: 12/18/21 Stop Date: 01/16/22 Status: Ordered gabapentin 400 mg oral capsule [...] tablet, 3 Refills, Maintenance, 12/17/21 13:32:00 EDT, [facility], 30, TAKE 1 TABLET BY MOUTH EVERY DAY WITH FOOD, 172, cm, 07/22/21 9:16:00 EDT, Height, 121.3, kg, 07/19/21... Start Date: 12/17/21 Status: Ordered hydrOXYzine hydrochloride 25 mg oral tablet 1 tablet, By Mouth, 4 times a day, PRN NEEDED FOR ANXIETY, # 60 tablet, 1 Refills, Maintenance, 12/17/21 11:16:00 EDT, [facility], 172, cm, 07/22/21 9:16:00 EDT, Height, 121.3, kg, 07/19/21 21:11:00 EDT, Dry Weight Start Date: 12/17/21 Status: Ordered Lipitor 20 mg oral tablet 1 tablet = 20 mg, By Mouth, Daily, # 30 tablet, 0 Refills, Maintenance, 07/22/21 9:28:00 EDT, Tablet, [facility], Partial fill upon patient request if the prescription is for a scheduleII opioid drug., 172, cm, 07/22/21 9:16:00 EDT, Hei... Start Date: 07/22/21 Status: Ordered metoprolol 25 mg oral tablet, extended release 25 mg, 1, tablet, By Mouth, Daily, # 30 tablet, Refills 1, Tot. Refills 1, Maintenance, 07/22/21 8:57:00 EDT, Route to Pharmacy Electronically, [facility], Partial fill upon patient request if the prescription is for a schedule II opioid... Start Date: 07/22/21 Status: Ordered nitroglycerin 0.4 mg sublingual tablet 1 tablet = 0.4 mg, Sublingual, Every 5 minutes, PRN for chest pain, not to exceed 3 doses/15 min--if pain persists, seek medical attention, # 100 tablet, 0 Refills, Maintenance, 07/22/21 8:58:00 EDT,Tablet, [facility], Partial fill upon... Start Date: 07/22/21 Status: Ordered ProAir HFA 90 mcg/inh inhalation aerosol 2 puffs, Inhalation, 4 times a day, PRN as needed for wheezing, # 8.5 Gm, 5 Refills, Maintenance, 12/23/21 15:54:00 EDT, Aerosol, [facility]., Partial fill upon patient request if the prescription is for a schedule II opioid drug., 2 pu... Start Date: 12/23/21 Status: Ordered Qvar Redihaler 40 mcg/inh inhalation aerosol = 40 mcg, Inhalation, 2 times a day, brand name required by insurance. *discontinue after 1 month after symptoms have been controlled, # 8.7 Gm, 1 Refills, Maintenance, 12/18/21 12:42:00 EDT, [facility]., Partial fill upon patient requ... Start [...] Personnel Name: [place] Busby MD Address: Address: [address] [place] [id number]
--- OUTSIDE RECORDS SUMMARY | 2023-01-06 08:14 | XMS_ITS | Continuity of Care Document ---
Author Name Unknown Organization [facility] Address [address] [place] [address]- Care Team Providers Care Carpet Cleaning Technician Name Role Phone Kehinde DOHERTY, [place] Primary Care Physician ( [phone] Encounter [facility] Date(s): 08/18/22 - 09/17/22 [facility] [address] [place] [address]- Attending Physician: Jt Santana Admitting Physician: AdmtrJt [...] 2 Refills, Maintenance, 12/23/21 15:55:00 EDT, Solution, [facility], [facility] fill upon patient request if [...] 0 Refills, Maintenance, 12/17/21 16:03:00 EDT, Tablet, [facility]., Partial fill upon patient requestif the [...] 11 Refills, Maintenance, 08/20/22 10:57:00 EDT, Tablet, [facility]., Partial fill upon patient request if [...] tablet, 3 Refills, Maintenance, 06/29/22 13:16:00 EDT, [facility], 30, TAKE 1 TABLET BY MOUTH EVERY DAY WITH FOOD, 172, cm, 01/15/22 16:40:00 EDT, Height, 121.3, kg, 07/19/21 21:11:00 EDT, Dry Weight Start Date: 06/29/22 Status: Ordered hydrOXYzine hydrochloride 25 mg oral tablet 1 tablet, By Mouth, 4 times a day, PRN NEEDED FOR ANXIETY, # 60 tablet, 1 Refills, Maintenance, 12/17/21 11:16:00 EDT, [facility], 172, cm, 07/22/21 9:16:00 EDT, Height, 121.3, kg, 07/19/21 21:11:00 EDT, Dry Weight Start Date: 12/17/21 Status: Ordered Lipitor 20 mg oral tablet 1 tablet = 20 mg, By Mouth, Daily, # 30 tablet, 0 Refills, Maintenance, 07/22/21 9:28:00 EDT, Tablet, [facility], Partial fill upon patient request if the prescription is for a scheduleII opioid drug., 172, cm, 07/22/21 9:16:00 EDT, Hei... Start Date: 07/22/21 Status: Ordered metoprolol 25 mg oral tablet, extended release 25 mg, 1, tablet, By Mouth, Daily, # 30 tablet, Refills 1, Tot. Refills 1, Maintenance, 07/22/21 8:57:00 EDT, Route to Pharmacy Electronically, [facility], Partial fill upon patient request if the prescription is for a schedule II opioid... Start Date: 07/22/21 Status: Ordered nitroglycerin 0.4 mg sublingual tablet 1 tablet = 0.4 mg, Sublingual, Every 5 minutes, PRN for chest pain, not to exceed 3 doses/15 min--if pain persists, seek medical attention, # 100 tablet, 0 Refills, Maintenance, 07/22/21 8:58:00 EDT,Tablet, [facility], Partial fill upon... Start Date: 07/22/21 Status: Ordered ProAir HFA 90 mcg/inh inhalation aerosol 2 puffs, Inhalation, 4 times a day, PRN as needed for wheezing, # 8.5 Gm, 5 Refills, Maintenance, 12/23/21 15:54:00 EDT, Aerosol, [facility]., Partial fill upon patient request if the prescription is for a schedule II opioid drug., 2 pu... Start Date: 12/23/21 Status: Ordered Qvar Redihaler 40 mcg/inh inhalation aerosol = 40 mcg, Inhalation, 2 times a day, brand name required by insurance. *discontinue after 1 month after symptoms have been controlled, # 8.7 Gm, 1 Refills, Maintenance, 12/18/21 12:42:00 EDT, [facility]., Partial fill upon patient requ... Start [...] S Resident Member Role: PCP Address: Address: [address] [place] [address]- Name: Raul Sung RN Position: S RN Member Role: Primary Care Nurse Name: Lupe Mancuso RN Position: S RN Member Role: Primary Care Nurse Name: Vielka Milan RN Position: S RN Member Role: Primary Care Nurse Name: Tomasa Brush RN Position: S RN Member Role: Primary Care Nurse Care Team Related Persons Name: WHIT WILKINSON Address: home [address] [place] [id number]
--- OUTSIDE RECORDS SUMMARY | 2023-01-06 08:14 | XMS_ITS | Continuity of Care Document ---
Author Name Unknown Organization [facility] Address [address] [place] [address]- Care Team Providers Care Claim Processor Name Role Phone Kehinde DOHERTY, [place] Primary Care Physician [place] [facility] [place](s): 12/17/21 - 01/16/22 [facility] [address] [place] [address]- Allergies, Adverse Reactions, Alerts Substance Reaction Severity [...] 2 Refills, Maintenance, 12/23/21 15:55:00 EDT, Solution, [facility], [facility] fill upon patient request [...] EDT, Route to Pharmacy Electronically, [facility], Partial fill upon patient request if the prescription is for a schedule II opioid... Start Date: 07/22/21 Stop Date: 09/20/21 Status: Ordered cetirizine 5 mg oral tablet 1 tablet = 5 mg, By Mouth, Daily, PRN as needed for allergy symptoms, # 30 tablet, 0 Refills, Maintenance, 12/17/21 16:03:00 EDT, Tablet, [facility]., Partial fill upon patient requestif [...] EDT, Route to Pharmacy Electronically, [facility], Partial fill upon patient request if [...] Maintenance, 12/17/21 13:32:00 EDT, [facility], 30, TAKE 1 TABLET BY MOUTH EVERY DAY WITH FOOD, 172, cm, 07/22/21 9:16:00 EDT, Height, 121.3, kg, 07/19/21... Start Date: 12/17/21 Status: Ordered hydrOXYzine hydrochloride 25 mg oral tablet 1 tablet, By Mouth, 4 times a day, PRN NEEDED FOR ANXIETY, # 60 tablet, 1 Refills, Maintenance, 12/17/21 11:16:00 EDT, [facility], [facility], cm, 07/22/21 9:16:00 EDT, Height, 121.3, kg, 07/19/21 21:11:00 EDT, Dry Weight Start Date: 12/17/21 Status: Ordered Lipitor 20 mg oral tablet 1 tablet = 20 mg, By Mouth, Daily, # 30 tablet, 0 Refills, Maintenance, 07/22/21 9:28:00 EDT, Tablet, [facility], Partial fill upon patient request if the prescription is for a scheduleII opioid drug., 172, cm, 07/22/21 9:16:00 EDT, Hei... Start Date: 07/22/21 Status: Ordered metoprolol 25 mg oral tablet, extended release 25 mg, 1, tablet, By Mouth, Daily, # 30 tablet, Refills 1, Tot. Refills 1, Maintenance, 07/22/21 8:57:00 EDT, Route to Pharmacy Electronically, [facility], Partial fill upon patient request if the prescription is for a schedule II opioid... Start Date: 07/22/21 Status: Ordered nitroglycerin 0.4 mg sublingual tablet 1 tablet = 0.4 mg, Sublingual, Every 5 minutes, PRN for chest pain, not to exceed 3 doses/15 min--if pain persists, seek medical attention, # 100 tablet, 0 Refills, Maintenance, 07/22/21 8:58:00 EDT,Tablet, [facility], Partial fill upon... Start Date: 07/22/21 Status: Ordered ProAir HFA 90 mcg/inh inhalation aerosol 2 puffs, Inhalation, 4 times a day, PRN as needed for wheezing, # 8.5 Gm, 5 Refills, Maintenance, 12/23/21 15:54:00 EDT, Aerosol, [facility] Partial fill upon patient request if the prescription is for a schedule II opioid drug., 2 pu... Start Date: 12/23/21 Status: Ordered Qvar Redihaler 40 mcg/inh inhalation aerosol = 40 mcg, Inhalation, 2 times a day, brand name required by insurance. *discontinue after 1 month after symptoms have been controlled, # 8.7 Gm, 1 Refills, Maintenance, 12/18/21 12:42:00 EDT, [facility] Partial fill [...] Personnel Name: Kehinde DOHERTY, [place] Address: Address: [address] [place] [address], [place] [id number]
--- OUTSIDE RECORDS SUMMARY | 2023-01-06 08:14 | XMS_ITS | Continuity of Care Document ---
Author Name Unknown Organization [facility] Address [address] [place] [address]- Care Team Providers Care Parachute Inspector Name Role Phone Kehinde DOHERTY, [place] Primary Care Physician Encounter [facility] Date(s): 12/24/21 - 02/19/22 [facility] [address] [place] [id number] Attending Physician: Gaby Ghosh NP Admitting Physician: [...] 2 Refills, Maintenance, 12/23/21 15:55:00 EDT, Solution, [facility] Partial fill upon patient request [...] 8:57:00 EDT, Route to Pharmacy Electronically, [facility], Partial fill upon patient request if the prescription is for a schedule II opioid... Start Date: 07/22/21 Stop Date: 09/20/21 Status: Ordered cetirizine 5 mg oral tablet 1 tablet = 5 mg, By Mouth, Daily, PRN as needed for allergy symptoms, # 30 tablet, 0 Refills, Maintenance, 12/17/21 16:03:00 EDT, Tablet, [facility], Partial fill upon patient requestif [...] 8:57:00 EDT, Route to Pharmacy Electronically, [facility], Partial fill upon patient request [...] tablet, 3 Refills, Maintenance, 12/17/21 13:32:00 EDT, [facility], 30, TAKE 1 TABLET BY MOUTH EVERY DAY WITH FOOD, 172, cm, 07/22/21 9:16:00 EDT, Height, 121.3, kg, 07/19/21... Start Date: 12/17/21 Status: Ordered hydrOXYzine hydrochloride 25 mg oral tablet 1 tablet, By Mouth, 4 times a day, PRN NEEDED FOR ANXIETY, # 60 tablet, 1 Refills, Maintenance, 12/17/21 11:16:00 EDT, [facility], 172, cm, 07/22/21 9:16:00 EDT, Height, 121.3, kg, 07/19/21 21:11:00 EDT, Dry Weight Start Date: 12/17/21 Status: Ordered Lipitor 20 mg oral tablet 1 tablet = 20 mg, By Mouth, Daily, # 30 tablet, 0 Refills, Maintenance, 07/22/21 9:28:00 EDT, Tablet, [facility], Partial fill upon patient request if the prescription is for a scheduleII opioid drug., 172, cm, 07/22/21 9:16:00 EDT, Hei... Start Date: 07/22/21 Status: Ordered metoprolol 25 mg oral tablet, extended release 25 mg, 1, tablet, By Mouth, Daily, # 30 tablet, Refills 1, Tot. Refills 1, Maintenance, 07/22/21 8:57:00 EDT, Route to Pharmacy Electronically, [facility], Partial fill upon patient request if the prescription is for a schedule II opioid... Start Date: 07/22/21 Status: Ordered nitroglycerin 0.4 mg sublingual tablet 1 tablet = 0.4 mg, Sublingual, Every 5 minutes, PRN for chest pain, not to exceed 3 doses/15 min--if pain persists, seek medical attention, # 100 tablet, 0 Refills, Maintenance, 07/22/21 8:58:00 EDT,Tablet, [facility], Partial fill upon... Start Date: 07/22/21 Status: Ordered ProAir HFA 90 mcg/inh inhalation aerosol 2 puffs, Inhalation, 4 times a day, PRN as needed for wheezing, # 8.5 Gm, 5 Refills, Maintenance, 12/23/21 15:54:00 EDT, Aerosol, [facility] Partial fill upon patient request if the prescription is for a schedule II opioid drug., 2 pu... Start Date: 12/23/21 Status: Ordered Qvar Redihaler 40 mcg/inh inhalation aerosol = 40 mcg, Inhalation, 2 times a day, brand name required by insurance. *discontinue after 1 month after symptoms have been controlled, # 8.7 Gm, 1 Refills, Maintenance, 12/18/21 12:42:00 EDT, [facility]., Partial fill upon patient requ... [...] Team Personnel Name: [place] Busby MD Position: [facility] Resident Member Role: PCP Address: Address: [address] [place] [address]- Name: Raul Sung RN Position: S RN Member Role: Primary Care Nurse Name: Jose Peng RN Position: [facility] RN Supv Member Role: Primary Care Nurse Name: Lupe Mancuso RN Position: S RN Member Role: Primary Care Nurse Name: Vielka Milan RN Position: [facility] ED RN W/OE and Tasks Member Role: Primary Care Nurse Name: Tomasa Brush RN Position: S RN Member Role: Primary Care Nurse Care Team Related Persons Name: WHIT WILKINSON Address: home [address] [place] [address]
--- OUTSIDE RECORDS SUMMARY | 2023-01-06 08:14 | XMS_ITS | Continuity of Care Document ---
Author Name Unknown Organization [facility] Address [address] [place] [address]- Care Team Providers Care Sweetbread Trimmer Name Role Phone Kehinde DOHERTY, [place] Primary Care Physician [place] [facility] [place] 07/[place]21 - 08/24/21 [facility] [address] [place] [place], [place] [address] Allergies, Adverse Reactions, Alerts Substance Reaction Severity [...] 07/22/21 8:57:00 EDT, Route to Pharmacy Electronically, [facility], Partial fill upon patient [...] 07/22/21 8:57:00 EDT, Route to Pharmacy Electronically, [facility], Partial fill upon patient request [...] tablet, 3 Refills, Maintenance, 12/29/20 16:31:00 EDT, [facility] 1 tablet By Mouth Daily,x30 days,Instr:WITH FOOD., 167, cm, 12/11/20 14:48:00 EDT, Height, 107, kg, 11/22/19 21:00:00 EDT, D... Start Date: 12/29/20 Stop Date: 04/28/21 Status: Ordered hydrOXYzine hydrochloride 25 mg oral tablet 1 tablet, By Mouth, 4 times a day, PRN NEEDED FOR ANXIETY, # 60 tablet, 1 [facility], [facility], [facility], cm, 05/21/21 13:49:00 EST, Height, 107, kg, 11/22/19 21:00:00 EDT, Dry Weight Start Date: 06/02/21 Status: Ordered Lipitor 20 mg oral tablet 1 tablet = 20 mg, By Mouth, Daily, # 30 tablet, 0 Refills, Maintenance, 07/22/21 9:28:00 EDT, Tablet, [facility], Partial fill upon patient request if the prescription is for a scheduleII opioid drug., 172, cm, 07/22/21 9:16:00 EDT, Hei... Start Date: 07/22/21 Status: Ordered metoprolol 25 mg oral tablet, extended release 25 mg, 1, tablet, By Mouth, Daily, # 30 tablet, Refills 1, Tot. Refills 1, Maintenance, 07/22/21 8:57:00 EDT, Route to Pharmacy Electronically, [facility], Partial fill upon patient request if the prescription is for a schedule II opioid... Start Date: 07/22/21 Status: Ordered nitroglycerin 0.4 mg sublingual tablet 1 tablet = 0.4 mg, Sublingual, Every 5 minutes, PRN for chest pain, not to exceed 3 doses/15 min--if pain persists, seek medical attention, # 100 tablet, 0 Refills, Maintenance, 07/22/21 8:58:00 EDT,Tablet, [facility], Partial fill upon... Start Date: 07/22/21 Status: Ordered ProAir HFA 90 mcg/inh inhalation aerosol 1 puffs, Inhalation, 4 times a day, PRN as needed for wheezing, # 6.7 Gm, 0 Refills, Maintenance, 07/28/21 15:52:00 EDT, Aerosol, [facility] Partial fill upon patient request [...]
--- OUTSIDE RECORDS SUMMARY | 2023-01-06 08:14 | XMS_ITS | Continuity of Care Document ---
Author Name Unknown Organization [facility] Address [address] [place] [address]- Care Team Providers Care Door Worker Name Role Phone Kehinde DOHERTY, [facility] Primary Care Physician ( [phone] Encounter [facility] Date(s): 10/08/20 - 11/07/20 [facility] [address] [place], [place] [address] [...] 2 Refills, Maintenance, 10/14/20 13:23:00 EDT, Tablet, [facility], 166.5, cm, 09/10/20 8:11:00 EDT, Height, 107, kg, 11/21/2020:00:00 EDT, Dry Weight Start Date: 10/14/20 Stop Date: 01/12/21 Status: Ordered dapsone 100 mg oral tablet 1 tablet = 100 mg, By Mouth, Daily, # 30 tablet, 0 Refills, Maintenance, 06/27/20 10:11:00 EDT, Tablet, [facility], Partial fill upon patient request if the prescription is for a schedule II opioid drug., 166.5, cm, 06/27/20 9:31:00 ED... Start Date: 06/27/20 Status: Ordered gabapentin 400 mg oral capsule 400 mg, 1, capsule, By Mouth, 3 times a day, # 42 capsule, Refills 6, Tot. Refills 6, Maintenance, 06/18/20 8:10:00 EDT, Route to Pharmacy Electronically, [facility], 166.5, cm, 06/18/20 7:58:00 EDT, Height, 107, kg, 11/22/19 21:00:00... Start Date: 06/18/20 Stop Date: 09/24/20 Status: Ordered Genvoya oral tablet 1 tablet, By Mouth, Daily, WITH FOOD., # 30 tablet, 1 Refills, Maintenance, 09/24/20 19:51:00 EDT, [facility], 1 tablet By Mouth Daily,x30 days,Instr:WITH FOOD., 166.5, cm, 09/10/20 8:11:00 EDT, Height, 107, kg, 11/22/19 21:00:00 EDT,... Start Date: 09/24/20 Stop Date: 11/23/20 Status: Ordered hydrOXYzine hydrochloride 25 mg oral tablet 1 tablet = 25 mg, By Mouth, 4 times a day, PRN for anxiety, for 30 days, # 60 tablet, 1 Refills, Acute 12/06/20 14:36:00 EDT, 10/07/20 14:36:00 EDT, Tablet, [facility], Partial fill upon patient request if the prescription is for a roya... Start Date: 10/07/20 Stop Date: 12/06/20 Status: Ordered zolpidem 10 mg oral tablet 1 tablet = 10 mg, By Mouth, Daily at bedtime, PRN as needed for insomnia, # 28 tablet, 3 Refills, Maintenance, 10/18/20 16:32:00 EDT, Tablet, [facility], 166.5, cm, 09/10/20 8:11:00 [...]
--- OUTSIDE RECORDS SUMMARY | 2023-01-06 08:14 | XMS_ITS | Continuity of Care Document ---
Author Name Unknown Organization [facility] Address [address] [place] [address]- Care Team Providers Care Passenger Tire Inspector Name Role Phone Kehinde DOHERTY, [facility] Primary Care Physician [facility]counter [facility] Date(s): 10/22/20 - 11/21/20 [facility] [address] [place] [address]- Allergies, Adverse Reactions, Alerts Substance Reaction Severity [...] 2 Refills, Maintenance, 10/14/20 13:23:00 EDT, Tablet, [facility], 166.5, cm, 09/10/20 8:11:00 EDT, Height, 107, kg, 11/21/2020:00:00 EDT, Dry Weight Start Date: 10/14/20 Stop Date: 01/12/21 Status: Ordered dapsone 100 mg oral tablet 1 tablet = 100 mg, By Mouth, Daily, # 30 tablet, 0 Refills, Maintenance, 06/27/20 10:11:00 EDT, [facility] upon patient request if the prescription is for a schedule II opioid drug., 166.5, cm, 06/27/20 9:31:00 ED... Start Date: 06/27/20 Status: Ordered gabapentin 400 mg oral capsule 400 mg, 1, capsule, By Mouth, 3 times a day, # 42 capsule, Refills 6, Tot. Refills 6, Maintenance, 06/18/20 8:10:00 EDT, Route to Pharmacy Electronically, [facility], 166.5, cm, 06/18/20 7:58:00 EDT, Height, 107, kg, 11/22/19 21:00:00... Start Date: 06/18/20 Stop Date: 09/24/20 Status: Ordered Genvoya oral tablet 1 tablet, By Mouth, Daily, WITH FOOD., # 30 tablet, 1 Refills, Maintenance, 09/24/20 19:51:00 EDT, [facility], 1 tablet By Mouth Daily,x30 days,Instr:WITH FOOD., 166.5, cm, 09/10/20 8:11:00 EDT, Height, 107, kg, 11/22/19 21:00:00 EDT,... Start Date: 09/24/20 Stop Date: 11/23/20 Status: Ordered hydrOXYzine hydrochloride 25 mg oral tablet 1 tablet = 25 mg, By Mouth, 4 times a day, PRN for anxiety, for 30 days, # 60 tablet, 1 Refills, Acute 12/06/20 14:36:00 EDT, 10/07/20 14:36:00 EDT, Tablet, [facility], Partial fill upon patient request if the prescription is for a roya... Start Date: 10/07/20 Stop Date: 12/06/20 Status: Ordered zolpidem 10 mg oral tablet 1 tablet = 10 mg, By Mouth, Daily at bedtime, PRN as needed for insomnia, # 28 tablet, 3 Refills, Maintenance, 10/18/20 16:32:00 EDT, Tablet, [facility], 166.5, cm, 09/10/20 8:11:00 [...]
--- OUTSIDE RECORDS SUMMARY | 2023-01-06 08:14 | XMS_ITS | Continuity of Care Document ---
Author Name Unknown Organization [facility] Address [address] [place] [address]- Care Team Providers Care Link Knitting Machine Operator Name Role Phone Kehinde DOHERTY, [place] Primary Care Physician Encounter [facility] Date(s): 07/25/21 - 08/24/[address] [address]- Allergies, Adverse Reactions, Alerts Substance Reaction Severity [...] 07/22/21 8:57:00 EDT, Route to Pharmacy Electronically, [facility], Partial fill upon patient request [...] 07/22/21 8:57:00 EDT, Route to Pharmacy Electronically, [facility], Partial fill upon patient request [...] 12/29/20 16:31:00 EDT, [facility] 1 tablet By Mouth Daily,x30 days,Instr:WITH FOOD., 167, cm, 12/11/20 14:48:00 EDT, Height, 107, kg, 11/22/19 21:00:00 EDT, D... Start Date: 12/29/20 Stop Date: 04/28/21 Status: Ordered hydrOXYzine hydrochloride 25 mg oral tablet 1 tablet, By Mouth, 4 times a day, PRN NEEDED FOR ANXIETY, # 60 tablet, 1 [facility]ills, [facility], [facility], cm, 05/21/21 13:49:00 EST, Height, 107, kg, 11/22/19 21:00:00 EDT, Dry Weight Start Date: 06/02/21 Status: Ordered Lipitor 20 mg oral tablet 1 tablet = 20 mg, By Mouth, Daily, # 30 tablet, 0 Refills, Maintenance, 07/22/21 9:28:00 EDT, Tablet, [facility], Partial fill upon patient request if the prescription is for a scheduleII opioid drug., 172, cm, 07/22/21 9:16:00 EDT, Hei... Start Date: 07/22/21 Status: Ordered metoprolol 25 mg oral tablet, extended release 25 mg, 1, tablet, By Mouth, Daily, # 30 tablet, Refills 1, Tot. Refills 1, Maintenance, 07/22/21 8:57:00 EDT, Route to Pharmacy Electronically, [facility], Partial fill upon patient request if the prescription is for a schedule II opioid... Start Date: 07/22/21 Status: Ordered nitroglycerin 0.4 mg sublingual tablet 1 tablet = 0.4 mg, Sublingual, Every 5 minutes, PRN for chest pain, not to exceed 3 doses/15 min--if pain persists, seek medical attention, # 100 tablet, 0 Refills, Maintenance, 07/22/21 8:58:00 EDT,Tablet, [facility], Partial fill upon... Start Date: 07/22/21 Status: Ordered ProAir HFA 90 mcg/inh inhalation aerosol 1 puffs, Inhalation, 4 times a day, PRN as needed for wheezing, # 6.7 Gm, 0 Refills, Maintenance, 07/28/21 15:52:00 EDT, Aerosol, [facility] Partial fill upon patient [...]
--- OUTSIDE RECORDS SUMMARY | 2023-01-06 08:14 | XMS_ITS | Continuity of Care Document ---
Author Name Unknown Organization [facility] Address [address] [place] [address]- Care Team Providers Care Betting Clerks Name Role Phone Kehinde DOHERTY, [place] Primary Care Physician Encounter [facility] Date(s): 12/22/21 - 01/21/22 [facility] [address] [place] [address]- Allergies, Adverse Reactions, Alerts Substance Reaction Severity [...] 2 Refills, Maintenance, 12/23/21 15:55:00 EDT, Solution[facility] [...] EDT, Route to Pharmacy Electronically, [facility], Partial fill upon patient request if the prescription is for a schedule II opioid... Start Date: 07/22/21 Stop Date: 09/20/21 Status: Ordered cetirizine 5 mg oral tablet 1 tablet = 5 mg, By Mouth, Daily, PRN as needed for allergy symptoms, # 30 tablet, 0 Refills, Maintenance, 12/17/21 16:03:00 EDT, Tablet, [facility]., Partial fill upon patient requestif the [...] EDT, Route to Pharmacy Electronically, [facility], Partial fill upon patient [...] tablet, 3 Refills, Maintenance, 12/17/21 13:32:00 EDT, [facility], [facility], TAKE 1 TABLET BY MOUTH EVERY DAY WITH FOOD, 172, cm, 07/22/21 9:16:00 EDT, Height, 121.3, kg, 07/19/21... Start Date: 12/17/21 Status: Ordered hydrOXYzine hydrochloride 25 mg oral tablet 1 tablet, By Mouth, 4 times a day, PRN NEEDED FOR ANXIETY, # 60 tablet, 1 Refills, Maintenance, 12/17/21 11:16:00 EDT, [facility], [facility], cm, 07/22/21 9:16:00 EDT, Height, 121.3, kg, 07/19/21 21:11:00 EDT, Dry Weight Start Date: 12/17/21 Status: Ordered Lipitor 20 mg oral tablet 1 tablet = 20 mg, By Mouth, Daily, # 30 tablet, 0 Refills, Maintenance, 07/22/21 9:28:00 EDT, Tablet, [facility], Partial fill upon patient request if the prescription is for a scheduleII opioid drug., 172, cm, 07/22/21 9:16:00 EDT, Hei... Start Date: 07/22/21 Status: Ordered metoprolol 25 mg oral tablet, extended release 25 mg, 1, tablet, By Mouth, Daily, # 30 tablet, Refills 1, Tot. Refills 1, Maintenance, 07/22/21 8:57:00 EDT, Route to Pharmacy Electronically, [facility], Partial fill upon patient request if the prescription is for a schedule II opioid... Start Date: 07/22/21 Status: Ordered nitroglycerin 0.4 mg sublingual tablet 1 tablet = 0.4 mg, Sublingual, Every 5 minutes, PRN for chest pain, not to exceed 3 doses/15 min--if pain persists, seek medical attention, # 100 tablet, 0 Refills, Maintenance, 07/22/21 8:58:00 EDT,Tablet, [facility], Partial fill upon... Start Date: 07/22/21 Status: Ordered ProAir HFA 90 mcg/inh inhalation aerosol 2 puffs, Inhalation, 4 times a day, PRN as needed for wheezing, # 8.5 Gm, 5 Refills, Maintenance, 12/23/21 15:54:00 EDT, Aerosol, [facility] Partial fill upon patient request if the prescription is for a schedule II opioid drug., 2 pu... Start Date: 12/23/21 Status: Ordered Qvar Redihaler 40 mcg/inh inhalation aerosol = 40 mcg, Inhalation, 2 times a day, brand name required by insurance. *discontinue after 1 month after symptoms have been controlled, # 8.7 Gm, 1 Refills, Maintenance, 12/18/21 12:42:00 EDT, [facility] Partial fill upon patient requ... Start [...] Personnel Name: Kehinde DOHERTY, [place] Address: Address: [address] [place] [address], [place] [address]-
--- OUTSIDE RECORDS SUMMARY | 2023-01-06 08:14 | XMS_ITS | Continuity of Care Document ---
Author Name Unknown Organization [facility] Address [address] [place] [address]- Care Team Providers Care Editor At Large Name Role Phone Kehinde DOHERTY, [facility] Primary Care Physician ( [phone] Encounter [facility] Date(s): 10/14/20 - 11/13/20 [facility] [address] [place], [place] [address] Attending Physician: Jt Santana Admitting [...] 2 Refills, Maintenance, 10/14/20 13:23:00 EDT, Tablet, [facility], 166.5, cm, 09/10/20 8:11:00 EDT, Height, 107, kg, 11/21/2020:00:00 EDT, Dry Weight Start Date: 10/14/20 Stop Date: 01/12/21 Status: Ordered dapsone 100 mg oral tablet 1 tablet = 100 mg, By Mouth, Daily, # 30 tablet, 0 Refills, Maintenance, 06/27/20 10:11:00 EDT, Tablet, [facility] fill upon patient request if the prescription is for a schedule II opioid drug., 166.5, cm, 06/27/20 9:31:00 ED... Start Date: 06/27/20 Status: Ordered gabapentin 400 mg oral capsule 400 mg, 1, capsule, By Mouth, 3 times a day, # 42 capsule, Refills 6, Tot. Refills 6, Maintenance, 06/18/20 8:10:00 EDT, Route to Pharmacy Electronically, [facility], 166.5, cm, 06/18/20 7:58:00 EDT, Height, 107, kg, 11/22/19 21:00:00... Start Date: 06/18/20 Stop Date: 09/24/20 Status: Ordered Genvoya oral tablet 1 tablet, By Mouth, Daily, WITH FOOD., # 30 tablet, 1 Refills, Maintenance, 09/24/20 19:51:00 EDT, [facility], 1 tablet By Mouth Daily,x30 days,Instr:WITH FOOD., 166.5, cm, 09/10/20 8:11:00 EDT, Height, 107, kg, 11/22/19 21:00:00 EDT,... Start Date: 09/24/20 Stop Date: 11/23/20 Status: Ordered hydrOXYzine hydrochloride 25 mg oral tablet 1 tablet = 25 mg, By Mouth, 4 times a day, PRN for anxiety, for 30 days, # 60 tablet, 1 Refills, Acute 12/06/20 14:36:00 EDT, 10/07/20 14:36:00 EDT, Tablet, [facility], Partial fill upon patient request if the prescription is for a roya... Start Date: 10/07/20 Stop Date: 12/06/20 Status: Ordered zolpidem 10 mg oral tablet 1 tablet = 10 mg, By Mouth, Daily at bedtime, PRN as needed for insomnia, # 28 tablet, 3 Refills, Maintenance, 10/18/20 16:32:00 EDT, Tablet, [facility], 166.5, cm, 09/10/20 8:11:00 [...]
--- OUTSIDE RECORDS SUMMARY | 2023-01-06 08:14 | XMS_ITS | Continuity of Care Document ---
Author Name Unknown Organization [facility] y Address [address] [place] [address]- Care Team Providers Care Record Press Tender Name Role Phone Stanford MCNEAL, Shea Smith Primary Care Physician Encounter [facility] Date(s): 06/27/19 - 07/07/19 [facility] [address] [place] [address]- Attending Physician: Jt Santana Admitting Physician: AdmJt lea Referring Physician: Admtr, ArConcha Allergies, Adverse Reactions, Alerts Substance Reaction Severity [...] Date: 10/27/18 Stop Date: 02/24/19 Status: Ordered desonide 0.05% topical cream 1 application, Topically, 2 times a day, for 14 days, # 60 Gm, 1 Refills, Acute 07/25/19 12:30:00 EDT, 06/27/19 12:30:00 EDT, Cream, [id number], apply sparingly to rei ears., 1 application Topically 2 times a day,x14 days, 166.5, cm, 10/27/18... Start Date: 06/27/19 Stop Date: 07/25/19 Status: Ordered gabapentin 100 mg oral capsule 200 mg, 2, capsule, By Mouth, Daily at bedtime, # 60 capsule, Refills 1, Tot. Refills 1, Maintenance, 10/27/18 12:22:39 EDT, Route to Pharmacy Electronically, [id number], [id number] Start Date: 10/27/18 [...] day, # 14 tablet, 0 Refills, Maintenance, 06/27/19 12:27:00 EDT, Tablet, [id number], 166.5, cm, 10/27/18 11:01:00 EDT, Height Start Date: 06/27/19 Stop Date: 07/04/19 Status: Ordered Vitamin D 14928 iu oral capsule 50,000 International_Units, 1, capsule, By Mouth, Every week, # 5 capsule, Refills 1, Tot. Refills 1, Maintenance, 06/08/18 6:27:29 EDT, Route to Pharmacy Electronically, NCPDP_[id number], [facility] Start Date: 06/08/18 Stop [...]
--- OUTSIDE RECORDS SUMMARY | 2023-01-06 08:14 | XMS_ITS | Continuity of Care Document ---
Author Name Unknown Organization [facility] y Address [address] [place] [address]- Care Team Providers Care Traveling Sales Executive Name Role Phone Kehinde DOHERTY, [facility] Primary Care Physician Encounter [facility] Date(s): 11/28/20 - 01/02/21 [facility] [address] [place], [place] [address] Attending Physician: Ovidio Sawyer MD Admitting [...] 2 Refills, Maintenance, 10/14/20 13:23:00 EDT, Tablet, [facility], 166.5, cm, 09/10/20 8:11:00 EDT, Height, 107, kg, 11/21/2020:00:00 EDT, Dry Weight Start Date: 10/14/20 Stop Date: 01/12/21 Status: Ordered dapsone 100 mg oral tablet 1 tablet = 100 mg, By Mouth, Daily, # 30 tablet, 0 Refills, Maintenance, 06/27/20 10:11:00 EDT, Tablet, [facility], [facility] fill upon patient request if the prescription is for a schedule II opioid drug., 166.5, cm, 06/27/20 9:31:00 ED... Start Date: 06/27/20 Status: Ordered gabapentin 400 mg oral capsule 400 mg, 1, capsule, By Mouth, 3 times a day, # 42 capsule, Refills 6, Tot. Refills 6, Maintenance, 06/18/20 8:10:00 EDT, Route to Pharmacy Electronically, [facility] 166.5, cm, 06/18/20 7:58:00 EDT, Height, 107, kg, 11/22/19 21:00:00... Start Date: 06/18/20 Stop Date: 09/24/20 Status: Ordered Genvoya oral tablet 1 tablet, By Mouth, Daily, WITH FOOD., # 30 tablet, 3 Refills, Maintenance, 12/29/20 16:31:00 EDT, [facility], 1 tablet By Mouth Daily,x30 days,Instr:WITH FOOD., 167, cm, 12/11/20 14:48:00 EDT, Height, 107, kg, 11/22/19 21:00:00 EDT, D... Start Date: 12/29/20 Stop Date: 04/28/21 Status: Ordered hydrOXYzine hydrochloride 25 mg oral tablet See Instructions, TAKE 1 TABLET BY MOUTH FOUR TIMES A DAY NEEDED FOR ANXIETY, # 60 tablet, 1 Refills, [facility], 166.5, cm, 11/06/20 15:04:00 EDT, Height, 107, kg, 11/22/19 21:00:00 EDT, Dry Weight Start Date: 11/27/20 Status: Ordered zolpidem 10 mg oral tablet 1 tablet = 10 mg, By Mouth, Daily at bedtime, PRN as needed for insomnia, # 28 tablet, 3 Refills, Maintenance, 10/18/20 16:32:00 EDT, Tablet, [facility], 166.5, cm, 09/10/20 8:11:00 [...]
--- NOTE | 2023-01-08 10:06 | A.OFFVIS_ITS ---
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 Allergies sulfamethoxazole [From Bactrim] Allergy (Mild, Verified 01/08/23 10:06) Hives trimethoprim [From Bactrim] Allergy (Mild, Verified 01/08/23 10:06) Hives Medication List - Last Reconciled 01/08/23 by Norberto Pritchard MD clonazepam 2 mg PO DAILY yactjoc-uzr-ahidi-tenof alafen [id number] mg (Genvoya) 1 tab PO DAILY zolpidem (Ambien) 10 mg PO BEDTIME HPI 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 HPI Details Start time: 10.00am, End time: 10.39am ?I spent 34 minutes speaking with the patient on the phone plus an additional 5 minutes reviewing and updating records for a total of 39 minutes HPI Comments History of Present Illness Details Previous weight loss efforts: exercise and self diets Wakes up: 8.15am, Sleeps: 12am Breakfast: skips Lunch: 12pm (greenlandic fries) Dinner: 8pm (tacos, steak and potatoes, chicken) Snacks: 9-10am (bagel with cream cheese or chips), 3-4pm (chips, cheese and crackers) Exercise: outside walking Fluids: Coffee: 2 cups per day (cream and sugar), hot tea: one cup daily (honey), soda: Mountain dew 3 bottles per day, juice: lemonade 3 per week, ETOH: none PFSH Medical History (Updated 01/08/23 @ 10:09 by Norberto Pritchard MD) Ambien accidental overdose Insomnia Anxiety Delivery with history of Family History Mother No problems noted. Father No problems noted. Son No problems noted. Son No problems noted. Son Asthma Daughter No problems noted. Daughter No problems noted. Daughter No problems noted. Social History Alcohol intake: current Alcohol intake frequency: holidays/special occasions only Cigarettes Per Day: 15 Assessment & Plan Assessment & Plan (1) Obesity: Code(s): E66.9 - Obesity, unspecified Plan: 1.? Plan for lap sleeve gastrectomy. If diaphragmatic or ventral hernias are present at time of surgery, these will be repaired laparoscopically as well. Risks and complications were discussed in detail including possible conversion to an open procedure, anastomotic leak, bleeding requiring transfusion, small bowel obstruction, , DVT and pulmonary embolism, cardiac, or pulmonary complications, as chcf complications such as anastomotic ulcer, insufficient weight loss and vitamin deficiencies. I emphasized the importance of close follow-up, adherence to instructions and good communication. 2. Nutritional counseling. Start with 2 CELEBRATE REBUILD protein (buy at [facility] [employer]) shakes (ONE scoop EACH in 8oz low fat unsweetened almond milk each) at 9am-11am and 12pm-2pm, 1 protein bar (CELEBRATE protein bars, buy at [facility] [employer]) at 3pm-5pm, dinner at 6pm (10 forks of protein and 10 forks of salad/vegetables) AND one more protein bar after dinner at 8pm-10pm. If hungry, you can have another HALF Celebrate protein bar at 11pm-12am. So you do 2 protein shakes, 2 to 2.5 protein bars and one meal per day. Meal to include lean meat (beef, fish, pork, turkey, chicken), or argentine yogurt, or egg whites, or beans with a salad with olive oil and fruits (berries, pears, apples, kiwi). Avoid salt, breads, potatoes, rice, pasta, desserts. 3. Each shake would be drunk slowly, like coffee in a period of 2 hours. 4. Cut each bar in 4 pieces and eat each piece in 30min ?to make each bar last 2 hours. 5. I emphasized the importance of measuring accurately the food portion and measure it when serving the food in plate 6. The meal portions include 10 full-size forks of meat and 10 full-size forks of salad. You always eat the meat portion but you can replace up to 5 forks for salad/vegetables with rice, potatoes or pasta, or a fruit ?if you like. The less you do it the better weight loss will be. 7. One full-size fork is what it can be scooped on the fork without falling aside and not what can be bit with the fork. Use regular forks like those you find in a typical restaurant. 8.? Please send me weight measurements as soon as possible and then once a week. Always include your diet and exercise plan. 9. Start walking outside daily, tracking calories with a goal of 300 calories per day, daily. Goal is to burn 2000 calories per week on exercise, which means either 300 calories daily, or 400 calories 5 days per week, or 500 calories 4 days per week, or 650 calories 3 days per week. 10. Alternatively purchase a stationary bike, elliptical or treadmill at home that can track calories. Let me know if you do so I can give you an exercise plan. 11.?It is important of avoiding and for at least 18 months postoperatively and has been discussed at the infosession. 12. Goal is to lose at least 1.5-2lbs per week 13. Goal to lose 10% of your weight before surgery, which is about 24lbs. Ultimate weight goal: 218lbs before surgery 14. Please follow the diet plan exactly without any change. If you don't like something about the plan or you feel hungry you need to communicate with me so I can help you revise the plan. You should not change the plan yourself. (2) BMI 36.0-36.9,adult: Code(s): Z68.36 - Body mass index [BMI] 36.0-36.9, adult Orders: Orders Insulin Today E66.9 - Obesity, unspecified, Z68.36 - Body mass index [BMI] 36.0- 36.9, adult Complete Blood Count Auto Diff Today E66.9 - Obesity, unspecified, Z68.36 - Body mass index [BMI] 36.0-36.9, adult Zinc Today E66.9 - Obesity, unspecified, Z68.36 - Body mass index [BMI] 36.0- 36.9, adult Vitamin A Today E66.9 - Obesity, unspecified, Z68.36 - Body mass index [BMI] 36.0-36.9, adult C Reactive Protein Today E66.9 - Obesity, unspecified, Z68.36 - Body mass index [BMI] 36.0-36.9, adult TSH reflex Free T4 Today E66.9 - Obesity, unspecified, Z68.36 - Body mass index [BMI] 36.0-36.9, adult Hemoglobin A1c Today E66.9 - Obesity, unspecified, Z68.36 - Body mass index [BMI] 36.0-36.9, adult FL upper GI w air Today E66.9 - Obesity, unspecified, Z68.36 - Body mass index [BMI] 36.0-36.9, adult Lipid Panel Today E66.9 - Obesity, unspecified, Z68.36 - Body mass index [BMI] 36.0-36.9, adult IRON PROFILE Today E66.9 - Obesity, unspecified, Z68.36 - Body mass index [BMI] 36.0-36.9, adult Vitamin B12 and Folate Today E66.9 - Obesity, unspecified, Z68.36 - Body mass index [BMI] 36.0-36.9, adult Comprehensive Met. Panel Today E66.9 - Obesity, unspecified, Z68.36 - Body mass index [BMI] 36.0-36.9, adult Vitamin B1 Today E66.9 - Obesity, unspecified, Z68.36 - Body mass index [BMI] 36.0-36.9, adult Ferritin Today E66.9 - Obesity, unspecified, Z68.36 - Body mass index [BMI] 36.0-36.9, adult PTHI Today E66.9 - Obesity, unspecified, Z68.36 - Body mass index [BMI] 36.0- 36.9, adult H Pylori Breath Test Today E66.9 - Obesity, unspecified, Z68.36 - Body mass in dex [BMI] 36.0-36.9, adult Vitamin D 25-OH Total Today E66.9 - Obesity, unspecified, Z68.36 - Body mass index [BMI] 36.0-36.9, adult US abdomen comp w elastography Today E66.9 - Obesity, unspecified, Z68.36 - Body mass index [BMI] 36.0-36.9, adult XR chest 2V Today E66.9 - Obesity, unspecified, Z68.36 - Body mass index [BMI] 36.0-36.9, adult ECG 12 lead EKG Today E66.9 - Obesity, unspecified, Z68.36 - Body mass index [BMI] 36.0-36.9, adult Referrals Nutrition/Dietitian Referral E66.9 - Obesity, unspecified, Z68.36 - Body mass index [BMI] 36.0-36.9, adult Behavioral Health Referral E66.9 - Obesity, unspecified, Z68.36 - Body mass index [BMI] 36.0-36.9, adult Telehealth Telehealth Location of provider rendering services: practice address Location of patient: address on file Patient Identification confirmed using: Name, : Yes Telehealth method: voice only Patient verbally consented to treatment: Yes Patient verbally consented to billing insurance company: Yes Patient informed of any privacy concerns related to visit: Yes Minutes spent on Phone/Video with Pt.: 39 Coding Level of Care Code Tele New Pt Level 3 (86522) Diagnoses Obesity E66.9 BMI 36.0-36.9,adult Z68.36 Time Spent (min) 39
[2023-01-08 10:20] VITALS: BMI 36.8
== END 2023-01-08 10:40 | disposition home or self-care (01) ==
PROVIDERS: Visit Provider Surgery
DX: E66.9 Obesity, unspecified (principal); Z68.36 Body mass index [BMI] 36.0-36.9, adult
CPT/HCPCS: 99203

== ENCOUNTER → 2023-01-08 07:47 | Outpatient (BNVA) | payer OTHER, SELFPAY | PROVIDERS: Visit Provider Surgery ==

== ENCOUNTER → 2023-02-02 10:28 | Outpatient (BNVA) | payer OTHER, SELFPAY | PROVIDERS: Visit Provider Dietitian, Registered | DX: E66.9 Obesity, unspecified (principal) | CPT/HCPCS: 97802 ==

== ENCOUNTER 2023-02-04 10:25 | Outpatient (AMB) | payer OTHER, SELFPAY ==
--- NOTE | 2023-02-04 10:07 | MHC.WMTHER ---
Intake Intake Visit Reasons: VIDEO BH Intake Allergies sulfamethoxazole [From Bactrim] Allergy (Mild, Verified 01/08/23 10:06) Hives trimethoprim [From Bactrim] Allergy (Mild, Verified 01/08/23 10:06) Hives [facility] Medical History (Updated 01/08/23 @ 10:09 by Norberto Pritchard MD) Ambien accidental overdose Insomnia Anxiety Delivery with history of Family History Mother No problems noted. Father No problems noted. Son No problems noted. Son No problems noted. Son Asthma Daughter No problems noted. Daughter No problems noted. Daughter No problems noted. Social History Alcohol intake: current Alcohol intake frequency: holidays/special occasions only Cigarettes Per Day: 15 Behavioral Health Assessment Weight Management Therapy Therapy Notes Details Patient is looking to have weight loss surgery to help improve her giovanna and quality. She reported that her primary care doctor referred her to the program. Patient reported that she sees a therapist Padmini Drake [phone] also a psychiatrist who gives her medication for insomnia and anxiety. No previous psychiatric admissions. Pt has no history of eating disorder or symptoms of per her report. Pt denied a history of alcohol or drug abuse. Presenting Concerns Referral Source provider Reason for referral weight loss surgery evaluation Precipitating Event obesity Living Situation Current Living Situation Rent At risk of losing current housing? No Satisfied with current living situation? No Comments patient is looking to move to a safer area, she lives with her 6 year old and 15 year old twins. Food/Weight/Diet Expectations of change weight loss and maintenance History/Relationship with food Patient stated that her issue is not with food but loosing the weight . History/Relationship with weight Patient stated that her weight has been a struggle on and off for a few years. History/Relationship with dieting patient denied any formal diets, but would try to loose weight on her own. Social History Developmental history and status no issues Social support mom, friend Legal Involvement and History Current or historical involvement with the legal system? none Education Highest grade completed high school Preferred learning style Auditory, Verbal, Written, Learn by doing and Visual Currently enrolled in educational program? No Interested in further educational program? No Employment Employment Status Unemployed Wants help to find employment? No Financial Situation Describe current financial situation Often struggles with finance Financial assistance? Food [place] and [employer] Service Service? No Mental Health and Addiction Treatment Current/Past substance abuse? No Current/Past addictive behavior concerns? No Medical and Physical Health Summary Physical exam in the last year? Yes Pain Screening Current pain? No Pain in the last few months? No Medications Is the patient compliant with medications? Yes Does the patient have Villela Guardian in place? Not applicable Does the patient use complimentary health approaches? No Trauma/Abuse History History of trauma? Yes Questionnaires PHQ-9 Over the last 2 weeks, how often have you been bothered by any of the following problems? 1. Little interest or pleasure in doing things: several days 2. Feeling down, depressed, or hopeless: not at all 3. Trouble falling or staying asleep, or sleeping too much: nearly every day 4. Feeling tired or having little energy: more than half the days 5. Poor appetite or overeating: several days 6. Feeling bad about yourself - or that you are a failure or have let yourself or your family down: more than half the days 7. Trouble concentrating on things, such as reading the newspaper or watching television: not at all 8. Moving or speaking so slowly that other people could have noticed. Or the opposite - being so fidgety or restless that you have been moving around a lot more than usual: not at all 9. Thoughts that you would be better off or of hurting yourself in some way: not at all Total score: 9 Depression Screening Interpretation: Positive Depression Screening Done: Yes Source: Developed by Drs. Shay Choudhury, Neli Back, Rk Anderson and colleagues, with an educational farhad from [employer]. Binge Eating Scale Group 1 A. I don't feel self-conscious about my wt. or body size when I'm with others. B. I feel concerned about how I look to others, but it normally does not make me fell disappointed with myself C. I do get self-conscious about my appearance and wt. which makes me feel disappointed in myself. D. I feel very self-conscious about my wt. and frequently I feel intense shame and disgust for myself. I try to avoid social contacts because of my self-consciousness. Response Group 1: D Group 2 A. I don't have any difficulty eating slowly in the proper manner. B. Although I seem to gobble down foods, I don't end up feeling stuffed because of eating to much. C. At times, I tend to eat quickly and then, I feel uncomfortably full afterwards. D. I have the habit of bolting down my food, without really chewing it. When this happens I usually feel uncomfortably stuffed because I've eaten to much. Response Group 2: D Group 3 A. I feel capable to control my eating urges when I want to. B. I feel like I have failed to control my eating more than the average person. C. I feel utterly helpless when it comes to feeling in control of my eating urges. D. Because I feel so helpless about controlling my eating I have become very desperate about trying to get control. Response Group 3: D Group 4 A. I don't have the habit of eating when I'm bored. B. I sometimes eat when I'm bored, but often I'm able to get busy and get my mind off food. C. I have a regular habit of eating when I'm bored, but occasionally, I can use some other activity to get my mind off eating. D. I have a strong habit of eating when I'm bored. Nothing seems to help me breath the habit. Response Group 4: D Group 5 A. I'm usually physically hungry when I eat something. B. Occasionally, I eat something on impulse even though I really am not hungry. C. I have the regular habit of eating foods, that I might not really enjoy, to satisfy a hungry feeling even though physically, I don't need the food. D. Although I'm not physically hungry, I get a hungry feeling in my mouth that only seems to be satisfied when I eat a food, like sandwich, that fills my mouth. Sometimes, when I eat the food to satisfy my mouth hunger, I then spit the food out so I won't gain weight. Response Group 5: C Group 6 A. I don't feel any guilt or self-hate after I overeat. B. After I overeat, occasionally I feel guilt or self-hate. C. Almost all the time I experience strong guilt or self-hate after I overeat. Response Group 6: C Group 7 A. I don't lose total control of my eating when dieting even after periods when I overeat. B. Sometimes when I eat a forbidden food on a diet, I feel like I blew it and eat even more. C. Frequently, I have the habit of saying to myself, I've blown it now, why not go all the way, when I overeat on a diet. When that happens I eat more. D. I have a regular habit of starting a strict diets for myself but I break the diets by going on an eating binge. My life seems to be either a feast or famine. Response Group 7: C Group 8 A. I rarely eat so much food that I feel uncomfortably stuffed afterwards. B. Usually about once a month, I each such a quantity of food, I end up feeling very stuffed. C. I have regular periods during the month when I eat large amounts of food, either at mealtime or at snacks. D. I eat so much food that I regularly feel quite uncomfortable after eating and sometimes a bit nauseous. Response Group 8: D Group 9 A. My level of calorie intake does not go up very high or go down very low on a regular basis. B. Sometimes after I overeat, I will try to reduce my caloric intake to almost nothing to compensate for the excess calories I've eaten. C. I have a regular habit of overeating during the night. It seems that my routine is not to be hungry in the morning but overeat in the evening. D. In my adult years, I have had week-long periods where I practically starve myself. This follows periods when I overeat. It seems I live a life of either feast or famine. Response Group 9: C Group 10 A. I usually am able to stop eating when I want to. I know when enough is enough. B. Every so often, I experience a compulsion to eat which I can't seem to control. C. Frequently, I experience strong urges to eat which I seem unable to control, but at other times I can control my eating urges. D. I feel incapable of controlling urges to eat. I have a fear of not being able to stop eating voluntarily. Response Group 10: C Group 11 A. I don't have any problem stopping eating when I feel full. B. I usually can stop eating when I feel full but occasionally overeat leaving me feeling uncomfortably stuffed. C. I have a problem stopping eating once I start and usually I feel uncomfortably stuffed after I eat a meal. D. Because I have a problem not being able to stop eating when I want, I sometimes have to induce vomiting to relieve my stuffed feeling. Response Group 11: B Group 12 A. I seem to eat just as much when I'm with others, Family social gatherings as when I'm by myself. B. Sometimes, when I'm with other persons, I don't eat as much as I want to eat because I'm self-conscious about my eating. C. Frequently, I eat only a small amount of food when others are present, because I'm very embarrassed about my eating. D. I feel so ashamed about overeating that I pick times to overeat when I know no one will see me. I feel like a closet eater. Response Group 12: C Group 13 A. I eat three meals a day with only an occasional between meal snack. B. I eat 3 meals a day, but I also normally snack between meals. C. When I am snacking heavily, I get in the habit of skipping regular meals. D. There are regular periods when I seem to be continually eating, with no planned meals. Response Group 13: C Group 14 A. I don't think much about trying to control unwanted eating urges. B. At least some of the time, I feel my thoughts are pre-occupied with trying to control my eating urges. C. I feel that frequently I spend much time thinking about how much I ate or about trying not to eat anymore. D. It seems to me that most of my waking hours are pre-occupied by thoughts about eating or not eating. I feel like I'm constantly struggling not to eat. Response Group 14: D Group 15 A. I don't think about food a great deal. B. I have strong craving for food but they last only for brief periods of time. C. I have days when I can't seem to think about anything else but food. D. Most of my days seem to be pre-occupied with thoughts about food. I feel like I live to eat. Response Group 15: A Group 16 A. I usually know whether or not I'm physically hungry. I take the right portion of food to satisfy me. B. Occasionally, I feel uncertain about knowing whether or not I'm physically hungry. A these times it's hard to know how much food I should take to satisfy me. C. Even though I might know how many calories I should eat, I don't have any idea what is a normal amount of food for me. Response Group 16: C Binge Eating Score: 35 Score less than 17 Minimal Risk Score between 18-26 Moderate Risk Score between 27-46 High Risk Assessment & Plan Assessment & Plan (1) Anxiety: Code(s): F41.9 - Anxiety disorder, unspecified (2) Insomnia: Code(s): G47.00 - Insomnia, unspecified (3) BMI 36.0-36.9,adult: Code(s): Z68.36 - Body mass index [BMI] 36.0-36.9, adult Plan Patient denied any issues with food, stated that her issues is with loosing weight . She scored very high on the binge eating scale. 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 Telehealth Telehealth Location of provider rendering services: other Location of patient: address on file Patient Identification confirmed using: Name, : Yes Telehealth method: video Patient verbally consented to treatment: Yes Patient verbally consented to billing insurance company: Yes Patient informed of any privacy concerns related to visit: Yes Minutes spent on Phone/Video with Pt.: 40 Coding Level of Care Code Tele Psy Diag Eval (87170) Diagnoses Anxiety F41.9 Insomnia G47.00 BMI 36.0-36.9,adult Z68.36 Time Spent (min) 40
== END 2023-02-04 10:41 | disposition home or self-care (01) ==
LOC: HO.HBST 10:25
PROVIDERS: Visit Provider Counselor Mental Health
DX: F41.9 Anxiety disorder, unspecified (principal); G47.00 Insomnia, unspecified; Z68.36 Body mass index [BMI] 36.0-36.9, adult
CPT/HCPCS: 90791

== ENCOUNTER → 2023-02-04 10:25 | Outpatient (BNVA) | payer OTHER, SELFPAY | PROVIDERS: Visit Provider Counselor Mental Health ==